=== PATIENT | male | born 1950 | race Caucasian/White ===

== ENCOUNTER 2021-10-21 11:46 | Inpatient (IN) | payer MEDICARE, OTHER, SELFPAY ==
[2021-10-21] VITALS (19 sets, daily range): BP systolic 84–109; BP diastolic 55–79; PULSE 124–180; RESP 16–28; TEMP 35.7–36.6; O2SAT 90–97; BMI 28.2
--- NOTE | ~2021-10-21 | CT_ITS ---
EXAMINATION: CT abdomen pelvis wo con EXAM DATE: 10/27/2021 12:14 INDICATION: Colitis. TECHNIQUE: Spiral CT of the abdomen and pelvis was performed without contrast. Axial, coronal and s agittal images of the abdomen and pelvis were reviewed. The dose-length product (DLP) for this exami nation was 439.30 mGy-cm. The exposure was tailored according to patient size (auto mA exposure cont rol), and iterative reconstruction (ASIR) was used as additional dose reduction technique. Comparison is made to prior examination from 10/21/2021. FINDINGS: There is been interval development of rather extensive pericholecystic inflammation. There are small gallstones. Moderate amount of gallbladder distention. Appearance suggests acute cholecysti tis. Again there is inflammation surrounding the right renal pelvis without hydronephrosis or nephrolithia sis identified. Correlate with urinalysis. Adrenal glands and spleen are unremarkable. The liver, spleen, adrenal glands are unremarkable. Several pancreatic calcifications, chronic pancre atitis. There is moderate prostatomegaly. The bladder is collapsed with Hewitt catheter balloon ancho r inside. There is pericystic fat stranding, could indicate cystitis. There is no retroperitoneal or pelvic lymphadenopathy. Small right inguinal fat-containing hernia. There are no findings to suggest appendicitis. There is moderate sigmoid colonic diverticulosis. The re is no adjacent inflammatory change to suggest diverticulitis. No focal colonic wall thickening T here is small sliding gastroesophageal hiatal hernia. There is colonic fluid, correlate for diarrhea . No free intraperitoneal gas. The heart is normal in size. There are no pericardial or pleural effusions. The lung bases are unremarkable. There are no osteoblastic or osteolytic lesions identif ied. Old right ileal fracture. IMPRESSION: 1. Interval development of rather extensive pericholecystic inflammation suggesting acute cholecysti tis. 2. Persistent inflammation surrounding right renal pelvis and some bladder wall thickening. Could in dicate cystitis or upper UTI. Correlate with urinalysis. 3. Colonic fluid, correlate for diarrhea. 4. Prostatomegaly. Hewitt in position. 5. Sigmoid diverticulosis. Reviewed, dictated and finalized at location A. IMPRESSION: 1. Interval development of rather extensive pericholecystic inflammation sugge sting acute cholecystitis. 2. Persistent inflammation surrounding right renal pelvis and some bladder wal l thickening. Could indicate cystitis or upper UTI. Correlate with urinalysis. 3. Colonic fluid, correlate for diarrhea. 4. Prostatomegaly. Hewitt in position. 5. Sigmoid diverticulosis.
--- NOTE | ~2021-10-21 | CT_ITS ---
EXAMINATION: CT chest abdomen pelvis wo con DATE: 10/21/2021 13:20 INDICATION: Fall with large abrasions and bruising at the left flank TECHNIQUE: Computed tomography (CT) of the chest, abdomen, and pelvis was performed without intraveno us contrast. Automated exposure control and iterative reconstruction technique were employed. The dos e-length product was 964.55 mGy-cm. COMPARISON: None FINDINGS: CHEST CT: Mild dependent atelectasis in the bilateral lower lobes. No pneumonia, pulmonary edema, pleural effus ion or pneumothorax. Small sliding-type hiatal hernia which accounts for the opacity medial left lung base on the prior radiographs. Cardiomegaly. No pericardial effusion. Thoracic aorta is normal in ca liber with no suggestion of acute traumatic aortic injury. No pathologically enlarged thoracic lympha denopathy. There are a few old healed left rib fractures. Suggestion of acute nondisplaced fractures at the lateral lower chest involving the anteriormost left 10th and 11th ribs. Small subcutaneous con tusion at the posterolateral left chest and upper abdominal wall near the level of T11 and T12. Mild thoracic spondylosis. ABDOMEN/PELVIS CT: Liver, gallbladder, spleen, pancreas, bilateral adrenal glands and bilateral kidneys are normal. Ther e is mild bilateral perinephric stranding with more prominent stranding centered about the right meryl l pelvis. No evident urolithiasis. There are some gas and a Hewitt catheter within the decompressed bl adder. Prostatomegaly measuring 6.0 x 4.9 cm. There is mild colonic diverticulosis with a sigmoid pre dominance. There is no adjacent inflammatory change to suggest diverticulitis. No bowel obstruction . The appendix is not visualized. No pericecal inflammatory change to suggest acute appendicitis. No free intraperitoneal gas or fluid. No pathologically enlarged abdominal or pelvic lymphadenopathy. Sm all amount of atherosclerotic calcific a cyst along the normal caliber abdominal aorta. Old healed fr acture along the anterior right ilium. Mild lumbar spondylosis. IMPRESSION: 1. A couple acute appearing nondisplaced anterior left 10th and 11th rib fractures. 2. No acute vascular or visceral organ injury in the chest, abdomen or pelvis. 3. Small sliding-type hiatal hernia. 4. Prominent inflammatory stranding surrounding the right renal pelvis without evident hydronephrosis or urolithiasis and particularly given the presence of a Hewitt catheter in the bladder raising minoo rn for ascending urinary tract infection with pyelitis. Correlate with urinalysis. Reviewed, dictated and finalized at location A. IMPRESSION: 1. A couple acute appearing nondisplaced anterior left 10th and 11th rib fractu res. 2. No acute vascular or visceral organ injury in the chest, abdomen or pelvis. 3. Small sliding-type hiatal hernia. 4. Prominent inflammatory stranding surrounding the right renal pelvis without evident hydronephrosis or urolithiasis and particularly given the presence of a Hewitt catheter in the bladder raising concern for ascending urinary tract infe ction with pyelitis. Correlate with urinalysis.
--- NOTE | ~2021-10-21 | XR_ITS ---
EXAMINATION: XR chest 1V portable EXAM DATE: 10/21/2021 12:19 INDICATION: Chest pain. TECHNIQUE: Portable AP frontal chest x-ray was obtained. There is no prior study for comparison. FINDINGS: Retrocardiac double density, probably a gastroesophageal hiatal hernia. Can patient stand f or PA and lateral projection? The lungs are otherwise clear. There are no pleural effusions. The ca rdiomediastinal silhouette is within normal limits. There is no pneumothorax suspected. There are o ld left rib fractures. IMPRESSION: Retrocardiac double density, probably a gastroesophageal hiatal hernia. Can patient stand for PA and lateral projection? Reviewed, dictated and finalized at location B. IMPRESSION: Retrocardiac double density, probably a gastroesophageal hiatal her dinah. Can patient stand for PA and lateral projection?
--- NOTE | ~2021-10-21 | XR_ITS ---
EXAMINATION: XR catheter cholangiogram DATE: 10/31/2021 10:49 INDICATION: Acute cholecystitis. TECHNIQUE: I injected the cholecystostomy tube with Omnipaque 240 under fluoroscopy. 8 fluoroscopic i mages of the abdomen were obtained. Fluoroscopy exposure time was 0.3 minutes. COMPARISON: CT abdomen and pelvis 10/27/2021 FINDINGS: The catheter is in expected position in the gallbladder. The cystic duct and common duct ar e patent. The common duct is normal in caliber. Contrast passes to the duodenum. No choledocholithias is. IMPRESSION: 1. Patent cystic duct and common duct. Reviewed, dictated and finalized at location A.
--- NOTE | ~2021-10-21 | CT_ITS ---
EXAMINATION: CT brain wo con, CT cervical spine wo con EXAM DATE: 10/21/2021 16:02 (accession [id number]), 10/21/2021 16:03 (accession [id number]) INDICATION: Fall, generalized head and neck pain on left side. TECHNIQUE: Spiral CT of the head was performed without contrast. Axial, coronal and sagittal images were reviewed. Spiral CT of the cervical spine was performed without contrast. Axial images were rev iewed. Coronal and sagittal reformatted images were also reviewed. The dose-length product (DLP) fo r this examination was 605.33 (accession [id number]), 380.19 (accession [id number]) mGy-cm. The exposure was tailored according to patient size, and iterative reconstruction (ASIR) was used as additional dose reduction technique. There is no prior study for comparison. FINDINGS: HEAD CT: There is no acute intraparenchymal hemorrhage. No evidence of intraparenchymal brain mass lesion. No evidence of acute infarction. There is mild periventricular and subcortical hypodensity, nonspecific but probably related to small vessel ischemic disease. There is mild prominence of the s ulci and ventricles related to cerebral atrophy. There is no mass effect or midline shift. There i s no obstructive hydrocephalus suspected. There are no extra-axial collections. There are no acute calvarial fractures. The orbits are unremarkable. Soft tissue is unremarkable. The visualized sinu ses and mastoid air cells are well aerated. CERVICAL CT: There is no evidence of acute cervical fracture. The odontoid process is intact. Pre- dens space is normal. Prevertebral soft tissue is normal. There are no soft tissue abnormalities id entified. There is no disc space widening or traumatic vertebral body subluxation suspected. Modera te disc disease at C5-6, mild at the other cervical levels. Overall mild to moderate cervical arthrop athy. A detailed level by level evaluation of spondylosis can be added as addendum if requested. IMPRESSION: No acute intracranial findings or cervical fracture. Reviewed, dictated and finalized at location B. IMPRESSION: No acute intracranial findings or cervical fracture.
--- NOTE | ~2021-10-21 | US_ITS ---
EXAMINATION: US renal BI DATE: 10/22/2021 08:02 INDICATION: Acute kidney injury TECHNIQUE: Multiple grayscale and Doppler ultrasound images of the kidneys were obtained. COMPARISON: CT from yesterday FINDINGS: The right kidney measures 10.2 x 5.6 x 5.9 cm. The left kidney measures 11.8 x 4.7 x 6.7 cm . The kidneys demonstrate normal parenchymal echogenicity. There is mild right hydronephrosis. The bl adder is decompressed by Hewitt catheter. IMPRESSION: 1. Mild right hydronephrosis. Reviewed, dictated and finalized at location A.
--- NOTE | ~2021-10-21 | US_ITS ---
EXAMINATION: US perc cholecystostomy w imag DATE: 10/28/2021 12:39 INDICATION: Acute cholecystitis. TECHNIQUE: The procedure including the risks, benefits, and alternatives was discussed with the patie nt. Risks discussed included bleeding and infection. Oral and written consent were obtained. A time out was performed to verify the patient's name, date of , and procedure to be performed. The pa tient was confirmed to be receiving appropriate antibiotic coverage. The skin overlying the liver an d gallbladder was prepped and draped in usual sterile fashion. Anesthetic was administered with 1% l idocaine subcutaneously. An 8.5 Fr catheter was inserted into the gallbladder by trocar technique. T he metal stiffener and trocar needle were removed, and the pigtail tip was locked. Bile was aspirated and sent for culture. The catheter was stitched to the skin with suture. There were no immediate com plications. FINDINGS: Ultrasound images demonstrate the catheter within the gallbladder. 5 mL bile was aspirated. IMPRESSION: 1. Successful ultrasound-guided cholecystostomy tube placement. 2. 5 mL brown, opaque bile was sent for aerobic and anaerobic cultures. 3. A catheter cholangiogram may be performed not less than 48 hours after tube placement if clinicall y indicated to assess cystic duct patency. If cholecystectomy is not eventually performed and the inf ectious episode has resolved, the tube may be removed over a guidewire, preferably not less than 3 we eks after placement to allow time for a mature catheter tract to form to prevent bile leakage and per itonitis. Reviewed, dictated and finalized at location A. IMPRESSION: 1. Successful ultrasound-guided cholecystostomy tube placement. 2. 5 mL brown, opaque bile was sent for aerobic and anaerobic cultures. 3. A catheter cholangiogram may be performed not less than 48 hours after tube placement if clinically indicated to assess cystic duct patency. If cholecystec leonidas is not eventually performed and the infectious episode has resolved, the t ube may be removed over a guidewire, preferably not less than 3 weeks after gaurav cement to allow time for a mature catheter tract to form to prevent bile leakag e and peritonitis.
--- NOTE | 2021-10-21 11:51 | ECG_ITS ---
Measurements Intervals [place] Rate: 164 P: OK: 0 QRS: -10 QRSD: 100 T: 9 QT: 285 QTc: 471 Interpretive Statements ATRIAL FIBRILLATION WITH RAPID VENTRICULAR RESPONSE NONSPECIFIC ST & T-WAVE ABNORMALITY ABNORMAL ECG NO PREVIOUS ECG AVAILABLE FOR COMPARISON Electronically Signed On 10-21-2021 17:23:26 CDT by Jakob Hui M.D.
[2021-10-21 12:09] LABS: Hemoglobin 15.4 g/dL (14.0-18.0); Mean Corpuscular HGB Conc 36.7 g/dl (32-36); Mean Corpuscular Hemoglobin 31.8 pg (26-34); Mean Corpuscular Volume 86.6 fl (80-100); Mean Platelet Volume 10.3 fl (7.4-10.4); Platelet Count Result 420 k/mm3 (150-375); Red Blood Count 4.85 M/mm3 (4.6-6.20); Red Cell Distribution Width 13.4 % (11.5-14.5)
[2021-10-21] MEDS: dilTIAZem HCl INJ 25 MG/5 ML VIAL 10 MG IV PUSH (12:19)
[2021-10-21] MEDS: SODIUM CHLORIDE 0.9% IV 1,000 ML 999 ML IV CONT ×2 (12:21→12:46)
[2021-10-21 12:22] LABS: Eosinophils Absolute Manual 1.24 K/mm3 (0.02-0.5); Eosinophils Percent Manual 4 % (0-4); Lymphocytes Absolute Manual 1.55 K/mm3 (1.1-4.5); Monocytes Absolute Manual 1.24 K/mm3 (0.1-0.90); Monocytes Percent Manual 4 % (3-9); Neutrophils Percent Manual 87 % (46-73); Platelet Estimate Adequate (Adequate); Total Cells Counted 100
[2021-10-21] MEDS: dilTIAZem 100 MG/100 ML 100 MG/100 ML BAG IV CONT (12:22)
[2021-10-21 12:23] LABS: INR 1.2; Prothrombin Time 14.6 Seconds (11.1-14.7)
[2021-10-21 12:23] LABS: Lactic Acid Reflex 3.8 mmol/L (0.7-2.1)
[2021-10-21 12:27] LABS: Alanine Aminotransferase 66 U/L (4-50); Albumin Level 3.8 g/dL (3.5-5.1); Alkaline Phosphatase 95 U/L (38-126); Anion Gap 25 mmol/L (8-16); Aspartate Amino Transferase 124 U/L (17-59); Bilirubin,Total 1.2 mg/dL (0.2-1.3); Calcium 8.5 mg/dL (8.4-10.2); Carbon Dioxide 10 mmol/L (22-30); Chloride 86 mmol/L (98-107); Glucose 237 mg/dL (65-110); Lipase 439 U/L (23-300); Magnesium 2.7 mg/dL (1.6-2.3); Potassium 4.7 mmol/L (3.4-5.0); Sodium 121 mmol/L (137-145)
[2021-10-21 12:34] LABS: Troponin I 0.024 ng/mL (0.000-0.034)
[2021-10-21 12:37] LABS: Estimated CRCL calculation 5 ml/min; Estimated Glomerular Filt Rate 5
[2021-10-21 12:39] LABS: Blood Urea Nitrogen 159 mg/dL (9-20)
[2021-10-21 12:44] LABS: Creatine Kinase 4734 U/L (55-170)
--- NOTE | 2021-10-21 12:57 | ED.GENADULT ---
HPI - General Adult General Chief complaint: Arrhythmia/Palpitations Stated complaint: FALL - out of bed Time Seen by Provider: 10/21/21 11:53 Source: patient, EMS and RN notes reviewed Mode of arrival: EMS Limitations: no limitations History of Present Illness HPI narrative: Patient is a 71 years old white male brought to the emergency room by ambulance after finding him on the floor, awake but unable to get up. Patient reports that he was severely exhausted, unable to manage his tax paper, severely stressed about it and then gave up and went down to the floor for unknown reason. Patient denies any suicidal or homicidal ideation. Patient lives alone, no family members around. Currently patient denies any fever, chills, nausea, vomiting, chest pain, shortness of breath, abdominal pain, back pain, headache. Or any other symptoms. Patient would like to go home. Patient requested to be DNR, and he declined any invasive procedure. Related Data Home Medications Medication Instructions Recorded Confirmed aspirin 81 mg tablet,delayed 81 mg PO DAILY 10/27/19 10/21/21 release multivitamin 1 tablet PO DAILY 05/02/21 10/21/21 Allergies Allergy/AdvReac Type Severity Reaction Status Date / Time No Known Allergies Allergy Verified 05/02/21 08:26 Review of Systems Review of Systems: CONSTITUTIONAL: Denies fever, chills, or sweats. EYES: Denies visual changes, redness, or discharge. ENT: Denies rhinorrhea, congestion, sore throat, or otalgia. CARDIOVASCULAR: Denies chest pain, palpitations, or edema. RESPIRATORY: Denies cough or dyspnea. GASTROINTESTINAL: Denies abdominal pain, nausea, vomiting, or diarrhea. GENITOURINARY: Denies dysuria or hematuria. SKIN: Denies rash or itching. MUSCULOSKELETAL: Denies back pain, joint pain, or myalgia. NEUROLOGIC: Denies headache, numbness, or weakness. PSYCHIATRIC: Denies anxiety or depression. [facility] Past Medical History Medical History Essential (primary) hypertension Mixed hyperlipidemia Type 2 diabetes mellitus without complications Family History Family History Father Hypertension Mother Hypertension Patient's mother is Social History Social History Smoking status: Never smoker Alcohol intake: never Exam Narrative: General appearance: Well-developed, well-nourished Skin: Multiple bruises/ecchymosis, skin abrasion on the back mainly left side Head: Normocephalic, nontraumatic Eyes: Clear conjunctiva ENT: Oropharynx normal, ears normal, nose normal Neck: Supple, nontender Chest and respiratory: Airway patent, no respiratory distress, no accessory muscle use Heart: Regular rate/rhythm Abdomen: Soft, nontender, no organomegaly, quiet bowel sounds Vascular: Normal peripheral pulses, normal capillary refill. Musculoskeletal: Normal range of motion, nontender back Neurologic: Alert and oriented ?3, ENGINEER/CONDUCTOR is normal as tested, no gross motor deficit Course Consultations Consultation #1: DR AVILES Date: 10/21/21 Time: 13:13 Vital Signs Vital signs: Vital Signs Temperature 35.7 C L 10/21/21 11:51 Pulse Rate 180 H 10/21/21 11:51 Respiratory Rate 22 H 10/21/21 11:51 Blood Pressure 84/69 L 10/21/21 11:51 Temperature 35.8 C L 10/21/21 12:03 Pulse Rate 171 H 10/21/21 12:22 Respiratory Rate 22 H 10/21/21 11:51 Blood Pressure 102/79 10/21/21 12:22 Medical Decision Making Vital Signs Vital Signs: Vital Signs Temperature 35.7 C L 10/21/21 11:51 Pulse Rate 180 H 10/21/21 11:51 Respiratory Rat
[2021-10-21 13:09] LABS: SARS-CoV-2 RNA PCR Negative
--- NOTE | 2021-10-21 13:12 | WPDCNINT ---
Assessment and Plan Assessment and plan (1) Sepsis: Code(s): A41.9 - Sepsis, unspecified organism Status: Acute Assessment and Plan: His source of the sepsis appears to be UTI. His UA is pending but his urine appears dark foul-smelling. His CT suggest evidence of pyelitis UA with urine cultures ordered. Blood cultures also ordered Patient has been started on IV vancomycin and Zosyn in ED which will be continued for now His blood pressures improved and at this point he is not requiring any vasopressors Will monitor lactic acid level (2) Acute kidney injury: Code(s): N17.9 - Acute kidney failure, unspecified Status: Acute Assessment and Plan: Patient's acute kidney injury appears to be multifactorial. He appears to have a urinary obstruction as once Hewitt was placed at 2 L of dark urine came out. He also has the rhabdomyolysis likely from laying on floor for 24 hours. He was also taking lisinopril and metformin as an outpatient. He denies any nonsteroidal intake As abov mentioned, patient is given IV fluid bolus and will be started on maintenance IV fluids Hewitt has been placed Metformin and lisinopril has been discontinued Urine electrolytes will be ordered CT does not show any hydronephrosis at this time Consult nephrology I spoke to patient and he told me that he does not want dialysis if his kidneys do not recover. He verbalized understanding that if his renal function does not improve and he does not accept dialysis he may from it. This is consistent with his other she is as mentioned below (3) Metabolic acidosis: Code(s): E87.2 - Acidosis Status: Acute Assessment and Plan: Secondary to rhabdomyolysis and acute kidney injury IV fluids with bicarb (4) Rhabdomyolysis: Code(s): M62.82 - Rhabdomyolysis Status: Acute Assessment and Plan: Patient has rhabdomyolysis likely secondary to laying in the floor for a while IV fluid bolus and followed by IV fluids with bicarb Monitor CK level (5) Elevated lipase: Code(s): R74.8 - Abnormal levels of other serum enzymes Status: Acute Assessment and Plan: Patient has elevated lipase on testing He denies any abdominal pain nausea vomiting at this time His abdominal exam is benign and he is not tender Will start diabetic diet and monitor (6) Type 2 diabetes mellitus without complications: Qualifiers: Diabetes mellitus exterminator helper insulin use: without exterminator helper use Qualified Code(s): E11.9 - Type 2 diabetes mellitus without complications Code(s): E11.9 - Type 2 diabetes mellitus without complications Status: Acute Assessment and Plan: Sliding scale insulin (7) Essential (primary) hypertension: Code(s): I10 - Essential (primary) hypertension Status: Acute Assessment and Plan: Hold blood pressure medications and blood pressure soft (8) Mixed hyperlipidemia: Code(s): E78.2 - Mixed hyperlipidemia Status: Acute Assessment and Plan: Mildly elevated liver enzymes hence will hold statin at this time (9) Atrial fibrillation with RVR: Code(s): I48.91 - Unspecified atrial fibrillation Status: Acute Assessment and Plan: Due to soft blood pressure patient will be started on amnio infusion after and amnio bolus Patient was given diltiazem which led to further drop in his blood pressure in the ED Not a candidate for anticoagulation or antiplatelet therapy due to large bruise at this time Check echocardiogram (10) Hyponatremia: Code(s): E87.1 - Hypo-osmolality and hyponatremia Status: Acute Assessment and Plan: Secondary to hypovolemia and acute kidney injury Patient is getting volume resuscitation at this time for sepsis Will check BMP in 4 hours and then every 4 hours He is on IV fluid with bicarb at this time Nephrology will be consulted Additional Plan DVT prophylaxis -SCDs Nutrition -diab
[2021-10-21] MEDS: SODIUM BICARBONATE 8.4% 150 MEQ in WATER, STERILE FOR INJECTION 950 ML 500 MEQ IV CONT (13:44)
[2021-10-21] MEDS: AMIODARONE 150 MG/D5W 100 ML 150 MG/100 ML BAG 600 MG IV CONT ×4 (14:22→23:10)
--- NOTE | 2021-10-21 14:45 | PM.IMHP ---
H&P: HPI History of Present Illness Date/Time: Patient requires inpatient monitoring with expected length of stay to exceed 2 midnights for management of care. 10/21/21 14:45 Chief Complaint: Fall Narrative: Mr. Pollack is a 71-year-old gentleman who presented emergency room after being found on the floor by EMS. Patient has a known history of hypertension, diabetes mellitus, and dyslipidemia. Patient states that he was working on his tax papers the other evening and he dropped some papers, he bent over to pick them up and fell on the floor and could not get up. Patient states he noticed that it was 10:00 p.m. and when he could not get off the floor he decided to go to sleep. Patient states he slept through the night and he is unsure of how long he was on the floor for. Per the emergency room records patient has never had noticed the patient had not been outside a day or so and called EMS to see if patient was okay. Patient denies anything at this time. Patient denies any chest pain, shortness breast, lightheadedness, dizziness, syncopal, or near syncopal episodes. Patient denies any palpitations. Upon evaluation in emergency room patient was noted to be in atrial fibrillation with rapid ventricular response, hypotensive, and hypothermic. Patient did have a Hewitt catheter placed and he had a quick return of 1 L of a dark reddish color urine. Patient's Hewitt catheter then had to be clamped and then after unclamping the Hewitt catheter patient had a another L of urine output. Patient states that he has not recently had any difficulty urinating. It was noted in the emergency room patient's BUN and creatinine are significantly elevated patient was in acute kidney injury. Patient was also noted to be in rhabdomyolysis with a CK of over 4000. Patient states he does have a history of hypertension, diabetes mellitus, and dyslipidemia for which he takes all of his medications were. Patient states he has not had any recent problems any is unsure why he was unable to get up off the floor. Patient states he never lost consciousness he did just fall asleep on the floor because it was late and he was tired. Patient denies any cardiac history. Patient denies any history of coronary artery disease, myocardial infarction, or arrhythmias. Patient denies any history of CVA or TIA. Review of Systems Review of Systems: A 12 point review of systems was completed patient all pertinent positive and negative per HPI the remainder are unremarkable. [facility] Past Medical History Medical History Essential (primary) hypertension Mixed hyperlipidemia Type 2 diabetes mellitus without complications Family History Family History Father Hypertension Mother Hypertension Patient's mother is Social History Social History Smoking status: Never smoker Alcohol intake: never Meds Home Medications and Allergies Home Medications Medication Instructions Recorded Confirmed Type aspirin 81 mg tablet,delayed 81 mg PO DAILY 10/27/19 10/21/21 History release atorvastatin 40 mg tablet 40 mg PO DAILY #90 tablet 04/26/21 10/21/21 Rx multivitamin 1 tablet PO DAILY 05/02/21 10/21/21 History lisinopril 40 mg tablet 40 mg PO DAILY #90 tablet 08/19/21 10/21/21 Rx metformin 500 mg tablet 500 mg PO BID #180 tablet 09/05/21 10/21/21 Rx amlodipine 5 mg tablet 5 mg PO DAILY #90 tablet 10/13/21 10/21/21 Rx Allergies Allergy/AdvReac Type Severity Reaction Status Date / Time No Known Allergies Allergy Verified 05/02/21 08:26 Vital Signs Vital Signs - 24 hr 10/21/21 11:51 10/21/21 12:03 10/21/21 12:22 Temperature 35.7 C L 35.8 C L Pulse Rate 180 H 171 H Respiratory Rate 22 H Blood Pressure 84/69 L 102/79 Pulse Oximetry 10/21/21 14:22 10/21/21 14:29 Temperature 36.6 C Pulse R
--- NOTE | 2021-10-21 14:54 | PM.CNCAR ---
Assessment and Plan Additional Plan -atrial fibrillation with RVR -altered mental status -acute renal failure with urine retention -rhabdomyolysis -leukocytosis This 71-year-old patient was found on the floor. It fell down and felt very weak to get up. Was found to be hypotensive, hypothermic with AFib with RVR. Currently in AFib with RVR. He sustained non displaced fracture left 11th and 12th rib with extensive bruising over the left side of the chest. Was found to be in urine retention with drainage of 2 L. Evidence of rhabdomyolysis. -recommend to start IV amiodarone bolus and drip. -he will need anticoagulation however will hold off starting him today because of extensive bruising on the back and because of evidence of rib fracture. Concern about inducing hemorrhage. -continue antibiotics. -septic workup Echo History of Present Illness History of Present Illness Consult date/time: Date of service 10/21/21 14:54 Requesting physician: Nisha Mack MD Consult reason: atrial fibrillation Reason For Visit: Acute kidney failure/rhabdomyolysis/hyponatremia/A Narrative: This 71-year-old patient with history of hypertension, hyperlipidemia, diabetes who was brought in by EMS after being found on the floor by a friend. Apparently has been feeling weak for last few days and he reached to tax paper and then fell to the ground and was too weak to get up. He was on the floor for 24 hours. Apparently EMS was called by friend. He was found to be hypothermic, hypotensive and in atrial fibrillation. His blood pressure was 85/69 and heart rate 160 beats per minute and hypothermic 35.6 centigrade. Apparently had urine retention and Hewitt catheter was placed with drainage of 2 L of dark urine. He is feeling very weak. Cannot provide clear history about what happened. No family at bedside. Review of system happened from the chart. White cell count 31 K, creatinine 11, sodium 121, creatinine kinase is 4700, troponin x1 negative, elevated lactic acid at 3.8. CT abdomen and pelvis suggestive of stranding around the right kidney. Chest x-ray suggestive of retrocardiac opacity likely hiatal hernia. EKG review analyzed massive shows AFib with RVR. Review of Systems Review of Systems: ROS unobtainable: Yes unobtainable due to medical condition (No family on bedside. Most of the review of system from the chart.) Constitutional: Constitutional: Reports fatigue, Reports lethargy and Reports weakness Eyes: Eyes: Denies blurry vision ENT: Denies nasal congestion Cardiovascular: Cardiovascular: Denies chest pain and Reports lightheadedness PMFSH Past Medical History Medical History Essential (primary) hypertension Mixed hyperlipidemia Type 2 diabetes mellitus without complications Family History Family History Father Hypertension Mother Hypertension Patient's mother is Social History Social History Smoking status: Never smoker Alcohol intake: never Meds Home Medications and Allergies Home Medications Medication Instructions Recorded Confirmed Type aspirin 81 mg tablet,delayed 81 mg PO DAILY 10/27/19 10/21/21 History release atorvastatin 40 mg tablet 40 mg PO DAILY #90 tablet 04/26/21 10/21/21 Rx multivitamin 1 tablet PO DAILY 05/02/21 10/21/21 History lisinopril 40 mg tablet 40 mg PO DAILY #90 tablet 08/19/21 10/21/21 Rx metformin 500 mg tablet 500 mg PO BID #180 tablet 09/05/21 10/21/21 Rx amlodipine 5 mg tablet 5 mg PO DAILY #90 tablet 10/13/21 10/21/21 Rx Allergies Allergy/AdvReac Type Severity Reaction Status Date / Time No Known Allergies Allergy Verified 05/02/21 08:26 Vital Signs Vital Signs - 24 hr 10/21/21 11:51 10/21/21 12:03 10/21/21 12:22 Temperature 35.7 C L 35.8 C L Pulse Rate 180 H 171 H Respi
[2021-10-21] MEDS: AMIODARONE 360 MG/D5W 200 ML 360 MG/200 ML BAG 33.33 MG IV CONT ×2 (15:07→20:13)
[2021-10-21 15:14] LABS: Reflex Lactic Acid Yes or No Add Lactic
--- NOTE | 2021-10-21 15:54 | PM.CNNEP ---
Assessment and Plan Assessment and plan (1) Acute kidney injury: Code(s): N17.9 - Acute kidney failure, unspecified Status: Acute Assessment and Plan: multifactorial etiology: hypotension/hemodynamic instability urinary retention/obstruction infection (UTI +/- pyelonephritis) pre-renal factors rhabdomyolysis concurrent use of KIRSTIE-I + metformin imaging without obstruction (giron catheter in place) follow-up on urine electrolytes follow repeat labs and UOP (2) Sepsis: Code(s): A41.9 - Sepsis, unspecified organism Status: Acute Assessment and Plan: suspect UTI along with pyelonephritis follow culture data on antibiotics follow hemodynamics (3) Hyponatremia: Code(s): E87.1 - Hypo-osmolality and hyponatremia Status: Acute Assessment and Plan: presumably related to MARILIN/ARF follow trend of sodium with IVF resuscitation (4) Metabolic acidosis: Code(s): E87.2 - Acidosis Status: Acute Assessment and Plan: due to MARILIN follow lactic acid follow trend (5) Rhabdomyolysis: Code(s): M62.82 - Rhabdomyolysis Status: Acute Assessment and Plan: CPK elevated on admission follow trend (as may worsen) continue IVF hydration (6) Atrial fibrillation with RVR: Code(s): I48.91 - Unspecified atrial fibrillation Status: Acute Assessment and Plan: new onset Cardiology following (7) Diabetes: Code(s): E11.9 - Type 2 diabetes mellitus without complications Status: Chronic Assessment and Plan: follow accuchecks glycemic control I had a long extensive discussion (greater than 20 minutes) rib with the patient regarding his severe acute kidney injury/ acute renal failure and my concerns that there is a possibility that he may require renal replacement therapy /dialysis if conservative therapy fails to improve his kidney function. He reader reiterated to me as he did to the ER physician as well as the petal cutter, that he would not want any invasive therapy done with regard to renal replacement therapy /dialysis in general and he is aware of the consequences should his renal function fail to improve. Will continue to follow. History of Present Illness Reason for Consult Consult date: 10/21/21 Reason for consult: acute renal failure Chief Complaint Chief complaint: Acute kidney failure/rhabdomyolysis/hyponatremia/A History of Present Illness Narrative: Most of the information I have obtained is from review of the electronic medical record, discussion with the ER physician, as well as other information the paper chart as it is somewhat difficult to get a full and complete history of the events that occurred that led to his presentation to the emergency room. The patient is a 71-year-old male with a past medical history as outlined below who presented to [facility] Emergency room via EMS after being found down on the floor. Apparently, the patient was state was working on his tax papers on the evening prior to admission. He dropped some of these papers on the floor, we bent over to pick them up and apparently fell on the floor at which point he could not get back up. This was apparently around 10:00 p.m. when the fall occurred. As he apparently could not get up he decided just stay on the floor and go to sleep. He did not elaborate as to why he did not call for assistance or help at that time but stated that since he was already fatigued/tired he decided just go to sleep. Apparently, 1 of his friends noted that he had not seen him around and was concerned and apparently noted that he was on the floor when he came to check on him. He subsequent called EMS for further assistance. Given the events as mentioned, EMS brought him to the ER for further evaluation and therapy Workup and evaluation emergency room demonstrated the patient to be severely hypotensive,
--- NOTE | 2021-10-21 15:54 | P.CONNP_ITS ---
Assessment and Plan Assessment and plan (1) Acute kidney injury: Code(s): N17.9 - Acute kidney failure, unspecified Status: Acute Assessment and Plan: * multifactorial etiology: * hypotension/hemodynamic instability * urinary retention/obstruction * infection (UTI +/- pyelonephritis) * pre-renal factors * rhabdomyolysis * concurrent use of KIRSTIE-I + metformin * imaging without obstruction (giron catheter in place) * follow-up on urine electrolytes * follow repeat labs and UOP (2) Sepsis: Code(s): A41.9 - Sepsis, unspecified organism Status: Acute Assessment and Plan: * suspect UTI along with pyelonephritis * follow culture data * on antibiotics * follow hemodynamics (3) Hyponatremia: Code(s): E87.1 - Hypo-osmolality and hyponatremia Status: Acute Assessment and Plan: * presumably related to MARILIN/ARF * follow trend of sodium with IVF resuscitation (4) Metabolic acidosis: Code(s): E87.2 - Acidosis Status: Acute Assessment and Plan: * due to MARILIN * follow lactic acid * follow trend (5) Rhabdomyolysis: Code(s): M62.82 - Rhabdomyolysis Status: Acute Assessment and Plan: * CPK elevated on admission * follow trend (as may worsen) * continue IVF hydration (6) Atrial fibrillation with RVR: Code(s): I48.91 - Unspecified atrial fibrillation Status: Acute Assessment and Plan: * new onset * Cardiology following (7) Diabetes: Code(s): E11.9 - Type 2 diabetes mellitus without complications Status: Chronic Assessment and Plan: * follow accuchecks * glycemic control I had a long extensive discussion (greater than 20 minutes) rib with the patient regarding his severe acute kidney injury/ acute renal failure and my concerns that there is a possibility that he may require renal replacement therapy /dialysis if conservative therapy fails to improve his kidney function. He reader reiterated to me as he did to the ER physician as well as the conduit cleaner, that he would not want any invasive therapy done with regard to renal replacement therapy /dialysis in general and he is aware of the consequences should his renal function fail to improve. Will continue to follow. History of Present Illness Reason for Consult Consult date: 10/21/21 Reason for consult: acute renal failure Chief Complaint Chief complaint: Acute kidney failure/rhabdomyolysis/hyponatremia/A History of Present Illness Narrative: Most of the information I have obtained is from review of the electronic medical record, discussion with the ER physician, as well as other information the paper chart as it is somewhat difficult to get a full and complete history of the events that occurred that led to his presentation to the emergency room. The patient is a 71-year-old male with a past medical history as outlined below who presented to [facility] Emergency room via EMS after being found down on the floor. Apparently, the patient was state was working on his tax papers on the evening prior to admission. He dropped some of these papers on the floor, we bent over to pick them up and apparently fell on the f taisha at which point he could not get back up. This was apparently around 10:00 p.m. when the fall occurred. As he apparently could not get up he decided just stay on the floor and go to sleep. He did not elaborate as to why he did not call for assistance or help at that time but stated that since he was already fatigu
[2021-10-21 16:10] LABS: Add Urine Microscopic? YES; Appearance Urine Cloudy (Clear); Bilirubin Urine Negative (Negative); Blood Urine 3+ (Negative); Color Urine Yellow (Yellow); Glucose Urine UA 2+ mg/dL (Negative); Ketones Urine Negative (Negative); Leukocyte Esterase Ur 3+ LEU/UL (Negative); Nitrate Urine Negative (Negative); Protein Urine Negative (Negative); RBC Urine >75 /hpf (0-2); Specific Grav Ur 1.011 (1.001-1.035); Urobilinogen Urine Negative mg/dL (<2.0); WBC Clumps Urine Present /HPF; WBC Urine >75 /hpf
--- NOTE | 2021-10-21 16:15 | ADMGEN ---
This patient, Adolfo Pollack, was admitted to Intensive Care Unit-7 at 1605. Patient/family oriented to hospital policies and general routines including ID bracelet, bed and alarms, visiting hours, pain management, procedures, bathroom and other care routines, personal items, smoking policy, room service/diet, and visiting hours. Information on how to activate the Rapid Response Team has been discussed. Patient/Family are encouraged to report perceived risks to care and to ask questions if they do not understand what they are told or what they should do.
[2021-10-21] MEDS: SODIUM BICARBONATE 8.4% 150 MEQ in WATER, STERILE FOR INJECTION 950 ML 125 MEQ IV CONT (16:16)
[2021-10-21] MEDS: DIGOXIN INJ 250 MCG/ML 2 ML AMP (*BKC) IV PUSH ×2 (16:33→23:09)
[2021-10-21 16:49] LABS: Procalcitonin 1.2 ng/mL
[2021-10-21] MEDS: INSULIN ASPART (*BKC) 100 UNITS/ML SUB-Q (16:53)
[2021-10-21] MEDS: AMIODARONE 150 MG/D5W 100 ML 150 MG/100 ML BAG 600 MG (17:02)
[2021-10-21 17:07] LABS: Glucose Point of Care 232 mg/dl (65-105)
[2021-10-21 17:16] LABS: Lactic Acid Reflex 1.5 mmol/L (0.7-2.1)
[2021-10-21 17:20] LABS: Anion Gap 17 mmol/L (8-16); Calcium 7.3 mg/dL (8.4-10.2); Carbon Dioxide 15 mmol/L (22-30); Chloride 90 mmol/L (98-107); Estimated CRCL calculation 8 ml/min; Estimated Glomerular Filt Rate 7; Glucose 239 mg/dL (65-110); Potassium 3.1 mmol/L (3.4-5.0); Sodium 122 mmol/L (137-145)
[2021-10-21 17:29] LABS: Blood Urea Nitrogen 144 mg/dL (9-20)
[2021-10-21 17:31] LABS: Phosphorus 7.4 mg/dL (2.5-4.5)
[2021-10-21] MEDS: POTASSIUM CHLORIDE INJ 40 MEQ in SODIUM CHLORIDE 0.9% IV 500 ML 130 MEQ IVPB (18:30)
[2021-10-21 18:40] LABS: Troponin I 0.045 ng/mL (0.000-0.034)
[2021-10-21 20:40] LABS: Glucose Point of Care 199 mg/dl (65-105)
[2021-10-21 21:21] LABS: Lactic Acid 2.1 mmol/L (0.7-2.1)
[2021-10-21 21:24] LABS: Anion Gap 14 mmol/L (8-16); Calcium 7.8 mg/dL (8.4-10.2); Carbon Dioxide 19 mmol/L (22-30); Chloride 92 mmol/L (98-107); Estimated CRCL calculation 9 ml/min; Estimated Glomerular Filt Rate 8; Glucose 189 mg/dL (65-110); Potassium 3.2 mmol/L (3.4-5.0); Sodium 125 mmol/L (137-145)
[2021-10-21 21:49] LABS: Blood Urea Nitrogen 128 mg/dL (9-20); Troponin I 0.065 ng/mL (0.000-0.034)
[2021-10-21] MEDS: KCL 20 MEQ/SW 100 ML 100 ML 50 MEQ IVPB (23:08)
[2021-10-21] MEDS: SODIUM CHLORIDE 0.9% IV 500 ML IV CONT (23:09)
[2021-10-22] VITALS (22 sets, daily range): BP systolic 112–149; BP diastolic 61–114; PULSE 75–152; RESP 17–31; TEMP 36.4–37.2; O2SAT 93–99
--- NOTE | 2021-10-22 | ECHO_ITS ---
Patient Info Name: Adolfo Pollack Age: 71 years : 1950 Gender: Male Ht: 69 in Wt: 179 lbs BSA: 2.00 m2 HR: 149 bpm BP: 149 / 80 mmHg Heart Rhythm: Atrial Fibrillation, Tachycardia Technical Quality: Fair Exam Date: 10/22/2021 9:32 AM Exam Location: [facility] Patient Status: Inpatient Admit Date: 10/21/2021 Staff Ordering Physician: Joaquin House MD Online Media Director: Elyse Wynn RDCS Attending Provider: Chi Harrison MD Exam Type: CA echo dop color flow w con Study Info Indications I48.0 - Paroxysmal atrial fibrillation Complete two-dimensional, color flow and Doppler transthoracic echocardiogram is performed with contrast to opacify the left ventricle and to improve the deliniation of the left ventricle endocardial borders. Contrast/Agitated Saline Contrast/Ag. Saline: Definity Amount: 4.00 ml Summary 1. Technically difficult study with limited views. Definity contrast administered. Regional wall motion assessment limited due to poor endomyocardial border definition. 2. Left ventricular chamber dimension is normal. 3. Left ventricular systolic function is normal, estimated at 60-65%. 4. There is mildly increased left ventricular wall thickness. 5. There is trace mitral valve regurgitation. 6. There is trace tricuspid valve regurgitation. 7. No pulmonary hypertension, estimated pulmonary arterial systolic pressure is 24 mmHg. Left Ventricle Technically difficult study with limited views. Definity contrast administered. Regional wall motion assessment limited due to poor endomyocardial border definition. Left ventricular chamber dimension is normal. Left ventricular systolic function is normal, estimated at 60-65%. There is mildly increased left ventricular wall thickness. The left ventricular diastolic function is indeterminate. Right Ventricle Right ventricular chamber dimension is normal. Right ventricular systolic function is normal. Left Atria Left atrial chamber dimension is normal. Right Atria Right atrial chamber dimension is normal. Aortic Valve The aortic valve is probable trileaflet. There is no aortic valve stenosis. There is no aortic valve regurgitation. Pulmonic Valve The pulmonic valve is not well visualized. Mitral Valve The mitral valve has not well visualized. There is trace mitral valve regurgitation. Tricuspid Valve The tricuspid valve leaflets are not well visualized. There is trace tricuspid valve regurgitation. No pulmonary hypertension, estimated pulmonary arterial systolic pressure is 24 mmHg. Pericardium/Pleural The pericardium appears epicardial fat pad. There is trivial pericardial effusion. Inferior Vena Cava Normal inferior vena cava with >50% collapse upon inspiration consistent with normal right atrial pressure, 5 mmHg. Aorta The aortic root size at the sinus of Valsalva is normal. There is mild aortic atherosclerosis. Left Ventricular Outflow Tract Name Value Normal LVOT 2D LVOT Diameter 2.18 cm LVOT Doppler LVOT Peak Gradient 3 mmHg LVOT Mean Gr
[2021-10-22 01:01] LABS: Anion Gap 11 mmol/L (8-16); Blood Urea Nitrogen 115 mg/dL (9-20); Calcium 7.7 mg/dL (8.4-10.2); Carbon Dioxide 21 mmol/L (22-30); Chloride 95 mmol/L (98-107); Estimated CRCL calculation 12 ml/min; Estimated Glomerular Filt Rate 11; Glucose 199 mg/dL (65-110); Potassium 3.4 mmol/L (3.4-5.0); Sodium 127 mmol/L (137-145)
[2021-10-22] MEDS: AMIODARONE 360 MG/D5W 200 ML 360 MG/200 ML BAG 33.33 MG IV CONT ×2 (01:54→09:11)
[2021-10-22 03:45] LABS: Toxigenic C. Diff NEGATIVE (NEGATIVE)
[2021-10-22 04:54] LABS: Alanine Aminotransferase 53 U/L (4-50); Albumin Level 2.8 g/dL (3.5-5.1); Alkaline Phosphatase 84 U/L (38-126); Anion Gap 9 mmol/L (8-16); Aspartate Amino Transferase 99 U/L (17-59); Bilirubin,Total 0.6 mg/dL (0.2-1.3); Blood Urea Nitrogen 98 mg/dL (9-20); Calcium 7.6 mg/dL (8.4-10.2); Carbon Dioxide 22 mmol/L (22-30); Chloride 98 mmol/L (98-107); Creatine Kinase 2518 U/L (55-170); Estimated CRCL calculation 16 ml/min; Estimated Glomerular Filt Rate 16; Glucose 215 mg/dL (65-110); Lipase 353 U/L (23-300); Magnesium 2.3 mg/dL (1.6-2.3); Phosphorus 3.6 mg/dL (2.5-4.5); Potassium 3.2 mmol/L (3.4-5.0); Sodium 129 mmol/L (137-145)
[2021-10-22] MEDS: SODIUM BICARBONATE 8.4% 150 MEQ in WATER, STERILE FOR INJECTION 950 ML 125 MEQ IV CONT (05:21)
[2021-10-22 05:22] LABS: Basophils Percent Auto 0.2 % (0.2-1.2); Eosinophils Percent Auto 0.1 % (0-4.4); Hematocrit 39.9 % (42.0-52.0); Hemoglobin 14.8 g/dL (14.0-18.0); Immature Granulocyte Absolute 0.43 K/mm3 (0.00-0.031); Immature Granulocyte Percent A 2.2 % (0-0.5); Mean Corpuscular HGB Conc 37.1 g/dl (32-36); Mean Corpuscular Volume 83.6 fl (80-100); Mean Platelet Volume 10.1 fl (7.4-10.4); Monocytes Absolute Auto 1.5 K/mm3 (0.1-0.6); Monocytes Percent Auto 7.6 % (2.6-8.5); Neutrophils Percent Auto 85.9 % (45.5-73.1); Platelet Count Result 374 k/mm3 (150-375); Red Blood Count 4.77 M/mm3 (4.6-6.20); Red Cell Distribution Width 12.9 % (11.5-14.5); White Blood Count 19.8 K/mm3 (4.5-10.0)
[2021-10-22] MEDS: POTASSIUM CHLORIDE INJ 40 MEQ in SODIUM CHLORIDE 0.9% IV 500 ML 130 MEQ IVPB (06:18)
[2021-10-22 09:10] LABS: Glucose Point of Care 258 mg/dl (65-105)
[2021-10-22] MEDS: KCL 20 MEQ/D5W 1,000 ML 1,000 ML 100 ML IV CONT (09:10)
[2021-10-22] MEDS: POTASSIUM CHLORIDE 20 MEQ TABLET 40 MEQ PO (09:10)
[2021-10-22] MEDS: DIGOXIN INJ 250 MCG/ML 2 ML AMP (*BKC) IV PUSH (09:10)
[2021-10-22 09:16] LABS: Anion Gap 9 mmol/L (8-16); Blood Urea Nitrogen 85 mg/dL (9-20); Calcium 7.7 mg/dL (8.4-10.2); Carbon Dioxide 22 mmol/L (22-30); Chloride 97 mmol/L (98-107); Estimated CRCL calculation 23 ml/min; Estimated Glomerular Filt Rate 24; Glucose 244 mg/dL (65-110); Potassium 4.3 mmol/L (3.4-5.0); Sodium 128 mmol/L (137-145)
--- NOTE | 2021-10-22 09:33 | WPDINTPN ---
Progress Note: A&P Assessment and Plan (1) Sepsis: Code(s): A41.9 - Sepsis, unspecified organism Status: Acute Assessment and Plan: His source of the sepsis appears to be UTI. His UA was suggestive of UTI and his urine appeared dark foul-smelling on presentation. His CT suggest evidence of pyelitis Urine cultures ordered. Blood cultures also ordered Patient has been started on IV vancomycin and Zosyn in ED which will be continued for now. I will discontinue vancomycin but continue Zosyn His blood pressures improved and at this point he is not requiring any vasopressors His lactic acid level has normalized (2) Atrial fibrillation with RVR: Code(s): I48.91 - Unspecified atrial fibrillation Status: Acute Assessment and Plan: Due to soft blood pressure patient will be started on amnio infusion after amnio bolus Patient was given diltiazem which led to further drop in his blood pressure in the ED Not a candidate for anticoagulation therapy due to large bruise at this time. Will start with antiplatelet aspirin His rate still appears to being high bite multiple boluses of amiodarone. Continue amiodarone infusion Patient was given 2 doses of digoxin overnight and I will continue today Recheck digoxin level in the morning Cardiology has been consulted Pending echocardiogram (3) Acute kidney injury: Code(s): N17.9 - Acute kidney failure, unspecified Status: Acute Assessment and Plan: Patient's acute kidney injury appears to be multifactorial. He appears to have a urinary obstruction as once Hewitt was placed at 2 L of dark urine came out. He also has the rhabdomyolysis likely from laying on floor for 24 hours. He was also taking lisinopril and metformin as an outpatient. He denies any nonsteroidal intake As abov mentioned, patient is given IV fluid bolus and will be started on maintenance IV fluids Hewitt has been placed Metformin and lisinopril has been discontinued Urine electrolytes will be ordered CT does not show any hydronephrosis at this time and renal ultrasound is pending Consulted nephrology On presentation, I spoke to patient and he told me that he does not want dialysis if his kidneys do not recover. He verbalized understanding that if his renal function does not improve and he does not accept dialysis he may from it. This is consistent with his other she is as mentioned below (4) Hyponatremia: Code(s): E87.1 - Hypo-osmolality and hyponatremia Status: Acute Assessment and Plan: Secondary to hypovolemia and acute kidney injury Patient i received volume resuscitation on present for sepsis His BMP was monitored every 4 hours His sodium has improved and is improving slightly at a faster rate than ideal I have changed his fluids to D5 water and will continue monitoring Nephrology will be consulted (5) Metabolic acidosis: Code(s): E87.2 - Acidosis Status: Acute Assessment and Plan: Secondary to rhabdomyolysis and acute kidney injury Improved with IV fluids with bicarb. IV fluids will be changed to D5 water (6) Rhabdomyolysis: Code(s): M62.82 - Rhabdomyolysis Status: Acute Assessment and Plan: Patient has rhabdomyolysis likely secondary to laying in the floor for a while IV fluid bolus and followed by IV fluids with bicarb Monitor CK level which is improving (7) Elevated lipase: Code(s): R74.8 - Abnormal levels of other serum enzymes Status: Acute Assessment and Plan: Patient has elevated lipase on testing. He denies any abdominal pain nausea vomiting at this time His abdominal exam is benign and he is not tender His abdominal CT was also unremarkable Continue diabetic diet and monitor Lipase level improved this morning (8) Type 2 diabetes mellitus without complications: Qualifiers: Diabetes mellitus intermediate insulin use: without intermediate use Qualified Code(s): E11.9 - Type 2 diab
[2021-10-22] MEDS: DEXTROSE 5% 1,000 ML 1,000 ML 100 ML IV CONT ×2 (10:56→21:09)
--- NOTE | 2021-10-22 11:03 | PM.PNCARD ---
Progress Note: A&P Assessment and Plan (1) Atrial fibrillation with RVR: Code(s): I48.91 - Unspecified atrial fibrillation Status: Acute Assessment and Plan: Persistent, refractory presumably new atrial fibrillation with RVR on IV amiodarone infusion. I would not give additional digoxin given acute renal failure despite improvement in function of concern for toxicity. In fact, I would continue to avoid digoxin in general unit digoxin level stable and renal function continues to improve significantly. Check digoxin level in a.m.. As BP permits add oral metoprolol 25 mg p.o. q.8 hours. Caution particularly if digoxin level significantly elevated. Echocardiogram when heart rate better controlled. Not on anticoagulation due to extensive bruising secondary to traumatic fall. Initiate systemic anticoagulation when deemed safe. (2) Rhabdomyolysis: Qualifiers: Rhabdomyolysis type: traumatic Encounter type: subsequent encounter Qualified Code(s): T79.6XXD - Traumatic ischemia of muscle, subsequent encounter Code(s): M62.82 - Rhabdomyolysis Status: Acute Assessment and Plan: As above, acute kidney injury. Renal following. IV fluid, supportive care. Avoid nephrotoxic agents. (3) Acute kidney injury: Code(s): N17.9 - Acute kidney failure, unspecified Status: Acute Assessment and Plan: As above. Renal function improving with supportive care and IV fluids. (4) Type 2 diabetes mellitus without complications: Qualifiers: Diabetes mellitus penitentiary insulin use: without penitentiary use Qualified Code(s): E11.9 - Type 2 diabetes mellitus without complications Code(s): E11.9 - Type 2 diabetes mellitus without complications Status: Acute Assessment and Plan: Per primary service. (5) Sepsis: Qualifiers: Sepsis type: sepsis due to unspecified organism Sepsis acute organ dysfunction status: with acute organ dysfunction Severe sepsis acute organ dysfunction type: acute renal failure Acute renal failure type: unspecified Code(s): A41.9 - Sepsis, unspecified organism Status: Acute Assessment and Plan: Per primary service. IV antibiotics, supportive care. Possible UTI based on UA and CT evidence of pyelitis. Cultures pending. Lactic acid normalized. Subjective Date/time seen: Date of service: 10/22/21 11:03 Follow-up for atrial fibrillation with rapid ventricular response Patient more alert, denies chest pain or shortness of breath or palpitations. Denies any prior known history of atrial fibrillation. Patient asking repeatedly when he can go home. Remains in atrial fibrillation with rapid ventricular response heart rate 150s. Patient was given IV digoxin by [facility] in addition to IV amiodarone infusion. Heart rate remains uncontrolled BP improved as is his renal function. Review of Systems Review of Systems: All systems reviewed & are unremarkable except as noted in HPI and below Constitutional: Constitutional: Reports as per HPI, Reports fatigue, Reports lethargy and Reports weakness Eyes: Eyes: Reports as per HPI and Denies blurry vision ENT: Reports as per HPI and Denies nasal congestion Cardiovascular: Cardiovascular: Reports as per HPI, Denies chest pain, Reports lightheadedness and Denies palpitations Respiratory: Respiratory: Reports as per HPI, Denies dyspnea and Denies dyspnea on exertion Gastrointestinal: Gastrointestinal: Reports as per HPI, Denies abdominal pain, Denies melena, Denies nausea and Denies hematemesis Genitourinary: Genitourinary: Reports as per HPI Musculoskeletal: Musculoskeletal: Reports as per HPI Integumentary/Breasts: Skin/Breast: Reports as per HPI Neurologic: Reports as per HPI, Reports confusion and Reports weakness Psychiatric: Psychiatric: Reports as per HPI and Reports confusion Endocrine: Endocrine: Reports as per HPI and Reports fatigue Hematologic/
--- NOTE | 2021-10-22 12:21 | PM.IMPN ---
Progress Note: A&P Assessment and Plan (1) Atrial fibrillation with RVR: Code(s): I48.91 - Unspecified atrial fibrillation Status: Acute Assessment and Plan: Patient denies any history of atrial fibrillation. Patient's heart rate remains in the 160s to 170s. Amiodarone bolus followed by amiodarone drip is to be started. Cardiology has been consult and do appreciate further recommendations. Echo Doppler has been ordered. 10/22/2021 interval history: patient is 71-year-old male was found on the floor after he fell, was unable to get up, upon EMS arrival patient was found to have atrial fibrillation with RVR this is a new diagnosis patient was started on amiodarone drip as he was hypotensive, however rate was not trending down and patient was started on digoxin this has improved rate however patient kidney function is poor, discussed with instructional technology coordinator will continue present managed patient will be seen by barista and further recommendation to follow, patient also has sepsis most likely secondary to UTI being treated with Zosyn and vancomycin will follow-up on urine culture and sensitivity and further recommendation to follow patient is currently somnolent unable to provide detailed review of symptoms (2) Sepsis: Qualifiers: Acute renal failure type: unspecified Sepsis acute organ dysfunction status: with acute organ dysfunction Sepsis type: sepsis due to unspecified organism Severe sepsis acute organ dysfunction type: acute renal failure Code(s): A41.9 - Sepsis, unspecified organism Status: Acute Assessment and Plan: At this point time it appears that sepsis is most likely secondary to urinary tract infection although urinalysis is pending. Patient had been retaining quite a bit of urine when he was brought into the emergency room. Patient had a Hewitt catheter placed and he had 1 L of quick dark urine return before the Hewitt catheter was clamped. Patient then had Hewitt catheter unclamped and another L did return. Patient's urine is dark red in color. And CT of the abdomen pelvis shows prominent inflammatory stranding around the right renal pelvis without evidence of hydronephrosis or urolithiasis and particularly given the presence of Hewitt catheter and bladder raising concern for ascending urinary tract infection with pyelonephritis. Patient has been placed on antibiotics and will deescalate antibiotics as true source of sepsis is discovered. (3) Rhabdomyolysis: Qualifiers: Encounter type: subsequent encounter Rhabdomyolysis type: traumatic Qualified Code(s): T79.6XXD - Traumatic ischemia of muscle, subsequent encounter Code(s): M62.82 - Rhabdomyolysis Status: Acute Assessment and Plan: Patient's CK was 4734. Rhabdomyolysis is secondary to patient lying on the floor for greater than 24 hours. Will continue to monitor CK levels as well as kidney function. Patient is being liberally hydrated at this time. (4) Acute kidney injury: Code(s): N17.9 - Acute kidney failure, unspecified Status: Acute Assessment and Plan: This is most likely multifactorial including postrenal obstruction from BPH, rhabdomyolysis, and possible urinary tract infection. Patient has adamantly refused any dialysis if needed. Will be monitoring BUN and creatinine very closely. Patient had large amount of urine output after Hewitt catheter placed so will keep Hewitt catheter in place at this time. Urinalysis has not returned at this time but will await results. Subjective Date/time seen: 10/22/21 12:21 Chief Complaint: Fall HPI-Narrative: Mr. Pollack is a 71-year-old gentleman who presented emergency room after being found on the floor by EMS. Patient has a known history of hypertension, diabetes mellitus, and dyslipidemia. Patient states that he was working on his tax papers the other evening and he dropped some papers, he bent over to pick them up and fell on the floor
--- NOTE | 2021-10-22 12:48 | P.PNNP_ITS ---
Progress Note: A&P Assessment and Plan (1) Acute kidney injury: Code(s): N17.9 - Acute kidney failure, unspecified Status: Acute Assessment and Plan: * resolving * multifactorial etiology: * hypotension/hemodynamic instability * urinary retention/obstruction * infection (UTI +/- pyelonephritis) * pre-renal factors * rhabdomyolysis * concurrent use of KIRSTIE-I + metformin * intitial imaging (CT scan) without obstruction (giron catheter in place) * however, renal ultrasound demonstrates mild right hydronephrosis * CPK coming down * follow repeat labs and UOP (2) Sepsis: Qualifiers: Acute renal failure type: unspecified Sepsis acute organ dysfunction status: with acute organ dysfunction Sepsis type: sepsis due to unspecified organism Severe sepsis acute organ dysfunction type: acute renal failure Code(s): A41.9 - Sepsis, unspecified organism Status: Acute Assessment and Plan: * suspect UTI along with pyelonephritis * follow culture data * on antibiotics * follow hemodynamics (3) Hyponatremia: Code(s): E87.1 - Hypo-osmolality and hyponatremia Status: Acute Assessment and Plan: * presumably related to MARILIN/ARF * appropriate correction noted with current therapy * follow trend of sodium (4) Metabolic acidosis: Code(s): E87.2 - Acidosis Status: Acute Assessment and Plan: * corrected/resolved * due to MARILIN/ARF and sepsis * continue to monitor (5) Rhabdomyolysis: Qualifiers: Encounter type: subsequent encounter Rhabdomyolysis type: traumatic Qualified Code(s): T79.6XXD - Traumatic ischemia of muscle, subsequent encounter Code(s): M62.82 - Rhabdomyolysis Status: Acute Assessment and Plan: * CPK elevated on admission but trending down * follow trend (6) Atrial fibrillation with RVR: Code(s): I48.91 - Unspecified atrial fibrillation Status: Acute Assessment and Plan: * new onset * Cardiology following * attempting rate control strategy (7) Diabetes: Code(s): E11.9 - Type 2 diabetes mellitus without complications Status: Chronic Assessment and Plan: * follow accuchecks * glycemic control Will continue to follow. Subjective Date/time seen: 10/22/21 12:48 He reports feeling significantly better since admission yesterday afternoon; hemodynamics as well as renal function have improved significantly; continues to have issues with Afib and remains on amiodarone and diltiazem; no other issues/events overnight or earlier this AM; asking when he can go home. Exam Narrative: General: eldely male in NAD Heart: normal S1 and S2; no rub Lungs: clear to auscultation Abdomen: soft, nontender, nondistended, positive bowel sounds Extremities: no cyanosis or clubbing; no edema Skin: warm and dry Objective Data Vital Signs Vital Signs: Vital Signs Temp Pulse Resp BP Pulse Ox 10/22/21 12:00 144 H 19 146/93 H 96 10/22/21 10:00 152 H 23 H 112/91 H 95 10/22/21 09:10 145 H 10/22/21 08:44 96 10/22/21 08:00 146 H 21 H 149/114 H 95 10/22/21 07:55 145 H 10/22/21 06:01 149 H 21 H 117/74 95 10/22/21 06:00 149 H 10/22/21 04:01 36.4 C 134 H 17 115/73 95 10/22/21 04:00
--- NOTE | 2021-10-22 12:48 | PM.PNNEP ---
Progress Note: A&P Assessment and Plan (1) Acute kidney injury: Code(s): N17.9 - Acute kidney failure, unspecified Status: Acute Assessment and Plan: resolving multifactorial etiology: hypotension/hemodynamic instability urinary retention/obstruction infection (UTI +/- pyelonephritis) pre-renal factors rhabdomyolysis concurrent use of KIRSTIE-I + metformin intitial imaging (CT scan) without obstruction (giron catheter in place) however, renal ultrasound demonstrates mild right hydronephrosis CPK coming down follow repeat labs and UOP (2) Sepsis: Qualifiers: Acute renal failure type: unspecified Sepsis acute organ dysfunction status: with acute organ dysfunction Sepsis type: sepsis due to unspecified organism Severe sepsis acute organ dysfunction type: acute renal failure Code(s): A41.9 - Sepsis, unspecified organism Status: Acute Assessment and Plan: suspect UTI along with pyelonephritis follow culture data on antibiotics follow hemodynamics (3) Hyponatremia: Code(s): E87.1 - Hypo-osmolality and hyponatremia Status: Acute Assessment and Plan: presumably related to MARILIN/ARF appropriate correction noted with current therapy follow trend of sodium (4) Metabolic acidosis: Code(s): E87.2 - Acidosis Status: Acute Assessment and Plan: corrected/resolved due to MARILIN/ARF and sepsis continue to monitor (5) Rhabdomyolysis: Qualifiers: Encounter type: subsequent encounter Rhabdomyolysis type: traumatic Qualified Code(s): T79.6XXD - Traumatic ischemia of muscle, subsequent encounter Code(s): M62.82 - Rhabdomyolysis Status: Acute Assessment and Plan: CPK elevated on admission but trending down follow trend (6) Atrial fibrillation with RVR: Code(s): I48.91 - Unspecified atrial fibrillation Status: Acute Assessment and Plan: new onset Cardiology following attempting rate control strategy (7) Diabetes: Code(s): E11.9 - Type 2 diabetes mellitus without complications Status: Chronic Assessment and Plan: follow accuchecks glycemic control Will continue to follow. Subjective Date/time seen: 10/22/21 12:48 He reports feeling significantly better since admission yesterday afternoon; hemodynamics as well as renal function have improved significantly; continues to have issues with Afib and remains on amiodarone and diltiazem; no other issues/events overnight or earlier this AM; asking when he can go home. Exam Narrative: General: eldely male in NAD Heart: normal S1 and S2; no rub Lungs: clear to auscultation Abdomen: soft, nontender, nondistended, positive bowel sounds Extremities: no cyanosis or clubbing; no edema Skin: warm and dry Objective Data Vital Signs Vital Signs: Vital Signs Temp Pulse Resp BP Pulse Ox 10/22/21 12:00 144 H 19 146/93 H 96 10/22/21 10:00 152 H 23 H 112/91 H 95 10/22/21 09:10 145 H 10/22/21 08:44 96 10/22/21 08:00 146 H 21 H 149/114 H 95 10/22/21 07:55 145 H 10/22/21 06:01 149 H 21 H 117/74 95 10/22/21 06:00 149 H 10/22/21 04:01 36.4 C 134 H 17 115/73 95 10/22/21 04:00 133 H 10/22/21 02:01 146 H 21 H 133/83 94 10/22/21 02:00 146 H 10/22/21 00:01 133 H 17 114/68 97 10/22/21 00:00 146 H 10/21/21 23:09 143 H 10/21/21 22:01 137 H 28 H 88/72 L 97 10/21/21 22:00 137 H 10/21/21 20:01 36.4 C 124 H 19 109/67 90 10/21/21 20:00 146 H 10/21/21 19:33 146 H 103/76 10/21/21 18:00 36.3 C L 139 H 16 91/66 L 93 10/21/21 17:02 139 H 96/55 L 10/21/21 16:52 172 H 102/74 10/21/21 16:33 171 H 10/21/21 15:30 161 H 18 97/59 L 92 10/21/21 15:07 172 H 93/55 L 10/21/21 15:00 159 H 23 H 93/55 L 92 Intake/Output Intake/Output: I
[2021-10-22 13:15] LABS: Anion Gap 7 mmol/L (8-16); Blood Urea Nitrogen 72 mg/dL (9-20); Calcium 7.8 mg/dL (8.4-10.2); Carbon Dioxide 25 mmol/L (22-30); Chloride 99 mmol/L (98-107); Estimated CRCL calculation 26 ml/min; Estimated Glomerular Filt Rate 28; Glucose 338 mg/dL (65-110); Potassium 3.7 mmol/L (3.4-5.0); Sodium 131 mmol/L (137-145)
[2021-10-22] MEDS: ASPIRIN 325 MG TABLET PO (13:29)
[2021-10-22 13:42] LABS: Glucose Point of Care 345 mg/dl (65-105)
[2021-10-22] MEDS: INSULIN ASPART (*BKC) 100 UNITS/ML SUB-Q ×2 (13:42→16:15)
[2021-10-22] MEDS: METOPROLOL TARTRATE 25 MG TABLET PO ×2 (15:21→20:58)
[2021-10-22] MEDS: INSULIN GLARGINE (*BKC) 100 UNITS/ML 20 UNITS SUB-Q (15:24)
[2021-10-22 16:59] LABS: Anion Gap 10 mmol/L (8-16); Blood Urea Nitrogen 65 mg/dL (9-20); Calcium 7.9 mg/dL (8.4-10.2); Carbon Dioxide 25 mmol/L (22-30); Chloride 96 mmol/L (98-107); Estimated CRCL calculation 27 ml/min; Estimated Glomerular Filt Rate 29; Glucose 250 mg/dL (65-110); Potassium 3.6 mmol/L (3.4-5.0); Sodium 131 mmol/L (137-145)
[2021-10-22 20:51] LABS: Anion Gap 6 mmol/L (8-16); Blood Urea Nitrogen 62 mg/dL (9-20); Carbon Dioxide 26 mmol/L (22-30); Chloride 101 mmol/L (98-107); Estimated CRCL calculation 33 ml/min; Estimated Glomerular Filt Rate 37; Glucose 59 mg/dL (65-110); Potassium 3.6 mmol/L (3.4-5.0); Sodium 133 mmol/L (137-145)
[2021-10-22] MEDS: DEXTROSE 50% 25 GM/50 ML SYRINGE IV PUSH (20:57)
[2021-10-22 21:10] LABS: Glucose Point of Care 205 mg/dl (65-105)
[2021-10-22 21:18] LABS: Glucose Point of Care 59 mg/dl (65-105)
[2021-10-22 21:18] LABS: Glucose Point of Care 111 mg/dl (65-105)
[2021-10-23] VITALS (18 sets, daily range): BP systolic 112–145; BP diastolic 55–84; PULSE 71–92; RESP 15–21; TEMP 36.2–37.2; O2SAT 93–100
[2021-10-23] MEDS: AMIODARONE 360 MG/D5W 200 ML 360 MG/200 ML BAG 16.67 MG IV CONT (00:08)
[2021-10-23 01:12] LABS: Anion Gap 6 mmol/L (8-16); Blood Urea Nitrogen 58 mg/dL (9-20); Calcium 7.8 mg/dL (8.4-10.2); Carbon Dioxide 28 mmol/L (22-30); Chloride 99 mmol/L (98-107); Estimated CRCL calculation 37 ml/min; Estimated Glomerular Filt Rate 43; Glucose 65 mg/dL (65-110); Potassium 3.7 mmol/L (3.4-5.0); Sodium 133 mmol/L (137-145)
[2021-10-23 05:23] LABS: Basophils Absolute Auto 0.1 K/mm3 (0.0-0.1); Basophils Percent Auto 0.6 % (0.2-1.2); Eosinophils Absolute Auto 0.1 K/mm3 (0-0.3); Eosinophils Percent Auto 0.2 % (0-4.4); Hematocrit 40.6 % (42.0-52.0); Immature Granulocyte Absolute 1.02 K/mm3 (0.00-0.031); Immature Granulocyte Percent A 4.3 % (0-0.5); Lymphocytes Absolute Auto 1.04 K/mm3 (0.9-3.2); Lymphocytes Percent Auto 4.4 % (18.3-44.2); Mean Corpuscular HGB Conc 36.9 g/dl (32-36); Mean Corpuscular Hemoglobin 31.6 pg (26-34); Mean Corpuscular Volume 85.5 fl (80-100); Mean Platelet Volume 9.6 fl (7.4-10.4); Monocytes Percent Auto 4.2 % (2.6-8.5); Neutrophils Absolute Auto 20.2 K/mm3 (1.3-6.7); Neutrophils Percent Auto 86.3 % (45.5-73.1); Platelet Count Result 367 k/mm3 (150-375); Red Blood Count 4.75 M/mm3 (4.6-6.20); Red Cell Distribution Width 13.3 % (11.5-14.5); White Blood Count 23.5 K/mm3 (4.5-10.0)
[2021-10-23 05:37] LABS: Alanine Aminotransferase 55 U/L (4-50); Albumin Level 2.8 g/dL (3.5-5.1); Alkaline Phosphatase 159 U/L (38-126); Anion Gap 6 mmol/L (8-16); Aspartate Amino Transferase 73 U/L (17-59); Bilirubin,Total 0.7 mg/dL (0.2-1.3); Blood Urea Nitrogen 50 mg/dL (9-20); Calcium 7.8 mg/dL (8.4-10.2); Carbon Dioxide 26 mmol/L (22-30); Chloride 99 mmol/L (98-107); Creatine Kinase 797 U/L (55-170); Estimated CRCL calculation 42 ml/min; Estimated Glomerular Filt Rate 50; Glucose 123 mg/dL (65-110); Magnesium 2.2 mg/dL (1.6-2.3); Phosphorus 2.2 mg/dL (2.5-4.5); Potassium 3.4 mmol/L (3.4-5.0); Sodium 131 mmol/L (137-145)
[2021-10-23 05:54] LABS: Digoxin 0.6 ng/mL (0.8-2.0)
--- NOTE | 2021-10-23 08:44 | WPDINTPN ---
Progress Note: A&P Assessment and Plan (1) Sepsis: Qualifiers: Sepsis type: sepsis due to unspecified organism Sepsis acute organ dysfunction status: with acute organ dysfunction Severe sepsis acute organ dysfunction type: acute renal failure Acute renal failure type: unspecified Code(s): A41.9 - Sepsis, unspecified organism Status: Acute Assessment and Plan: His source of the sepsis appears to be UTI. His UA was suggestive of UTI and his urine appeared dark foul-smelling on presentation. His CT suggest evidence of pyelitis Urine cultures ordered. Blood cultures also ordered Patient has been started on IV vancomycin and Zosyn in ED which will be continued for now. I have discontinue vancomycin but will continue Zosyn His blood pressures improved and at this point he is not requiring any vasopressors His lactic acid level has normalized (2) Atrial fibrillation with RVR: Code(s): I48.91 - Unspecified atrial fibrillation Status: Acute Assessment and Plan: Due to soft blood pressure patient was started on amio infusion after amnio bolus. Patient was given diltiazem which led to further drop in his blood pressure in the ED He has now converted to normal sinus rhythm. I will discontinue IV amiodarone infusion. I will discuss with cardiology regarding whether they would like patient to continue on p.o. amiodarone p.o. metoprolol was started yesterday. I have started patient on aspirin. I have not started anticoagulation at this time due to patient having a very large bruise on his back and I am worried that this may lead to worsening of his hematoma. Also I am not sure if patientis a good candidate for long-term anticoagulation due to history of falls and him being living by himself. Pain will discuss with Cardiology Patient was given 3 dose of digoxin yesterday. Digoxin level done this morning was reviewed. Recheck digoxin level in the morning Cardiology has been consulted Echocardiogram Summary 1. Technically difficult study with limited views. Definity contrast administered. Regional wall motion assessment limited due to poor endomyocardial border definition. 2. Left ventricular chamber dimension is normal. 3. Left ventricular systolic function is normal, estimated at 60-65%. 4. There is mildly increased left ventricular wall thickness. 5. There is trace mitral valve regurgitation. 6. There is trace tricuspid valve regurgitation. 7. No pulmonary hypertension, estimated pulmonary arterial systolic pressure is 24 mmHg. (3) Acute kidney injury: Code(s): N17.9 - Acute kidney failure, unspecified Status: Acute Assessment and Plan: Patient's acute kidney injury appears to be multifactorial. He appears to have a urinary obstruction as once Hewitt was placed at 2 L of dark urine came out. He also has the rhabdomyolysis likely from laying on floor for 24 hours. He was also taking lisinopril and metformin as an outpatient. He denies any nonsteroidal intake As abov mentioned, patient is given IV fluid bolus and will be started on maintenance IV fluids Hewitt has been placed Metformin and lisinopril has been discontinued Urine electrolytes reviewed CT does not show any hydronephrosis but renal ultrasound showed Mild right hydronephrosis. Nephrology following his renal function has improved and creatinine is down to 1.4 today On presentation, I spoke to patient and he told me that he does not want dialysis if his kidneys do not recover. He verbalized understanding that if his renal function does not improve and he does not accept dialysis he may from it. This is consistent with his other she is as mentioned below (4) Hyponatremia: Code(s): E87.1 - Hypo-osmolality and hyponatremia Status: Acute Assessment and Plan: Secondary to hypovolemia and acute kidney injury Patient i received volume resuscitation on present for sepsis His BMP w
[2021-10-23] MEDS: SODIUM CHLORIDE 0.9% IV 1,000 ML 100 ML IV CONT ×2 (08:55→18:01)
[2021-10-23] MEDS: POTASSIUM CHLORIDE 20 MEQ TABLET 40 MEQ PO (08:56)
[2021-10-23] MEDS: ASPIRIN 325 MG TABLET PO (08:56)
[2021-10-23] MEDS: METOPROLOL TARTRATE 25 MG TABLET PO ×2 (08:57→21:07)
[2021-10-23] MEDS: POTASSIUM CHLORIDE INJ 40 MEQ in SODIUM CHLORIDE 0.9% IV 500 ML 130 MEQ IVPB (09:28)
[2021-10-23 09:32] LABS: Glucose Point of Care 133 mg/dl (65-105)
[2021-10-23] MEDS: POTASSIUM PHOS,M-BASIC-D-BASIC 15 MMOL in SODIUM CHLORIDE 0.9% IV 250 ML 63.75 MMOL IVPB (09:53)
--- NOTE | 2021-10-23 11:01 | PM.PNCARD ---
Progress Note: A&P Assessment and Plan (1) Atrial fibrillation with RVR: Code(s): I48.91 - Unspecified atrial fibrillation Status: Acute Assessment and Plan: Persistent, refractory presumably new atrial fibrillation with RVR on IV amiodarone infusion. Digoxin level stable 0.6 but would avoid further utilization. IV amiodarone discontinued. -I would continue oral amiodarone for the time being 400 mg p.o. t.i.d. today change to b.i.d. tomorrow with tapering thereafter with plans for short-term use if possible. -Hesitant to initiate systemic anticoagulation given extensive bruising, ecchymosis and 11th and 12th rib fractures placing patient at higher risk for bleeding. Echo personally reviewed. Fairly unremarkable, EF preserved on echocardiogram 60-65% mild LVH trace MR/TR, normal pulmonary pressures normal biatrial size. Okay to transfer out of ICU on telemetry. Metoprolol 25 mg p.o. b.i.d.. Overall patient is doing better but still remains quite ill. We remain concerned with regards to patient's suspected poor health literacy. (2) Rhabdomyolysis: Qualifiers: Rhabdomyolysis type: traumatic Encounter type: subsequent encounter Qualified Code(s): T79.6XXD - Traumatic ischemia of muscle, subsequent encounter Code(s): M62.82 - Rhabdomyolysis Status: Acute Assessment and Plan: As above, acute kidney injury. CK much improved. Continue IV fluid, supportive care. Avoid nephrotoxic agents. (3) Acute kidney injury: Code(s): N17.9 - Acute kidney failure, unspecified Status: Acute Assessment and Plan: As above. Renal function much improved with supportive care and IV fluids. Continue to monitor closely. Renal following. (4) Type 2 diabetes mellitus without complications: Qualifiers: Diabetes mellitus longterm insulin use: without longterm use Qualified Code(s): E11.9 - Type 2 diabetes mellitus without complications Code(s): E11.9 - Type 2 diabetes mellitus without complications Status: Acute Assessment and Plan: Per primary service. (5) Sepsis: Qualifiers: Sepsis type: sepsis due to unspecified organism Sepsis acute organ dysfunction status: with acute organ dysfunction Severe sepsis acute organ dysfunction type: acute renal failure Acute renal failure type: unspecified Code(s): A41.9 - Sepsis, unspecified organism Status: Acute Assessment and Plan: Per primary service. IV antibiotics, supportive care. Possible UTI based on UA and CT evidence of pyelitis. Cultures pending. Lactic acid normalized. Subjective Date/time seen: Date of service: 10/23/21 11:01 Follow-up for atrial fibrillation with rapid ventricular response, acute renal failure, altered mental status, rhabdomyolysis and leukocytosis. Patient alert this morning, eating without difficulty. Denies chest pain, shortness of breath. Converted sinus rhythm around noon yesterday. IV amiodarone discontinued this morning. Blood pressure stable, renal function much improved. Digoxin level stable at 0.6. LFTs improving. Patient asking when he can go home 1 happen. Reviewed his hospital course once again. Patient is not remembering prior discussions and appears to have rather poor insight into his health in general. When I asked how he is feeling this morning he initially responded you tell me you are the doctor . Patient states the last thing he recalls was doing his taxes but denies feeling poorly other than frustration. Review of Systems Review of Systems: All systems reviewed & are unremarkable except as noted in HPI and below ROS unobtainable: Yes unobtainable due to medical condition (No family on bedside. Most of the review of system from the chart.) Constitutional: Constitutional: Reports as per HPI, Reports fatigue, Reports lethargy and Reports weakness Eyes: Eyes: Reports as per HPI and Denies blurry vision ENT: Reports as
--- NOTE | 2021-10-23 12:47 | PM.PNNEP ---
Progress Note: A&P Assessment and Plan (1) Acute kidney injury: Code(s): N17.9 - Acute kidney failure, unspecified Status: Acute Assessment and Plan: resolving multifactorial etiology: hypotension/hemodynamic instability urinary retention/obstruction infection (UTI +/- pyelonephritis) pre-renal factors rhabdomyolysis concurrent use of KIRSTIE-I + metformin intitial imaging (CT scan) without obstruction (giron catheter in place) however, renal ultrasound demonstrates mild right hydronephrosis CPK coming down follow repeat labs and UOP (2) Sepsis: Qualifiers: Acute renal failure type: unspecified Sepsis acute organ dysfunction status: with acute organ dysfunction Sepsis type: sepsis due to unspecified organism Severe sepsis acute organ dysfunction type: acute renal failure Code(s): A41.9 - Sepsis, unspecified organism Status: Acute Assessment and Plan: suspect UTI along with pyelonephritis follow culture data on antibiotics follow hemodynamics (3) Hyponatremia: Code(s): E87.1 - Hypo-osmolality and hyponatremia Status: Acute Assessment and Plan: presumably related to MARILIN/ARF appropriate correction noted with current therapy follow trend of sodium (4) Metabolic acidosis: Code(s): E87.2 - Acidosis Status: Acute Assessment and Plan: corrected/resolved due to MARILIN/ARF and sepsis continue to monitor (5) Rhabdomyolysis: Qualifiers: Encounter type: subsequent encounter Rhabdomyolysis type: traumatic Qualified Code(s): T79.6XXD - Traumatic ischemia of muscle, subsequent encounter Code(s): M62.82 - Rhabdomyolysis Status: Acute Assessment and Plan: CPK elevated on admission but trending down follow trend (6) Atrial fibrillation with RVR: Code(s): I48.91 - Unspecified atrial fibrillation Status: Acute Assessment and Plan: new onset Cardiology following attempting rate control strategy (7) Diabetes: Code(s): E11.9 - Type 2 diabetes mellitus without complications Status: Chronic Assessment and Plan: follow accuchecks glycemic control Will continue to follow. Subjective Date/time seen: 10/23/21 12:47 Continues to do well with stability in hemodynamics and improvement in renal function with interventions to date; CPK doing better as well; likely to transfer out of ICU today given ongoing improvement in general; no apparent issues/events overnight or earlier this AM. Exam Narrative: General: eldely male in NAD Heart: normal S1 and S2; no rub Lungs: clear to auscultation Abdomen: soft, nontender, nondistended, positive bowel sounds Extremities: no cyanosis or clubbing; no edema Skin: warm and intact Objective Data Vital Signs Vital Signs: Vital Signs Temp Pulse Resp BP Pulse Ox 10/23/21 12:00 71 15 112/66 99 10/23/21 10:00 84 10/23/21 08:57 92 10/23/21 08:00 37.2 C 85 18 145/79 H 96 10/23/21 06:00 36.9 C 89 21 H 141/84 H 94 10/23/21 04:00 36.2 C L 89 21 H 122/68 94 10/23/21 02:00 83 16 94 10/23/21 00:08 82 117/57 L 10/23/21 00:00 36.3 C L 87 20 117/55 L 95 10/22/21 22:00 86 21 H 124/61 95 10/22/21 20:58 82 10/22/21 20:00 36.5 C 81 22 H 122/63 93 10/22/21 19:53 95 10/22/21 18:00 37.2 C 93 31 H 137/98 H 94 10/22/21 16:00 36.6 C 75 21 H 125/67 99 10/22/21 15:21 87 Intake/Output Intake/Output: Intake & Output 10/20/21 10/21/21 10/22/21 10/23/21 23:59 23:59 23:59 23:59 Intake Total 3700 4890 850 Output Total 4000 4825 900 Balance -300 65 -50 Meds/Results Medications: Active Medications Generic Name Dose Route Start Last Admin Trade Name Freq PRN Reason Stop Dose Admin Hydrocodone Bitart/Acetaminophen 1 tab 10/21/21 14:17 Hydrocodone/Acetaminophen (*Crx) 5-325 Mg Ta
--- NOTE | 2021-10-23 12:47 | P.PNNP_ITS ---
Progress Note: A&P Assessment and Plan (1) Acute kidney injury: Code(s): N17.9 - Acute kidney failure, unspecified Status: Acute Assessment and Plan: * resolving * multifactorial etiology: * hypotension/hemodynamic instability * urinary retention/obstruction * infection (UTI +/- pyelonephritis) * pre-renal factors * rhabdomyolysis * concurrent use of KIRSTIE-I + metformin * intitial imaging (CT scan) without obstruction (giron catheter in place) * however, renal ultrasound demonstrates mild right hydronephrosis * CPK coming down * follow repeat labs and UOP (2) Sepsis: Qualifiers: Acute renal failure type: unspecified Sepsis acute organ dysfunction status: with acute organ dysfunction Sepsis type: sepsis due to unspecified organism Severe sepsis acute organ dysfunction type: acute renal failure Code(s): A41.9 - Sepsis, unspecified organism Status: Acute Assessment and Plan: * suspect UTI along with pyelonephritis * follow culture data * on antibiotics * follow hemodynamics (3) Hyponatremia: Code(s): E87.1 - Hypo-osmolality and hyponatremia Status: Acute Assessment and Plan: * presumably related to MARILIN/ARF * appropriate correction noted with current therapy * follow trend of sodium (4) Metabolic acidosis: Code(s): E87.2 - Acidosis Status: Acute Assessment and Plan: * corrected/resolved * due to MARILIN/ARF and sepsis * continue to monitor (5) Rhabdomyolysis: Qualifiers: Encounter type: subsequent encounter Rhabdomyolysis type: traumatic Qualified Code(s): T79.6XXD - Traumatic ischemia of muscle, subsequent encounter Code(s): M62.82 - Rhabdomyolysis Status: Acute Assessment and Plan: * CPK elevated on admission but trending down * follow trend (6) Atrial fibrillation with RVR: Code(s): I48.91 - Unspecified atrial fibrillation Status: Acute Assessment and Plan: * new onset * Cardiology following * attempting rate control strategy (7) Diabetes: Code(s): E11.9 - Type 2 diabetes mellitus without complications Status: Chronic Assessment and Plan: * follow accuchecks * glycemic control Will continue to follow. Subjective Date/time seen: 10/23/21 12:47 Continues to do well with stability in hemodynamics and improvement in renal function with interventions to date; CPK doing better as well; likely to transfer out of ICU today given ongoing improvement in general; no apparent issues/events overnight or earlier this AM. Exam Narrative: General: eldely male in NAD Heart: normal S1 and S2; no rub Lungs: clear to auscultation Abdomen: soft, nontender, nondistended, positive bowel sounds Extremities: no cyanosis or clubbing; no edema Skin: warm and intact Objective Data Vital Signs Vital Signs: Vital Signs Temp Pulse Resp BP Pulse Ox 10/23/21 12:00 71 15 112/66 99 10/23/21 10:00 84 10/23/21 08:57 92 10/23/21 08:00 37.2 C 85 18 145/79 H 96 10/23/21 06:00 36.9 C 89 21 H 141/84 H 94 10/23/21 04:00 36.2 C L 89 21 H 122/68 94 10/23/21 02:00 83 16 94 10/23/21 00:08 82 117/57 L 10/23/21 00:00 36.3 C L 87 20 117/55 L 95 10/22/21 22:00 86 21 H 124/6
[2021-10-23] MEDS: AMIODARONE HCL 200 MG TABLET PO ×2 (13:05→17:08)
[2021-10-23 13:18] LABS: Glucose Point of Care 178 mg/dl (65-105)
--- NOTE | 2021-10-23 13:56 | PM.IMPN ---
Progress Note: A&P Assessment and Plan (1) Atrial fibrillation with RVR: Code(s): I48.91 - Unspecified atrial fibrillation Status: Acute Assessment and Plan: Patient denies any history of atrial fibrillation. Patient's heart rate remains in the 160s to 170s. Amiodarone bolus followed by amiodarone drip is to be started. Cardiology has been consult and do appreciate further recommendations. Echo Doppler has been ordered. 10/22/2021 interval history: patient is 71-year-old male was found on the floor after he fell, was unable to get up, upon EMS arrival patient was found to have atrial fibrillation with RVR this is a new diagnosis patient was started on amiodarone drip as he was hypotensive, however rate was not trending down and patient was started on digoxin this has improved rate however patient kidney function is poor, discussed with machine pecan gatherer will continue present managed patient will be seen by millstone cleaner and further recommendation to follow, patient also has sepsis most likely secondary to UTI being treated with Zosyn and vancomycin will follow-up on urine culture and sensitivity and further recommendation to follow patient is currently somnolent unable to provide detailed review of symptoms. 10/23/2021 interval history: patient is 71-year-old male was found on the floor after he fell, was unable to get up, upon EMS arrival patient was found to have atrial fibrillation with RVR this is a new diagnosis, patient was started on amiodarone drip as he was hypotensive, however rate was not trending down and patient was started on digoxin this has improved rate however patient kidney function is poor, today amiodarone drip stopped and started on amiodarone 400 mg b.i.d., will monitor and further recommendation to follow, on 10/22 discussed with machine pecan gatherer will continue present managed patient will be seen by millstone cleaner and further recommendation to follow, patient also has sepsis most likely secondary to UTI being treated with Zosyn and vancomycin however urine culture no growth so far, blood culture is pending, will follow-up on blood culture and sensitivity and further recommendation to follow, patient with rhabdomyolysis CK level has improved today 797 compared to 474 upon arrival, will gently hydrate the patient and monitor, patient now clinically stable will move the patient out of ICU to IMU low PT OT evaluate the patient, patient will benefit going to acute rehab. (2) Sepsis: Qualifiers: Sepsis type: sepsis due to unspecified organism Sepsis acute organ dysfunction status: with acute organ dysfunction Severe sepsis acute organ dysfunction type: acute renal failure Acute renal failure type: unspecified Code(s): A41.9 - Sepsis, unspecified organism Status: Acute Assessment and Plan: At this point time it appears that sepsis is most likely secondary to urinary tract infection although urinalysis is pending. Patient had been retaining quite a bit of urine when he was brought into the emergency room. Patient had a Hewitt catheter placed and he had 1 L of quick dark urine return before the Hewitt catheter was clamped. Patient then had Hewitt catheter unclamped and another L did return. Patient's urine is dark red in color. And CT of the abdomen pelvis shows prominent inflammatory stranding around the right renal pelvis without evidence of hydronephrosis or urolithiasis and particularly given the presence of Hewitt catheter and bladder raising concern for ascending urinary tract infection with pyelonephritis. Patient has been placed on antibiotics and will deescalate antibiotics as true source of sepsis is discovered. (3) Rhabdomyolysis: Qualifiers: Rhabdomyolysis type: traumatic Encounter type: subsequent encounter Qualified Code(s): T79.6XXD - Traumatic ischemia of muscle, subsequent encounter Code(s): M62.82 - Rhabdomyolysis Status: Acute Assessment and Plan: [place]
[2021-10-23 16:49] LABS: Glucose Point of Care 164 mg/dl (65-105)
[2021-10-23 19:58] LABS: Glucose Point of Care 302 mg/dl (65-105)
[2021-10-23] MEDS: INSULIN ASPART (*BKC) 100 UNITS/ML SUB-Q (21:09)
[2021-10-23 23:17] LABS: Glucose Point of Care 139 mg/dl (65-105)
[2021-10-24] VITALS (17 sets, daily range): BP systolic 135–156; BP diastolic 68–80; PULSE 82–111; RESP 18–22; TEMP 36–37.3; O2SAT 95–99; BMI 26.4
[2021-10-24 00:33] LABS: Glucose Point of Care 178 mg/dl (65-105)
[2021-10-24] MEDS: SODIUM CHLORIDE 0.9% IV 1,000 ML 100 ML IV CONT (04:52)
[2021-10-24 05:17] LABS: Eosinophils Absolute Auto 0.2 K/mm3 (0-0.3); Eosinophils Percent Auto 0.6 % (0-4.4); Hematocrit 34.3 % (42.0-52.0); Hemoglobin 12.6 g/dL (14.0-18.0); Immature Granulocyte Absolute 1.45 K/mm3 (0.00-0.031); Immature Granulocyte Percent A 4.5 % (0-0.5); Lymphocytes Absolute Auto 1.48 K/mm3 (0.9-3.2); Lymphocytes Percent Auto 4.6 % (18.3-44.2); Mean Corpuscular HGB Conc 36.7 g/dl (32-36); Mean Corpuscular Hemoglobin 31.5 pg (26-34); Mean Corpuscular Volume 85.8 fl (80-100); Mean Platelet Volume 9.8 fl (7.4-10.4); Monocytes Absolute Auto 1.1 K/mm3 (0.1-0.6); Monocytes Percent Auto 3.5 % (2.6-8.5); Neutrophils Percent Auto 86.8 % (45.5-73.1); Platelet Count Result 350 k/mm3 (150-375); Red Cell Distribution Width 13.9 % (11.5-14.5); White Blood Count 32.3 K/mm3 (4.5-10.0)
[2021-10-24 05:36] LABS: Alanine Aminotransferase 53 U/L (4-50); Albumin Level 2.5 g/dL (3.5-5.1); Alkaline Phosphatase 164 U/L (38-126); Anion Gap 4 mmol/L (8-16); Aspartate Amino Transferase 60 U/L (17-59); Bilirubin,Total 0.7 mg/dL (0.2-1.3); Blood Urea Nitrogen 24 mg/dL (9-20); Calcium 7.3 mg/dL (8.4-10.2); Carbon Dioxide 25 mmol/L (22-30); Chloride 100 mmol/L (98-107); Creatine Kinase 625 U/L (55-170); Estimated CRCL calculation 58 ml/min; Estimated Glomerular Filt Rate > 60; Glucose 165 mg/dL (65-110); Magnesium 1.8 mg/dL (1.6-2.3); Phosphorus 1.9 mg/dL (2.5-4.5); Potassium 4.1 mmol/L (3.4-5.0); Sodium 129 mmol/L (137-145)
[2021-10-24 08:33] LABS: Glucose Point of Care 138 mg/dl (65-105)
[2021-10-24] MEDS: METOPROLOL TARTRATE 25 MG TABLET PO ×2 (09:45→20:07)
[2021-10-24] MEDS: AMIODARONE HCL 200 MG TABLET PO ×3 (09:46→19:06)
[2021-10-24] MEDS: ASPIRIN 325 MG TABLET PO (09:46)
[2021-10-24 10:05] LABS: Hematocrit 36.9 % (42.0-52.0); Hemoglobin 13.1 g/dL (14.0-18.0); Mean Corpuscular HGB Conc 35.5 g/dl (32-36); Mean Corpuscular Hemoglobin 31.3 pg (26-34); Mean Corpuscular Volume 88.3 fl (80-100); Mean Platelet Volume 9.5 fl (7.4-10.4); Platelet Count Result 349 k/mm3 (150-375); Red Blood Count 4.18 M/mm3 (4.6-6.20); Red Cell Distribution Width 14.2 % (11.5-14.5); White Blood Count 37.6 K/mm3 (4.5-10.0)
--- NOTE | 2021-10-24 10:12 | PM.PNCARD ---
Progress Note: A&P Assessment and Plan (1) Atrial fibrillation with RVR: Code(s): I48.91 - Unspecified atrial fibrillation Status: Acute Assessment and Plan: Patient has converted to sinus rhythm. -continue oral antibiotics on and metoprolol. -systemic anticoagulation has been held due to extensive bruising, ecchymosis and 11th and 12th rib fractures placing patient at higher risk for bleeding. (2) Rhabdomyolysis: Qualifiers: Encounter type: subsequent encounter Rhabdomyolysis type: traumatic Qualified Code(s): T79.6XXD - Traumatic ischemia of muscle, subsequent encounter Code(s): M62.82 - Rhabdomyolysis Status: Acute Assessment and Plan: Hydration, supportive care. Avoid nephrotoxic agents. (3) Acute kidney injury: Code(s): N17.9 - Acute kidney failure, unspecified Status: Acute Assessment and Plan: As above. Renal function much improved with supportive care and IV fluids. Continue to monitor closely. Nephrology following. (4) Type 2 diabetes mellitus without complications: Qualifiers: Diabetes mellitus technician terminal and repeater insulin use: without long-term use Qualified Code(s): E11.9 - Type 2 diabetes mellitus without complications Code(s): E11.9 - Type 2 diabetes mellitus without complications Status: Acute Assessment and Plan: Per primary service. (5) Sepsis: Qualifiers: Acute renal failure type: unspecified Sepsis acute organ dysfunction status: with acute organ dysfunction Sepsis type: sepsis due to unspecified organism Severe sepsis acute organ dysfunction type: acute renal failure Code(s): A41.9 - Sepsis, unspecified organism Status: Acute Assessment and Plan: Per primary service. IV antibiotics, supportive care. Possible UTI based on UA and CT evidence of pyelitis. Subjective Date/time seen: 10/24/21 10:12 Date of Service: 10/24/2021 Interval history: Patient lying on the bed, denies chest pain or shortness of breath. On telemetry, patient has converted to sinus rhythm/sinus tachycardia with heart rate in 90s to 100s. Exam Narrative: PHYSICAL EXAMINATION: GENERAL: Ill-appearing male, alert, no acute distress MENTAL STATUS: Anxious EYES: Extraocular movements intact, no pallor EARS: External ears appear normal, hearing grossly normal NOSE: Normal and patent, no discharge MOUTH: Mucous membranes moist, tongue normal NECK: Supple, no JVD CHEST: clear to auscultation HEART: Normal rate, regular rhythm at present ABDOMEN: Soft, nontender NEUROLOGICAL: Alert, speech coherent MUSCULOSKELETAL: No major deformity, no amputation EXTREMITIES: No pedal edema, no clubbing, no cyanosis SKIN: no cyanosis PSYCHIATRIC: Anxious Objective Data Vital Signs Vital Signs: Vital Signs - 24 hr 10/23/21 12:00 10/23/21 13:05 10/23/21 14:27 Temperature Pulse Rate 71 74 81 Respiratory Rate 15 Blood Pressure 112/66 Pulse Oximetry 99 10/23/21 16:00 10/23/21 17:08 10/23/21 18:00 Temperature 36.4 C Pulse Rate 85 80 84 Respiratory Rate 18 Blood Pressure 142/70 H Pulse Oximetry 96 10/23/21 20:00 10/23/21 21:07 10/23/21 22:00 Temperature 36.4 C Pulse Rate 85 87 76 Respiratory Rate 20 Blood Pressure 137/68 Pulse Oximetry 98 10/23/21 23:20 10/24/21 00:00 10/24/21 02:00 Temperature 36.4 C Pulse Rate 79 87 90 Respiratory Rate 20 Blood Pressure 135/66 Pulse Oximetry 97 97 10/24/21 04:00 10/24/21 06:00 10/24/21 08:00 Temperature 36.6 C 36.0 C L Pulse Rate 91 91 89 Respiratory Rate 20 22 H Blood Pressure 148/70 H 156/73 H Pulse Oximetry 99 95 10/24/21 08:37 10/24/21 09:45 10/24/21 09:46 Temperature Pulse Rate 111 H 111 H Respiratory Rate Blood Pressure Pulse Oximetry 95 Intake/Output Intake/Output: Intake & Output 10/21/21 10/22/21 10/23/21 10/24/21 23:59 23:59 23:59 23:59 [place]
[2021-10-24] MEDS: PERFLUTREN LIPID MICROSPHERES 1.5 ML VIAL DILUTED TO 10 ML TOTAL VOLUME IV PUSH (10:15)
[2021-10-24 12:26] LABS: Glucose Point of Care 178 mg/dl (65-105)
--- NOTE | 2021-10-24 15:39 | PC.NURSE ---
This patient, Adolfo Pollack, was received from IMU on 10/24/21 at 1539. Patient/family oriented to unit policies and routines
--- NOTE | 2021-10-24 15:46 | PC.NURSE ---
This patient, Adolfo Pollack, was transferred to [facility] on 10/24/21 at 1546. Personal belongings sent with patient. Report given to BARRETT Chiu. Appropriate documentation sent with patient.
--- NOTE | 2021-10-24 16:02 | P.PNNP_ITS ---
Progress Note: A&P Assessment and Plan (1) Acute kidney injury: Code(s): N17.9 - Acute kidney failure, unspecified Status: Acute Assessment and Plan: * MARILIN * multifactorial etiology: * hypotension/hemodynamic instability * urinary retention/obstruction * infection (UTI +/- pyelonephritis) * pre-renal factors * rhabdomyolysis * concurrent use of KIRSTIE-I + metformin * intitial imaging (CT scan) without obstruction (giron catheter in place) * however, renal ultrasound demonstrates mild right hydronephrosis * CPK coming down. Peaked at 4734. Currently 625. * He has some swelling now. He is eating pretty well. Will stop IV fluids. * Check CPK and labs tomorrow again. (2) Sepsis: Qualifiers: Sepsis type: sepsis due to unspecified organism Sepsis acute organ dysfunction status: with acute organ dysfunction Severe sepsis acute organ dysfunction type: acute renal failure Acute renal failure type: unspecified Code(s): A41.9 - Sepsis, unspecified organism Status: Acute Assessment and Plan: * suspect UTI along with pyelonephritis * follow culture data * on Zosyn * follow hemodynamics (3) Hyponatremia: Code(s): E87.1 - Hypo-osmolality and hyponatremia Status: Acute Assessment and Plan: * presumably related to MARILIN/ARF * sodium level stable, wandering about 130. * On no fluid restriction. * See how he does without the fluid. * Will continue to follow. (4) Metabolic acidosis: Code(s): E87.2 - Acidosis Status: Acute Assessment and Plan: * Resolved (5) Rhabdomyolysis: Qualifiers: Rhabdomyolysis type: traumatic Encounter type: subsequent encounter Qualified Code(s): T79.6XXD - Traumatic ischemia of muscle, subsequent encounter Code(s): M62.82 - Rhabdomyolysis Status: Acute Assessment and Plan: * CPK elevated on admission but trending down * CKD down to 625 now. (6) Atrial fibrillation with RVR: Code(s): I48.91 - Unspecified atrial fibrillation Status: Acute Assessment and Plan: * new onset * Cardiology following * Pulse 89 currently. (7) Diabetes: Code(s): E11.9 - Type 2 diabetes mellitus without complications Status: Chronic Assessment and Plan: * On Accu-Cheks and sliding-scale insulin per hospitalist. Subjective Date/time seen: 10/24/21 16:02 Interval history: Adolfo is feeling better today. He is sitting up in a chair. He is eating pretty well. He has some swelling in his legs and in his hands. Exam Narrative: General: eldely male in NAD Heart: normal S1 and S2; Irregularly irregular rhythm. no rub Lungs: clear Abdomen: soft, nontender, nondistended, positive bowel sounds Extremities: no cyanosis or clubbing; 1+ bilateral edema Skin: no rash Objective Data Vital Signs Vital Signs: Vital Signs - 24 hr 10/23/21 17:08 10/23/21 18:00 10/23/21 20:00 Temperature 36.4 C Pulse Rate 80 84 85 Respiratory Rate 20 Blood Pressure 137/68 Pulse Oximetry 98 10/23/21 21:07 10/23/21 22:00 10/23/21 23:20 Temperature 36.4 C Pulse Rate 87 76 79 Respiratory Rate 20 Blood Pressure 135/66 Pulse Oximetry 97 10/24/21
--- NOTE | 2021-10-24 16:02 | PM.PNNEP ---
Progress Note: A&P Assessment and Plan (1) Acute kidney injury: Code(s): N17.9 - Acute kidney failure, unspecified Status: Acute Assessment and Plan: MARILIN multifactorial etiology: hypotension/hemodynamic instability urinary retention/obstruction infection (UTI +/- pyelonephritis) pre-renal factors rhabdomyolysis concurrent use of KIRSTIE-I + metformin intitial imaging (CT scan) without obstruction (giron catheter in place) however, renal ultrasound demonstrates mild right hydronephrosis CPK coming down. Peaked at 4734. Currently 625. He has some swelling now. He is eating pretty well. Will stop IV fluids. Check CPK and labs tomorrow again. (2) Sepsis: Qualifiers: Sepsis type: sepsis due to unspecified organism Sepsis acute organ dysfunction status: with acute organ dysfunction Severe sepsis acute organ dysfunction type: acute renal failure Acute renal failure type: unspecified Code(s): A41.9 - Sepsis, unspecified organism Status: Acute Assessment and Plan: suspect UTI along with pyelonephritis follow culture data on Zosyn follow hemodynamics (3) Hyponatremia: Code(s): E87.1 - Hypo-osmolality and hyponatremia Status: Acute Assessment and Plan: presumably related to MARILIN/ARF sodium level stable, wandering about 130. On no fluid restriction. See how he does without the fluid. Will continue to follow. (4) Metabolic acidosis: Code(s): E87.2 - Acidosis Status: Acute Assessment and Plan: Resolved (5) Rhabdomyolysis: Qualifiers: Rhabdomyolysis type: traumatic Encounter type: subsequent encounter Qualified Code(s): T79.6XXD - Traumatic ischemia of muscle, subsequent encounter Code(s): M62.82 - Rhabdomyolysis Status: Acute Assessment and Plan: CPK elevated on admission but trending down CKD down to 625 now. (6) Atrial fibrillation with RVR: Code(s): I48.91 - Unspecified atrial fibrillation Status: Acute Assessment and Plan: new onset Cardiology following Pulse 89 currently. (7) Diabetes: Code(s): E11.9 - Type 2 diabetes mellitus without complications Status: Chronic Assessment and Plan: On Accu-Cheks and sliding-scale insulin per hospitalist. Subjective Date/time seen: 10/24/21 16:02 Interval history: Adolfo is feeling better today. He is sitting up in a chair. He is eating pretty well. He has some swelling in his legs and in his hands. Exam Narrative: General: eldely male in NAD Heart: normal S1 and S2; Irregularly irregular rhythm. no rub Lungs: clear Abdomen: soft, nontender, nondistended, positive bowel sounds Extremities: no cyanosis or clubbing; 1+ bilateral edema Skin: no rash Objective Data Vital Signs Vital Signs: Vital Signs - 24 hr 10/23/21 17:08 10/23/21 18:00 10/23/21 20:00 Temperature 36.4 C Pulse Rate 80 84 85 Respiratory Rate 20 Blood Pressure 137/68 Pulse Oximetry 98 10/23/21 21:07 10/23/21 22:00 10/23/21 23:20 Temperature 36.4 C Pulse Rate 87 76 79 Respiratory Rate 20 Blood Pressure 135/66 Pulse Oximetry 97 10/24/21 00:00 10/24/21 02:00 10/24/21 04:00 Temperature 36.6 C Pulse Rate 87 90 91 Respiratory Rate 20 Blood Pressure 148/70 H Pulse Oximetry 97 99 10/24/21 06:00 10/24/21 08:00 10/24/21 08:37 Temperature 36.0 C L Pulse Rate 91 92 Respiratory Rate 22 H Blood Pressure 156/73 H Pulse Oximetry 95 95 10/24/21 09:45 10/24/21 09:46 10/24/21 10:00 Temperature Pulse Rate 111 H 111 H 87 Respiratory Rate Blood Pressure Pulse Oximetry 10/24/21 12:00 10/24/21 15:05 Temperature 36.4 C Pulse Rate 82 89 Respiratory Rate 18 Blood Pressure 135/68 Pulse Oximetry 98 Intake/Output Intake/Output: Intake & Output 10/21/21 10/22/21 10/23/21 04
[2021-10-24 16:30] LABS: Glucose Point of Care 159 mg/dl (65-105)
--- NOTE | 2021-10-24 16:40 | PM.IMPN ---
Progress Note: A&P Assessment and Plan (1) Atrial fibrillation with RVR: Code(s): I48.91 - Unspecified atrial fibrillation Status: Acute Assessment and Plan: Patient denies any history of atrial fibrillation. Patient's heart rate remains in the 160s to 170s. Amiodarone bolus followed by amiodarone drip is to be started. Cardiology has been consult and do appreciate further recommendations. Echo Doppler has been ordered. 10/22/2021 interval history: patient is 71-year-old male was found on the floor after he fell, was unable to get up, upon EMS arrival patient was found to have atrial fibrillation with RVR this is a new diagnosis patient was started on amiodarone drip as he was hypotensive, however rate was not trending down and patient was started on digoxin this has improved rate however patient kidney function is poor, discussed with surveillance technician will continue present managed patient will be seen by pastoral assistant and further recommendation to follow, patient also has sepsis most likely secondary to UTI being treated with Zosyn and vancomycin will follow-up on urine culture and sensitivity and further recommendation to follow patient is currently somnolent unable to provide detailed review of symptoms. 10/23/2021 interval history: patient is 71-year-old male was found on the floor after he fell, was unable to get up, upon EMS arrival patient was found to have atrial fibrillation with RVR this is a new diagnosis, patient was started on amiodarone drip as he was hypotensive, however rate was not trending down and patient was started on digoxin this has improved rate however patient kidney function is poor, today amiodarone drip stopped and started on amiodarone 400 mg b.i.d., will monitor and further recommendation to follow, on 10/22 discussed with surveillance technician will continue present managed patient will be seen by pastoral assistant and further recommendation to follow, patient also has sepsis most likely secondary to UTI being treated with Zosyn and vancomycin however urine culture no growth so far, blood culture is pending, will follow-up on blood culture and sensitivity and further recommendation to follow, patient with rhabdomyolysis CK level has improved today 797 compared to 474 upon arrival, will gently hydrate the patient and monitor, patient now clinically stable will move the patient out of ICU to IMU low PT OT evaluate the patient, patient will benefit going to acute rehab. 10/24/2021 interval history: patient is 71-year-old male was found on the floor after he fell, was unable to get up, upon EMS arrival patient was found to have atrial fibrillation with RVR this is a new diagnosis, patient was started on amiodarone drip as he was hypotensive, however rate was not trending down and patient was started on digoxin this has improved rate however patient kidney function is poor, on 10/23 amiodarone drip stopped and started on amiodarone 400 mg b.i.d., unable to anticoagulate as patient has extensive bruising and rib fracture, today patient converted to sinus rhythm, he is clinically stale, will continue oral amiodoran 400mg, will monitor and further recommendation to follow, patient also has sepsis most likely secondary to UTI being treated with Zosyn and vancomycin however urine culture no growth so far, blood culture is pending, and today his white counts are significantly elevated, he has no fever and clinically he is does not appear septic, will order repeat blood culture, will follow-up on blood culture and sensitivity and further recommendation to follow, patient with rhabdomyolysis CK level has improved today 625 compared to 4734 upon arrival, will gently hydrate the patient and monitor, patient now clinically stable moved the patient out of ICU to IMU, PT OT evaluate the patient, patient will benefit going to acute rehab. (2) Sepsis: Qualifiers: Sepsis type: sepsis due to unspecified organism Sepsis acute organ dysfu
[2021-10-24] MEDS: FUROSEMIDE INJ 40 MG/4 ML VIAL IV PUSH (16:41)
[2021-10-24 20:33] LABS: Glucose Point of Care 202 mg/dl (65-105)
[2021-10-25] VITALS (14 sets, daily range): BP systolic 138–154; BP diastolic 69–74; PULSE 84–112; RESP 14–20; TEMP 36.2–37.1; O2SAT 94–99
[2021-10-25 05:54] LABS: Eosinophils Absolute Auto 0.3 K/mm3 (0-0.3); Eosinophils Percent Auto 0.7 % (0-4.4); Hematocrit 36.7 % (42.0-52.0); Hemoglobin 13.2 g/dL (14.0-18.0); Immature Granulocyte Percent A 5.7 % (0-0.5); Lymphocytes Absolute Auto 1.71 K/mm3 (0.9-3.2); Lymphocytes Percent Auto 4.3 % (18.3-44.2); Mean Corpuscular Hemoglobin 31.2 pg (26-34); Mean Corpuscular Volume 86.8 fl (80-100); Mean Platelet Volume 9.7 fl (7.4-10.4); Monocytes Absolute Auto 1.5 K/mm3 (0.1-0.6); Monocytes Percent Auto 3.6 % (2.6-8.5); Neutrophils Absolute Auto 34.4 K/mm3 (1.3-6.7); Neutrophils Percent Auto 85.7 % (45.5-73.1); Platelet Count Result 341 k/mm3 (150-375); Red Blood Count 4.23 M/mm3 (4.6-6.20); Red Cell Distribution Width 14.2 % (11.5-14.5); White Blood Count 40.2 K/mm3 (4.5-10.0)
[2021-10-25 06:07] LABS: Alanine Aminotransferase 62 U/L (4-50); Albumin Level 2.6 g/dL (3.5-5.1); Alkaline Phosphatase 195 U/L (38-126); Anion Gap 4 mmol/L (8-16); Aspartate Amino Transferase 58 U/L (17-59); Bilirubin,Total 0.8 mg/dL (0.2-1.3); Blood Urea Nitrogen 20 mg/dL (9-20); Calcium 7.4 mg/dL (8.4-10.2); Carbon Dioxide 28 mmol/L (22-30); Chloride 97 mmol/L (98-107); Creatine Kinase 323 U/L (55-170); Estimated CRCL calculation 58 ml/min; Estimated Glomerular Filt Rate > 60; Glucose 145 mg/dL (65-110); Magnesium 1.6 mg/dL (1.6-2.3); Phosphorus 2.1 mg/dL (2.5-4.5); Potassium 3.7 mmol/L (3.4-5.0); Sodium 129 mmol/L (137-145)
[2021-10-25 07:38] LABS: Glucose Point of Care 148 mg/dl (65-105)
[2021-10-25] MEDS: ASPIRIN 325 MG TABLET PO (08:03)
[2021-10-25] MEDS: AMIODARONE HCL 200 MG TABLET PO ×3 (08:03→16:44)
[2021-10-25] MEDS: METOPROLOL TARTRATE 25 MG TABLET PO ×2 (08:03→21:12)
--- NOTE | 2021-10-25 09:49 | PM.PNCARD ---
Progress Note: A&P Assessment and Plan (1) Atrial fibrillation with RVR: Code(s): I48.91 - Unspecified atrial fibrillation Status: Acute Assessment and Plan: Patient has converted to sinus rhythm. -continue oral amiodarone and metoprolol. -systemic anticoagulation has been held due to extensive bruising, ecchymosis and 11th and 12th rib fractures placing patient at higher risk for bleeding. -normal LVEF, no significant valvular pathology. -OK for discharge from a cardiac perspecive. (2) Rhabdomyolysis: Qualifiers: Encounter type: subsequent encounter Rhabdomyolysis type: traumatic Qualified Code(s): T79.6XXD - Traumatic ischemia of muscle, subsequent encounter Code(s): M62.82 - Rhabdomyolysis Status: Acute Assessment and Plan: Hydration, supportive care. Avoid nephrotoxic agents. (3) Acute kidney injury: Code(s): N17.9 - Acute kidney failure, unspecified Status: Acute Assessment and Plan: As above. Renal function much improved with supportive care and IV fluids. Continue to monitor closely. Nephrology following. (4) Type 2 diabetes mellitus without complications: Qualifiers: Diabetes mellitus assistant terminal manager insulin use: without assistant terminal manager use Qualified Code(s): E11.9 - Type 2 diabetes mellitus without complications Code(s): E11.9 - Type 2 diabetes mellitus without complications Status: Acute Assessment and Plan: Per primary service. (5) Sepsis: Qualifiers: Acute renal failure type: unspecified Sepsis acute organ dysfunction status: with acute organ dysfunction Sepsis type: sepsis due to unspecified organism Severe sepsis acute organ dysfunction type: acute renal failure Code(s): A41.9 - Sepsis, unspecified organism Status: Acute Assessment and Plan: Per primary service. IV antibiotics, supportive care. Possible UTI based on UA and CT evidence of pyelitis. Subjective Date/time seen: 10/25/21 09:49 Cardiology follow up for Afib Feels ok today. Does not have any specific complaints. He denies chest pain, palpitations, shortness of breath. Remains in sinus rhythm. He is eager to be discharged. Review of Systems Review of Systems: All systems reviewed & are unremarkable except as noted in HPI and below ROS unobtainable: Yes unobtainable due to medical condition (No family on bedside. Most of the review of system from the chart.) Constitutional: Constitutional: Reports as per HPI, Reports fatigue, Reports lethargy and Reports weakness Eyes: Eyes: Reports as per HPI and Denies blurry vision ENT: Reports as per HPI and Denies nasal congestion Cardiovascular: Cardiovascular: Reports as per HPI, Denies chest pain, Reports lightheadedness, Denies palpitations, Denies dyspnea and Denies dyspnea on exertion Respiratory: Respiratory: Reports as per HPI, Denies dyspnea and Denies dyspnea on exertion Gastrointestinal: Gastrointestinal: Reports as per HPI, Denies abdominal pain, Denies melena, Denies nausea and Denies hematemesis Genitourinary: Genitourinary: Reports as per HPI Musculoskeletal: Musculoskeletal: Reports as per HPI Integumentary/Breasts: Skin/Breast: Reports as per HPI Neurologic: Reports as per HPI, Reports confusion and Reports weakness Psychiatric: Psychiatric: Reports as per HPI and Reports confusion Endocrine: Endocrine: Reports as per HPI, Reports fatigue and Denies palpitations Hematologic/Lymphatic: Hematologic/Lymphatic: Reports as per HPI Allergic/Immunologic: Allergic/Immunologic: Reports as per HPI Exam Const: General: comfortable, no acute distress, well developed, alert, awake, confusion and tired appearing; No in distress Orientation/consciousness: oriented to person, oriented to place and confusion HENMT: General nose exam: Normal nares present Eyes: Sclera: sclerae normal and normal sclerae Neck: Neck: not supple Resp: Auscultation
--- NOTE | 2021-10-25 10:54 | PC.NURSE ---
To GI Lab per wheelchair, IV LAC. Report given to Rhonda HYDE.
--- NOTE | 2021-10-25 11:10 | PM.PNNEP ---
Subjective Date/time seen: 10/25/21 11:10 Objective Data Vital Signs Vital Signs: Vital Signs - 24 hr 10/24/21 12:00 10/24/21 15:05 10/24/21 16:00 Temperature 36.4 C Pulse Rate 82 89 88 Respiratory Rate 18 Blood Pressure 135/68 Pulse Oximetry 98 10/24/21 16:36 10/24/21 19:06 10/24/21 20:00 Temperature 36.6 C Pulse Rate 108 H 97 Respiratory Rate 18 Blood Pressure 152/78 H 140/80 Pulse Oximetry 98 10/24/21 20:07 10/24/21 23:50 10/25/21 00:00 Temperature 37.3 C Pulse Rate 98 88 88 Respiratory Rate 20 Blood Pressure 142/70 H Pulse Oximetry 95 10/25/21 04:00 10/25/21 08:00 10/25/21 08:03 Temperature 37.1 C Pulse Rate 93 109 H 112 H Respiratory Rate 20 Blood Pressure 154/73 H Pulse Oximetry 94 97 10/25/21 09:44 Temperature 36.9 C Pulse Rate 92 Respiratory Rate 20 Blood Pressure 150/69 H Pulse Oximetry 94 Intake/Output Intake/Output: Intake & Output 10/22/21 10/23/21 10/24/21 10/25/21 23:59 23:59 23:59 23:59 Intake Total 4853 4818 2898 850 Output Total 4843 3492 7507 1000 Balance 65 765 -952 -150 Meds/Results Medications: Active Medications Generic Name Dose Route Start Last Admin Trade Name Freq PRN Reason Stop Dose Admin Hydrocodone Bitart/Acetaminophen 1 tab 10/21/21 14:17 Hydrocodone/Acetaminophen (*Crx) 5-325 Mg Tablet PO Q4H PRN Pain Rated 4-6 Hydrocodone Bitart/Acetaminophen 1 tab 10/21/21 14:17 Hydrocodone/Acetaminophen (*Crx) 10-325 Mg Tablet PO Q4H PRN Pain Rated 7-10 Amiodarone HCl 200 mg 10/23/21 13:00 10/25/21 08:03 Amiodarone Hcl 200 Mg Tablet PO 200 mg TID NUNO Administration Aspirin 325 mg 10/22/21 09:45 10/25/21 08:03 Aspirin 325 Mg Tablet PO 325 mg DAILY@0800 [facility] Administration Dextrose 12.5 gm 10/22/21 14:23 10/22/21 20:57 Dextrose 50% 25 Gm/50 Ml Syringe IV PUSH 12.5 gm PRN PRN Administration Hypoglycemia Protocol Glucagon 1 mg 10/22/21 14:23 Glucagon For Inj 1 Mg Vial IM PRN PRN Hypoglycemia Protocol Glucose 15 gm 10/22/21 14:23 Glucose Oral Gel 15 Gm Of Glucse In 37.5 Gm Tube PO PRN PRN Hypoglycemia Protocol Dextrose 1,000 mls @ 100 mls/hr 10/22/21 14:23 Dextrose 5% 1,000 Ml IVPB PRN PRN Hypoglycemia Protocol Piperacillin/Tazobactam/Dextrose 3.375 gm in 50 mls @ 100 mls/hr 10/25/21 05:00 10/25/21 06:10 Zosyn 3.375 Gm/D5w 50ml Pm IVPB Infused Q6H NUNO Infusion Insulin Aspart 3 - 6 units 10/24/21 08:00 10/25/21 07:59 Insulin Aspart (*Bkc) 100 Units/Ml SUB-Q Not Given TIDWM NUNO Protocol Metoprolol Tartrate 25 mg 10/22/21 21:00 10/25/21 08:03 Metoprolol Tartrate 25 Mg Tablet PO 25 mg Q12HR NUNO Administration Miconazole Nitrate 1 applic 10/24/21 09:00 10/25/21 08:04 Miconazole 2% Antifungal Ointment 56 Gm TOPICAL 1 applic Q12HR NUNO Administration Perflutren Lipid Microsphere 0 ml 10/21/21 13:54 Perflutren Lipid Microspheres 1.5 Ml Vial Diluted To 10 Ml Total Volume IV PUSH ONCE PRN adequate visualization Protocol Radiology Results: ITS Impressions Chest X-Ray 10/21/21 12:27 IMPRESSION: Retrocardiac double density, probably a gastroesophageal hiatal hernia. Can patient stand for PA and lateral projection? Chest/Abdomen/Pelvis CT 10/21/21 13:29 IMPRESSION: 1. A couple acute appearing nondisplaced anterior left 10th and 11th rib fractures. 2. No acute vascular or visceral organ injury in the chest, abdomen or pelvis. 3. Small sliding-type hiatal hernia. 4. Prominent inflammatory stranding surrounding the right renal pelvis without evident hydronephrosis or urolithiasis and particularly given the presence of a Hewitt catheter in the bladder raising concern for ascending urinary tract infection with pyelitis. Correlate with urinalysis. Cervical Spine CT 10/21/21 16:04 IMPRESSION: No acute intracranial f
[2021-10-25 11:29] LABS: Add Urine Microscopic? YES; Appearance Urine Cloudy (Clear); Bacteria Urine Trace /hpf; Bilirubin Urine Negative (Negative); Blood Urine 2+ (Negative); Color Urine Yellow (Yellow); Glucose Urine UA 1+ mg/dL (Negative); Ketones Urine Negative (Negative); Leukocyte Esterase Ur 1+ LEU/UL (Negative); Mucus Urine Rare /lpf; Nitrate Urine Negative (Negative); Protein Urine 2+ mg/dL (Negative); RBC Urine 51-75 /hpf (0-2); Specific Grav Ur 1.018 (1.001-1.035); Urobilinogen Urine Negative mg/dL (<2.0); WBC Urine 31-50 /hpf
[2021-10-25 11:38] LABS: Glucose Point of Care 186 mg/dl (65-105)
--- NOTE | 2021-10-25 12:21 | PM.IMPN ---
Progress Note: A&P Assessment and Plan (1) Diabetes: Code(s): E11.9 - Type 2 diabetes mellitus without complications Status: Chronic (2) Hyponatremia: Code(s): E87.1 - Hypo-osmolality and hyponatremia Status: Acute (3) Atrial fibrillation with RVR: Code(s): I48.91 - Unspecified atrial fibrillation Status: Acute (4) Sepsis: Qualifiers: Sepsis type: sepsis due to unspecified organism Sepsis acute organ dysfunction status: with acute organ dysfunction Severe sepsis acute organ dysfunction type: acute renal failure Acute renal failure type: unspecified Code(s): A41.9 - Sepsis, unspecified organism Status: Acute (5) Elevated lipase: Code(s): R74.8 - Abnormal levels of other serum enzymes Status: Acute (6) Rhabdomyolysis: Qualifiers: Rhabdomyolysis type: traumatic Encounter type: subsequent encounter Qualified Code(s): T79.6XXD - Traumatic ischemia of muscle, subsequent encounter Code(s): M62.82 - Rhabdomyolysis Status: Acute (7) Metabolic acidosis: Code(s): E87.2 - Acidosis Status: Acute (8) Acute kidney injury: Code(s): N17.9 - Acute kidney failure, unspecified Status: Acute (9) Type 2 diabetes mellitus without complications: Qualifiers: Diabetes mellitus termite exterminator insulin use: without correction use Qualified Code(s): E11.9 - Type 2 diabetes mellitus without complications Code(s): E11.9 - Type 2 diabetes mellitus without complications Status: Acute (10) Mixed hyperlipidemia: Code(s): E78.2 - Mixed hyperlipidemia Status: Acute (11) Essential (primary) hypertension: Code(s): I10 - Essential (primary) hypertension Status: Acute (12) Diarrhea in adult patient: Code(s): R19.7 - Diarrhea, unspecified Status: Acute Additional Plan 10/25/21 request records from [facility] cont supportive care may need inpt hematology consult if WBCs chronically elevated w/o etiology in medical records cont zosyn c diff negative but diarrhea (requiring rectal tube) w Leukocytosis is compelling start probiotic if no improvement then will try tx for c diff UCx NGTD repeat UA w reflex Subjective Date/time seen: 10/25/21 12:21 pt reports history of elevated WBCs treated by hemotalogist at [facility] maybe 4 yrs or 40yrs ago. Very poor historian agrees to allow up to request records Exam Narrative: Patient is comfortable, NAD HEENT: eyes are clear and none icteric LUNGS: normal respiratory effort ABD: not distended Lower extremities: no edema SKIN: nonjaundiced Neuro: grossly intact. Objective Data Vital Signs Vital Signs: Vital Signs - 24 hr 10/24/21 15:05 10/24/21 16:00 10/24/21 16:36 Temperature Pulse Rate 89 88 Respiratory Rate Blood Pressure 152/78 H Pulse Oximetry 10/24/21 19:06 10/24/21 20:00 10/24/21 20:07 Temperature 97.9 F Pulse Rate 108 H 97 98 Respiratory Rate 18 Blood Pressure 140/80 Pulse Oximetry 98 10/24/21 23:50 10/25/21 00:00 10/25/21 04:00 Temperature 99.2 F 98.7 F Pulse Rate 88 88 93 Respiratory Rate 20 20 Blood Pressure 142/70 H 154/73 H Pulse Oximetry 95 94 10/25/21 08:00 10/25/21 08:03 10/25/21 09:44 Temperature 98.5 F Pulse Rate 109 H 112 H 92 Respiratory Rate 20 Blood Pressure 150/69 H Pulse Oximetry 97 94 10/25/21 12:04 Temperature Pulse Rate 90 Respiratory Rate Blood Pressure Pulse Oximetry Intake/Output Intake/Output: Intake & Output 10/22/21 10/23/21 10/24/21 10/25/21 23:59 23:59 23:59 23:59 Intake Total 4869 7640 4428 850 Output Total 4896 9245 3930 1000 Balance 65 765 -952 -150 Meds/Results Medications: Active Medications Generic Name Dose Route Start Last Admin Trade Name Freq PRN Reason Stop Dose Admin Hydrocodone Bitart/Acetaminophen 1 tab 10/21/21 14:17 Hydrocodone/Acetaminophen (*
[2021-10-25] MEDS: SACCHAROMYCES BOULARDII 250 MG CAPSULE PO ×2 (13:06→16:44)
[2021-10-25 16:28] LABS: Glucose Point of Care 223 mg/dl (65-105)
[2021-10-25] MEDS: INSULIN ASPART (*BKC) 100 UNITS/ML SUB-Q (16:44)
[2021-10-25 21:34] LABS: Glucose Point of Care 161 mg/dl (65-105)
[2021-10-26] VITALS (12 sets, daily range): BP systolic 119–146; BP diastolic 64–84; PULSE 74–116; RESP 16–18; TEMP 36.1–37; O2SAT 93–99
--- NOTE | 2021-10-26 05:44 | P.PNNP_ITS ---
Progress Note: A&P Assessment and Plan (1) Acute kidney injury: Code(s): N17.9 - Acute kidney failure, unspecified Status: Acute Assessment and Plan: * MARILIN * multifactorial etiology: * hypotension/hemodynamic instability * urinary retention/obstruction * infection (UTI +/- pyelonephritis) * pre-renal factors * rhabdomyolysis * concurrent use of KIRSTIE-I + metformin * intitial imaging (CT scan) without obstruction (giron catheter in place) * however, renal ultrasound demonstrates mild right hydronephrosis * CPK coming down. Peaked at 4734. Currently 323. * off ivfs. eatingokay. creatinine normal now. (2) Sepsis: Qualifiers: Acute renal failure type: unspecified Sepsis acute organ dysfunction status: with acute organ dysfunction Sepsis type: sepsis due to unspecified organism Severe sepsis acute organ dysfunction type: acute renal failure Code(s): A41.9 - Sepsis, unspecified organism Status: Acute Assessment and Plan: * suspect UTI along with pyelonephritis * follow culture data * on Zosyn * follow hemodynamics (3) Hyponatremia: Code(s): E87.1 - Hypo-osmolality and hyponatremia Status: Acute Assessment and Plan: * presumably related to MARILIN/ARF * TSH and cortisol okay * not on any offending medications * head ct and chest ct okay. no history o fcancer. * sodium level stable, wandering about 130. * On no fluid restriction. I asked him to drink only if thirsty * See how he does without the fluid. * Will continue to follow. (4) Metabolic acidosis: Code(s): E87.2 - Acidosis Status: Acute Assessment and Plan: * Resolved (5) Rhabdomyolysis: Qualifiers: Encounter type: subsequent encounter Rhabdomyolysis type: traumatic Qualified Code(s): T79.6XXD - Traumatic ischemia of muscle, subsequent encounter Code(s): M62.82 - Rhabdomyolysis Status: Acute Assessment and Plan: * CPK elevated on admission but trending down * CKD down to 323 now. (6) Atrial fibrillation with RVR: Code(s): I48.91 - Unspecified atrial fibrillation Status: Acute Assessment and Plan: * new onset * Cardiology following * Pulse 89 currently. (7) Diabetes: Code(s): E11.9 - Type 2 diabetes mellitus without complications Status: Chronic Assessment and Plan: * On Accu-Cheks and sliding-scale insulin per hospitalist. Subjective Date/time seen: 10/25/21 11:15am Interval history: Adolfo is feeling fine. lying ini bed. n o sob or cp He is eating pretty well. He has some swelling in his legs and in his hands but this has improved. Exam Narrative: General: eldely male in NAD Heart: normal S1 and S2; Irregularly irregular rhythm. no rub Lungs: clear Abdomen: soft, nontender, nondistended, positive bowel sounds Extremities: no cyanosis or clubbing; 1+ bilateral edema Skin: no rash Objective Data Vital Signs Vital Signs: Vital Signs - 24 hr 10/25/21 08:00 10/25/21 08:03 10/25/21 09:44 Temperature 36.9 C Pulse Rate 109 H 112 H 92 Respiratory Rate 20 Blood Pressure 150/69 H Pulse Oximetry 97 94 10/25/21 12:00 10/25/21 12:04 10/25/21 16:00 Temperature 36.6 C Pulse Rate 87 90 94 Respiratory Rate 18
--- NOTE | 2021-10-26 05:44 | PM.PNNEP ---
Progress Note: A&P Assessment and Plan (1) Acute kidney injury: Code(s): N17.9 - Acute kidney failure, unspecified Status: Acute Assessment and Plan: MARILIN multifactorial etiology: hypotension/hemodynamic instability urinary retention/obstruction infection (UTI +/- pyelonephritis) pre-renal factors rhabdomyolysis concurrent use of KIRSTIE-I + metformin intitial imaging (CT scan) without obstruction (giron catheter in place) however, renal ultrasound demonstrates mild right hydronephrosis CPK coming down. Peaked at 4734. Currently 323. off ivfs. eatingokay. creatinine normal now. (2) Sepsis: Qualifiers: Acute renal failure type: unspecified Sepsis acute organ dysfunction status: with acute organ dysfunction Sepsis type: sepsis due to unspecified organism Severe sepsis acute organ dysfunction type: acute renal failure Code(s): A41.9 - Sepsis, unspecified organism Status: Acute Assessment and Plan: suspect UTI along with pyelonephritis follow culture data on Zosyn follow hemodynamics (3) Hyponatremia: Code(s): E87.1 - Hypo-osmolality and hyponatremia Status: Acute Assessment and Plan: presumably related to MARILIN/ARF TSH and cortisol okay not on any offending medications head ct and chest ct okay. no history o fcancer. sodium level stable, wandering about 130. On no fluid restriction. I asked him to drink only if thirsty See how he does without the fluid. Will continue to follow. (4) Metabolic acidosis: Code(s): E87.2 - Acidosis Status: Acute Assessment and Plan: Resolved (5) Rhabdomyolysis: Qualifiers: Encounter type: subsequent encounter Rhabdomyolysis type: traumatic Qualified Code(s): T79.6XXD - Traumatic ischemia of muscle, subsequent encounter Code(s): M62.82 - Rhabdomyolysis Status: Acute Assessment and Plan: CPK elevated on admission but trending down CKD down to 323 now. (6) Atrial fibrillation with RVR: Code(s): I48.91 - Unspecified atrial fibrillation Status: Acute Assessment and Plan: new onset Cardiology following Pulse 89 currently. (7) Diabetes: Code(s): E11.9 - Type 2 diabetes mellitus without complications Status: Chronic Assessment and Plan: On Accu-Cheks and sliding-scale insulin per hospitalist. Subjective Date/time seen: 10/25/21 11:15am Interval history: Adolfo is feeling fine. lying ini bed. n o sob or cp He is eating pretty well. He has some swelling in his legs and in his hands but this has improved. Exam Narrative: General: eldely male in NAD Heart: normal S1 and S2; Irregularly irregular rhythm. no rub Lungs: clear Abdomen: soft, nontender, nondistended, positive bowel sounds Extremities: no cyanosis or clubbing; 1+ bilateral edema Skin: no rash Objective Data Vital Signs Vital Signs: Vital Signs - 24 hr 10/25/21 08:00 10/25/21 08:03 10/25/21 09:44 Temperature 36.9 C Pulse Rate 109 H 112 H 92 Respiratory Rate 20 Blood Pressure 150/69 H Pulse Oximetry 97 94 10/25/21 12:00 10/25/21 12:04 10/25/21 16:00 Temperature 36.6 C Pulse Rate 87 90 94 Respiratory Rate 18 Blood Pressure 139/74 Pulse Oximetry 97 10/25/21 16:44 10/25/21 17:26 10/25/21 20:00 Temperature 36.2 C L 36.8 C Pulse Rate 101 H 100 103 H Respiratory Rate 18 14 Blood Pressure 147/74 H 147/70 H Pulse Oximetry 99 98 10/25/21 21:12 10/25/21 21:43 10/25/21 23:20 Temperature 36.8 C Pulse Rate 95 84 Respiratory Rate 17 Blood Pressure 138/73 Pulse Oximetry 96 98 10/26/21 00:00 10/26/21 04:00 Temperature 37.0 C Pulse Rate 87 101 H Respiratory Rate 17 Blood Pressure 143/64 H Pulse Oximetry 93 Intake/Output Intake/Output: Intake & Output 10/23/21 10/24/21 10/25/21 10/26/21 23:59 23:59 23:59
[2021-10-26 06:11] LABS: Basophils Percent Auto 0.1 % (0.2-1.2); Eosinophils Absolute Auto 0.5 K/mm3 (0-0.3); Eosinophils Percent Auto 1.1 % (0-4.4); Hematocrit 34.5 % (42.0-52.0); Hemoglobin 12.2 g/dL (14.0-18.0); Immature Granulocyte Absolute 2.27 K/mm3 (0.00-0.031); Immature Granulocyte Percent A 5.2 % (0-0.5); Lymphocytes Absolute Auto 1.97 K/mm3 (0.9-3.2); Lymphocytes Percent Auto 4.5 % (18.3-44.2); Mean Corpuscular HGB Conc 35.4 g/dl (32-36); Mean Corpuscular Hemoglobin 31.2 pg (26-34); Mean Corpuscular Volume 88.2 fl (80-100); Mean Platelet Volume 9.6 fl (7.4-10.4); Monocytes Absolute Auto 1.6 K/mm3 (0.1-0.6); Monocytes Percent Auto 3.7 % (2.6-8.5); Neutrophils Absolute Auto 37.6 K/mm3 (1.3-6.7); Neutrophils Percent Auto 85.4 % (45.5-73.1); Platelet Count Result 308 k/mm3 (150-375); Red Blood Count 3.91 M/mm3 (4.6-6.20); Red Cell Distribution Width 14.3 % (11.5-14.5); White Blood Count 43.9 K/mm3 (4.5-10.0)
[2021-10-26 06:26] LABS: Alanine Aminotransferase 77 U/L (4-50); Albumin Level 2.5 g/dL (3.5-5.1); Alkaline Phosphatase 212 U/L (38-126); Anion Gap 1 mmol/L (8-16); Aspartate Amino Transferase 64 U/L (17-59); Bilirubin,Total 0.9 mg/dL (0.2-1.3); Blood Urea Nitrogen 17 mg/dL (9-20); Calcium 7.4 mg/dL (8.4-10.2); Carbon Dioxide 29 mmol/L (22-30); Chloride 96 mmol/L (98-107); Creatine Kinase 267 U/L (55-170); Estimated CRCL calculation 58 ml/min; Estimated Glomerular Filt Rate > 60; Glucose 156 mg/dL (65-110); Magnesium 1.6 mg/dL (1.6-2.3); Phosphorus 2.2 mg/dL (2.5-4.5); Potassium 3.6 mmol/L (3.4-5.0); Sodium 126 mmol/L (137-145)
[2021-10-26 07:56] LABS: Glucose Point of Care 145 mg/dl (65-105)
[2021-10-26] MEDS: AMIODARONE HCL 200 MG TABLET PO ×3 (08:17→17:26)
[2021-10-26] MEDS: ASPIRIN 325 MG TABLET PO (08:17)
[2021-10-26] MEDS: METOPROLOL TARTRATE 25 MG TABLET PO ×2 (08:18→20:32)
[2021-10-26] MEDS: SACCHAROMYCES BOULARDII 250 MG CAPSULE PO ×3 (08:18→17:26)
[2021-10-26] MEDS: HYDROcodone/acetaminophen (*CRX) 5-325 MG TABLET 1 TAB PO (08:20)
[2021-10-26 12:04] LABS: Glucose Point of Care 194 mg/dl (65-105)
[2021-10-26] MEDS: VANCOMYCIN ORAL 125 MG/2.5 ML SYRUP PO ×2 (12:34→17:26)
[2021-10-26 16:35] LABS: Glucose Point of Care 173 mg/dl (65-105)
--- NOTE | 2021-10-26 17:00 | PM.IMPN ---
Progress Note: A&P Assessment and Plan (1) Diarrhea in adult patient: Code(s): R19.7 - Diarrhea, unspecified Status: Acute (2) Diabetes: Code(s): E11.9 - Type 2 diabetes mellitus without complications Status: Chronic (3) Hyponatremia: Code(s): E87.1 - Hypo-osmolality and hyponatremia Status: Acute (4) Atrial fibrillation with RVR: Code(s): I48.91 - Unspecified atrial fibrillation Status: Acute (5) Sepsis: Qualifiers: Sepsis type: sepsis due to unspecified organism Sepsis acute organ dysfunction status: with acute organ dysfunction Severe sepsis acute organ dysfunction type: acute renal failure Acute renal failure type: unspecified Code(s): A41.9 - Sepsis, unspecified organism Status: Acute (6) Elevated lipase: Code(s): R74.8 - Abnormal levels of other serum enzymes Status: Acute (7) Rhabdomyolysis: Qualifiers: Rhabdomyolysis type: traumatic Encounter type: subsequent encounter Qualified Code(s): T79.6XXD - Traumatic ischemia of muscle, subsequent encounter Code(s): M62.82 - Rhabdomyolysis Status: Acute (8) Metabolic acidosis: Code(s): E87.2 - Acidosis Status: Acute (9) Acute kidney injury: Code(s): N17.9 - Acute kidney failure, unspecified Status: Acute (10) Type 2 diabetes mellitus without complications: Qualifiers: Diabetes mellitus longterm insulin use: without longterm use Qualified Code(s): E11.9 - Type 2 diabetes mellitus without complications Code(s): E11.9 - Type 2 diabetes mellitus without complications Status: Acute (11) Mixed hyperlipidemia: Code(s): E78.2 - Mixed hyperlipidemia Status: Acute (12) Essential (primary) hypertension: Code(s): I10 - Essential (primary) hypertension Status: Acute Additional Plan 10/22/2021 interval history: patient is 71-year-old male was found on the floor after he fell, was unable to get up, upon EMS arrival patient was found to have atrial fibrillation with RVR this is a new diagnosis patient was started on amiodarone drip as he was hypotensive, however rate was not trending down and patient was started on digoxin this has improved rate however patient kidney function is poor, discussed with electronic funds transfer coordinator will continue present managed patient will be seen by tag maker and further recommendation to follow, patient also has sepsis most likely secondary to UTI being treated with Zosyn and vancomycin will follow-up on urine culture and sensitivity and further recommendation to follow patient is currently somnolent unable to provide detailed review of symptoms. 10/23/2021 interval history: patient is 71-year-old male was found on the floor after he fell, was unable to get up, upon EMS arrival patient was found to have atrial fibrillation with RVR this is a new diagnosis, patient was started on amiodarone drip as he was hypotensive, however rate was not trending down and patient was started on digoxin this has improved rate however patient kidney function is poor, today amiodarone drip stopped and started on amiodarone 400 mg b.i.d., will monitor and further recommendation to follow, on 10/22 discussed with electronic funds transfer coordinator will continue present managed patient will be seen by tag maker and further recommendation to follow, patient also has sepsis most likely secondary to UTI being treated with Zosyn and vancomycin however urine culture no growth so far, blood culture is pending, will follow-up on blood culture and sensitivity and further recommendation to follow, patient with rhabdomyolysis CK level has improved today 797 compared to 474 upon arrival, will gently hydrate the patient and monitor, patient now clinically stable will move the patient out of ICU to IMU low PT OT evaluate the patient, patient will benefit going to acute rehab. 10/24/2021 interval history: patient is 71-year-old male was foun
--- NOTE | 2021-10-26 18:33 | P.PNNP_ITS ---
Progress Note: A&P Assessment and Plan (1) Acute kidney injury: Code(s): N17.9 - Acute kidney failure, unspecified Status: Acute Assessment and Plan: * MARILIN * multifactorial etiology: * hypotension/hemodynamic instability * urinary retention/obstruction * infection (UTI +/- pyelonephritis) * pre-renal factors * rhabdomyolysis * concurrent use of KIRSTIE-I + metformin * intitial imaging (CT scan) without obstruction (giron catheter in place) * however, renal ultrasound demonstrates mild right hydronephrosis * CPK coming down. Peaked at 4734. Currently 267. * Creatinine is normal. (2) Sepsis: Qualifiers: Sepsis type: sepsis due to unspecified organism Sepsis acute organ dysfunction status: with acute organ dysfunction Severe sepsis acute organ dysfunction type: acute renal failure Acute renal failure type: unspecified Code(s): A41.9 - Sepsis, unspecified organism Status: Acute Assessment and Plan: * suspect UTI along with pyelonephritis * follow culture data * on Zosyn * follow hemodynamics (3) Hyponatremia: Code(s): E87.1 - Hypo-osmolality and hyponatremia Status: Acute Assessment and Plan: * presumably related to MARILIN/ARF * TSH and cortisol okay * he is now on some hydrocodone. He only got 1 dose today however so I do not think it cause the hyponatremia. * head ct and chest ct okay. no history o fcancer. * sodium level stable, wandering about 130. * On no fluid restriction. I asked him to drink only if thirsty * Sodium level still low at 126. Will start a fluid restriction (4) Metabolic acidosis: Code(s): E87.2 - Acidosis Status: Acute Assessment and Plan: * Resolved (5) Rhabdomyolysis: Qualifiers: Rhabdomyolysis type: traumatic Encounter type: subsequent encounter Qualified Code(s): T79.6XXD - Traumatic ischemia of muscle, subsequent encounter Code(s): M62.82 - Rhabdomyolysis Status: Acute Assessment and Plan: * CPK elevated on admission but trending down * CKD down to 267 now. (6) Atrial fibrillation with RVR: Code(s): I48.91 - Unspecified atrial fibrillation Status: Acute Assessment and Plan: * new onset * Cardiology following * Pulse 79 currently. (7) Diabetes: Code(s): E11.9 - Type 2 diabetes mellitus without complications Status: Chronic Assessment and Plan: * On Accu-Cheks and sliding-scale insulin per hospitalist. Subjective Date/time seen: 10/26/21 18:33 Interval history: Adolfo is feeling fine. Up in a chair. finishing his antibiotic. He is eating pretty well. Eager for discharge Exam Narrative: General: eldely male in NAD Heart: normal S1 and S2; Irregularly irregular rhythm. no rub Lungs: clear to auscultation Abdomen: soft, nontender, nondistended, positive bowel sounds Extremities: no cyanosis or clubbing; 1+ bilateral edema Skin: no rash or subcu nodules Objective Data Vital Signs Vital Signs: Vital Signs - 24 hr 10/25/21 20:00 10/25/21 21:12 10/25/21 21:43 Temperature 36.8 C Pulse Rate 103 H 95 Respiratory Rate 14 Blood Pressure 147/70 H Pulse Oximetry 98 96 10/25/21 23:20 10/26/21 00:00 10/26/21 04:00 Temperature 36.8 C 37.0 C
--- NOTE | 2021-10-26 18:33 | PM.PNNEP ---
Progress Note: A&P Assessment and Plan (1) Acute kidney injury: Code(s): N17.9 - Acute kidney failure, unspecified Status: Acute Assessment and Plan: MARILIN multifactorial etiology: hypotension/hemodynamic instability urinary retention/obstruction infection (UTI +/- pyelonephritis) pre-renal factors rhabdomyolysis concurrent use of KIRSTIE-I + metformin intitial imaging (CT scan) without obstruction (giron catheter in place) however, renal ultrasound demonstrates mild right hydronephrosis CPK coming down. Peaked at 4734. Currently 267. Creatinine is normal. (2) Sepsis: Qualifiers: Sepsis type: sepsis due to unspecified organism Sepsis acute organ dysfunction status: with acute organ dysfunction Severe sepsis acute organ dysfunction type: acute renal failure Acute renal failure type: unspecified Code(s): A41.9 - Sepsis, unspecified organism Status: Acute Assessment and Plan: suspect UTI along with pyelonephritis follow culture data on Zosyn follow hemodynamics (3) Hyponatremia: Code(s): E87.1 - Hypo-osmolality and hyponatremia Status: Acute Assessment and Plan: presumably related to MARILIN/ARF TSH and cortisol okay he is now on some hydrocodone. He only got 1 dose today however so I do not think it cause the hyponatremia. head ct and chest ct okay. no history o fcancer. sodium level stable, wandering about 130. On no fluid restriction. I asked him to drink only if thirsty Sodium level still low at 126. Will start a fluid restriction (4) Metabolic acidosis: Code(s): E87.2 - Acidosis Status: Acute Assessment and Plan: Resolved (5) Rhabdomyolysis: Qualifiers: Rhabdomyolysis type: traumatic Encounter type: subsequent encounter Qualified Code(s): T79.6XXD - Traumatic ischemia of muscle, subsequent encounter Code(s): M62.82 - Rhabdomyolysis Status: Acute Assessment and Plan: CPK elevated on admission but trending down CKD down to 267 now. (6) Atrial fibrillation with RVR: Code(s): I48.91 - Unspecified atrial fibrillation Status: Acute Assessment and Plan: new onset Cardiology following Pulse 79 currently. (7) Diabetes: Code(s): E11.9 - Type 2 diabetes mellitus without complications Status: Chronic Assessment and Plan: On Accu-Cheks and sliding-scale insulin per hospitalist. Subjective Date/time seen: 10/26/21 18:33 Interval history: Adolfo is feeling fine. Up in a chair. finishing his antibiotic. He is eating pretty well. Eager for discharge Exam Narrative: General: eldely male in NAD Heart: normal S1 and S2; Irregularly irregular rhythm. no rub Lungs: clear to auscultation Abdomen: soft, nontender, nondistended, positive bowel sounds Extremities: no cyanosis or clubbing; 1+ bilateral edema Skin: no rash or subcu nodules Objective Data Vital Signs Vital Signs: Vital Signs - 24 hr 10/25/21 20:00 10/25/21 21:12 10/25/21 21:43 Temperature 36.8 C Pulse Rate 103 H 95 Respiratory Rate 14 Blood Pressure 147/70 H Pulse Oximetry 98 96 10/25/21 23:20 10/26/21 00:00 10/26/21 04:00 Temperature 36.8 C 37.0 C Pulse Rate 84 87 101 H Respiratory Rate 17 17 Blood Pressure 138/73 143/64 H Pulse Oximetry 98 93 10/26/21 08:00 10/26/21 12:00 10/26/21 12:06 Temperature 36.6 C 36.4 C Pulse Rate 101 H 78 88 Respiratory Rate 18 18 Blood Pressure 119/73 135/78 Pulse Oximetry 97 99 10/26/21 16:00 10/26/21 16:36 Temperature 36.5 C Pulse Rate 77 79 Respiratory Rate 18 Blood Pressure 146/83 H Pulse Oximetry 99 Intake/Output Intake/Output: Intake & Output 10/23/21 10/24/21 10/25/21 10/26/21 23:59 23:59 23:59 23:59 Intake Total 2390 2898 2630 2020 Output Total 1625 3210 2625 3800 Balance 052 -791 0 -2105 Meds/R
[2021-10-26 23:37] LABS: Glucose Point of Care 162 mg/dl (65-105)
[2021-10-27] VITALS (11 sets, daily range): BP systolic 134–144; BP diastolic 56–72; PULSE 72–98; RESP 16–20; TEMP 36.1–36.4; O2SAT 98–100
[2021-10-27] MEDS: VANCOMYCIN ORAL 125 MG/2.5 ML SYRUP PO ×4 (00:12→17:47)
[2021-10-27 05:44] LABS: Albumin Level 2.9 g/dL (3.5-5.1); Anion Gap 4 mmol/L (8-16); Blood Urea Nitrogen 20 mg/dL (9-20); Calcium 7.7 mg/dL (8.4-10.2); Carbon Dioxide 30 mmol/L (22-30); Chloride 97 mmol/L (98-107); Estimated CRCL calculation 64 ml/min; Estimated Glomerular Filt Rate > 60; Glucose 147 mg/dL (65-110); Phosphorus 2.7 mg/dL (2.5-4.5); Potassium 3.9 mmol/L (3.4-5.0); Sodium 131 mmol/L (137-145)
[2021-10-27 07:41] LABS: Glucose Point of Care 143 mg/dl (65-105)
[2021-10-27] MEDS: ASPIRIN 325 MG TABLET PO (08:58)
[2021-10-27] MEDS: METOPROLOL TARTRATE 25 MG TABLET PO ×2 (09:02→21:05)
[2021-10-27] MEDS: AMIODARONE HCL 200 MG TABLET PO ×3 (09:02→16:59)
[2021-10-27] MEDS: SACCHAROMYCES BOULARDII 250 MG CAPSULE PO ×3 (09:02→16:58)
[2021-10-27 11:14] LABS: Glucose Point of Care 289 mg/dl (65-105)
[2021-10-27 11:51] LABS: Basophils Absolute Auto 0.1 K/mm3 (0.0-0.1); Basophils Percent Auto 0.4 % (0.2-1.2); Eosinophils Absolute Auto 0.4 K/mm3 (0-0.3); Eosinophils Percent Auto 1.1 % (0-4.4); Hematocrit 37.6 % (42.0-52.0); Hemoglobin 12.8 g/dL (14.0-18.0); Immature Granulocyte Percent A 3.5 % (0-0.5); Lymphocytes Absolute Auto 1.82 K/mm3 (0.9-3.2); Lymphocytes Percent Auto 5.4 % (18.3-44.2); Mean Corpuscular Hemoglobin 31.4 pg (26-34); Mean Corpuscular Volume 92.4 fl (80-100); Mean Platelet Volume 9.5 fl (7.4-10.4); Monocytes Absolute Auto 1.2 K/mm3 (0.1-0.6); Monocytes Percent Auto 3.5 % (2.6-8.5); Neutrophils Absolute Auto 29.2 K/mm3 (1.3-6.7); Neutrophils Percent Auto 86.1 % (45.5-73.1); Platelet Count Result 339 k/mm3 (150-375); Red Blood Count 4.07 M/mm3 (4.6-6.20); Red Cell Distribution Width 14.4 % (11.5-14.5); White Blood Count 33.9 K/mm3 (4.5-10.0)
[2021-10-27 12:03] LABS: Alanine Aminotransferase 74 U/L (4-50); Albumin Level 2.8 g/dL (3.5-5.1); Alkaline Phosphatase 217 U/L (38-126); Aspartate Amino Transferase 55 U/L (17-59); Bilirubin,Total 0.8 mg/dL (0.2-1.3)
[2021-10-27] MEDS: INSULIN ASPART (*BKC) 100 UNITS/ML SUB-Q (12:13)
--- NOTE | 2021-10-27 13:10 | PCNFU ---
Nutrition Follow-Up Complete: Increase protein needs r/t wounds AEB deep tissue left medial back pressure ulcer, deep tissue lower medial back pressure ulcer, deep tissue left hip pressure ulcer, and scrotum maceration goal: Pt to meet >75% of estimated nutritional needs patient is meeting current nutrition goal. No new goal. Pt current nutrition is DBCC with 1200 ml FR. Last recorded weight is 79 kg, down from 81.2 kg on admit. Bowel Motility:FMS Labs Reviewed:Glu 147, Na 131, Alb 2.9 Meds Noted:Pacerone,Lopressor, Florastor, Vancomycin. Skin:Deep Tissue-lower back,left back, left hip Additional Notes: Patient remains on DBCC diet with 1200 ml FR. Oral Intake has been 75-100% of meals. Protein Modular of Avni BID (90 kcals and 2.5 gms protein)and Glucerna shakes TID (220 kcals and 10 gms protein.) Agree with diet orders. Will monitor labs, medication, wt, and reported intake every 7 days
--- NOTE | 2021-10-27 14:25 | P.PNNP_ITS ---
Progress Note: A&P Assessment and Plan (1) Acute kidney injury: Code(s): N17.9 - Acute kidney failure, unspecified Status: Acute Assessment and Plan: * MARILIN * multifactorial etiology: * hypotension/hemodynamic instability * urinary retention/obstruction * infection (UTI +/- pyelonephritis) * pre-renal factors * rhabdomyolysis * concurrent use of KIRSTIE-I + metformin * This is resolved. (2) Sepsis: Qualifiers: Sepsis type: sepsis due to unspecified organism Sepsis acute organ dysfunction status: with acute organ dysfunction Severe sepsis acute organ dysfunction type: acute renal failure Acute renal failure type: unspecified Code(s): A41.9 - Sepsis, unspecified organism Status: Acute Assessment and Plan: * suspect UTI along with pyelonephritis * follow culture data * on Zosyn * follow hemodynamics (3) Hyponatremia: Code(s): E87.1 - Hypo-osmolality and hyponatremia Status: Acute Assessment and Plan: * presumably related to MARILIN/ARF * TSH and cortisol okay * he is now on some hydrocodone. He only got 1 dose today however so I do not think it cause the hyponatremia. * head ct and chest ct okay. no history o fcancer. * sodium level stable, wandering about 130. * He is on a 1500cc fluid restriction. * Sodium level is improved at 131 (4) Metabolic acidosis: Code(s): E87.2 - Acidosis Status: Acute Assessment and Plan: * Resolved (5) Rhabdomyolysis: Qualifiers: Rhabdomyolysis type: traumatic Encounter type: subsequent encounter Qualified Code(s): T79.6XXD - Traumatic ischemia of muscle, subsequent encounter Code(s): M62.82 - Rhabdomyolysis Status: Acute Assessment and Plan: * Resolved (6) Atrial fibrillation with RVR: Code(s): I48.91 - Unspecified atrial fibrillation Status: Acute Assessment and Plan: * new onset * Cardiology following * Pulse 79 currently. (7) Diabetes: Code(s): E11.9 - Type 2 diabetes mellitus without complications Status: Chronic Assessment and Plan: * On Accu-Cheks and sliding-scale insulin per hospitalist. Subjective Date/time seen: 10/27/21 14:25 Interval history: Adolfo is feeling fine. He is sitting in a chair next to the bed. Exam Narrative: General: eldely male in NAD Heart: normal S1 and S2; Irregularly irregular rhythm. no rub Lungs: clear to auscultation Abdomen: soft, nontender, nondistended, positive bowel sounds Extremities: no cyanosis or clubbing; 1+ bilateral edema Skin: no rash or subcu nodules Objective Data Vital Signs Vital Signs: Vital Signs - 24 hr 10/26/21 16:00 10/26/21 16:36 10/26/21 19:53 Temperature 36.5 C Pulse Rate 77 79 Respiratory Rate 18 Blood Pressure 146/83 H Pulse Oximetry 99 93 10/26/21 20:00 10/26/21 20:29 10/26/21 20:32 Temperature 36.1 C L Pulse Rate 82 88 82 Respiratory Rate 18 18 Blood Pressure 140/75 Pulse Oximetry 98 98 10/26/21 23:50 10/27/21 00:00 10/27/21 04:00 Temperature 36.2 C L Pulse Rate 74 78 72 Respiratory Rate 16 Blood Pressure 137/84 Pulse Oximetry 99
--- NOTE | 2021-10-27 14:25 | PM.PNNEP ---
Progress Note: A&P Assessment and Plan (1) Acute kidney injury: Code(s): N17.9 - Acute kidney failure, unspecified Status: Acute Assessment and Plan: MARILIN multifactorial etiology: hypotension/hemodynamic instability urinary retention/obstruction infection (UTI +/- pyelonephritis) pre-renal factors rhabdomyolysis concurrent use of KIRSTIE-I + metformin This is resolved. (2) Sepsis: Qualifiers: Sepsis type: sepsis due to unspecified organism Sepsis acute organ dysfunction status: with acute organ dysfunction Severe sepsis acute organ dysfunction type: acute renal failure Acute renal failure type: unspecified Code(s): A41.9 - Sepsis, unspecified organism Status: Acute Assessment and Plan: suspect UTI along with pyelonephritis follow culture data on Zosyn follow hemodynamics (3) Hyponatremia: Code(s): E87.1 - Hypo-osmolality and hyponatremia Status: Acute Assessment and Plan: presumably related to MARILIN/ARF TSH and cortisol okay he is now on some hydrocodone. He only got 1 dose today however so I do not think it cause the hyponatremia. head ct and chest ct okay. no history o fcancer. sodium level stable, wandering about 130. He is on a 1500cc fluid restriction. Sodium level is improved at 131 (4) Metabolic acidosis: Code(s): E87.2 - Acidosis Status: Acute Assessment and Plan: Resolved (5) Rhabdomyolysis: Qualifiers: Rhabdomyolysis type: traumatic Encounter type: subsequent encounter Qualified Code(s): T79.6XXD - Traumatic ischemia of muscle, subsequent encounter Code(s): M62.82 - Rhabdomyolysis Status: Acute Assessment and Plan: Resolved (6) Atrial fibrillation with RVR: Code(s): I48.91 - Unspecified atrial fibrillation Status: Acute Assessment and Plan: new onset Cardiology following Pulse 79 currently. (7) Diabetes: Code(s): E11.9 - Type 2 diabetes mellitus without complications Status: Chronic Assessment and Plan: On Accu-Cheks and sliding-scale insulin per hospitalist. Subjective Date/time seen: 10/27/21 14:25 Interval history: Adolfo is feeling fine. He is sitting in a chair next to the bed. Exam Narrative: General: eldely male in NAD Heart: normal S1 and S2; Irregularly irregular rhythm. no rub Lungs: clear to auscultation Abdomen: soft, nontender, nondistended, positive bowel sounds Extremities: no cyanosis or clubbing; 1+ bilateral edema Skin: no rash or subcu nodules Objective Data Vital Signs Vital Signs: Vital Signs - 24 hr 10/26/21 16:00 10/26/21 16:36 10/26/21 19:53 Temperature 36.5 C Pulse Rate 77 79 Respiratory Rate 18 Blood Pressure 146/83 H Pulse Oximetry 99 93 10/26/21 20:00 10/26/21 20:29 10/26/21 20:32 Temperature 36.1 C L Pulse Rate 82 88 82 Respiratory Rate 18 18 Blood Pressure 140/75 Pulse Oximetry 98 98 10/26/21 23:50 10/27/21 00:00 10/27/21 04:00 Temperature 36.2 C L Pulse Rate 74 78 72 Respiratory Rate 16 Blood Pressure 137/84 Pulse Oximetry 99 10/27/21 04:15 10/27/21 08:00 10/27/21 12:00 Temperature 36.4 C Pulse Rate 78 98 88 Respiratory Rate 16 Blood Pressure 134/56 L Pulse Oximetry 98 10/27/21 13:16 Temperature 36.1 C L Pulse Rate 80 Respiratory Rate 18 Blood Pressure 134/67 Pulse Oximetry 100 Intake/Output Intake/Output: Intake & Output 10/24/21 10/25/21 10/26/21 10/27/21 23:59 23:59 23:59 23:59 Intake Total 2898 2630 2070 1110 Output Total 3850 2625 3800 2100 Balance -952 5 -9601 -814 Meds/Results Medications: Active Medications Generic Name Dose Route Start Last Admin Trade Name Ronny PRN Reason Stop Dose Admin Hydrocodone Bitart/Acetaminophen 1 tab 10/21/21 14:17 10/26/21 08:20 Hydrocodone/Acetaminophen (*Crx) 5-325 Mg Tabl
--- NOTE | 2021-10-27 16:02 | PM.CNGS ---
Assessment and Plan Assessment and plan (1) Acute cholecystitis: Code(s): K81.0 - Acute cholecystitis Status: Acute Assessment and Plan: New interval development of findings on the CT suggesting acute cholecystitis with evidence of gallstones. He has persistent leukocytosis and continues to have slightly elevated LFTs. His abdominal exam is benign and he is not really complaining of any RUQ abdominal pain, although the associated persistent leukocytosis is concerning without any other sources of infection. He has multiple co-morbidities along with his acute illness, that would put him at high risk for a cholecystectomy at this time. We will go ahead and proceed with placement of a percutaneous cholecystostomy tube in Radiology. Thank you for allowing us to see the patient in consultation and we will continue to follow along with you. (2) Diarrhea in adult patient: Code(s): R19.7 - Diarrhea, unspecified Status: Acute Assessment and Plan: Being treated with oral vancomycin. Stool studies noted. (3) Sepsis: Qualifiers: Sepsis type: sepsis due to unspecified organism Sepsis acute organ dysfunction status: with acute organ dysfunction Severe sepsis acute organ dysfunction type: acute renal failure Acute renal failure type: unspecified Code(s): A41.9 - Sepsis, unspecified organism Status: Acute Assessment and Plan: Patient presented with sepsis. He was treated with IV Zosyn and Vancomycin, which have been stopped (Zosyn stopped today). Initially felt he may have developed Cdiff and has been switched to oral vancomycin. He continues to have persistent leukocytosis with findings of acute cholecystitis on CT. See plan above. Plan for placement of cholecystostomy tube. (4) Acute kidney injury: Code(s): N17.9 - Acute kidney failure, unspecified Status: Acute Assessment and Plan: Improved. (5) Rhabdomyolysis: Qualifiers: Rhabdomyolysis type: traumatic Encounter type: subsequent encounter Qualified Code(s): T79.6XXD - Traumatic ischemia of muscle, subsequent encounter Code(s): M62.82 - Rhabdomyolysis Status: Acute Assessment and Plan: Improved. CK down to 267 most recently and was 4,000 on admission. (6) Diabetes: Code(s): E11.9 - Type 2 diabetes mellitus without complications Status: Chronic (7) Atrial fibrillation with RVR: Code(s): I48.91 - Unspecified atrial fibrillation Status: Acute Assessment and Plan: On admission, now in sinus rhythm on amiodarone orally. No current anticoagulation. (8) Essential (primary) hypertension: Code(s): I10 - Essential (primary) hypertension Status: Acute Additional Plan I have discussed the patient's case and plan of care with Dr. Monson. History of Present Illness Consult details Consult date: 10/27/21 Reason for consult: other (Possible acute cholecystitis, leukocytosis) Requesting physician: Marci Burks MD Narrative: This is a 71-year-old male with a history of type 2 diabetes mellitus, hypertension, and hyperlipidemia who was brought into the ER by EMS on 10/21/21 after finding the patient lying on his floor at home. Workup showed that he was septic likely secondary to a urinary tract infection, along with rhabdomyolysis, and afib RVR. He was admitted to the ICU initially and treated with broad-spectrum IV antibiotics and IV fluids. He began improving and was not requiring any vasopressor support, and he was eventually moved out of ICU. He has not been anticoagulated due to his recent fall and bruising. The patient then developed severe diarrhea and had a rectal tube placed. He had stool samples sent and his C.Diff was negative. The diarrhea continued and his leukocytosis worsened with a peak at 43,900 yesterday. He was started on oral vancomycin and IV antibiotics were stopped today. He subsequently had a CT scan of the abdomen and pelv
[2021-10-27 16:33] LABS: Glucose Point of Care 111 mg/dl (65-105)
--- NOTE | 2021-10-27 16:57 | PM.IMPN ---
Progress Note: A&P Assessment and Plan (1) Diarrhea in adult patient: Code(s): R19.7 - Diarrhea, unspecified Status: Acute (2) Diabetes: Code(s): E11.9 - Type 2 diabetes mellitus without complications Status: Chronic (3) Hyponatremia: Code(s): E87.1 - Hypo-osmolality and hyponatremia Status: Acute (4) Atrial fibrillation with RVR: Code(s): I48.91 - Unspecified atrial fibrillation Status: Acute (5) Sepsis: Qualifiers: Sepsis type: sepsis due to unspecified organism Sepsis acute organ dysfunction status: with acute organ dysfunction Severe sepsis acute organ dysfunction type: acute renal failure Acute renal failure type: unspecified Code(s): A41.9 - Sepsis, unspecified organism Status: Acute (6) Elevated lipase: Code(s): R74.8 - Abnormal levels of other serum enzymes Status: Acute (7) Rhabdomyolysis: Qualifiers: Rhabdomyolysis type: traumatic Encounter type: subsequent encounter Qualified Code(s): T79.6XXD - Traumatic ischemia of muscle, subsequent encounter Code(s): M62.82 - Rhabdomyolysis Status: Acute (8) Metabolic acidosis: Code(s): E87.2 - Acidosis Status: Acute (9) Acute kidney injury: Code(s): N17.9 - Acute kidney failure, unspecified Status: Acute (10) Type 2 diabetes mellitus without complications: Qualifiers: Diabetes mellitus usp insulin use: without usp use Qualified Code(s): E11.9 - Type 2 diabetes mellitus without complications Code(s): E11.9 - Type 2 diabetes mellitus without complications Status: Acute (11) Mixed hyperlipidemia: Code(s): E78.2 - Mixed hyperlipidemia Status: Acute (12) Essential (primary) hypertension: Code(s): I10 - Essential (primary) hypertension Status: Acute Additional Plan 10/22/2021 interval history: patient is 71-year-old male was found on the floor after he fell, was unable to get up, upon EMS arrival patient was found to have atrial fibrillation with RVR this is a new diagnosis patient was started on amiodarone drip as he was hypotensive, however rate was not trending down and patient was started on digoxin this has improved rate however patient kidney function is poor, discussed with supervisor packing room will continue present managed patient will be seen by stock lifter and further recommendation to follow, patient also has sepsis most likely secondary to UTI being treated with Zosyn and vancomycin will follow-up on urine culture and sensitivity and further recommendation to follow patient is currently somnolent unable to provide detailed review of symptoms. 10/23/2021 interval history: patient is 71-year-old male was found on the floor after he fell, was unable to get up, upon EMS arrival patient was found to have atrial fibrillation with RVR this is a new diagnosis, patient was started on amiodarone drip as he was hypotensive, however rate was not trending down and patient was started on digoxin this has improved rate however patient kidney function is poor, today amiodarone drip stopped and started on amiodarone 400 mg b.i.d., will monitor and further recommendation to follow, on 10/22 discussed with supervisor packing room will continue present managed patient will be seen by stock lifter and further recommendation to follow, patient also has sepsis most likely secondary to UTI being treated with Zosyn and vancomycin however urine culture no growth so far, blood culture is pending, will follow-up on blood culture and sensitivity and further recommendation to follow, patient with rhabdomyolysis CK level has improved today 797 compared to 474 upon arrival, will gently hydrate the patient and monitor, patient now clinically stable will move the patient out of ICU to IMU low PT OT evaluate the patient, patient will benefit going to acute rehab. 10/24/2021 interval history: patient is 71-year-old male was foun
[2021-10-27] MEDS: COLLAGENASE OINT 30 GM TUBE 1 APPLIC TOPICAL (16:58)
[2021-10-27 20:50] LABS: Glucose Point of Care 200 mg/dl (65-105)
[2021-10-28] VITALS (16 sets, daily range): BP systolic 126–158; BP diastolic 64–77; PULSE 74–93; RESP 14–18; TEMP 36.6–36.8; O2SAT 97–100
[2021-10-28] MEDS: VANCOMYCIN ORAL 125 MG/2.5 ML SYRUP PO ×5 (00:07→23:41)
[2021-10-28 04:12] LABS: Alpha 1 Globulin 0.6 g/dL (0.2-0.3); Alpha 2 Globulin 1.1 g/dL (0.5-0.9); Beta 1 Globulin 0.3 g/dL (0.4-0.6); Gamma Globulin 0.6 g/dL (0.8-1.7); Protein, Total 4.8 g/dL (6.1-8.1)
[2021-10-28 05:42] LABS: Osmolality, Urine 185 mOsm/kg (50-1200)
[2021-10-28 07:43] LABS: Glucose Point of Care 168 mg/dl (65-105)
[2021-10-28] MEDS: METOPROLOL TARTRATE 25 MG TABLET PO ×2 (08:40→21:15)
[2021-10-28] MEDS: AMIODARONE HCL 200 MG TABLET PO ×3 (08:40→17:02)
[2021-10-28] MEDS: SACCHAROMYCES BOULARDII 250 MG CAPSULE PO ×3 (08:40→17:02)
[2021-10-28] MEDS: COLLAGENASE OINT 30 GM TUBE 1 APPLIC TOPICAL (08:40)
--- NOTE | 2021-10-28 10:52 | PCPTNOTE ---
Patient refused treatment this session due to anticipated procedure at 11 a.m. Patient reported he is supposed to have a procedure at 11 a.m. and does not want to do anything until the procedure is done.
--- NOTE | 2021-10-28 11:05 | PCOTNOTE ---
Attempted to see patient for OT, patient refused to participate in OT until after his procedure for a drain placed. Will continue plan of care.
--- NOTE | 2021-10-28 12:09 | PM.IMPN ---
Progress Note: A&P Assessment and Plan (1) Diarrhea in adult patient: Code(s): R19.7 - Diarrhea, unspecified Status: Acute (2) Diabetes: Code(s): E11.9 - Type 2 diabetes mellitus without complications Status: Chronic (3) Hyponatremia: Code(s): E87.1 - Hypo-osmolality and hyponatremia Status: Acute (4) Atrial fibrillation with RVR: Code(s): I48.91 - Unspecified atrial fibrillation Status: Acute (5) Sepsis: Qualifiers: Acute renal failure type: unspecified Sepsis acute organ dysfunction status: with acute organ dysfunction Sepsis type: sepsis due to unspecified organism Severe sepsis acute organ dysfunction type: acute renal failure Code(s): A41.9 - Sepsis, unspecified organism Status: Acute (6) Elevated lipase: Code(s): R74.8 - Abnormal levels of other serum enzymes Status: Acute (7) Rhabdomyolysis: Qualifiers: Encounter type: subsequent encounter Rhabdomyolysis type: traumatic Qualified Code(s): T79.6XXD - Traumatic ischemia of muscle, subsequent encounter Code(s): M62.82 - Rhabdomyolysis Status: Acute (8) Metabolic acidosis: Code(s): E87.2 - Acidosis Status: Acute (9) Acute kidney injury: Code(s): N17.9 - Acute kidney failure, unspecified Status: Acute (10) Type 2 diabetes mellitus without complications: Qualifiers: Diabetes mellitus fdc insulin use: without fdc use Qualified Code(s): E11.9 - Type 2 diabetes mellitus without complications Code(s): E11.9 - Type 2 diabetes mellitus without complications Status: Acute (11) Mixed hyperlipidemia: Code(s): E78.2 - Mixed hyperlipidemia Status: Acute (12) Essential (primary) hypertension: Code(s): I10 - Essential (primary) hypertension Status: Acute Additional Plan 10/22/2021 interval history: patient is 71-year-old male was found on the floor after he fell, was unable to get up, upon EMS arrival patient was found to have atrial fibrillation with RVR this is a new diagnosis patient was started on amiodarone drip as he was hypotensive, however rate was not trending down and patient was started on digoxin this has improved rate however patient kidney function is poor, discussed with professional engineer will continue present managed patient will be seen by measurement supervisor and further recommendation to follow, patient also has sepsis most likely secondary to UTI being treated with Zosyn and vancomycin will follow-up on urine culture and sensitivity and further recommendation to follow patient is currently somnolent unable to provide detailed review of symptoms. 10/23/2021 interval history: patient is 71-year-old male was found on the floor after he fell, was unable to get up, upon EMS arrival patient was found to have atrial fibrillation with RVR this is a new diagnosis, patient was started on amiodarone drip as he was hypotensive, however rate was not trending down and patient was started on digoxin this has improved rate however patient kidney function is poor, today amiodarone drip stopped and started on amiodarone 400 mg b.i.d., will monitor and further recommendation to follow, on 10/22 discussed with professional engineer will continue present managed patient will be seen by measurement supervisor and further recommendation to follow, patient also has sepsis most likely secondary to UTI being treated with Zosyn and vancomycin however urine culture no growth so far, blood culture is pending, will follow-up on blood culture and sensitivity and further recommendation to follow, patient with rhabdomyolysis CK level has improved today 797 compared to 474 upon arrival, will gently hydrate the patient and monitor, patient now clinically stable will move the patient out of ICU to IMU low PT OT evaluate the patient, patient will benefit going to acute rehab. 10/24/2021 interval history: patient is 71-year-old male was foun
--- NOTE | 2021-10-28 12:21 | PCOTNOTE ---
Attempted to see patient this pm, however patient off floor for testing at this time.
[2021-10-28 13:02] LABS: Glucose Point of Care 129 mg/dl (65-105)
[2021-10-28 14:21] LABS: Basophils Absolute Auto 0.1 K/mm3 (0.0-0.1); Basophils Percent Auto 0.2 % (0.2-1.2); Eosinophils Absolute Auto 0.4 K/mm3 (0-0.3); Eosinophils Percent Auto 1.6 % (0-4.4); Hematocrit 41.4 % (42.0-52.0); Hemoglobin 13.6 g/dL (14.0-18.0); Immature Granulocyte Absolute 0.86 K/mm3 (0.00-0.031); Immature Granulocyte Percent A 3.7 % (0-0.5); Lymphocytes Absolute Auto 2.21 K/mm3 (0.9-3.2); Lymphocytes Percent Auto 9.6 % (18.3-44.2); Mean Corpuscular HGB Conc 32.9 g/dl (32-36); Mean Corpuscular Hemoglobin 31.9 pg (26-34); Mean Platelet Volume 9.8 fl (7.4-10.4); Monocytes Absolute Auto 1.1 K/mm3 (0.1-0.6); Monocytes Percent Auto 4.7 % (2.6-8.5); Neutrophils Absolute Auto 18.4 K/mm3 (1.3-6.7); Neutrophils Percent Auto 80.2 % (45.5-73.1); Platelet Count Result 461 k/mm3 (150-375); Red Blood Count 4.27 M/mm3 (4.6-6.20); Red Cell Distribution Width 14.9 % (11.5-14.5)
--- NOTE | 2021-10-28 14:24 | PCOTNOTE ---
Patient unavailable for OT. Will continue plan of care.
[2021-10-28 14:33] LABS: Alanine Aminotransferase 72 U/L (4-50); Albumin Level 3.2 g/dL (3.5-5.1); Alkaline Phosphatase 229 U/L (38-126); Anion Gap 4 mmol/L (8-16); Aspartate Amino Transferase 48 U/L (17-59); Bilirubin,Total 0.9 mg/dL (0.2-1.3); Blood Urea Nitrogen 16 mg/dL (9-20); Calcium 8.1 mg/dL (8.4-10.2); Carbon Dioxide 28 mmol/L (22-30); Chloride 99 mmol/L (98-107); Estimated CRCL calculation 58 ml/min; Estimated Glomerular Filt Rate > 60; Glucose 152 mg/dL (65-110); Magnesium 1.9 mg/dL (1.6-2.3); Potassium 4.1 mmol/L (3.4-5.0); Sodium 131 mmol/L (137-145)
[2021-10-28 16:25] LABS: Glucose Point of Care 172 mg/dl (65-105)
[2021-10-28] MEDS: SALINE 0.65% NAS SOLN 44 ML BTL 1 SPRAY NASAL (17:54)
[2021-10-28 20:18] LABS: Glucose Point of Care 265 mg/dl (65-105)
[2021-10-29] VITALS (14 sets, daily range): BP systolic 116–143; BP diastolic 61–75; PULSE 71–101; RESP 16–18; TEMP 36.4–37.5; O2SAT 96–100
[2021-10-29] MEDS: VANCOMYCIN ORAL 125 MG/2.5 ML SYRUP PO ×4 (05:34→23:20)
[2021-10-29 07:04] LABS: Albumin Level 2.8 g/dL (3.5-5.1); Anion Gap 6 mmol/L (8-16); Blood Urea Nitrogen 16 mg/dL (9-20); Calcium 7.8 mg/dL (8.4-10.2); Carbon Dioxide 26 mmol/L (22-30); Chloride 100 mmol/L (98-107); Estimated CRCL calculation 58 ml/min; Estimated Glomerular Filt Rate > 60; Glucose 169 mg/dL (65-110); Phosphorus 2.8 mg/dL (2.5-4.5); Potassium 3.8 mmol/L (3.4-5.0); Sodium 132 mmol/L (137-145)
[2021-10-29 07:57] LABS: Glucose Point of Care 164 mg/dl (65-105)
[2021-10-29 08:58] LABS: Basophils Absolute Auto 0.1 K/mm3 (0.0-0.1); Basophils Percent Auto 0.3 % (0.2-1.2); Eosinophils Absolute Auto 0.4 K/mm3 (0-0.3); Eosinophils Percent Auto 2.1 % (0-4.4); Hematocrit 37.6 % (42.0-52.0); Hemoglobin 12.5 g/dL (14.0-18.0); Immature Granulocyte Absolute 0.74 K/mm3 (0.00-0.031); Immature Granulocyte Percent A 3.9 % (0-0.5); Lymphocytes Absolute Auto 2.08 K/mm3 (0.9-3.2); Lymphocytes Percent Auto 10.8 % (18.3-44.2); Mean Corpuscular HGB Conc 33.2 g/dl (32-36); Mean Corpuscular Hemoglobin 30.9 pg (26-34); Mean Corpuscular Volume 93.1 fl (80-100); Mean Platelet Volume 9.8 fl (7.4-10.4); Monocytes Absolute Auto 0.9 K/mm3 (0.1-0.6); Monocytes Percent Auto 4.9 % (2.6-8.5); Platelet Count Result 493 k/mm3 (150-375); Red Blood Count 4.04 M/mm3 (4.6-6.20); Red Cell Distribution Width 14.4 % (11.5-14.5); White Blood Count 19.2 K/mm3 (4.5-10.0)
[2021-10-29] MEDS: ASPIRIN 325 MG TABLET PO (09:03)
[2021-10-29] MEDS: METOPROLOL TARTRATE 25 MG TABLET PO ×2 (09:03→20:10)
[2021-10-29] MEDS: AMIODARONE HCL 200 MG TABLET PO ×3 (09:03→17:41)
[2021-10-29] MEDS: SACCHAROMYCES BOULARDII 250 MG CAPSULE PO ×3 (09:03→17:42)
[2021-10-29] MEDS: COLLAGENASE OINT 30 GM TUBE 1 APPLIC TOPICAL (09:03)
--- NOTE | 2021-10-29 10:58 | PM.PNNEP ---
Progress Note: A&P Assessment and Plan (1) Acute kidney injury: Code(s): N17.9 - Acute kidney failure, unspecified Status: Acute Assessment and Plan: MARILIN Resolved (2) Sepsis: Qualifiers: Sepsis type: sepsis due to unspecified organism Sepsis acute organ dysfunction status: with acute organ dysfunction Severe sepsis acute organ dysfunction type: acute renal failure Acute renal failure type: unspecified Code(s): A41.9 - Sepsis, unspecified organism Status: Acute Assessment and Plan: suspect UTI along with pyelonephritis follow culture data on Zosyn follow hemodynamics (3) Hyponatremia: Code(s): E87.1 - Hypo-osmolality and hyponatremia Status: Acute Assessment and Plan: presumably related to MARILIN/ARF TSH and cortisol okay he is now on some hydrocodone. He only got 1 dose today however so I do not think it cause the hyponatremia. head ct and chest ct okay. no history o fcancer. sodium level stable Renal will sign off. (4) Metabolic acidosis: Code(s): E87.2 - Acidosis Status: Acute Assessment and Plan: Resolved (5) Rhabdomyolysis: Qualifiers: Rhabdomyolysis type: traumatic Encounter type: subsequent encounter Qualified Code(s): T79.6XXD - Traumatic ischemia of muscle, subsequent encounter Code(s): M62.82 - Rhabdomyolysis Status: Acute Assessment and Plan: Resolved (6) Atrial fibrillation with RVR: Code(s): I48.91 - Unspecified atrial fibrillation Status: Acute Assessment and Plan: new onset Cardiology following Pulse 79 currently. (7) Diabetes: Code(s): E11.9 - Type 2 diabetes mellitus without complications Status: Chronic Assessment and Plan: On Accu-Cheks and sliding-scale insulin per hospitalist. Subjective Date/time seen: 10/29/21 10:58 Interval history: Adolfo is feeling fine. He is sitting in a chair next to the bed. He had a gallbladder drain placed recently. He is drinking only of thirsty. Exam Narrative: General: eldely male in NAD Heart: normal S1 and S2; Irregularly irregular rhythm. no rub Lungs: clear Abdomen: soft, nontender, nondistended, positive bowel sounds Extremities: no cyanosis or clubbing; 1+ bilateral edema Skin: no rash Objective Data Vital Signs Vital Signs: Vital Signs - 24 hr 10/28/21 12:00 10/28/21 12:34 10/28/21 12:35 Temperature Pulse Rate 75 76 74 Respiratory Rate 15 16 Blood Pressure 147/72 H 133/77 Pulse Oximetry 99 100 10/28/21 12:55 10/28/21 14:22 10/28/21 16:00 Temperature 36.6 C Pulse Rate 78 77 81 Respiratory Rate 18 Blood Pressure 126/64 Pulse Oximetry 99 10/28/21 17:02 10/28/21 20:00 10/28/21 20:01 Temperature 36.8 C Pulse Rate 81 93 92 Respiratory Rate 18 Blood Pressure 135/64 Pulse Oximetry 97 10/28/21 20:04 10/28/21 21:15 10/29/21 00:00 Temperature Pulse Rate 85 79 Respiratory Rate Blood Pressure Pulse Oximetry 97 10/29/21 04:00 10/29/21 05:01 10/29/21 08:00 Temperature 37.5 C Pulse Rate 78 83 101 H Respiratory Rate 18 Blood Pressure 134/67 Pulse Oximetry 96 10/29/21 09:03 10/29/21 09:10 Temperature Pulse Rate 101 H 101 H Respiratory Rate 18 Blood Pressure Pulse Oximetry 96 Intake/Output Intake/Output: Intake & Output 10/26/21 10/27/21 10/28/21 10/29/21 23:59 23:59 23:59 23:59 Intake Total 2070 1280 730 580 Output Total 3800 3300 2065 1330 Balance -1730 -2020 -1335 -750 Meds/Results Medications: Active Medications Generic Name Dose Route Start Last Admin Trade Name Freq PRN Reason Stop Dose Admin Hydrocodone Bitart/Acetaminophen 1 tab 10/21/21 14:17 10/26/21 08:20 Hydrocodone/Acetaminophen (*Crx) 5-325 Mg Tablet PO 1 tab Q4H PRN Administration Pain Rated 4-6 Hydrocodone Bitart/Acetaminoph
--- NOTE | 2021-10-29 11:23 | PM.PNGS ---
Progress Note: A&P Assessment and Plan (1) Acute cholecystitis: Code(s): K81.0 - Acute cholecystitis Status: Acute Assessment and Plan: responding well to cholecystostomy tube. White blood cell count is decreased to 19,000. tolerating oral intake and not having pain. Continue to monitor. (2) Diabetes: Code(s): E11.9 - Type 2 diabetes mellitus without complications Status: Chronic (3) Atrial fibrillation with RVR: Code(s): I48.91 - Unspecified atrial fibrillation Status: Acute (4) Diarrhea in adult patient: Code(s): R19.7 - Diarrhea, unspecified Status: Acute Subjective Subjective Date/Time Seen: 10/29/21 11:23 Post Op day: 1 ( cholecystostomy tube placed yesterday) Patient reports: no new complaints, feels better, pain is less, tolerating a regular diet and afebrile Review of Systems Review of Systems: All systems reviewed & are unremarkable except as noted in HPI and below Constitutional: Constitutional: Denies chills, Denies fever(s), Denies headache(s) and Denies poor appetite Gastrointestinal: Gastrointestinal: Reports as per HPI, Denies abdominal pain, Denies GI cramping, Reports diarrhea, Denies nausea and Denies vomiting Exam Const: General: cooperative, comfortable, no acute distress, alert and awake Nutritional Appearance: obese GI: Inspection: non-distended, obesity and other ( cholecystostomy tube with bile draining.) GI Palp: Yes Soft to palpation, Yes Tenderness to palpation present (GI) ( Only tender at cholecystostomy site), No Guarding due to palpation present (GI), No Ascites present and No Rebound tenderness present Auscultation: normal bowel sounds Extrem: General: no calf tenderness and no edema Objective Data Vital Signs Vital Signs: Vital Signs - 24 hr 10/28/21 12:00 10/28/21 12:34 10/28/21 12:35 Temperature Pulse Rate 75 76 74 Respiratory Rate 15 16 Blood Pressure 147/72 H 133/77 Pulse Oximetry 99 100 10/28/21 12:55 10/28/21 14:22 10/28/21 16:00 Temperature 36.6 C Pulse Rate 78 77 81 Respiratory Rate 18 Blood Pressure 126/64 Pulse Oximetry 99 10/28/21 17:02 10/28/21 20:00 10/28/21 20:01 Temperature 36.8 C Pulse Rate 81 93 92 Respiratory Rate 18 Blood Pressure 135/64 Pulse Oximetry 97 10/28/21 20:04 10/28/21 21:15 10/29/21 00:00 Temperature Pulse Rate 85 79 Respiratory Rate Blood Pressure Pulse Oximetry 97 10/29/21 04:00 10/29/21 05:01 10/29/21 08:00 Temperature 37.5 C Pulse Rate 78 83 101 H Respiratory Rate 18 Blood Pressure 134/67 Pulse Oximetry 96 10/29/21 09:03 10/29/21 09:10 Temperature Pulse Rate 101 H 101 H Respiratory Rate 18 Blood Pressure Pulse Oximetry 96 Intake/Output Intake/Output: Intake & Output 10/26/21 10/27/21 10/28/21 10/29/21 23:59 23:59 23:59 23:59 Intake Total 2070 1280 730 580 Output Total 3800 3300 2065 1330 Balance -1730 -2020 -1335 -750 Meds/Results Medications: Active Medications Generic Name Dose Route Start Last Admin Trade Name Freq PRN Reason Stop Dose Admin Hydrocodone Bitart/Acetaminophen 1 tab 10/21/21 14:17 10/26/21 08:20 Hydrocodone/Acetaminophen (*Crx) 5-325 Mg Tablet PO 1 tab Q4H PRN Administration Pain Rated 4-6 Hydrocodone Bitart/Acetaminophen 1 tab 10/21/21 14:17 Hydrocodone/Acetaminophen (*Crx) 10-325 Mg Tablet PO Q4H PRN Pain Rated 7-10 Amiodarone HCl 200 mg 10/23/21 13:00 10/29/21 09:03 Amiodarone Hcl 200 Mg Tablet PO 200 mg TID NUNO Administration Aspirin 325 mg 10/22/21 09:45 10/29/21 09:03 Aspirin 325 Mg Tablet PO 325 mg DAILY@0800 NUNO Administration Collagenase 1 applic 10/27/21 16:00 10/29/21 09:03 Collagenase Oint 30 Gm Tube TOPICAL 1 applic QAM NUNO Administration Dextrose 12.5 gm 10/22/21 14:23 10/22/21 20:57 Dextrose 50% 25 Gm/50 Ml Syringe IV PUSH 12.5 gm PRN PRN Administration Hyp
[2021-10-29 11:50] LABS: Glucose Point of Care 236 mg/dl (65-105)
[2021-10-29] MEDS: INSULIN ASPART (*BKC) 100 UNITS/ML SUB-Q (12:00)
--- NOTE | 2021-10-29 13:59 | PM.IMPN ---
Progress Note: A&P Assessment and Plan (1) Diarrhea in adult patient: Code(s): R19.7 - Diarrhea, unspecified Status: Acute (2) Diabetes: Code(s): E11.9 - Type 2 diabetes mellitus without complications Status: Chronic (3) Hyponatremia: Code(s): E87.1 - Hypo-osmolality and hyponatremia Status: Acute (4) Atrial fibrillation with RVR: Code(s): I48.91 - Unspecified atrial fibrillation Status: Acute (5) Sepsis: Qualifiers: Sepsis type: sepsis due to unspecified organism Sepsis acute organ dysfunction status: with acute organ dysfunction Severe sepsis acute organ dysfunction type: acute renal failure Acute renal failure type: unspecified Code(s): A41.9 - Sepsis, unspecified organism Status: Acute (6) Elevated lipase: Code(s): R74.8 - Abnormal levels of other serum enzymes Status: Acute (7) Rhabdomyolysis: Qualifiers: Rhabdomyolysis type: traumatic Encounter type: subsequent encounter Qualified Code(s): T79.6XXD - Traumatic ischemia of muscle, subsequent encounter Code(s): M62.82 - Rhabdomyolysis Status: Acute (8) Metabolic acidosis: Code(s): E87.2 - Acidosis Status: Acute (9) Acute kidney injury: Code(s): N17.9 - Acute kidney failure, unspecified Status: Acute (10) Type 2 diabetes mellitus without complications: Qualifiers: Diabetes mellitus chcf insulin use: without chcf use Qualified Code(s): E11.9 - Type 2 diabetes mellitus without complications Code(s): E11.9 - Type 2 diabetes mellitus without complications Status: Acute (11) Mixed hyperlipidemia: Code(s): E78.2 - Mixed hyperlipidemia Status: Acute (12) Essential (primary) hypertension: Code(s): I10 - Essential (primary) hypertension Status: Acute Additional Plan 10/22/2021 interval history: patient is 71-year-old male was found on the floor after he fell, was unable to get up, upon EMS arrival patient was found to have atrial fibrillation with RVR this is a new diagnosis patient was started on amiodarone drip as he was hypotensive, however rate was not trending down and patient was started on digoxin this has improved rate however patient kidney function is poor, discussed with inspector motor vehicles will continue present managed patient will be seen by car dealer and further recommendation to follow, patient also has sepsis most likely secondary to UTI being treated with Zosyn and vancomycin will follow-up on urine culture and sensitivity and further recommendation to follow patient is currently somnolent unable to provide detailed review of symptoms. 10/23/2021 interval history: patient is 71-year-old male was found on the floor after he fell, was unable to get up, upon EMS arrival patient was found to have atrial fibrillation with RVR this is a new diagnosis, patient was started on amiodarone drip as he was hypotensive, however rate was not trending down and patient was started on digoxin this has improved rate however patient kidney function is poor, today amiodarone drip stopped and started on amiodarone 400 mg b.i.d., will monitor and further recommendation to follow, on 10/22 discussed with inspector motor vehicles will continue present managed patient will be seen by car dealer and further recommendation to follow, patient also has sepsis most likely secondary to UTI being treated with Zosyn and vancomycin however urine culture no growth so far, blood culture is pending, will follow-up on blood culture and sensitivity and further recommendation to follow, patient with rhabdomyolysis CK level has improved today 797 compared to 474 upon arrival, will gently hydrate the patient and monitor, patient now clinically stable will move the patient out of ICU to IMU low PT OT evaluate the patient, patient will benefit going to acute rehab. 10/24/2021 interval history: patient is 71-year-old male was foun
[2021-10-29 16:35] LABS: Glucose Point of Care 91 mg/dl (65-105)
[2021-10-29 20:44] LABS: Glucose Point of Care 187 mg/dl (65-105)
[2021-10-30] VITALS (15 sets, daily range): BP systolic 133–141; BP diastolic 61–73; PULSE 72–113; RESP 16–18; TEMP 35.9–37; O2SAT 95–100
[2021-10-30] MEDS: VANCOMYCIN ORAL 125 MG/2.5 ML SYRUP PO ×4 (05:38→23:33)
[2021-10-30 07:34] LABS: Glucose Point of Care 152 mg/dl (65-105)
[2021-10-30] MEDS: SACCHAROMYCES BOULARDII 250 MG CAPSULE PO ×3 (08:55→17:02)
[2021-10-30] MEDS: METOPROLOL TARTRATE 25 MG TABLET PO ×2 (08:56→20:26)
[2021-10-30] MEDS: AMIODARONE HCL 200 MG TABLET PO ×3 (08:56→17:02)
[2021-10-30] MEDS: ASPIRIN 325 MG TABLET PO (08:56)
[2021-10-30] MEDS: COLLAGENASE OINT 30 GM TUBE 1 APPLIC TOPICAL (09:04)
--- NOTE | 2021-10-30 11:05 | PM.PNGS ---
Progress Note: A&P Assessment and Plan (1) Acute cholecystitis: Code(s): K81.0 - Acute cholecystitis Status: Acute Assessment and Plan: Doing well. Continue cholecystostomy tube to gravity drainage. Consider cholangiogram this week to evaluate cystic duct patency. (2) Type 2 diabetes mellitus without complications: Qualifiers: Diabetes mellitus shelter insulin use: without regional intermodal truck driver use Qualified Code(s): E11.9 - Type 2 diabetes mellitus without complications Code(s): E11.9 - Type 2 diabetes mellitus without complications Status: Acute (3) Atrial fibrillation with RVR: Code(s): I48.91 - Unspecified atrial fibrillation Status: Acute Subjective Subjective Date/Time Seen: 10/30/21 11:05 Patient reports: no new complaints, pain is less ( Denies abdominal pain), tolerating a regular diet, bowel movement and afebrile Review of Systems Review of Systems: All systems reviewed & are unremarkable except as noted in HPI and below Constitutional: Constitutional: Denies anorexia, Denies chills, Denies fever(s) and Reports lethargy Cardiovascular: Cardiovascular: Denies chest pain and Denies dyspnea Respiratory: Respiratory: Denies cough and Denies dyspnea Gastrointestinal: Gastrointestinal: Reports as per HPI, Denies abdominal pain, Denies GI cramping, Denies heartburn, Denies diarrhea, Denies nausea and Denies vomiting Exam Const: General: cooperative, comfortable, no acute distress, alert and awake; No confusion Nutritional Appearance: obese Orientation/consciousness: No confusion GI: Inspection: non-distended, obesity and other ( cholecystostomy tube site looks good, draining bile.) GI Palp: Yes Soft to palpation, No Tenderness to palpation present (GI), No Guarding due to palpation present (GI) and No Rebound tenderness present Auscultation: normal bowel sounds Extrem: General: no calf tenderness and no edema Objective Data Vital Signs Vital Signs: Vital Signs - 24 hr 10/29/21 12:00 10/29/21 13:48 10/29/21 16:00 Temperature 36.4 C L Pulse Rate 77 81 71 Respiratory Rate 16 Blood Pressure 116/61 Pulse Oximetry 100 10/29/21 17:41 10/29/21 20:00 10/29/21 20:10 Temperature Pulse Rate 83 86 80 Respiratory Rate Blood Pressure Pulse Oximetry 10/29/21 20:44 10/29/21 22:47 10/30/21 00:00 Temperature 36.5 C Pulse Rate 76 76 Respiratory Rate 16 Blood Pressure 143/75 H Pulse Oximetry 100 99 10/30/21 04:00 10/30/21 06:08 10/30/21 07:39 Temperature 36.7 C Pulse Rate 75 72 Respiratory Rate 16 Blood Pressure 141/69 H Pulse Oximetry 100 98 10/30/21 08:00 10/30/21 08:56 Temperature Pulse Rate 93 78 Respiratory Rate Blood Pressure Pulse Oximetry Intake/Output Intake/Output: Intake & Output 10/27/21 10/28/21 10/29/21 10/30/21 23:59 23:59 23:59 23:59 Intake Total 2209 611 9863 290 Output Total 3300 0 8 1000 [facility] -2020 -1335 -465 -710 Meds/Results Medications: Active Medications Generic Name Dose Route Start Last Admin Trade Name Freq PRN Reason Stop Dose Admin Hydrocodone Bitart/Acetaminophen 1 tab 10/21/21 14:17 10/26/21 08:20 Hydrocodone/Acetaminophen (*Crx) 5-325 Mg Tablet PO 1 tab Q4H PRN Administration Pain Rated 4-6 Hydrocodone Bitart/Acetaminophen 1 tab 10/21/21 14:17 Hydrocodone/Acetaminophen (*Crx) 10-325 Mg Tablet PO Q4H PRN Pain Rated 7-10 Amiodarone HCl 200 mg 10/23/21 13:00 10/30/21 08:56 Amiodarone Hcl 200 Mg Tablet PO 200 mg TID NUNO Administration Aspirin 325 mg 10/22/21 09:45 10/30/21 08:56 Aspirin 325 Mg Tablet PO 325 mg DAILY@0800 NUNO Administration Collagenase 1 applic 10/27/21 16:00 10/30/21 09:04 Collagenase Oint 30 Gm Tube TOPICAL 1 applic QAM NUNO Administration Dextrose 12.5 gm 10/22/21 14:23 10/22/21 20:57 Dextrose 50% 25 Gm/50 Ml Syringe IV PUSH 12.5 gm PRN PRN
[2021-10-30] MEDS: INSULIN ASPART (*BKC) 100 UNITS/ML SUB-Q (11:40)
[2021-10-30 11:43] LABS: Glucose Point of Care 273 mg/dl (65-105)
--- NOTE | 2021-10-30 12:18 | PM.IMPN ---
Progress Note: A&P Assessment and Plan (1) Diarrhea in adult patient: Code(s): R19.7 - Diarrhea, unspecified Status: Acute (2) Diabetes: Code(s): E11.9 - Type 2 diabetes mellitus without complications Status: Chronic (3) Hyponatremia: Code(s): E87.1 - Hypo-osmolality and hyponatremia Status: Acute (4) Atrial fibrillation with RVR: Code(s): I48.91 - Unspecified atrial fibrillation Status: Acute (5) Sepsis: Qualifiers: Sepsis type: sepsis due to unspecified organism Sepsis acute organ dysfunction status: with acute organ dysfunction Severe sepsis acute organ dysfunction type: acute renal failure Acute renal failure type: unspecified Code(s): A41.9 - Sepsis, unspecified organism Status: Acute (6) Elevated lipase: Code(s): R74.8 - Abnormal levels of other serum enzymes Status: Acute (7) Rhabdomyolysis: Qualifiers: Rhabdomyolysis type: traumatic Encounter type: subsequent encounter Qualified Code(s): T79.6XXD - Traumatic ischemia of muscle, subsequent encounter Code(s): M62.82 - Rhabdomyolysis Status: Acute (8) Metabolic acidosis: Code(s): E87.2 - Acidosis Status: Acute (9) Acute kidney injury: Code(s): N17.9 - Acute kidney failure, unspecified Status: Acute (10) Type 2 diabetes mellitus without complications: Qualifiers: Diabetes mellitus shelter insulin use: without shelter use Qualified Code(s): E11.9 - Type 2 diabetes mellitus without complications Code(s): E11.9 - Type 2 diabetes mellitus without complications Status: Acute (11) Mixed hyperlipidemia: Code(s): E78.2 - Mixed hyperlipidemia Status: Acute (12) Essential (primary) hypertension: Code(s): I10 - Essential (primary) hypertension Status: Acute Additional Plan 10/22/2021 interval history: patient is 71-year-old male was found on the floor after he fell, was unable to get up, upon EMS arrival patient was found to have atrial fibrillation with RVR this is a new diagnosis patient was started on amiodarone drip as he was hypotensive, however rate was not trending down and patient was started on digoxin this has improved rate however patient kidney function is poor, discussed with electrical machinist will continue present managed patient will be seen by yarn mercerizer operator and further recommendation to follow, patient also has sepsis most likely secondary to UTI being treated with Zosyn and vancomycin will follow-up on urine culture and sensitivity and further recommendation to follow patient is currently somnolent unable to provide detailed review of symptoms. 10/23/2021 interval history: patient is 71-year-old male was found on the floor after he fell, was unable to get up, upon EMS arrival patient was found to have atrial fibrillation with RVR this is a new diagnosis, patient was started on amiodarone drip as he was hypotensive, however rate was not trending down and patient was started on digoxin this has improved rate however patient kidney function is poor, today amiodarone drip stopped and started on amiodarone 400 mg b.i.d., will monitor and further recommendation to follow, on 10/22 discussed with electrical machinist will continue present managed patient will be seen by yarn mercerizer operator and further recommendation to follow, patient also has sepsis most likely secondary to UTI being treated with Zosyn and vancomycin however urine culture no growth so far, blood culture is pending, will follow-up on blood culture and sensitivity and further recommendation to follow, patient with rhabdomyolysis CK level has improved today 797 compared to 474 upon arrival, will gently hydrate the patient and monitor, patient now clinically stable will move the patient out of ICU to IMU low PT OT evaluate the patient, patient will benefit going to acute rehab. 10/24/2021 interval history: patient is 71-year-old male was foun
[2021-10-30 12:43] LABS: Basophils Absolute Auto 0.1 K/mm3 (0.0-0.1); Basophils Percent Auto 0.5 % (0.2-1.2); Eosinophils Absolute Auto 0.4 K/mm3 (0-0.3); Eosinophils Percent Auto 1.8 % (0-4.4); Hematocrit 44.5 % (42.0-52.0); Hemoglobin 14.1 g/dL (14.0-18.0); Immature Granulocyte Absolute 0.43 K/mm3 (0.00-0.031); Lymphocytes Absolute Auto 1.93 K/mm3 (0.9-3.2); Lymphocytes Percent Auto 8.8 % (18.3-44.2); Mean Corpuscular HGB Conc 31.7 g/dl (32-36); Mean Corpuscular Hemoglobin 31.3 pg (26-34); Mean Corpuscular Volume 98.7 fl (80-100); Mean Platelet Volume 9.7 fl (7.4-10.4); Monocytes Percent Auto 4.8 % (2.6-8.5); Neutrophils Absolute Auto 17.9 K/mm3 (1.3-6.7); Neutrophils Percent Auto 82.1 % (45.5-73.1); Platelet Count Result 524 k/mm3 (150-375); Red Blood Count 4.51 M/mm3 (4.6-6.20); Red Cell Distribution Width 14.6 % (11.5-14.5); White Blood Count 21.8 K/mm3 (4.5-10.0)
[2021-10-30 13:06] LABS: Hypersegmented Neutrophils Present; Platelet Estimate Increased (Adequate)
[2021-10-30] MEDS: TAMSULOSIN HCL 0.4 MG CAPSULE PO (13:57)
[2021-10-30 14:57] LABS: Alanine Aminotransferase 44 U/L (4-50); Albumin Level 2.8 g/dL (3.5-5.1); Alkaline Phosphatase 139 U/L (38-126); Anion Gap 6 mmol/L (8-16); Aspartate Amino Transferase 29 U/L (17-59); Bilirubin,Total 0.4 mg/dL (0.2-1.3); Blood Urea Nitrogen 20 mg/dL (9-20); Calcium 7.7 mg/dL (8.4-10.2); Carbon Dioxide 25 mmol/L (22-30); Chloride 99 mmol/L (98-107); Estimated CRCL calculation 58 ml/min; Estimated Glomerular Filt Rate > 60; Glucose 194 mg/dL (65-110); Magnesium 1.9 mg/dL (1.6-2.3); Phosphorus 2.8 mg/dL (2.5-4.5); Potassium 4.2 mmol/L (3.4-5.0); Sodium 130 mmol/L (137-145)
[2021-10-30 16:31] LABS: Glucose Point of Care 141 mg/dl (65-105)
[2021-10-30 20:41] LABS: Glucose Point of Care 264 mg/dl (65-105)
[2021-10-31] VITALS (15 sets, daily range): BP systolic 93–135; BP diastolic 52–73; PULSE 65–93; RESP 16–18; TEMP 36.6–37; O2SAT 97–100; BMI 11.0
[2021-10-31] MEDS: VANCOMYCIN ORAL 125 MG/2.5 ML SYRUP PO ×4 (05:47→23:16)
[2021-10-31 07:40] LABS: Glucose Point of Care 179 mg/dl (65-105)
[2021-10-31] MEDS: AMIODARONE HCL 200 MG TABLET PO ×3 (08:35→16:57)
[2021-10-31] MEDS: ASPIRIN 325 MG TABLET PO (08:35)
[2021-10-31] MEDS: METOPROLOL TARTRATE 25 MG TABLET PO ×2 (08:36→20:20)
[2021-10-31] MEDS: COLLAGENASE OINT 30 GM TUBE 1 APPLIC TOPICAL (08:36)
[2021-10-31] MEDS: SACCHAROMYCES BOULARDII 250 MG CAPSULE PO ×3 (08:36→16:57)
[2021-10-31] MEDS: TAMSULOSIN HCL 0.4 MG CAPSULE PO (08:36)
[2021-10-31 09:53] LABS: Glucose Point of Care 170 mg/dl (65-105)
--- NOTE | 2021-10-31 10:11 | PM.IMPN ---
Progress Note: A&P Assessment and Plan (1) Diarrhea in adult patient: Code(s): R19.7 - Diarrhea, unspecified Status: Acute (2) Diabetes: Code(s): E11.9 - Type 2 diabetes mellitus without complications Status: Chronic (3) Hyponatremia: Code(s): E87.1 - Hypo-osmolality and hyponatremia Status: Acute (4) Atrial fibrillation with RVR: Code(s): I48.91 - Unspecified atrial fibrillation Status: Acute (5) Sepsis: Qualifiers: Sepsis type: sepsis due to unspecified organism Sepsis acute organ dysfunction status: with acute organ dysfunction Severe sepsis acute organ dysfunction type: acute renal failure Acute renal failure type: unspecified Code(s): A41.9 - Sepsis, unspecified organism Status: Acute (6) Elevated lipase: Code(s): R74.8 - Abnormal levels of other serum enzymes Status: Acute (7) Rhabdomyolysis: Qualifiers: Rhabdomyolysis type: traumatic Encounter type: subsequent encounter Qualified Code(s): T79.6XXD - Traumatic ischemia of muscle, subsequent encounter Code(s): M62.82 - Rhabdomyolysis Status: Acute (8) Metabolic acidosis: Code(s): E87.2 - Acidosis Status: Acute (9) Acute kidney injury: Code(s): N17.9 - Acute kidney failure, unspecified Status: Acute (10) Type 2 diabetes mellitus without complications: Qualifiers: Diabetes mellitus long-term insulin use: without long-term use Qualified Code(s): E11.9 - Type 2 diabetes mellitus without complications Code(s): E11.9 - Type 2 diabetes mellitus without complications Status: Acute (11) Mixed hyperlipidemia: Code(s): E78.2 - Mixed hyperlipidemia Status: Acute (12) Essential (primary) hypertension: Code(s): I10 - Essential (primary) hypertension Status: Acute Additional Plan 10/22/2021 interval history: patient is 71-year-old male was found on the floor after he fell, was unable to get up, upon EMS arrival patient was found to have atrial fibrillation with RVR this is a new diagnosis patient was started on amiodarone drip as he was hypotensive, however rate was not trending down and patient was started on digoxin this has improved rate however patient kidney function is poor, discussed with book or script editor will continue present managed patient will be seen by precision structural metal fitter and further recommendation to follow, patient also has sepsis most likely secondary to UTI being treated with Zosyn and vancomycin will follow-up on urine culture and sensitivity and further recommendation to follow patient is currently somnolent unable to provide detailed review of symptoms. 10/23/2021 interval history: patient is 71-year-old male was found on the floor after he fell, was unable to get up, upon EMS arrival patient was found to have atrial fibrillation with RVR this is a new diagnosis, patient was started on amiodarone drip as he was hypotensive, however rate was not trending down and patient was started on digoxin this has improved rate however patient kidney function is poor, today amiodarone drip stopped and started on amiodarone 400 mg b.i.d., will monitor and further recommendation to follow, on 10/22 discussed with book or script editor will continue present managed patient will be seen by precision structural metal fitter and further recommendation to follow, patient also has sepsis most likely secondary to UTI being treated with Zosyn and vancomycin however urine culture no growth so far, blood culture is pending, will follow-up on blood culture and sensitivity and further recommendation to follow, patient with rhabdomyolysis CK level has improved today 797 compared to 474 upon arrival, will gently hydrate the patient and monitor, patient now clinically stable will move the patient out of ICU to IMU low PT OT evaluate the patient, patient will benefit going to acute rehab. 10/24/2021 interval history: patient is 71-year-old male was foun
[2021-10-31] MEDS: SODIUM CHLORIDE 0.9% IV 1,000 ML 200 ML (10:19)
--- NOTE | 2021-10-31 10:19 | PCOTNOTE ---
At 09:50am, Patient stood from [facility], reports being light headed and then became unresponsive at this time. Therapist pulled bed side commode behind patient to safely sit patient onto bedside commode. Therapist initiated alarm for assistance, rapid response was called, Patient was assisted back to bed and handed off to nursing/MD staff to perform assessment.
--- NOTE | 2021-10-31 10:25 | PC.NURSE ---
Patient had syncopal episode during morning ADLs while working with OT. Loss of consciousness occurred for < 2 mins. Rapid response team alerted and responded quickly. During work up patient noted to be positive for orthostatic BP. MD in attendance and verbalized to start a normal saline bolus and recheck orthostatics. Fluids going currently. Patient A&OX4 denies pain, discomfort, dizziness or light-headedness.
--- NOTE | 2021-10-31 11:33 | PCPTNOTE ---
Patient refused treatment this session. Patient reported he did not want to get out of bed at this time and that he was waiting on lunch.
[2021-10-31 12:43] LABS: Glucose Point of Care 169 mg/dl (65-105)
--- NOTE | 2021-10-31 14:02 | PCPTNOTE ---
Patient refused treatment this session. Patient reported he is still waiting on lunch and does not want to do therapy until he gets to eat.
--- NOTE | 2021-10-31 14:34 | PM.PNGS ---
Progress Note: A&P Assessment and Plan (1) Acute cholecystitis: Code(s): K81.0 - Acute cholecystitis Status: Acute Assessment and Plan: Cholangiogram today showed patent cystic duct and common duct. Will continue cholecystostomy tube to gravity drainage. IV antibiotics have been stopped. He is tolerating a solid diet. Will sign off at this time. Please call if there are any surgical concerns in the future. Follow-up with Dr. Monson in 1 month after discharge for another cholangiogram and discussion of removal of the cholecystostomy tube or surgery. (2) Type 2 diabetes mellitus without complications: Qualifiers: Diabetes mellitus long distance operator insulin use: without long distance operator use Qualified Code(s): E11.9 - Type 2 diabetes mellitus without complications Code(s): E11.9 - Type 2 diabetes mellitus without complications Status: Acute (3) Atrial fibrillation with RVR: Code(s): I48.91 - Unspecified atrial fibrillation Status: Acute Additional Plan I have discussed the patient's case and plan of care with Dr. Monson. Subjective Subjective Date/Time Seen: 10/31/21 14:34 Patient reports: tolerating a regular diet and afebrile Interval history: Patient seen and examined today. He reports feeling well without any specific complaints on my exam. He is tolerating a diabetic diet and denies any abdominal pain, nausea, or vomiting. Of note, the patient did have a rapid response called earlier this morning for a syncopal episode when up in the bathroom per nursing. He had positive orthostatics when checked by nursing. He is feeling much better now. Review of Systems Review of Systems: All systems reviewed & are unremarkable except as noted in HPI and below Exam Const: General: comfortable, no acute distress and awake Orientation/consciousness: patient oriented x3 GI: Inspection: non-distended and other ( cholecystostomy tube draining bile, dressing dry and intact) GI Palp: Yes Soft to palpation, No Tenderness to palpation present (GI), No Guarding due to palpation present (GI) and No Rebound tenderness present Auscultation: normal bowel sounds Neuro: General: moves all extremities and no focal motor deficits Extrem: General: normal to inspection and no calf tenderness Psych: Insight: Good insight present (Psych) Judgement: Good judgement present (Psych) Objective Data Vital Signs Vital Signs: Vital Signs - 24 hr 10/30/21 15:12 10/30/21 16:00 10/30/21 17:02 Temperature 96.7 F L Pulse Rate 76 76 76 Respiratory Rate 16 Blood Pressure 136/61 Pulse Oximetry 100 10/30/21 20:00 10/30/21 20:26 10/30/21 21:12 Temperature Pulse Rate 100 100 Respiratory Rate 16 Blood Pressure Pulse Oximetry 100 95 10/30/21 22:00 10/31/21 00:00 10/31/21 04:00 Temperature 98.6 F Pulse Rate 100 78 82 Respiratory Rate 18 Blood Pressure 133/73 Pulse Oximetry 98 10/31/21 06:00 10/31/21 08:00 10/31/21 10:00 Temperature 98.6 F Pulse Rate 79 83 65 Respiratory Rate 18 18 16 Blood Pressure 132/62 109/55 L Pulse Oximetry 98 98 97 10/31/21 10:05 10/31/21 11:03 10/31/21 11:21 Temperature Pulse Rate 68 65 69 Respiratory Rate 16 17 16 Blood Pressure 93/52 L 113/61 127/65 Pulse Oximetry 98 98 99 10/31/21 11:22 10/31/21 11:24 10/31/21 12:00 Temperature Pulse Rate 75 75 72 Respiratory Rate 18 18 Blood Pressure 126/59 L 120/63 Pulse Oximetry 100 100 Intake/Output Intake/Output: Intake & Output 10/28/21 10/29/21 10/30/21 10/31/21 23:59 23:59 23:59 23:59 Intake Total 730 1590 3040 1700 Output Total 2065 2055 2180 2580 Balance -1335 -465 860 -880 Meds/Results Medications: Active Medications Generic Name Dose Route Start Last Admin Trade Name Sumeetq PRN Reason Stop Dose Admin Amiodarone HCl 200 mg 10/23/21 13:00 10/31/21 13:30 Amiodarone Hcl 200 Mg Tablet PO 200 mg TID NUNO Administration Aspirin 325 mg 10/22/21 09:45 0
[2021-10-31 16:45] LABS: Glucose Point of Care 142 mg/dl (65-105)
[2021-10-31 20:03] LABS: Glucose Point of Care 198 mg/dl (65-105)
[2021-11-01] VITALS (12 sets, daily range): BP systolic 104–137; BP diastolic 57–84; PULSE 71–99; RESP 18; TEMP 36.6–36.9; O2SAT 96–98
[2021-11-01] MEDS: VANCOMYCIN ORAL 125 MG/2.5 ML SYRUP PO ×4 (05:41→23:44)
[2021-11-01 05:53] LABS: Anion Gap 2 mmol/L (8-16); Blood Urea Nitrogen 14 mg/dL (9-20); Calcium 7.7 mg/dL (8.4-10.2); Carbon Dioxide 25 mmol/L (22-30); Chloride 104 mmol/L (98-107); Estimated CRCL calculation 64 ml/min; Estimated Glomerular Filt Rate > 60; Glucose 152 mg/dL (65-110); Potassium 3.9 mmol/L (3.4-5.0); Sodium 131 mmol/L (137-145)
[2021-11-01 06:05] LABS: Basophils Absolute Auto 0.1 K/mm3 (0.0-0.1); Basophils Percent Auto 0.4 % (0.2-1.2); Eosinophils Absolute Auto 0.4 K/mm3 (0-0.3); Eosinophils Percent Auto 2.7 % (0-4.4); Hematocrit 33.1 % (42.0-52.0); Hemoglobin 11.3 g/dL (14.0-18.0); Immature Granulocyte Absolute 0.22 K/mm3 (0.00-0.031); Immature Granulocyte Percent A 1.4 % (0-0.5); Lymphocytes Absolute Auto 2.35 K/mm3 (0.9-3.2); Lymphocytes Percent Auto 15.5 % (18.3-44.2); Mean Corpuscular HGB Conc 34.1 g/dl (32-36); Mean Corpuscular Hemoglobin 31.3 pg (26-34); Mean Corpuscular Volume 91.7 fl (80-100); Mean Platelet Volume 9.4 fl (7.4-10.4); Monocytes Absolute Auto 0.8 K/mm3 (0.1-0.6); Monocytes Percent Auto 5.5 % (2.6-8.5); Neutrophils Absolute Auto 11.3 K/mm3 (1.3-6.7); Neutrophils Percent Auto 74.5 % (45.5-73.1); Platelet Count Result 614 k/mm3 (150-375); Red Blood Count 3.61 M/mm3 (4.6-6.20); Red Cell Distribution Width 14.4 % (11.5-14.5); White Blood Count 15.2 K/mm3 (4.5-10.0)
[2021-11-01] MEDS: SACCHAROMYCES BOULARDII 250 MG CAPSULE PO ×3 (08:02→16:22)
[2021-11-01] MEDS: TAMSULOSIN HCL 0.4 MG CAPSULE PO (08:02)
[2021-11-01] MEDS: AMIODARONE HCL 200 MG TABLET PO ×3 (08:03→16:21)
[2021-11-01] MEDS: METOPROLOL TARTRATE 25 MG TABLET PO ×2 (08:03→20:39)
[2021-11-01] MEDS: ASPIRIN 325 MG TABLET PO (08:04)
[2021-11-01] MEDS: COLLAGENASE OINT 30 GM TUBE 1 APPLIC TOPICAL (08:05)
[2021-11-01 11:49] LABS: Glucose Point of Care 287 mg/dl (65-105)
[2021-11-01] MEDS: INSULIN ASPART (*BKC) 100 UNITS/ML SUB-Q (12:10)
--- NOTE | 2021-11-01 12:59 | PCOTNOTE ---
Attempted to see patient this pm, however patient refused stating, I gotta have day off once in a while. Too much activity.
--- NOTE | 2021-11-01 14:53 | PM.IMPN ---
Progress Note: A&P Assessment and Plan (1) Diarrhea in adult patient: Code(s): R19.7 - Diarrhea, unspecified Status: Acute (2) Diabetes: Code(s): E11.9 - Type 2 diabetes mellitus without complications Status: Chronic (3) Hyponatremia: Code(s): E87.1 - Hypo-osmolality and hyponatremia Status: Acute (4) Atrial fibrillation with RVR: Code(s): I48.91 - Unspecified atrial fibrillation Status: Acute Assessment and Plan: Patient denies any history of atrial fibrillation. Patient's heart rate remains in the 160s to 170s. Amiodarone bolus followed by amiodarone drip is to be started. Cardiology has been consult and do appreciate further recommendations. Echo Doppler has been ordered. 10/22/2021 interval history: patient is 71-year-old male was found on the floor after he fell, was unable to get up, upon EMS arrival patient was found to have atrial fibrillation with RVR this is a new diagnosis patient was started on amiodarone drip as he was hypotensive, however rate was not trending down and patient was started on digoxin this has improved rate however patient kidney function is poor, discussed with manager payment will continue present managed patient will be seen by switchboard mechanic and further recommendation to follow, patient also has sepsis most likely secondary to UTI being treated with Zosyn and vancomycin will follow-up on urine culture and sensitivity and further recommendation to follow patient is currently somnolent unable to provide detailed review of symptoms. 10/23/2021 interval history: patient is 71-year-old male was found on the floor after he fell, was unable to get up, upon EMS arrival patient was found to have atrial fibrillation with RVR this is a new diagnosis, patient was started on amiodarone drip as he was hypotensive, however rate was not trending down and patient was started on digoxin this has improved rate however patient kidney function is poor, today amiodarone drip stopped and started on amiodarone 400 mg b.i.d., will monitor and further recommendation to follow, on 10/22 discussed with manager payment will continue present managed patient will be seen by switchboard mechanic and further recommendation to follow, patient also has sepsis most likely secondary to UTI being treated with Zosyn and vancomycin however urine culture no growth so far, blood culture is pending, will follow-up on blood culture and sensitivity and further recommendation to follow, patient with rhabdomyolysis CK level has improved today 797 compared to 474 upon arrival, will gently hydrate the patient and monitor, patient now clinically stable will move the patient out of ICU to IMU low PT OT evaluate the patient, patient will benefit going to acute rehab. 10/24/2021 interval history: patient is 71-year-old male was found on the floor after he fell, was unable to get up, upon EMS arrival patient was found to have atrial fibrillation with RVR this is a new diagnosis, patient was started on amiodarone drip as he was hypotensive, however rate was not trending down and patient was started on digoxin this has improved rate however patient kidney function is poor, on 10/23 amiodarone drip stopped and started on amiodarone 400 mg b.i.d., unable to anticoagulate as patient has extensive bruising and rib fracture, today patient converted to sinus rhythm, he is clinically stale, will continue oral amiodoran 400mg, will monitor and further recommendation to follow, patient also has sepsis most likely secondary to UTI being treated with Zosyn and vancomycin however urine culture no growth so far, blood culture is pending, and today his white counts are significantly elevated, he has no fever and clinically he is does not appear septic, will order repeat blood culture, will follow-up on blood culture and sensitivity and further recommendation to follow, patient with rhabdomyolysis CK level has improved today 625 compared to 4734 upon a
[2021-11-01 16:11] LABS: Glucose Point of Care 160 mg/dl (65-105)
[2021-11-01 21:42] LABS: Glucose Point of Care 159 mg/dl (65-105)
[2021-11-02] VITALS: PULSE 77
[2021-11-02 04:00] VITALS: PULSE 80
[2021-11-02] MEDS: VANCOMYCIN ORAL 125 MG/2.5 ML SYRUP PO (05:47)
[2021-11-02 06:00] VITALS: BP 147/72; PULSE 75; RESP 18; TEMP 36.7; O2SAT 97
[2021-11-02 07:44] LABS: Glucose Point of Care 168 mg/dl (65-105)
[2021-11-02 08:06] VITALS: PULSE 88
[2021-11-02] MEDS: TAMSULOSIN HCL 0.4 MG CAPSULE PO (08:06)
[2021-11-02] MEDS: ASPIRIN 325 MG TABLET PO (08:06)
[2021-11-02] MEDS: AMIODARONE HCL 200 MG TABLET PO (08:06)
[2021-11-02] MEDS: SACCHAROMYCES BOULARDII 250 MG CAPSULE PO (08:06)
[2021-11-02] MEDS: COLLAGENASE OINT 30 GM TUBE 1 APPLIC TOPICAL (08:07)
--- NOTE | 2021-11-02 10:30 | PM.DS ---
DS: Admitting Diagnosis Discharge Date 11/02/2021 Admitting Diagnosis Fall DS: Discharge Diagnosis Discharge Diagnosis (1) Diarrhea in adult patient: Code(s): R19.7 - Diarrhea, unspecified Status: Acute (2) Diabetes: Code(s): E11.9 - Type 2 diabetes mellitus without complications Status: Chronic (3) Hyponatremia: Code(s): E87.1 - Hypo-osmolality and hyponatremia Status: Acute (4) Atrial fibrillation with RVR: Code(s): I48.91 - Unspecified atrial fibrillation Status: Acute Assessment and Plan: Patient denies any history of atrial fibrillation. Patient's heart rate remains in the 160s to 170s. Amiodarone bolus followed by amiodarone drip is to be started. Cardiology has been consult and do appreciate further recommendations. Echo Doppler has been ordered. 10/22/2021 interval history: patient is 71-year-old male was found on the floor after he fell, was unable to get up, upon EMS arrival patient was found to have atrial fibrillation with RVR this is a new diagnosis patient was started on amiodarone drip as he was hypotensive, however rate was not trending down and patient was started on digoxin this has improved rate however patient kidney function is poor, discussed with supervisor tellers will continue present managed patient will be seen by special delivery mail carrier and further recommendation to follow, patient also has sepsis most likely secondary to UTI being treated with Zosyn and vancomycin will follow-up on urine culture and sensitivity and further recommendation to follow patient is currently somnolent unable to provide detailed review of symptoms. 10/23/2021 interval history: patient is 71-year-old male was found on the floor after he fell, was unable to get up, upon EMS arrival patient was found to have atrial fibrillation with RVR this is a new diagnosis, patient was started on amiodarone drip as he was hypotensive, however rate was not trending down and patient was started on digoxin this has improved rate however patient kidney function is poor, today amiodarone drip stopped and started on amiodarone 400 mg b.i.d., will monitor and further recommendation to follow, on 10/22 discussed with supervisor tellers will continue present managed patient will be seen by special delivery mail carrier and further recommendation to follow, patient also has sepsis most likely secondary to UTI being treated with Zosyn and vancomycin however urine culture no growth so far, blood culture is pending, will follow-up on blood culture and sensitivity and further recommendation to follow, patient with rhabdomyolysis CK level has improved today 797 compared to 474 upon arrival, will gently hydrate the patient and monitor, patient now clinically stable will move the patient out of ICU to IMU low PT OT evaluate the patient, patient will benefit going to acute rehab. 10/24/2021 interval history: patient is 71-year-old male was found on the floor after he fell, was unable to get up, upon EMS arrival patient was found to have atrial fibrillation with RVR this is a new diagnosis, patient was started on amiodarone drip as he was hypotensive, however rate was not trending down and patient was started on digoxin this has improved rate however patient kidney function is poor, on 10/23 amiodarone drip stopped and started on amiodarone 400 mg b.i.d., unable to anticoagulate as patient has extensive bruising and rib fracture, today patient converted to sinus rhythm, he is clinically stale, will continue oral amiodoran 400mg, will monitor and further recommendation to follow, patient also has sepsis most likely secondary to UTI being treated with Zosyn and vancomycin however urine culture no growth so far, blood culture is pending, and today his white counts are significantly elevated, he has no fever and clinically he is does not appear septic, will order repeat blood culture, will follow-up on blood culture and sensitivity and further recommendation to foll
--- NOTE | 2021-11-02 19:41 | PC.NURSE ---
194: patient called to inquiry release of urine from catheter bag. Education was given with little understanding. After several nurses attempting education patient was able to successfully drain urine from bag.
== END 2021-11-02 11:45 | disposition home health service (06) | DRG 872 ==
LOC: ANHED 12:25 → ANHICU 14:17 → ANHIMU 10-23 14:27 → ANH3MED 10-24 15:22
PROVIDERS: Emergency Medicine; Hospitalist; Internal Medicine; Internal Medicine Nephrology; Nurse Practitioner Adult Health; Admitting Provider Family Medicine; Emergency Provider Emergency Medicine; PCP Family Medicine; Visit Provider Family Medicine
DX: A41.9 Sepsis, unspecified organism (principal); S22.42XA Multiple fractures of ribs, left side, initial encounter for closed fracture; N17.9 Acute kidney failure, unspecified; E87.2 Acidosis; E87.1 Hypo-osmolality and hyponatremia; N12 Tubulo-interstitial nephritis, not specified as acute or chronic; Z20.822 Contact with and (suspected) exposure to COVID-19; I48.91 Unspecified atrial fibrillation; E78.2 Mixed hyperlipidemia; I10 Essential (primary) hypertension; E11.9 Type 2 diabetes mellitus without complications; Z79.899 Other long term (current) drug therapy; Z79.82 Long term (current) use of aspirin; Z79.84 Long term (current) use of oral hypoglycemic drugs; R33.9 Retention of urine, unspecified; R41.82 Altered mental status, unspecified; N16 Renal tubulo-interstitial disorders in diseases classified elsewhere; T79.6XXA Traumatic ischemia of muscle, initial encounter; E86.1 Hypovolemia; Z66 Do not resuscitate; R19.7 Diarrhea, unspecified; R65.20 Severe sepsis without septic shock; R74.8 Abnormal levels of other serum enzymes; W19.XXXA Unspecified fall, initial encounter; Z91.81 History of falling; I95.1 Orthostatic hypotension
CPT/HCPCS: 36415; 47490; 47531; 51702; 70450; 71045; 71250; 72125; 74176; 76775; 80048; 80053; 80069; 80076; 80162; 80299; 81001; 82533; 82550; 82948; 83605; 83690; 83735; 83930; 83935; 84100; 84145; 84155; 84165; 84443; 84484; 85025; 85027; 85610; 85730; 87040; 87045; 87070; 87075; 87086; 87205; 87427; 87493; 93005; 96365; 97110; 97116; 97162; 97165; 97530; 97535; 99285; A9270; C1729; C8929; C9803; J0282; J1160; J1815; J1940; J2543; J3370; J3480; J7030; J7040; J7050; J7070; Q9957; Q9966; U0003; U0005

== ENCOUNTER 2021-11-28 08:50 | Outpatient (CLI) | payer MEDICARE, OTHER, SELFPAY ==
--- NOTE | ~2021-11-28 | XR_ITS ---
EXAMINATION: XR catheter cholangiogram DATE: 11/28/2021 09:42 INDICATION: Acute cholecystitis post percutaneous cholecystostomy tube placement. TECHNIQUE: 7 fluoroscopic images of the right upper quadrant during retrograde injection of 10 mL Omn ipaque 350 contrast into patient's existing percutaneous cholecystostomy tube. The amount of fluorosc opy time used during this procedure was 0.2 minutes. Total DAP was 2.169 mGycm^2 COMPARISON: 10/31/2021 FINDINGS: The percutaneous cholecystostomy tube remains in expected position at the gallbladder fundu s. There is contrast opacification of the gallbladder with lucent filling defect likely representing combination of sludge and gallstones. Contrast extends into the cystic and common bile ducts which ap pear normal in caliber. There is free passage of contrast into the duodenum along with some retrograd e opacification of the intrahepatic biliary tree which appears normal. IMPRESSION: 1. Patent cystic and common bile ducts. Reviewed, dictated and finalized at location A.
== END 2021-11-28 08:51 | disposition home or self-care (01) ==
LOC: ANHIMG 08:52
PROVIDERS: PCP Family Medicine; Visit Provider Surgery
DX: K81.0 Acute cholecystitis (principal)
CPT/HCPCS: 47531

== ENCOUNTER 2021-12-28 08:01 | Outpatient (CLI) | payer MEDICARE, OTHER, SELFPAY ==
--- NOTE | ~2021-12-28 | US_ITS ---
US venous doppler [facility] DATE: 12/28/2021 09:08 INDICATION: Venous insufficiency TECHNIQUE: Real-time and color flow imaging and Doppler analysis of the veins of the lower extremitie s COMPARISON: None FINDINGS: There is spontaneous and phasic flow and normal augmentation and color flow signal and norm al compression of the veins of both lower extremities. No reflux significant was demonstrated. IMPRESSION: Negative for deep venous thrombosis. Incompetence of the deep veins of the lower extremit ies Reviewed, dictated and finalized at Location [facility]. Reviewed, dictated and finalized at location A. IMPRESSION: Negative for deep venous thrombosis. Incompetence of the deep veins of the lower extremities
[2021-12-28 09:48] LABS: Hemoglobin 10.3 g/dL (14.0-18.0); Mean Corpuscular HGB Conc 33.2 g/dl (32-36); Mean Corpuscular Hemoglobin 28.8 pg (26-34); Mean Corpuscular Volume 86.6 fl (80-100); Platelet Count Result 555 k/mm3 (150-375); Red Blood Count 3.58 M/mm3 (4.6-6.20); Red Cell Distribution Width 15.3 % (11.5-14.5); White Blood Count 21.4 K/mm3 (4.5-10.0)
[2021-12-28 09:59] LABS: Alanine Aminotransferase 17 U/L (6-50); Albumin Level 3.5 g/dL (3.5-5.1); Alkaline Phosphatase 68 U/L (38-126); Anion Gap 6 mmol/L (8-16); Aspartate Amino Transferase 16 U/L (17-59); Bilirubin,Total 0.4 mg/dL (0.2-1.3); Blood Urea Nitrogen 12 mg/dL (9-20); Calcium 8.4 mg/dL (8.4-10.2); Carbon Dioxide 27 mmol/L (22-30); Chloride 100 mmol/L (98-107); Cholesterol 97 mg/dL (0-200); Estimated Glomerular Filt Rate > 60; Glucose 125 mg/dL (65-110); HDL Direct 28 mg/dL; Sodium 133 mmol/L (137-145); Triglycerides 85 mg/dL (<150)
[2021-12-28 10:03] LABS: Hemoglobin A1C 6.4 % (<5.7)
[2021-12-28 10:10] LABS: LDL Cholesterol Direct 44 mg/dL
[2021-12-28 10:19] LABS: Eosinophils Absolute Manual 0.42 K/mm3 (0.02-0.5); Eosinophils Percent Manual 2 % (0-4); Lymphocytes Absolute Manual 2.35 K/mm3 (1.1-4.5); Metamyelocytes Percent 2 %; Monocytes Absolute Manual 1.49 K/mm3 (0.1-0.90); Monocytes Percent Manual 7 % (3-9); Neutrophils Percent Manual 78 % (46-73); Total Cells Counted 100
[2021-12-28 10:28] LABS: Prostate Specific Antigen 0.3 ng/mL (< OR = 4.0)
[2021-12-28 10:34] LABS: Creatinine Urine 60.1 mg/dL
[2021-12-28 10:39] LABS: MALB Creatinine Ratio 43.4 mg/g (0-30); Microalbumin Urine Random 26.1 mg/L (0-16.7)
[2021-12-28 11:36] LABS: Vitamin D 25 Hydroxy 33.8 ng/mL
== END 2021-12-28 08:02 | disposition home or self-care (01) ==
PROVIDERS: PCP Family Medicine; Visit Provider Family Medicine
DX: M79.89 Other specified soft tissue disorders (principal); I48.91 Unspecified atrial fibrillation; I10 Essential (primary) hypertension; E11.9 Type 2 diabetes mellitus without complications; E78.5 Hyperlipidemia, unspecified; Z12.5 Encounter for screening for malignant neoplasm of prostate; E55.9 Vitamin D deficiency, unspecified
CPT/HCPCS: 36415; 80053; 80061; 82043; 82306; 83036; 84153; 84443; 85025; 93970; G0103

== ENCOUNTER 2022-01-12 00:41 | Day surgery (SDC) | payer MEDICARE, OTHER, SELFPAY ==
[2022-01-05 12:48] VITALS: BMI 28.9
--- NOTE | 2022-01-05 13:32 | PC.NURSE ---
Report to the Outpatient Waiting Room, entrance under the green pavilion located off [facility], at time _12:30PM on date __01/12/22 . OR Time: __2:30PM . - You and your visitor will be asked a series of questions to screen for COVID 19 for your protection. - Only one visitor is allowed at this time. - The patient visitor is requested to leave or wait in car when not with patient. - A mask is required within the hospital. Patients may have clear liquids (water, carbonated beverages, clear teas, apple juice) until 3 hours prior to surgery with a maximum of 20 ounces. - No food from midnight until time of surgery - Infants may have breast milk until 4 hours before surgery, infant formula 6 hours prior to surgery. - Children will be allowed to drink immediately following surgery. If applicable, please bring a bottle or sippy cup to assist with drinking. Juice, water, soda, and popsicles are readily available. For infants on formula, please bring formula the day of surgery. Pacifiers are allowed. Take the following medications with a SIP of water the morning of surgery: ___NONE Medications to discontinue per physician __HOLD ELIQUIS PER DR TAY/ LOKESH(COUSIN) CALLING OFFICE TO VERIFY TIME FRAME. HOLD ALL VITAMINS/SUPPLEMENTS 3 DAYS PRE-OP-LAST DOSE 01/08/22 Please no make-up, nail guinean, hairspray, perfume, deodorant, or body powder the day of surgery. No jewelry (including any body piercings) or valuables the day of surgery, leave them at home. Please take a shower or bath the night before, or the morning of, surgery with an antibacterial soap. Wear comfortable, loose fitting clothing. Children are encouraged to wear pajamas. - Jewelry must be removed prior to entering the operating room. Rings and piercings that are not removed may be cut off. - The hospital will not accept responsibility for valuables. - Please leave all valuables, including medications, at home the day of surgery. If you are going home after surgery, a licensed superintendent drivers must drive you home. - NO public transportation without another adult. - We recommend that an adult stay with you for 24 hours following discharge. - We also recommend that you do not drive, make important decision, drink alcoholic beverages, or take any drugs that were not prescribed by your health care provider for at least 24 hours after your discharge time. For Pediatric surgeries, we recommend two adults accompany the child home (only one inside the building at this time). Follow any additional instructions given to you from your surgeon. If you or anyone in your household have experienced Covid symptoms in the past week, please notify your surgeon or the nurse liaison at the phone number below for possible testing. Telephone instructions given to __PATIENT AND LOKESH and asked if any additional questions and then verbalized understanding. Patient advised to call surgeon office or pre surgery nurse liaison [phone] if any additional questions.
[2022-01-12] VITALS (15 sets, daily range): BP systolic 101–144; BP diastolic 54–78; PULSE 73–87; RESP 14–18; TEMP 36.4–37; O2SAT 96–100
[2022-01-12] MEDS: LACTATED RINGERS 1,000 ML 30 ML IV CONT (13:00)
[2022-01-12 13:01] LABS: Glucose Point of Care 103 mg/dl (65-105)
--- NOTE | 2022-01-12 13:23 | P.PNAN_ITS ---
Anes - Initial Pre Proc Eval Procedure: Operation Date: 01/12/22 14:30 Proposed Procedures p Debridement and Washout of Left Upper Back Pressure Ulcer - Marian Monson MD Date/Time: 01/12/22 13:23 Surgeon: Marian Monson MD Pre Op Diagnosis: left upper back ulcer Patient Data Age: 71 Gender: M Height: 1.6 m Weight: 70.8 kg Last Vital Signs Temp 36.6 C 01/12/22 13:03 Pulse 87 01/12/22 13:03 Resp 16 01/12/22 13:03 BP 129/65 01/12/22 13:03 Pulse Ox 99 01/12/22 13:03 O2 Del Method Room Air 01/12/22 13:03 Allergies Allergy/AdvReac Type Severity Reaction Status Date / Time No Known Allergies Allergy Verified 01/12/22 12:15 Home Medications Medication Instructions Recorded Confirmed Type multivitamin (Daily Multi-Vitamin 1 tablet PO DAILY 05/02/21 01/12/22 History tablet) metformin 500 mg tablet 500 mg PO BID #180 tabs 09/05/21 01/12/22 Rx tamsulosin 0.4 mg capsule 0.4 mg PO QAM #30 caps 11/02/21 01/12/22 Rx apixaban 5 mg tablet (Eliquis) 5 mg PO BID #180 tabs 11/08/21 01/12/22 Rx atorvastatin 40 mg tablet 40 mg PO QHS 12/13/21 01/12/22 History finasteride 5 mg tablet 5 mg PO DAILY 12/13/21 01/12/22 History Laboratory Tests 01/12/22 12:59 POC Capillary Glucose 103 mg/dl mg/dl (65-105) Patient hx anesthesia problems: none Family hx anesthesia problems: none Results Review: All pre-operative results and documents have been reviewed as part of the pre- operative evaluation. [facility] Past Medical History Medical History A-fib Cholecystitis (~10/2021) Essential (primary) hypertension Mixed hyperlipidemia Type 2 diabetes mellitus without complications Surgical History Surgical History History of cholecystectomy (~10/2021) History of umbilical hernia repair 1972 Family History Family History Father Hypertension Mother Hypertension Patient's mother is Social History Social History Smoking status: Never smoker Alcohol intake: never Substance use: never Substance use type: does not use Living arrangements: alone Spiritual care concerns: No Anes - Eval Final PreProcedure Day of Procedure 01/12/22 13:23 Patient weight: obese Heart: regular rate and rhythm Lungs: clear to auscultation Airway: Mallampati scale class II Neurological: alert and oriented Last oral intake: >/= 8 hours ASA classification: III Emergent: no Anesthetic plan: proceed Anesthesia type and monitoring: general GIVS and standard monitoring Results Review: All pre-operative results and documents have been reviewed as part of the pre- operative evaluation. Informed Consent: The patient's anesthetic plan and its attendant risks and benefits were discussed with the patient/family/POA. Questions were solicited and answers provided to the satisfaction of the patient/family/POA.
--- NOTE | 2022-01-12 13:30 | WPDHPUPDATE1 ---
History and Physical Update Update Date/Time: 01/12/22 13:30 History and Physical has been reviewed, including an updated exam of the patient. There are NO changes in the patient's condition. Risks, benefits, and alternatives have been discussed and questions answered. Patient agrees to proceed with procedure.
[2022-01-12] MEDS: ceFAZolin 2 GM/D5W 50 ML 2 GM/50 ML BAG IVPB (14:23)
--- NOTE | 2022-01-12 15:20 | W.PM.PROC2 ---
Procedure Note - Detailed Date of Procedure 01/12/22 Pre-op Diagnosis left upper back decubitus ulcer Post-op Diagnosis Same Procedure Performed Complex debridement and washout left upper back decubitus ulcer involving skin, subcutaneous tissue, and muscle measuring approximately 12 x 12 by 2 cm with subcutaneous tunnel measuring 5 cm superior and laterally Surgeon Marian Monson MD Anesthesia MAC and Local Indications 71-year-old male presenting to the office with a large left upper back decubitus ulcer with overlying necrosis, liquified necrosis drainage Findings extensive necrosis involving dermis, subcutaneous tissue, muscle measuring 12 x 12 x 2 cm with a subcutaneous tunnel measuring 5 cm superior and lateral Description of Procedure The patient was taken the operating and placed in the lateral position. After adequate induction of MAC anesthesia, the patient was prepped and draped in the normal sterile fashion. A time-out was then done to verify the patient's identity, as well as the procedure being performed. I began by excising the necrotic eschar in the dermis of this extensive left upper back wound. Once the eschar was excised, there was noted to be extensive underlying necrosis of the subcutaneous tissue. Upon excising this tissue, this was noted to extend into the underlying muscle. The liquefied necrosis and fibrinous tissue was carefully excised to healthy underlying muscle. There was muscle that was necrotic, however not all of the muscle was involved. I was able to get an adequate excision of the area. Once completely excised, I gained hemostasis of the surrounding tissue with the Bovie cautery. I then copiously irrigated and washed out the cavity. Measurements were obtained and the cavity measured approximately 12 x 12 x 2 cm with a noted subcutaneous tunnel measuring 5 cm superiorly and lateral. Given the extensive nature of the wound, the patient will be admitted for observation. A wet to dry dressing was placed on the wound. The patient tolerated the procedure well and will be transferred to the recovery room in stable condition. Estimated Blood Loss 20 Pathology Yes Complications No immediate complications Condition Stable Disposition PACU [facility] Billing Surgery - Charge Forward: Surgery Billing
[2022-01-12 15:57] LABS: Glucose Point of Care 90 mg/dl (65-105)
--- NOTE | 2022-01-12 17:38 | PC.NURSE ---
This patient, Adolfo Pollack, was admitted to 2 Medical Room 257-01. Patient/family oriented to hospital policies and general routines including ID bracelet, bed and alarms, visiting hours, pain management, procedures, bathroom and other care routines, personal items, smoking policy, room service/diet, and visiting hours. Information on how to activate the Rapid Response Team has been discussed. Patient/Family are encouraged to report perceived risks to care and to ask questions if they do not understand what they are told or what they should do.
[2022-01-12] MEDS: LACTATED RINGERS 1,000 ML 100 ML IV CONT (17:50)
[2022-01-12] MEDS: metFORMIN HCL 500 MG TABLET PO (18:18)
[2022-01-12] MEDS: ATORVASTATIN 40 MG TABLET PO (21:56)
[2022-01-13 00:49] VITALS: BP 109/50; PULSE 82; RESP 14; TEMP 36.9; O2SAT 96
--- NOTE | 2022-01-13 01:21 | PC.NURSE ---
Pt emptied giron bag when using bathroom, pt states bag was about 1/3 full when he emptied. Pt educated on I/O and hospital environment.
[2022-01-13 05:09] LABS: Hematocrit 27.9 % (42.0-52.0); Mean Corpuscular HGB Conc 32.3 g/dl (32-36); Mean Corpuscular Hemoglobin 28.2 pg (26-34); Mean Corpuscular Volume 87.5 fl (80-100); Mean Platelet Volume 9.5 fl (7.4-10.4); Platelet Count Result 415 k/mm3 (150-375); Red Blood Count 3.19 M/mm3 (4.6-6.20); Red Cell Distribution Width 16.5 % (11.5-14.5); White Blood Count 11.4 K/mm3 (4.5-10.0)
[2022-01-13 05:22] LABS: Anion Gap 2 mmol/L (8-16); Blood Urea Nitrogen 9 mg/dL (9-20); Calcium 7.9 mg/dL (8.4-10.2); Carbon Dioxide 27 mmol/L (22-30); Chloride 103 mmol/L (98-107); Estimated CRCL calculation 65 ml/min; Estimated Glomerular Filt Rate > 60; Glucose 101 mg/dL (65-110); Potassium 3.8 mmol/L (3.4-5.0); Sodium 132 mmol/L (137-145)
[2022-01-13 05:46] VITALS: BP 111/53; PULSE 76; RESP 14; TEMP 36.8; O2SAT 97
[2022-01-13] MEDS: metFORMIN HCL 500 MG TABLET PO (08:09)
[2022-01-13] MEDS: FINASTERIDE 5 MG TABLET PO (08:09)
[2022-01-13] MEDS: ENOXAPARIN 40 MG/0.4 ML SYRINGE SUB-Q (08:09)
[2022-01-13] MEDS: TAMSULOSIN HCL 0.4 MG CAPSULE PO (08:09)
[2022-01-13] MEDS: MULTIVITAMINS THERAPEUTIC TAB (*BKC) 1 TABLET PO (08:09)
[2022-01-13 08:15] VITALS: O2SAT 98
--- NOTE | 2022-01-13 08:24 | WPDANESPN ---
Anes - Prog Note Post-Op Date/Time: 01/13/22 08:24 Vital Signs: Last Vital Signs Temp 36.8 C 01/13/22 05:46 Pulse 76 01/13/22 05:46 Resp 14 01/13/22 05:46 BP 111/53 L 01/13/22 05:46 Pulse Ox 97 01/13/22 05:46 O2 Del Method Room Air 01/12/22 17:55 Pain Score (VAS): 0 I/O: Intake & Output 01/12/22 01/13/22 01/13/22 23:59 07:59 15:59 Intake Total 350 1000 Output Total 300 Balance 50 1000 Laboratory Tests 01/13/22 04:39 01/13/22 04:38 01/12/22 01/12/22 01/13/22 12:59 15:53 04:38 WBC RBC Hgb Hct MCV MCH MCHC RDW Plt Count MPV Sodium 132 L Potassium 3.8 Chloride 103 Carbon Dioxide 27 Anion Gap 2 L BUN 9 Creatinine 0.70 Estim Creat Clear Calc 65 Estimated GFR > 60 Glucose 101 POC Capillary Glucose 103 90 Calcium 7.9 L 01/13/22 04:39 WBC 11.4 H RBC 3.19 L Hgb 9.0 L Hct 27.9 L MCV 87.5 MCH 28.2 MCHC 32.3 RDW 16.5 H Plt Count 415 H MPV 9.5 Sodium Potassium Chloride Carbon Dioxide Anion Gap BUN Creatinine Estim Creat Clear Calc Estimated GFR Glucose POC Capillary Glucose Calcium Patient Feedback: Patient satisfied with anesthetic care.
--- NOTE | 2022-01-13 08:30 | PM.PNGS ---
Progress Note: A&P Assessment and Plan (1) Ulcer of back: Code(s): L98.429 - Non-pressure chronic ulcer of back with unspecified severity Status: Acute Assessment and Plan: s/p debridement, will try to get vac on today, plan to keep over the weekend for wound vac and hopefully will be approved for home vac early next wk, will get medical consult to manage med issues Subjective Subjective Date/Time Seen: 01/13/22 08:30 feels good, no acute issues Review of Systems Review of Systems: All systems reviewed & are unremarkable except as noted in HPI and below Exam Const: General: cooperative, comfortable and no acute distress Resp: Auscultation: clear to auscultation bilaterally Cardio: Rate: regular rate Rhythm: regular rhythm GI: Inspection: normal to inspection Skin: Other: L upper back wound - dressing C/D/I Objective Data Vital Signs Vital Signs: Vital Signs - 24 hr 01/12/22 13:03 01/12/22 15:20 01/12/22 15:35 Temperature 36.6 C 36.5 C Pulse Rate 87 83 77 Respiratory Rate 16 16 16 Blood Pressure 129/65 101/74 122/68 Pulse Oximetry 99 96 97 Oxygen Delivery Room Air Room Air Room Air 01/12/22 15:50 01/12/22 16:05 01/12/22 16:20 Temperature Pulse Rate 75 74 76 Respiratory Rate 18 16 16 Blood Pressure 133/69 131/74 131/72 Pulse Oximetry 99 96 97 Oxygen Delivery Room Air Room Air Room Air 01/12/22 16:35 01/12/22 16:52 01/12/22 17:05 Temperature Pulse Rate 80 76 77 Respiratory Rate 16 14 18 Blood Pressure 135/68 138/72 141/78 H Pulse Oximetry 100 97 99 Oxygen Delivery Room Air Room Air Room Air 01/12/22 17:14 01/12/22 17:55 01/12/22 17:30 Temperature 36.4 C L Pulse Rate 79 74 Respiratory Rate 16 18 Blood Pressure 144/70 H 130/54 L Pulse Oximetry 98 97 100 Oxygen Delivery Room Air Room Air 01/12/22 17:45 01/12/22 18:15 01/12/22 19:02 Temperature 36.6 C 36.4 C 37.0 C Pulse Rate 73 75 82 Respiratory Rate 16 18 16 Blood Pressure 142/67 H 131/61 115/66 Pulse Oximetry 99 100 98 Oxygen Delivery 01/13/22 00:49 01/13/22 05:46 Temperature 36.9 C 36.8 C Pulse Rate 82 76 Respiratory Rate 14 14 Blood Pressure 109/50 L 111/53 L Pulse Oximetry 96 97 Oxygen Delivery Intake/Output Intake/Output: Intake & Output 01/10/22 01/11/22 01/12/22 01/13/22 23:59 23:59 23:59 23:59 Intake Total 400 1000 Output Total 300 Balance 100 1000 Meds/Results Medications: Active Medications Generic Name Dose Route Start Last Admin Trade Name Freq PRN Reason Stop Dose Admin Hydrocodone Bitart/Acetaminophen 1 tab 01/12/22 17:17 Hydrocodone/Acetaminophen (*Crx) 5-325 Mg Tablet PO Q4H PRN Pain Rated 4-6 Atorvastatin Calcium 40 mg 01/12/22 21:00 01/12/22 21:56 Atorvastatin 40 Mg Tablet PO 40 mg QHS NUNO Administration Diphenhydramine HCl 25 mg 01/12/22 17:17 Diphenhydramine Hcl Inj 50 Mg/Ml Vial IV PUSH Q6H PRN Itching Enoxaparin Sodium 40 mg 01/13/22 09:00 01/13/22 08:09 Enoxaparin 40 Mg/0.4 Ml Syringe SUB-Q 40 mg DAILY NUNO Administration Finasteride 5 mg 01/13/22 09:00 01/13/22 08:09 Finasteride 5 Mg Tablet PO 5 mg DAILY NUNO Administration Metformin HCl 500 mg 01/12/22 17:17 01/13/22 08:09 Metformin Hcl 500 Mg Tablet PO 500 mg BID NUNO Administration Morphine Sulfate 2 mg 01/12/22 17:17 Morphine Sulfate (*Crx) 2 Mg/Ml Inj IV PUSH Q2H PRN Pain Rated 4-6 Multivitamins Therapeutic 1 tablet 01/13/22 09:00 01/13/22 08:09 Multivitamins Therapeutic Tab (*Bkc) PO 1 tablet DAILY NUNO Administration Ondansetron HCl 4 mg 01/12/22 17:17 Ondansetron Inj 4 Mg/2 Ml Vial IV PUSH Q4H PRN Nausea And Vomiting Tamsulosin HCl 0.4 mg 01/13/22 09:00 01/13/22 08:09 Tamsulosin Hcl 0.4 Mg Capsule PO 0.4 mg QAM NUNO Administration Labs Labs: Laboratory Results - last 24 hr 01/12/22 01/12/22 01/13/22 12:59 15:53 04:38 WBC
[2022-01-13 09:54] VITALS: BP 113/60; PULSE 79; RESP 18; TEMP 37.2; O2SAT 96
[2022-01-13 11:52] VITALS: BMI 27.6
[2022-01-13 14:00] VITALS: BP 123/66; PULSE 81; RESP 14; TEMP 36.7; O2SAT 98
== END 2022-01-13 17:06 | disposition home health service (06) ==
LOC: ANHSURGERY 11:34 → ANH2MED 17:50
PROVIDERS: PCP Family Medicine; Visit Provider Surgery
PROC: (CPT 11043; principal; 2022-01-12 14:30)
DX: L89.124 Pressure ulcer of left upper back, stage 4 (principal); I10 Essential (primary) hypertension; E11.9 Type 2 diabetes mellitus without complications; E78.2 Mixed hyperlipidemia; I48.91 Unspecified atrial fibrillation; Z79.01 Long term (current) use of anticoagulants; Z79.84 Long term (current) use of oral hypoglycemic drugs; E66.9 Obesity, unspecified; Z68.27 Body mass index [BMI] 27.0-27.9, adult
CPT/HCPCS: 11043; 11046; 36415; 80048; 82948; 85027; 88304; A9270; J0690; J1650; J2250; J2704; J3010; J7120

== ENCOUNTER 2022-02-20 10:51 | Outpatient (NON) | payer MEDICARE, OTHER, SELFPAY ==
[2022-02-20 14:54] LABS: Hematocrit 35.6 % (42.0-52.0); Hemoglobin 11.2 g/dL (14.0-18.0); Mean Corpuscular HGB Conc 31.5 g/dl (32-36); Mean Corpuscular Hemoglobin 28.2 pg (26-34); Mean Corpuscular Volume 89.7 fl (80-100); Mean Platelet Volume 10.4 fl (7.4-10.4); Platelet Count Result 391 k/mm3 (150-375); Red Blood Count 3.97 M/mm3 (4.6-6.20); White Blood Count 12.4 K/mm3 (4.5-10.0)
[2022-02-20 14:59] LABS: Cholesterol 110 mg/dL (0-200); HDL Direct 36 mg/dL; Triglycerides 56 mg/dL (<150)
[2022-02-20 15:11] LABS: LDL Cholesterol Direct 47 mg/dL
[2022-02-20 15:31] LABS: Prostate Specific Antigen 0.3 ng/mL (< OR = 4.0)
[2022-02-20 17:56] LABS: Vitamin D 25 Hydroxy 42.7 ng/mL
[2022-02-20 22:42] LABS: Hemoglobin A1C 5.4 % (<5.7)
== END 2022-02-20 10:52 | disposition home or self-care (01) ==
PROVIDERS: PCP Family Medicine; Visit Provider Family Medicine
DX: L89.120 Pressure ulcer of left upper back, unstageable (principal); R33.9 Retention of urine, unspecified; Z48.00 Encounter for change or removal of nonsurgical wound dressing; Z46.6 Encounter for fitting and adjustment of urinary device; N17.9 Acute kidney failure, unspecified; E11.9 Type 2 diabetes mellitus without complications; I10 Essential (primary) hypertension; Z12.5 Encounter for screening for malignant neoplasm of prostate; E55.9 Vitamin D deficiency, unspecified
CPT/HCPCS: 36415; 80061; 82306; 83036; 84153; 84443; 85027; G0103

== ENCOUNTER 2022-03-11 05:35 | Emergency (ER) | payer MEDICARE, OTHER, SELFPAY ==
[2022-03-11 05:39] VITALS: BP 188/90; PULSE 97; RESP 18; TEMP 36.6; O2SAT 98
[2022-03-11 06:19] LABS: Add Urine Microscopic? YES; Appearance Urine Cloudy (Clear); Bilirubin Urine 2+ (Negative); Blood Urine 3+ (Negative); Color Urine Red (Yellow); Glucose Urine UA Negative (Negative); Ketones Urine Negative (Negative); Leukocyte Esterase Ur Trace LEU/UL (Negative); Nitrate Urine Negative (Negative); Protein Urine 3+ mg/dL (Negative); Urobilinogen Urine 0.2 mg/dL (<2.0)
[2022-03-11 06:23] LABS: Bacteria Urine 1+ /hpf; Mucus Urine Rare /lpf; RBC Urine >75 /hpf (0-2)
--- NOTE | 2022-03-11 06:45 | ED.GENADULT ---
HPI - General Adult General Chief complaint: Urogenital-Male <Maikel Hua DO - Last Filed: 03/11/22 16:10> Stated complaint: cannot urinate after prostate surgery <Maikel Hua DO - Last Filed: 03/11/22 16:10> Time Seen by Provider: 03/11/22 05:44 <Maikel Hua DO - Last Filed: 03/11/22 16:10> Source: RN notes reviewed <Maikel Hua DO - Last Filed: 03/11/22 16:10> History of Present Illness HPI narrative: Patient presents emergency department from home for urinary retention. Patient states that he had a TURP procedure done by Dr. Duran at [facility] on Sunday the . States he is doing well and began to have problems urinating yesterday afternoon has been unable to urinate since that time he states has been associated with pain in the lower abdomen and distention. He states he is on Eliquis for history of atrial fibrillation and been holding for surgery and just restarted on Sunday he denies any fevers or chills nausea vomiting diarrhea or any other symptoms <Maikel Hua DO - Last Filed: 03/11/22 16:10> Related Data Home medications: Home Medications Medication Instructions Recorded Confirmed multivitamin (Daily Multi-Vitamin 1 tablet PO DAILY 05/02/21 03/01/22 tablet) atorvastatin 40 mg tablet 40 mg PO QHS 12/13/21 03/01/22 finasteride 5 mg tablet 5 mg PO DAILY 12/13/21 03/01/22 <DO Skye Winchester Last Filed: 03/11/22 16:10> Allergies/adverse reactions: Allergies Allergy/AdvReac Type Severity Reaction Status Date / Time No Known Allergies Allergy Verified 03/11/22 05:47 <Maikel Hua DO - Last Filed: 03/11/22 16:10> Review of Systems Review of Systems: Gen.: Denies fevers or chills ENT: Denies congestion Respiratory: Denies shortness of breath or cough CV: Denies chest pain or palpitations GI: reports lower abdominal pain denies nausea, emesis or diarrhea see HPI Musculoskeletal: Denies back pain or muscle pain Neuro: Denies numbness, tingling, weakness or focal weakness Skin: Denies rash Except as documented, all other systems reviewed and negative <Maikel Hua DO - Last Filed: 03/11/22 16:10> [facility] Past Medical History Medical History: Medical History A-fib Cholecystitis (~10/2021) Decubitus ulcer of left upper back Essential (primary) hypertension Mixed hyperlipidemia Type 2 diabetes mellitus without complications Urinary retention due to benign prostatic hyperplasia <Maikel Hua DO - Last Filed: 03/11/22 16:10> Surgical History Surgical History: Surgical History (Updated 01/14/22 @ 07:36 by Jemima Bowen PA-C) History of bone graft Left humerus History of umbilical hernia repair 1971 <Maikel Hua DO - Last Filed: 03/11/22 16:10> Family History Family History: Family History (Updated 01/14/22 @ 07:37 by Jemima Bowen PA-C) Father Hypertension Mother Hypertension Patient's mother is Diabetes mellitus <Maikel Hua DO - Last Filed: 03/11/22 16:10> Social History Social History: Social History Social History: Mr. Pollack lives at home alone. He is mostly independent in his daily activities. He does have Home Health to assist with care. He is retired after working at [employer] for many years. His PCP is Dr. Farris. His surrogate decision maker is his cousin, Estefania. He would like to be a full code. Smoking status: Never smoker Alcohol intake: never Substance use: never Substance use type: does not use Spiritual care concerns: No <DO Skye Winchester Last Filed: 03/11/22 16:10> Exam Narrative: APPEARANCE: No acute distress, nontoxic, resting in bed HEENT: Normocephalic, atraumatic, OMM RESPIRATORY: No respiratory distress, clear to auscultation bilaterally with no
[2022-03-11 07:08] LABS: Basophils Absolute Auto 0.1 K/mm3 (0.0-0.1); Basophils Percent Auto 0.3 % (0.2-1.2); Eosinophils Absolute Auto 0.2 K/mm3 (0-0.3); Eosinophils Percent Auto 1.3 % (0-4.4); Hematocrit 36.7 % (42.0-52.0); Hemoglobin 11.9 g/dL (14.0-18.0); Immature Granulocyte Absolute 0.07 K/mm3 (0.00-0.031); Immature Granulocyte Percent A 0.4 % (0-0.5); Lymphocytes Absolute Auto 1.35 K/mm3 (0.9-3.2); Lymphocytes Percent Auto 8.1 % (18.3-44.2); Mean Corpuscular HGB Conc 32.4 g/dl (32-36); Mean Corpuscular Hemoglobin 27.9 pg (26-34); Mean Corpuscular Volume 86.2 fl (80-100); Mean Platelet Volume 10.2 fl (7.4-10.4); Monocytes Absolute Auto 0.8 K/mm3 (0.1-0.6); Monocytes Percent Auto 5.1 % (2.6-8.5); Neutrophils Absolute Auto 14.1 K/mm3 (1.3-6.7); Neutrophils Percent Auto 84.8 % (45.5-73.1); Platelet Count Result 474 k/mm3 (150-375); Red Blood Count 4.26 M/mm3 (4.6-6.20); Red Cell Distribution Width 17.8 % (11.5-14.5); White Blood Count 16.6 K/mm3 (4.5-10.0)
--- NOTE | 2022-03-11 07:09 | PC.NURSE ---
1700 ml urine drained after giron cath insertion. irrigated with 300 ml sterile saline per beti ortiz.
[2022-03-11] MEDS: CIPROFLOXACIN 500 MG TAB PO (07:11)
[2022-03-11 07:13] VITALS: BP 155/82; PULSE 77; RESP 18; O2SAT 100
[2022-03-11 07:30] LABS: Anion Gap 12 mmol/L (8-16); Blood Urea Nitrogen 10 mg/dL (9-20); Calcium 8.6 mg/dL (8.4-10.2); Carbon Dioxide 22 mmol/L (22-30); Chloride 94 mmol/L (98-107); Estimated CRCL calculation 72 ml/min; Estimated Glomerular Filt Rate > 60; Glucose 163 mg/dL (65-110); Potassium 4.1 mmol/L (3.4-5.0); Sodium 128 mmol/L (137-145)
[2022-03-11 07:34] LABS: INR 1.1; Prothrombin Time 13.5 Seconds (11.1-14.7)
[2022-03-11 07:35] LABS: Partial Thromboplastin Time 31.7 SECONDS (22.3-36.8)
[2022-03-11] MEDS: SODIUM CHLORIDE 0.9% IV 1,000 ML 999 ML IV CONT (07:51)
[2022-03-11 09:21] VITALS: BP 153/80; PULSE 70; RESP 18; O2SAT 100
== END 2022-03-11 09:20 | disposition home or self-care (01) ==
PROVIDERS: Emergency Medicine; Emergency Provider Emergency Medicine; PCP Family Medicine
DX: R33.9 Retention of urine, unspecified (principal); N39.0 Urinary tract infection, site not specified; Z90.79 Acquired absence of other genital organ(s); I48.91 Unspecified atrial fibrillation; I10 Essential (primary) hypertension; E78.5 Hyperlipidemia, unspecified; E11.9 Type 2 diabetes mellitus without complications; Z79.01 Long term (current) use of anticoagulants; Z79.84 Long term (current) use of oral hypoglycemic drugs
CPT/HCPCS: 36415; 51702; 80048; 81001; 85025; 85610; 85730; 99283; A9270; J7030

== ENCOUNTER 2022-03-26 20:43 | Inpatient (IN) | payer MEDICARE, OTHER, SELFPAY ==
[2022-03-26] VITALS (10 sets, daily range): BP systolic 99–167; BP diastolic 57–98; PULSE 78–99; RESP 16–20; TEMP 36.9; O2SAT 96–99
--- NOTE | ~2022-03-26 | CT_ITS ---
EXAMINATION: CT abdomen pelvis wo/w con DATE: 03/28/2022 10:18 INDICATION: Gross hematuria TECHNIQUE: Computed tomography (CT) of the abdomen and pelvis was performed without intravenous contr ast. CT of the abdomen and pelvis was then performed with a total of 130 mL Omnipaque-350 intravenous contrast using a double-bolus technique for simultaneous opacification of the renal parenchyma and r enal collecting system. The dose-length product was 692.41 mGy-cm. COMPARISON: 11/06/2021 FINDINGS: Mild atelectasis in the bilateral lower lobes. Heart size is normal. No pericardial or pleural effusi on. Small sliding-type hiatal hernia. A few tiny gallstones at the fundus of the decompressed gallbla dder. There is mild haziness to the fat surrounding the gallbladder likely representing residual scar ring related to earlier acute cholecystitis. A few punctate calcifications in the pancreas consistent with sequela of chronic pancreatitis. Tiny splenic calcification consistent with old granulomatous d isease. Bilateral adrenal glands are normal. Right kidney is normal. 7 mm left renal cyst. No urolith iasis or hydronephrosis. There is contrast opacification of the bilateral renal collecting systems se en to the bilateral ureters and into the bladder. Portions of the bilateral ureters are decompressed remaining unopacified with contrast. Significant interval decrease in size of a previous enlarged pro state with appearance suggesting interval transurethral prostatectomy. Hewitt catheter within the blad manuel along with gas as well as nonenhancing soft tissue density filling defects likely representing cl ot. There is mild colonic diverticulosis with a sigmoid predominance. There is no adjacent inflammat ory change to suggest diverticulitis. Small bowel and appendix are normal. Small fat-containing right inguinal hernia. No free intraperitoneal gas or fluid. No pathologically enlarged abdominal or pelvi c lymphadenopathy. Moderate to severe lumbar facet osteoarthritis. Old healed fracture and some surro unding heterotopic ossification along the right iliac wing IMPRESSION: 1. Large amount of clot within the bladder which may relate with appears to be changes of an interval transurethral prostatectomy. 7 mm left renal cyst. Otherwise normal kidneys and ureters with no urol ithiasis. 2. Cholelithiasis with persistent mild haziness to the fat surrounding the decompressed gallbladder w hich may reflect residual scarring related to relatively recent prior acute cholecystitis. 3. Small sliding-type hiatal hernia. Reviewed, dictated and finalized at location A. IMPRESSION: 1. Large amount of clot within the bladder which may relate with appears to be changes of an interval transurethral prostatectomy. 7 mm left renal cyst. Other infante normal kidneys and ureters with no urolithiasis. 2. Cholelithiasis with persistent mild haziness to the fat surrounding the deco mpressed gallbladder which may reflect residual scarring related to relatively recent prior acute cholecystitis. 3. Small sliding-type hiatal hernia.
--- NOTE | 2022-03-26 22:20 | ED.MALEGU ---
HPI - Male Genitourinary General Chief complaint: Urogenital-Male Stated complaint: urinary retention Time Seen by Provider: 03/26/22 21:49 History of Present Illness HPI Narrative: Patient is a 72-year-old male who presents ER with urinary retention. Reports this evening he started having some hematuria and then he began unable to urinate. He has pain in his lower abdomen can palpate a distended bladder. No fevers or chills or sweats. He is on Eliquis. He has history of obstruction in the past. He takes finasteride. Related Data Home Medications Medication Instructions Recorded Confirmed multivitamin (Daily Multi-Vitamin 1 tablet PO DAILY 05/02/21 03/01/22 tablet) atorvastatin 40 mg tablet 40 mg PO QHS 12/13/21 03/01/22 finasteride 5 mg tablet 5 mg PO DAILY 12/13/21 03/01/22 Allergies Allergy/AdvReac Type Severity Reaction Status Date / Time No Known Allergies Allergy Verified 03/11/22 05:47 Review of Systems Review of Systems: All systems reviewed & are unremarkable except as noted in HPI and below Constitutional: Constitutional: Denies chills, Denies fatigue and Denies fever(s) Gastrointestinal: Gastrointestinal: Reports abdominal pain, Denies nausea and Denies vomiting Genitourinary: Genitourinary: Reports hematuria, Reports oliguria, Denies dysuria and Denies urinary frequency PMF Past Medical History Medical History A-fib Cholecystitis (~10/2021) Decubitus ulcer of left upper back Essential (primary) hypertension Mixed hyperlipidemia Type 2 diabetes mellitus without complications Urinary retention due to benign prostatic hyperplasia Surgical History Surgical History (Updated 01/14/22 @ 07:36 by Jemima Bowen PA-C) History of bone graft Left humerus History of umbilical hernia repair 1971 Family History Family History (Updated 01/14/22 @ 07:37 by Jemima Bowen PA-C) Father Hypertension Mother Hypertension Patient's mother is Diabetes mellitus Social History Social History Social History: Mr. Pollack lives at home alone. He is mostly independent in his daily activities. He does have Home Health to assist with care. He is retired after working at [employer] for many years. His PCP is Dr. Farris. His surrogate decision maker is his cousin, Estefania. He would like to be a full code. Smoking status: Never smoker Alcohol intake: never Substance use: never Substance use type: does not use Spiritual care concerns: No Exam Narrative: GENERAL: Well-appearing, well-nourished, and in no acute distress. HEAD: Normocephalic, atraumatic. CHEST: Clear to auscultation. No respiratory distress. HEART: Regular rate and rhythm. Normal peripheral pulses. ABDOMEN: Soft, TTP to lower abdomen with palpable bladder, nondistended. EXTREMITIES: Normal range of motion. No edema. SKIN: Warm, dry, no rash. NEURO: Alert and oriented x3. PSYCH: Normal mood and affect. Course Course Emergency Course: Discussed with Dr. Mccartney. Patient getting CBI and when it is turned off urine comes dark red. Recommends admission for observation and IV antibiotics. Ceftriaxone started. Vital Signs Vital signs: Vital Signs Temperature 98.4 F 03/26/22 21:29 Pulse Rate 99 03/26/22 21:29 Respiratory Rate 16 03/26/22 21:29 Blood Pressure 167/98 H 03/26/22 21:29 Pulse Oximetry 99 03/26/22 21:29 Oxygen Delivery Room Air 03/26/22 21:29 Temperature 97.9 F 03/27/22 01:01 Pulse Rate 78 03/27/22 01:01 Respiratory Rate 17 03/27/22 01:01 Blood Pressure 142/77 H 03/27/22 01:46 Pulse Oximetry 99 03/27/22 01:46 Oxygen Delivery Room Air 03/26/22 21:29 MDM - Male Genitourinary Lab Data Result diagrams: 03/26/22 22:17 03/26/22 22:17 Labs: Lab Results 03/26/22 03/26/22 03/26/22 Range/Units 22:17
[2022-03-26 22:40] LABS: Anion Gap 15 mmol/L (8-16); Blood Urea Nitrogen 13 mg/dL (9-20); Calcium 8.7 mg/dL (8.4-10.2); Carbon Dioxide 22 mmol/L (22-30); Chloride 93 mmol/L (98-107); Estimated CRCL calculation 64 ml/min; Estimated Glomerular Filt Rate > 60; Glucose 142 mg/dL (65-110); Potassium 3.7 mmol/L (3.4-5.0); Sodium 130 mmol/L (137-145)
[2022-03-26 22:42] LABS: INR 1.2; Prothrombin Time 14.8 Seconds (11.1-14.7)
[2022-03-26 22:43] LABS: Partial Thromboplastin Time 35.7 SECONDS (22.3-36.8)
[2022-03-26 22:54] LABS: Add Urine Microscopic? YES; Appearance Urine Slightly Cloudy (Clear); Bilirubin Urine 3+ (Negative); Blood Urine 3+ (Negative); Color Urine Red (Yellow); Glucose Urine UA Trace mg/dL (Negative); Ketones Urine 2+ mg/dL (Negative); Leukocyte Esterase Ur 3+ LEU/UL (Negative); Nitrate Urine Negative (Negative); Protein Urine 3+ mg/dL (Negative); Specific Grav Ur <= 1.005 (1.001-1.035); pH Urine >=9.0 (5.0-9.0)
[2022-03-26 22:56] LABS: Basophils Absolute Auto 0.1 K/mm3 (0.0-0.1); Basophils Percent Auto 0.3 % (0.2-1.2); Eosinophils Absolute Auto 0.9 K/mm3 (0-0.3); Eosinophils Percent Auto 5.2 % (0-4.4); Hematocrit 35.4 % (42.0-52.0); Hemoglobin 11.7 g/dL (14.0-18.0); Immature Granulocyte Absolute 0.08 K/mm3 (0.00-0.031); Immature Granulocyte Percent A 0.4 % (0-0.5); Lymphocytes Absolute Auto 2.61 K/mm3 (0.9-3.2); Lymphocytes Percent Auto 14.5 % (18.3-44.2); Mean Corpuscular HGB Conc 33.1 g/dl (32-36); Mean Corpuscular Hemoglobin 28.3 pg (26-34); Mean Corpuscular Volume 85.7 fl (80-100); Mean Platelet Volume 10.5 fl (7.4-10.4); Monocytes Percent Auto 5.8 % (2.6-8.5); Neutrophils Absolute Auto 13.3 K/mm3 (1.3-6.7); Neutrophils Percent Auto 73.8 % (45.5-73.1); Platelet Count Result 347 k/mm3 (150-375); Red Blood Count 4.13 M/mm3 (4.6-6.20); Red Cell Distribution Width 18.7 % (11.5-14.5)
[2022-03-26 23:06] LABS: RBC Urine >75 /hpf (0-2); WBC Urine 51-75 /hpf
[2022-03-26 23:07] LABS: Bacteria Urine 2+ /hpf; Mucus Urine Rare /lpf
[2022-03-27] VITALS (26 sets, daily range): BP systolic 60–150; BP diastolic 35–77; PULSE 60–98; RESP 17–20; TEMP 36.4–37.2; O2SAT 98–100; BMI 26.2
[2022-03-27] MEDS: SODIUM CHLORIDE 0.9% IV 1,000 ML 999 ML IV CONT ×2 (01:29→03:00)
--- NOTE | 2022-03-27 02:12 | ADMGEN ---
This patient, Adolfo Pollack, was admitted to 2 Medical Room 259-01. Patient/family oriented to hospital policies and general routines including ID bracelet, bed and alarms, visiting hours, pain management, procedures, bathroom and other care routines, personal items, smoking policy, room service/diet, and visiting hours. Information on how to activate the Rapid Response Team has been discussed. Patient/Family are encouraged to report perceived risks to care and to ask questions if they do not understand what they are told or what they should do.
[2022-03-27] MEDS: SODIUM CHLORIDE 0.9% IV 1,000 ML 125 ML IV CONT ×2 (02:37→11:57)
--- NOTE | 2022-03-27 02:59 | PC.NURSE ---
TOOK PHOTO OF WOUND ON PT BACK DURING ASSESSMENT BUT WOUND PHOTOS WOULD NOT UPLOAD. PT HAS WOUND VAC PRESENT AND STATES HE HAS AN APPOINTMENT TO SEE THE WOUND NURSE HERE AT [facility] THIS SUNDAY. WOUND IS MANAGED BY [facility].
--- NOTE | 2022-03-27 03:13 | ECG_ITS ---
Measurements Intervals [place] Rate: 72 P: 25 AL: 164 QRS: -7 QRSD: 107 T: 8 QT: 449 QTc: 494 Interpretive Statements SINUS RHYTHM PROLONGED QT INTERVAL BASELINE ARTIFACT- I, III, AVR, AVL ABNORMAL ECG COMPARED TO ECG 10/21/2021 11:58:32 SINUS RHYTHM NOW PRESENT PROLONGED QT INTERVAL NOW PRESENT Electronically Signed On 03-27-2022 8:31:58 CDT by Harpreet Gonzalez D.O.
--- NOTE | 2022-03-27 03:24 | PC.NURSE ---
0300 PT CALLED NURSE STATION STATING HE FELT WOOZY . ENTERED PT ROOM AND HE STATED HE FELT IF HE WAS GOING TO PASS OUT EVEN THOUGH HE WAS LYING IN THE BED. NO COMPLAINTS OF NAUSEA OR PAIN. ASSESSED PT BLOOD PRESSURE AND HE WAS 68/37 AND HE WAS SWEATING. MANUAL BP REFLECTED A SIMILAR BP AND A RAPID RESPONSE WAS CALLED. PT WAS PLACED IN TRENDELENBURG POSITION AND FLUIDS WERE INCREASED TO 999ML/HR. PT BP INCREASED TO 152/122 SO WE SAT THE PT BACK UP. BP WAS 101/50 AND PT STATED HE NO LONGER FELT LIGHTHEADED. I ASSESSED PT CBI AND THERE APPEARED TO BE A CLOT STUCK TO THE SIDE OF THE TUBING I HAD TO SQUEEZE THE TUBING UNTIL THE CLOT BROKE LOOSE AND PASSED INTO THE BAG. STAT EKG WAS ORDERED AND PT WAS ALSO ORDERED TO BE PLACED ON TELEMETRY. PT STATED HE FELT BACK TO BASELINE.
[2022-03-27 03:45] LABS: Glucose Point of Care 171 mg/dl (65-105)
--- NOTE | 2022-03-27 04:18 | PM.IMHP ---
H&P: HPI History of Present Illness Date/Time: 03/27/22 04:18 Chief Complaint: Urinary retention Narrative: 72-year-old male with a past medical history of BPH, atrial fibrillation on chronic anticoagulation, hyperlipidemia, diabetes mellitus and dyslipidemia who presented to the ER via private vehicle due to urinary retention. The patient had a TURP done by Dr. Duran at [facility] on March 06. Reports that he came to the ER on the 11 of March for urinary retention at that time and had a Hewitt catheter placed due to urinary retention. He was discharged on 7 days of Cipro. He finished his antibiotic therapy and has Hewitt catheter removed as outpatient. He had not had any other symptoms until this evening. Patient reported that he had been feeling well until around 5:00 p.m.. He started noticing some hematuria. He started noting a sensation of incomplete bladder emptying and suprapubic bloating. He denies having any recent dysuria. He has not had any fevers or chills. He has not had any changes in his bowel habits. He denies any chest pain or shortness of breath. In the ER the patient's blood pressures did drop into the mid 90s shortly after Hewitt catheter was placed and bladder irrigation had began. Patient received 1 L fluid bolus. The patient was doing well but shortly after arriving to the floor his catheter clotted off again. When the nurse started the continuous irrigation backup shortly thereafter the patient had a vasovagal episode where his systolic blood pressures dropped in the 60s. He became pale and cool to touch. A rapid response was called. The patient's blood pressures improved with supine position up to the mid 80s. The patient was placed in Trendelenburg. After approximately 200 mL of IV fluid hydration the patient's blood pressures were back up into the 140. The patient was not on telemetry at the time of the event. He denies any chest pain or palpitations. Review of Systems Review of Systems: 12 systems were reviewed with pertinent positives and negatives per HPI. Except as documented in the HPI, all other systems were reviewed and are negative. [facility] Past Medical History Medical History (Updated 03/27/22 @ 05:13 by Merissa Hawkins DO) A-fib Cholecystitis (~10/2021) Managed with cholecystostomy tube as the patient's hospital stay was complicated by rhabdomyolysis acute kidney injury AFib RVR Decubitus ulcer of left upper back Essential (primary) hypertension Mixed hyperlipidemia Normal echocardiogram (10/2021) Type 2 diabetes mellitus without complications Urinary retention due to benign prostatic hyperplasia Surgical History Surgical History (Updated 03/27/22 @ 05:08 by Merissa Hawkins DO) History of bone graft Left humerus History of umbilical hernia repair 1972 Status post excisional debridement (12/2021) Decubitus ulcer of left upper back Family History Family History Father Hypertension Mother Hypertension Patient's mother is Diabetes mellitus Social History Social History Social History: Mr. Pollack lives at home alone. He is mostly independent in his daily activities. He does have Home Health to assist with care. He is retired after working at [employer] for many years. His PCP is Dr. Farris. His surrogate decision maker is his cousin, Estefania. He would like to be a full code. Smoking status: Never smoker Alcohol intake: never Substance use: never Substance use type: does not use Spiritual care concerns: No Meds Home Medications and Allergies Home Medications Medication Instructions Recorded Confirmed Type multivitamin (Daily Multi-Vitamin 1 tablet PO DAILY 05/02/21 03/27/22 History tablet) atorvastatin 40 mg tablet 40 mg PO QHS 12/13/21 03/27/22 History metformin 500 mg tablet 500 mg PO BID #180 tabs
[2022-03-27] MEDS: MULTIVITAMINS THERAPEUTIC TAB (*BKC) 1 TABLET PO (08:32)
[2022-03-27] MEDS: metFORMIN HCL 500 MG TABLET PO ×2 (08:32→16:50)
[2022-03-27 08:37] LABS: Glucose Point of Care 148 mg/dl (65-105)
[2022-03-27 11:54] LABS: Glucose Point of Care 152 mg/dl (65-105)
--- NOTE | 2022-03-27 14:28 | P.PNIM_ITS ---
Progress Note: A&P Assessment and Plan (1) Acute UTI: Code(s): N39.0 - Urinary tract infection, site not specified Status: Acute Assessment and Plan: UA with 3+ leukocytes, 51-75 wbc's, 2+ bacteria, more than 75 RBCs, no nitrates. * Rocephin 1 g IV Q 24 hours initiated in ED. * Adjust antibiotics per urine culture. * blood cultures pending * Patient was previously treated with p.o. Cipro times 14 days he reports. This was started on 03/11/2022 (2) Acute on chronic urinary retention: Code(s): R33.9 - Retention of urine, unspecified Status: Acute Assessment and Plan: * Hewitt catheter inserted in the emergency department. * Patient with gross hematuria and CBI initiated. * Hold Xarelto. * Urology consulted and appreciate recommendations. (3) Gross hematuria: Code(s): R31.0 - Gross hematuria Status: Acute Assessment and Plan: As above. (4) Type 2 diabetes mellitus without complications: Qualifiers: Diabetes mellitus longshore equipment operator insulin use: without half-way use Qualified Code(s): E11.9 - Type 2 diabetes mellitus without complications Code(s): E11.9 - Type 2 diabetes mellitus without complications Status: Chronic Assessment and Plan: * Hold metformin. * Continue low-dose aspart sliding scale with meals and Accu-Cheks a.c. HS. * Continue hypoglycemic protocol (5) Transient hypotension: Code(s): I95.9 - Hypotension, unspecified Status: Acute Assessment and Plan: Patient had transient hypotension with SBP 60s thought to be secondary to vasovagal event. * EKG was obtained during rapid response event in demonstrated QT prolongation with QTC 494. * Zofran stopped - to be aware he reportedly has not received any Zofran this study. * Patient had also recently been receiving ciprofloxacin p.o. for 14 days, starting on 03/11/2022 * Continue telemetry monitoring. * Patient does not appear to be on any additional QT prolonging medications. * BP stable 140/66, heart rate 78 the patient is tolerating oral intake will saline lock IV fluids for now (6) QT prolongation: Code(s): R94.31 - Abnormal electrocardiogram [ECG] [EKG] Status: Acute Assessment and Plan: as above. (7) Pressure ulcer of back: Code(s): L89.109 - Pressure ulcer of unspecified part of back, unspecified stage Status: Chronic Assessment and Plan: Present on admission. this was being managed outpatient by Dr. Monson, General Surgery, and [facility]. * Patient had a wound VAC present upon admission. Patient however did not bring the charging cord for his wound VAC. he lives alone and family is not local and is unable to take obtain his veterinary virus serum inspector for him. Wound nurse is not available at this time. * Will initiate wet-to-dry dressing changes b.i.d. until wound VAC can be reapplied tomorrow morning. * Consult wound nurse in the morning. * Continue pressure relief methods Plan code status: Full code Disposition: Home, patient currently has care through [facility] he states Diet: Consistent carb diet Time Spent With Patient Time with patient: 15 - 25 minutes Subjective Date/time seen: 03/27/22 14:28 Interval history: Pleasant 72-year-old male with past medical history of BPH, atrial fibrillation on Xarelto, hyperlipidemia, type 2 diabetes mellitus and left scapula pressure ulcer on wound VAC therapy. patient presented to the emergency department with complain
--- NOTE | 2022-03-27 14:28 | PM.IMPN ---
Progress Note: A&P Assessment and Plan (1) Acute UTI: Code(s): N39.0 - Urinary tract infection, site not specified Status: Acute Assessment and Plan: UA with 3+ leukocytes, 51-75 wbc's, 2+ bacteria, more than 75 RBCs, no nitrates. Rocephin 1 g IV Q 24 hours initiated in ED. Adjust antibiotics per urine culture. blood cultures pending Patient was previously treated with p.o. Cipro times 14 days he reports. This was started on 03/11/2022 (2) Acute on chronic urinary retention: Code(s): R33.9 - Retention of urine, unspecified Status: Acute Assessment and Plan: Hewitt catheter inserted in the emergency department. Patient with gross hematuria and CBI initiated. Hold Xarelto. Urology consulted and appreciate recommendations. (3) Gross hematuria: Code(s): R31.0 - Gross hematuria Status: Acute Assessment and Plan: As above. (4) Type 2 diabetes mellitus without complications: Qualifiers: Diabetes mellitus tank terminal gauger insulin use: without tank terminal gauger use Qualified Code(s): E11.9 - Type 2 diabetes mellitus without complications Code(s): E11.9 - Type 2 diabetes mellitus without complications Status: Chronic Assessment and Plan: Hold metformin. Continue low-dose aspart sliding scale with meals and Accu-Cheks a.c. HS. Continue hypoglycemic protocol (5) Transient hypotension: Code(s): I95.9 - Hypotension, unspecified Status: Acute Assessment and Plan: Patient had transient hypotension with SBP 60s thought to be secondary to vasovagal event. EKG was obtained during rapid response event in demonstrated QT prolongation with QTC 494. Zofran stopped - to be aware he reportedly has not received any Zofran this study. Patient had also recently been receiving ciprofloxacin p.o. for 14 days, starting on 03/11/2022 Continue telemetry monitoring. Patient does not appear to be on any additional QT prolonging medications. BP stable 140/66, heart rate 78 the patient is tolerating oral intake will saline lock IV fluids for now (6) QT prolongation: Code(s): R94.31 - Abnormal electrocardiogram [ECG] [EKG] Status: Acute Assessment and Plan: as above. (7) Pressure ulcer of back: Code(s): L89.109 - Pressure ulcer of unspecified part of back, unspecified stage Status: Chronic Assessment and Plan: Present on admission. this was being managed outpatient by Dr. Monson, General Surgery, and [facility]. Patient had a wound VAC present upon admission. Patient however did not bring the charging cord for his wound VAC. he lives alone and family is not local and is unable to take obtain his vending machine operator for him. Wound nurse is not available at this time. Will initiate wet-to-dry dressing changes b.i.d. until wound VAC can be reapplied tomorrow morning. Consult wound nurse in the morning. Continue pressure relief methods Plan code status: Full code Disposition: Home, patient currently has care through [facility] he states Diet: Consistent carb diet Time Spent With Patient Time with patient: 15 - 25 minutes Subjective Date/time seen: 03/27/22 14:28 Interval history: Pleasant 72-year-old male with past medical history of BPH, atrial fibrillation on Xarelto, hyperlipidemia, type 2 diabetes mellitus and left scapula pressure ulcer on wound VAC therapy. patient presented to the emergency department with complaints of lower abdominal pain and acute urinary retention. He was found to have a UTI and was started on IV antibiotic therapy. Upon presentation to the floor patient had acute clotting of Hewitt catheter inserted in the and was started on CBI. Patient reports feeling well overall today. Has had no lower abdominal pain since CBI was initiated. His abdomen is softer. No fevers, chills, diaphoresis or rigors. Review of Systems Review of [place]
--- NOTE | 2022-03-27 14:57 | WPDURCON ---
Assessment and Plan Assessment and plan (1) Acute on chronic urinary retention: Code(s): R33.9 - Retention of urine, unspecified Status: Acute (2) Acute UTI: Code(s): N39.0 - Urinary tract infection, site not specified Status: Acute (3) Gross hematuria: Code(s): R31.0 - Gross hematuria Status: Acute Plan Patient with gross hematuria likely due to UTI likely due to urinary retention, with hematuria worsened by Eliquis PROCEDURE DETAILS: Using a 60cc Jaxson catheter-tipped syringe, I hand-irrigated his 22Fr [address] way giron catheter with sterile normal saline. Initially, I could easily pass irrigation into the giron, but could not irrigate anything back easily, though it would drain by gravity quickly. I was concerned about a mature clot being stuck in the tip of the catheter. Therefore, I switched to sterile water for irrigation and repeatedly attempted to irrigated the giron without much return of clots. Taking his history of HoLEP into account, I suspected that perhaps instead of a clot in the catheter, that the catheter balloon may be pulled into the HoLEP defect, as a 10cc balloon can easily do. I advanced his catheter until it was hubbed, filled the balloon with 40cc sterile water (giving a total of 50cc in the balloon), and then I was able to easily flush and irrigate the bladder with sterile water. I evacuated about 50cc of clot, got his urine to light pink, then hooked him back up to CBI. PLAN: Continue Antibiotics Follow culture data Continue Giron and CBI tonight Continue to hold Eliquis NPO at midnight in case of need for Clot Evacuation in the AM CT Urogram tomorrow AM to assess clot burden and rule out upper tract source for hematuria If Urine clears on CBI and no significant clot burden on CT, then may not need to proceed to OR for a clot evacuation Urology Consult Note HPI Date Seen: 03/27/22 Requesting Physician: Merissa Hawkins DO Primary Care Provider: Zbigniew Farris MD Consult Narrative Narrative: Adolfo Pollack is a 72 year old male admitted for Hematuria on blood thinners, likely in setting of UTI. Patient came in through the ER with hematuria and general feeling unwell -- UA concerning for UTI. Notably, patient had HoLEP on 03/06/[address] Duran at [facility]. On 03/11 he went into retention and needed a catheter replaced, but passed his 03/14 voiding trial in clinic. ER placed a catheter last night with >500cc return of bloody urine, and started CBI. Unfortunately, patient clotted his catheter off on the floor and had a vasovagal response prompting a rapid response call. Doing better currently. He is on Eliquis for Afib with a history of DM, has a scapular decubitous wound with a wound vac. WBC 18k, Cr 0.8, UA nitrite negative with WBC = RBC; Hb 11.7 Review of Systems Review of Systems: All systems reviewed & are unremarkable except as noted in HPI and below PMFSH Past Medical History Medical History A-fib Cholecystitis (~10/2021) Managed with cholecystostomy tube as the patient's hospital stay was complicated by rhabdomyolysis acute kidney injury AFib RVR Decubitus ulcer of left upper back Essential (primary) hypertension Mixed hyperlipidemia Normal echocardiogram (10/2021) Type 2 diabetes mellitus without complications Urinary retention due to benign prostatic hyperplasia Surgical History Surgical History History of bone graft Left humerus History of umbilical hernia repair 1972 Status post excisional debridement (12/2021) Decubitus ulcer of left upper back Family History Family History Father Hypertension Mother Hypertension Patient's mother is Diabetes mellitus Social History Social History S
[2022-03-27 16:48] LABS: Glucose Point of Care 147 mg/dl (65-105)
[2022-03-27] MEDS: WATER FOR IRRIGATION, STERILE 1,000 ML BOTTLE 1000 ML (16:51)
[2022-03-27] MEDS: ATORVASTATIN 40 MG TABLET PO (20:31)
[2022-03-27 21:44] LABS: Glucose Point of Care 162 mg/dl (65-105)
[2022-03-28] VITALS (14 sets, daily range): BP systolic 124–149; BP diastolic 55–80; PULSE 68–88; RESP 13–20; TEMP 36.3–36.7; O2SAT 98–100
[2022-03-28 05:24] LABS: Basophils Absolute Auto 0.1 K/mm3 (0.0-0.1); Basophils Percent Auto 0.6 % (0.2-1.2); Eosinophils Percent Auto 15.1 % (0-4.4); Hematocrit 27.7 % (42.0-52.0); Hemoglobin 9.2 g/dL (14.0-18.0); Immature Granulocyte Absolute 0.05 K/mm3 (0.00-0.031); Immature Granulocyte Percent A 0.4 % (0-0.5); Lymphocytes Absolute Auto 2.68 K/mm3 (0.9-3.2); Lymphocytes Percent Auto 20.1 % (18.3-44.2); Mean Corpuscular HGB Conc 33.2 g/dl (32-36); Mean Corpuscular Hemoglobin 28.1 pg (26-34); Mean Corpuscular Volume 84.7 fl (80-100); Mean Platelet Volume 10.3 fl (7.4-10.4); Monocytes Absolute Auto 0.7 K/mm3 (0.1-0.6); Monocytes Percent Auto 5.3 % (2.6-8.5); Neutrophils Absolute Auto 7.8 K/mm3 (1.3-6.7); Neutrophils Percent Auto 58.5 % (45.5-73.1); Platelet Count Result 303 k/mm3 (150-375); Red Blood Count 3.27 M/mm3 (4.6-6.20); Red Cell Distribution Width 18.6 % (11.5-14.5); White Blood Count 13.4 K/mm3 (4.5-10.0)
[2022-03-28 05:43] LABS: Anion Gap 7 mmol/L (8-16); Blood Urea Nitrogen 10 mg/dL (9-20); Calcium 8.4 mg/dL (8.4-10.2); Carbon Dioxide 22 mmol/L (22-30); Chloride 106 mmol/L (98-107); Estimated CRCL calculation 57 ml/min; Estimated Glomerular Filt Rate > 60; Glucose 112 mg/dL (65-110); Potassium 3.9 mmol/L (3.4-5.0); Sodium 135 mmol/L (137-145)
--- NOTE | 2022-03-28 08:11 | P.PNIM_ITS ---
Progress Note: A&P Assessment and Plan (1) Acute UTI: Code(s): N39.0 - Urinary tract infection, site not specified Status: Acute Assessment and Plan: UA with 3+ leukocytes, 51-75 wbc's, 2+ bacteria, more than 75 RBCs, no nitrates. * Antibiotic day3: Rocephin 1 g IV Q 24 hours initiated in ED 03/26/22. Adjust antibiotics per urine culture. * urine and blood cultures pending * Patient was previously treated with p.o. Cipro times 14 days he reports. This was started on 03/11/2022 (2) Acute on chronic urinary retention: Code(s): R33.9 - Retention of urine, unspecified Status: Acute Assessment and Plan: * Hewitt catheter inserted in the emergency department. * Urology consulted and appreciate recommendations. (3) Gross hematuria: Code(s): R31.0 - Gross hematuria Status: Acute Assessment and Plan: As above. * Urology consulted and appreciate recommendations. * CBI per Urology * Hold Xarelto * 03/28/22 CT Urogram today. H/H trending down 11.9/36.7 to 11.7/35.4 to 9.2/27.7. Repeat H/H at 1400. Transfuse as needed. (4) Type 2 diabetes mellitus without complications: Qualifiers: Diabetes mellitus mcc insulin use: without mcc use Qualified Code(s): E11.9 - Type 2 diabetes mellitus without complications Code(s): E11.9 - Type 2 diabetes mellitus without complications Status: Chronic Assessment and Plan: * Hold metformin. * Continue low-dose aspart sliding scale with meals and Accu-Cheks a.c. HS. * Continue hypoglycemic protocol (5) Transient hypotension: Code(s): I95.9 - Hypotension, unspecified Status: Acute Assessment and Plan: Patient had transient hypotension with SBP 60s thought to be secondary to vasovagal event. * EKG was obtained during rapid response event in demonstrated QT prolongation with QTC 494. * Zofran stopped - to be aware he reportedly has not received any Zofran this study. * Patient had also recently been receiving ciprofloxacin p.o. for 14 days, starting on 03/11/2022 * Continue telemetry monitoring. * Patient does not appear to be on any additional QT prolonging medications. * BP stable 140/66, heart rate 78 the patient is tolerating oral intake will saline lock IV fluids for now * 03/28/22 Stable BP 141/70 (6) QT prolongation: Code(s): R94.31 - Abnormal electrocardiogram [ECG] [EKG] Status: Acute Assessment and Plan: as above. Monitored on telemetry. 03/28/22 QTc 405 msec. DC telemetry. Hold QT prolonging agents. (7) Pressure ulcer of back: Code(s): L89.109 - Pressure ulcer of unspecified part of back, unspecified stage Status: Chronic Assessment and Plan: Present on admission. this was being managed outpatient by Dr. Monson, General Surgery, and [facility]. * Patient had a wound VAC present upon admission. Patient however did not bring the charging cord for his wound VAC. he lives alone and family is not local and is unable to take obtain his paper final inspector for him. Wound nurse is not available at this time. * wet-to-dry dressing changes b.i.d. until wound VAC can be reapplied by Wound nurse. * Continue pressure relief methods Plan code status: Full code Disposition: Home, patient currently has care through [facility] he states Diet: NPO for CT and possible OR clot evacuation. Time Spent With Patient Time with patient: 15 - 25 minutes Subjective Date/time seen: 03/28/22 08:11
--- NOTE | 2022-03-28 08:11 | PM.IMPN ---
Progress Note: A&P Assessment and Plan (1) Acute UTI: Code(s): N39.0 - Urinary tract infection, site not specified Status: Acute Assessment and Plan: UA with 3+ leukocytes, 51-75 wbc's, 2+ bacteria, more than 75 RBCs, no nitrates. Antibiotic day3: Rocephin 1 g IV Q 24 hours initiated in ED 03/26/22. Adjust antibiotics per urine culture. urine and blood cultures pending Patient was previously treated with p.o. Cipro times 14 days he reports. This was started on 03/11/2022 (2) Acute on chronic urinary retention: Code(s): R33.9 - Retention of urine, unspecified Status: Acute Assessment and Plan: Hewitt catheter inserted in the emergency department. Urology consulted and appreciate recommendations. (3) Gross hematuria: Code(s): R31.0 - Gross hematuria Status: Acute Assessment and Plan: As above. Urology consulted and appreciate recommendations. CBI per Urology Hold Xarelto 03/28/22 CT Urogram today. H/H trending down 11.9/36.7 to 11.7/35.4 to 9.2/27.7. Repeat H/H at 1400. Transfuse as needed. (4) Type 2 diabetes mellitus without complications: Qualifiers: Diabetes mellitus predatory animal exterminator insulin use: without predatory animal exterminator use Qualified Code(s): E11.9 - Type 2 diabetes mellitus without complications Code(s): E11.9 - Type 2 diabetes mellitus without complications Status: Chronic Assessment and Plan: Hold metformin. Continue low-dose aspart sliding scale with meals and Accu-Cheks a.c. HS. Continue hypoglycemic protocol (5) Transient hypotension: Code(s): I95.9 - Hypotension, unspecified Status: Acute Assessment and Plan: Patient had transient hypotension with SBP 60s thought to be secondary to vasovagal event. EKG was obtained during rapid response event in demonstrated QT prolongation with QTC 494. Zofran stopped - to be aware he reportedly has not received any Zofran this study. Patient had also recently been receiving ciprofloxacin p.o. for 14 days, starting on 03/11/2022 Continue telemetry monitoring. Patient does not appear to be on any additional QT prolonging medications. BP stable 140/66, heart rate 78 the patient is tolerating oral intake will saline lock IV fluids for now 03/28/22 Stable BP 141/70 (6) QT prolongation: Code(s): R94.31 - Abnormal electrocardiogram [ECG] [EKG] Status: Acute Assessment and Plan: as above. Monitored on telemetry. 03/28/22 QTc 405 msec. DC telemetry. Hold QT prolonging agents. (7) Pressure ulcer of back: Code(s): L89.109 - Pressure ulcer of unspecified part of back, unspecified stage Status: Chronic Assessment and Plan: Present on admission. this was being managed outpatient by Dr. Monson, General Surgery, and [facility]. Patient had a wound VAC present upon admission. Patient however did not bring the charging cord for his wound VAC. he lives alone and family is not local and is unable to take obtain his abstract maker for him. Wound nurse is not available at this time. wet-to-dry dressing changes b.i.d. until wound VAC can be reapplied by Wound nurse. Continue pressure relief methods Plan code status: Full code Disposition: Home, patient currently has care through [facility] he states Diet: NPO for CT and possible OR clot evacuation. Time Spent With Patient Time with patient: 15 - 25 minutes Subjective Date/time seen: 03/28/22 08:11 Interval history: Pleasant 72-year-old male with past medical history of BPH, atrial fibrillation on Xarelto, hyperlipidemia, type 2 diabetes mellitus and left scapula pressure ulcer on wound VAC therapy. patient presented to the emergency department with complaints of lower abdominal pain and acute urinary retention. He was found to have a UTI and was started on IV antibiotic therapy. Upon presentation to the floor patient had acute clotting of Hewitt
[2022-03-28 08:45] LABS: Glucose Point of Care 118 mg/dl (65-105)
--- NOTE | 2022-03-28 11:51 | WPDUROPN2 ---
Progress Note: A&P Assessment and Plan (1) Gross hematuria: Code(s): R31.0 - Gross hematuria Status: Acute Assessment and Plan: I stopped CBI temporarily to irrigate his giron with a 60cc catheter tip syringe. I then proceeded to irrigate with NS 0.9% for a total of 480cc and was able to remove a large amount of clot, but was unable to clear urine to light pink. The catheter did not irrigate easily and had to be repositioned multiple times to get it to drain properly. The balloon had 60cc of saline in it when I repositioned it initially, therefore I had to put the same amout back in to get it to drain properly. The patient tolerated this well. I turned CBI back on a slow drip, no bladder distention noted. Plan to go to the OR today for a Cystoscopy, with clot evacuation and fulgeration with Dr. Pacheco. Keep NPO. Obtain a consent. (2) Urinary retention: Code(s): R33.9 - Retention of urine, unspecified Status: Acute Time Spent With Patient Time with patient: 15 - 25 minutes Subjective Subjective Date/Time Seen: 03/28/22 11:51 The patient has been admitted for 2 days on CBI for gross hematuria/urinary retention with a [address] Mccartney did a bedside manual irrigation of clot yesterday which was successful temporarily, however he was made NPO and a CT scan was ordered in anticipation of a possible clot evacuation today. He was on Eliquis prior to admission which is being held at this time. His urine and blood cultures are still pending, WBC is 13.4 and creatinine is stable at 0.80. His CT this morning reveals a large amount of clot within the bladder which may relate with appears to be changes of an interval transurethral prostatectomy. Review of Systems Cardiovascular: Cardiovascular: Denies chest pain Respiratory: Respiratory: Reports no additional respiratory complaints Gastrointestinal: Gastrointestinal: Denies abdominal pain, Denies nausea and Denies vomiting Genitourinary: Genitourinary: Reports hematuria and Denies genital pain Exam Const: General: cooperative and comfortable Cardio: Rate: regular rate GI: Inspection: non-distended GI Palp: Yes Soft to palpation and No Tenderness to palpation present (GI) : General: Yes bladder normal to palpation and Yes no CVA tenderness Meatus: meatus normal and No Blood at meatus present Scrotum: not edematous Urinary Catheter: Urinary Catheter: patent and draining (partially), urine pink, urine red and urine with clots Extrem: Right lower extremity: no edema Left lower extremity: no edema Objective Data Vital Signs Vital Signs: Vital Signs - 24 hr 03/27/22 12:00 03/27/22 14:00 03/27/22 16:00 Temperature 98.5 F Pulse Rate 98 82 86 Respiratory Rate 18 Blood Pressure 127/62 Pulse Oximetry 99 Oxygen Delivery 03/27/22 20:00 03/27/22 21:58 03/27/22 20:00 Temperature 98.0 F Pulse Rate 86 85 Respiratory Rate 20 Blood Pressure 146/70 H Pulse Oximetry 99 Oxygen Delivery Room Air 03/28/22 00:01 03/28/22 05:35 03/28/22 04:00 Temperature 97.7 F Pulse Rate 85 76 79 Respiratory Rate 20 Blood Pressure 141/70 H Pulse Oximetry 98 Oxygen Delivery 03/28/22 08:00 03/28/22 09:48 Temperature Pulse Rate 75 Respiratory Rate Blood Pressure Pulse Oximetry Oxygen Delivery Room Air Intake/Output Intake/Output: Intake & Output 03/25/22 03/26/22 03/27/22 03/28/22 23:59 23:59 23:59 23:59 Intake Total 6520 Output Total 3300 43160 2350 Balance -3300 -2739 -5390 Meds/Results Medications: Active Medications Generic Name Dose Route Start Last Admin Trade Name Freq PRN Reason Stop Dose Admin Acetaminophen 650 mg 03/27/22 01:35 Acetaminophen 325 Mg Tablet PO Q4H PRN Mild Pain (1-3) or Fever Hydrocodone Bitart/Acetaminophen 1 tab 03/27/22 01:35 Hydrocodone/Acetaminophen (*Crx) 5-325 Mg Tablet PO Q4H PRN Pain Rated 4-6 Ator
[2022-03-28 12:05] LABS: Glucose Point of Care 105 mg/dl (65-105)
--- NOTE | 2022-03-28 12:37 | PCDIET ---
Patient down to surgery
--- NOTE | 2022-03-28 12:46 | WPDHPUPDATE1 ---
History and Physical Update Update Date/Time: 03/28/22 12:46 History and Physical has been reviewed, including an updated exam of the patient. There are NO changes in the patient's condition. Risks, benefits, and alternatives have been discussed and questions answered. Patient agrees to proceed with procedure. Proceed with cysto with clot evacuation
[2022-03-28] MEDS: LACTATED RINGERS 1,000 ML 30 ML IV CONT (13:00)
--- NOTE | 2022-03-28 13:09 | WPDANESEPPF ---
Anes - Initial Pre Proc Eval Procedure: Operation Date: 03/28/22 12:00 Proposed Procedures p Cystoscopy, Evacuation Bladder Clots - Ronn Pacheco MD Date/Time: 03/28/22 13:09 Surgeon: Merissa Hawkins DO Pre Op Diagnosis: Urinary Retention,UTI,Hematuria Patient Data Age: 72 Gender: M Height: 1.6 m Weight: 67 kg Last Vital Signs Temp 36.7 C 03/28/22 12:54 Pulse 68 03/28/22 12:54 Resp 16 03/28/22 12:54 BP 149/55 H 03/28/22 12:54 Pulse Ox 100 03/28/22 12:54 O2 Del Method Room Air 03/28/22 12:54 Allergies Allergy/AdvReac Type Severity Reaction Status Date / Time No Known Allergies Allergy Verified 03/11/22 05:47 Home Medications Medication Instructions Recorded Confirmed Type multivitamin (Daily Multi-Vitamin 1 tablet PO DAILY 05/02/21 03/27/22 History tablet) atorvastatin 40 mg tablet 40 mg PO QHS 12/13/21 03/27/22 History metformin 500 mg tablet 500 mg PO BID #180 tabs 02/22/22 03/27/22 Rx apixaban 5 mg tablet (Eliquis) 5 mg PO BID 03/27/22 03/27/22 History Laboratory Tests 03/27/22 03/27/22 03/28/22 16:45 20:23 05:16 WBC 13.4 K/mm3 H K/mm3 (4.5-10.0) RBC 3.27 M/mm3 L M/mm3 (4.6-6.20) Hgb 9.2 g/dL L g/dL (14.0-18.0) Hct 27.7 % L % (42.0-52.0) MCV 84.7 fl fl (80-100) MCH 28.1 pg pg (26-34) MCHC 33.2 g/dl g/dl (32-36) RDW 18.6 % H % (11.5-14.5) Plt Count 303 k/mm3 k/mm3 (150-375) MPV 10.3 fl fl (7.4-10.4) Immature Gran % (Auto) 0.4 % % (0-0.5) Neut % (Auto) 58.5 % % (45.5-73.1) Lymph % (Auto) 20.1 % % (18.3-44.2) [place] % (Auto) 5.3 % % (2.6-8.5) Eos % (Auto) 15.1 % H % (0-4.4) Baso % (Auto) 0.6 % % (0.2-1.2) Lymph # (Auto) 2.68 K/mm3 K/mm3 (0.9-3.2) [place] # (Auto) 0.7 K/mm3 H K/mm3 (0.1-0.6) Eos # (Auto) 2.0 K/mm3 H K/mm3 (0-0.3) Baso # (Auto) 0.1 K/mm3 K/mm3 (0.0-0.1) Abs Immat Gran (auto) 0.05 K/mm3 H K/mm3 (0.00-0.031) Absolute Neuts (auto) 7.8 K/mm3 H K/mm3 (1.3-6.7) Absolute Nucleated RBC 0.0 K/mm3 K/mm3 (0.0-0.012) Nucleated RBC % 0.0 % % (0.0-0.2) Sodium Potassium Chloride Carbon Dioxide Anion Gap BUN Creatinine Estim Creat Clear Calc Estimated GFR Glucose POC Capillary Glucose 147 mg/dl H mg/dl 162 mg/dl H mg/dl (65-105) (65-105) Calcium 03/28/22 03/28/22 03/28/22 05:16 08:39 12:02 WBC RBC Hgb Hct MCV MCH MCHC RDW Plt Count MPV Immature Gran % (Auto) Neut % (Auto) Lymph % (Auto) [place] % (Auto) Eos % (Auto) Baso % (Auto) Lymph # (Auto) [place] # (Auto) Eos # (Auto) Baso # (Auto) Abs Immat Gran (auto) Absolute Neuts (auto) Absolute Nucleated RBC Nucleated RBC % Sodium 135 mmol/L L mmol/L (137-145) Potassium 3.9 mmol/L mmol/L (3.4-5.0) Chloride 106 mmol/L mmol/L (98-107) Carbon Dioxide 22 mmol/L mmol/L (22-30) Anion Gap 7 mmol/L L mmol/L (8-16) BUN 10 mg/dL mg/dL (9-20) Creatinine 0.80 mg/dL mg/dL (0.7-1.3) Estim Creat Clear Calc 57 ml/min ml/min Estimated GFR > 60 (59 - ) Glucose 112 mg/dL H mg/dL (65-110) POC Capillary Glucose 118 mg/dl H mg/dl 105 mg/dl mg/dl (65-105) (65-105) Calcium 8.4 mg/dL mg/dL (8.4-10.2) Patient hx anesthesia problems: none Family hx anesthesia problems: none Re
[2022-03-28] MEDS: LIDOCAINE HCL 2% GEL UROJET 10 ML PKG MUCOUS MEM (13:57)
--- NOTE | 2022-03-28 13:59 | W.PM.PROC2 ---
Procedure Note - Detailed Date of Procedure 03/28/22 Pre-op Diagnosis Urinary Retention,UTI,Hematuria, clot retention Post-op Diagnosis Same Procedure Performed Cystoscopy with clot evacuation, fulguration, Hewitt catheter placement Surgeon Ronn Pacheco MD Anesthesia General Findings Approximately 400 cc of clot in the bladder and prostatic fossa. No discrete active bleeder noted at this time but fossa is fulgurated Description of Procedure Patient is taken to the operative suite correctly identified. Once anesthesia was obtained was placed in dorsal lithotomy position prepped draped usual sterile fashion. Twenty-two Romansh scope was inserted. He has numerous clots in the prostatic fossa and bladder. Using a Jaxson syringe we evacuated approximately 400 cc. Reinspection reveals some clot attached to the prostatic fossa area. We used a resectoscope sheath to scrape this off of the area. We then fulgurated using a roller ball. There was good hemostasis at termination procedure. No active bleeders were noted. Bladder had no further clots at the termination procedure. 2% viscous lidocaine was inserted urethra and a 24 three-way was placed with 30 cc in the balloon. This was connected to continuous bladder irrigation. Patient is taken to recovery room stable condition. Urine Output 950 Drains Yes Packing No Pathology None sent Complications No immediate complications Condition Stable Disposition PACU
--- NOTE | 2022-03-28 14:45 | PCWOUND ---
CWON Patient in OR at time of assessment. Will see patient tomorrow to assess left shoulder wound to reapply new wound vac dressing. Spoke with [employer] who will notify patients RN.
[2022-03-28 14:49] LABS: Glucose Point of Care 109 mg/dl (65-105)
[2022-03-28 16:20] LABS: Hematocrit 32.5 % (42.0-52.0); Hemoglobin 10.4 g/dL (14.0-18.0)
[2022-03-28 17:36] LABS: Glucose Point of Care 87 mg/dl (65-105)
[2022-03-28] MEDS: ATORVASTATIN 40 MG TABLET PO (20:07)
[2022-03-28 20:50] LABS: Glucose Point of Care 151 mg/dl (65-105)
[2022-03-29 05:10] LABS: Basophils Absolute Auto 0.1 K/mm3 (0.0-0.1); Basophils Percent Auto 0.7 % (0.2-1.2); Eosinophils Absolute Auto 1.8 K/mm3 (0-0.3); Eosinophils Percent Auto 14.7 % (0-4.4); Hematocrit 27.7 % (42.0-52.0); Immature Granulocyte Absolute 0.04 K/mm3 (0.00-0.031); Immature Granulocyte Percent A 0.3 % (0-0.5); Lymphocytes Absolute Auto 1.98 K/mm3 (0.9-3.2); Lymphocytes Percent Auto 15.9 % (18.3-44.2); Mean Corpuscular HGB Conc 32.5 g/dl (32-36); Mean Corpuscular Hemoglobin 28.6 pg (26-34); Mean Corpuscular Volume 87.9 fl (80-100); Mean Platelet Volume 10.1 fl (7.4-10.4); Monocytes Absolute Auto 0.9 K/mm3 (0.1-0.6); Monocytes Percent Auto 7.3 % (2.6-8.5); Neutrophils Absolute Auto 7.6 K/mm3 (1.3-6.7); Neutrophils Percent Auto 61.1 % (45.5-73.1); Platelet Count Result 288 k/mm3 (150-375); Red Blood Count 3.15 M/mm3 (4.6-6.20); Red Cell Distribution Width 18.6 % (11.5-14.5); White Blood Count 12.4 K/mm3 (4.5-10.0)
[2022-03-29 05:24] LABS: Anion Gap 8 mmol/L (8-16); Blood Urea Nitrogen 10 mg/dL (9-20); Calcium 8.5 mg/dL (8.4-10.2); Carbon Dioxide 24 mmol/L (22-30); Chloride 101 mmol/L (98-107); Estimated CRCL calculation 51 ml/min; Estimated Glomerular Filt Rate > 60; Glucose 100 mg/dL (65-110); Sodium 133 mmol/L (137-145)
[2022-03-29 06:37] VITALS: BP 121/65; PULSE 73; RESP 18; TEMP 36.5; O2SAT 97
[2022-03-29] MEDS: MULTIVITAMINS THERAPEUTIC TAB (*BKC) 1 TABLET PO (08:16)
[2022-03-29 08:49] LABS: Glucose Point of Care 106 mg/dl (65-105)
--- NOTE | 2022-03-29 09:00 | PM.DS ---
DS: Admitting Diagnosis Discharge Date 03/29/22 0900 Admitting Diagnosis Urinary retention, hematuria DS: Discharge Diagnosis Discharge Diagnosis (1) Acute UTI: Code(s): N39.0 - Urinary tract infection, site not specified Status: Acute Assessment and Plan: UA with 3+ leukocytes, 51-75 wbc's, 2+ bacteria, more than 75 RBCs, no nitrates. Antibiotic day3: Rocephin 1 g IV Q 24 hours initiated in ED 03/26/22. Adjust antibiotics per urine culture. urine and blood cultures pending Patient was previously treated with p.o. Cipro times 14 days he reports. This was started on 03/11/2022 (2) Acute on chronic urinary retention: Code(s): R33.9 - Retention of urine, unspecified Status: Acute Assessment and Plan: Hewitt catheter inserted in the emergency department. Urology consulted and appreciate recommendations. (3) Gross hematuria: Code(s): R31.0 - Gross hematuria Status: Acute Assessment and Plan: As above. Urology consulted and appreciate recommendations. CBI per Urology Hold Xarelto 03/28/22 CT Urogram today. H/H trending down 11.9/36.7 to 11.7/35.4 to 9.2/27.7. Repeat H/H at 1400. Transfuse as needed. (4) Type 2 diabetes mellitus without complications: Qualifiers: Diabetes mellitus [facility] insulin use: without terminal computer operator use Qualified Code(s): E11.9 - Type 2 diabetes mellitus without complications Code(s): E11.9 - Type 2 diabetes mellitus without complications Status: Chronic Assessment and Plan: Hold metformin. Continue low-dose aspart sliding scale with meals and Accu-Cheks a.c. HS. Continue hypoglycemic protocol (5) Transient hypotension: Code(s): I95.9 - Hypotension, unspecified Status: Acute Assessment and Plan: Patient had transient hypotension with SBP 60s thought to be secondary to vasovagal event. EKG was obtained during rapid response event in demonstrated QT prolongation with QTC 494. Zofran stopped - to be aware he reportedly has not received any Zofran this study. Patient had also recently been receiving ciprofloxacin p.o. for 14 days, starting on 03/11/2022 Continue telemetry monitoring. Patient does not appear to be on any additional QT prolonging medications. BP stable 140/66, heart rate 78 the patient is tolerating oral intake will saline lock IV fluids for now 03/28/22 Stable BP 141/70 (6) QT prolongation: Code(s): R94.31 - Abnormal electrocardiogram [ECG] [EKG] Status: Acute Assessment and Plan: as above. Monitored on telemetry. 03/28/22 QTc 405 msec. DC telemetry. Hold QT prolonging agents. (7) Pressure ulcer of back: Code(s): L89.109 - Pressure ulcer of unspecified part of back, unspecified stage Status: Chronic Assessment and Plan: Present on admission. this was being managed outpatient by Dr. Monson, General Surgery, and [facility]. Patient had a wound VAC present upon admission. Patient however did not bring the charging cord for his wound VAC. he lives alone and family is not local and is unable to take obtain his manager exchange for him. Wound nurse is not available at this time. wet-to-dry dressing changes b.i.d. until wound VAC can be reapplied by Wound nurse. Continue pressure relief methods DS: Summary Hospital Course Hospital Course: Patient is a 72-year-old male with a past medical history of AFib, cholecystitis, hyperlipidemia, BPH who presented to the ED with complaints of urinary retention. Patient recently had a TURP done on March 06. Patient stated that he started noticing some hematuria and unable to empty his better completely. Urinary catheter was inserted and Urology was consulted. Patient was taken for a clot evacuation. Patient was placed with CBI. Urine is currently clear. Urine culture came back negative for any UTI. Blood cultures are also negative. Patient did h
--- NOTE | 2022-03-29 09:00 | P.DS_ITS ---
DS: Admitting Diagnosis Discharge Date 03/29/22 0900 Admitting Diagnosis Urinary retention, hematuria DS: Discharge Diagnosis Discharge Diagnosis (1) Acute UTI: Code(s): N39.0 - Urinary tract infection, site not specified Status: Acute Assessment and Plan: UA with 3+ leukocytes, 51-75 wbc's, 2+ bacteria, more than 75 RBCs, no nitrates. * Antibiotic day3: Rocephin 1 g IV Q 24 hours initiated in ED 03/26/22. Adjust antibiotics per urine culture. * urine and blood cultures pending * Patient was previously treated with p.o. Cipro times 14 days he reports. This was started on 03/11/2022 (2) Acute on chronic urinary retention: Code(s): R33.9 - Retention of urine, unspecified Status: Acute Assessment and Plan: * Hewitt catheter inserted in the emergency department. * Urology consulted and appreciate recommendations. (3) Gross hematuria: Code(s): R31.0 - Gross hematuria Status: Acute Assessment and Plan: As above. * Urology consulted and appreciate recommendations. * CBI per Urology * Hold Xarelto * 03/28/22 CT Urogram today. H/H trending down 11.9/36.7 to 11.7/35.4 to 9.2/27.7. Repeat H/H at 1400. Transfuse as needed. (4) Type 2 diabetes mellitus without complications: Qualifiers: Diabetes mellitus retirement insulin use: without buttermaker helper use Qualifie d Code(s): E11.9 - Type 2 diabetes mellitus without complications Code(s): E11.9 - Type 2 diabetes mellitus without complications Status: Chronic Assessment and Plan: * Hold metformin. * Continue low-dose aspart sliding scale with meals and Accu-Cheks a.c. HS. * Continue hypoglycemic protocol (5) Transient hypotension: Code(s): I95.9 - Hypotension, unspecified Status: Acute Assessment and Plan: Patient had transient hypotension with SBP 60s thought to be secondary to vasovagal event. * EKG was obtained during rapid response event in demonstrated QT prolongation with QTC 494. * Zofran stopped - to be aware he reportedly has not received any Zofran this study. * Patient had also recently been receiving ciprofloxacin p.o. for 14 days, starting on 03/11/2022 * Continue telemetry monitoring. * Patient does not appear to be on any additional QT prolonging medications. * BP stable 140/66, heart rate 78 the patient is tolerating oral intake will saline lock IV fluids for now * 03/28/22 Stable BP 141/70 (6) QT prolongation: Code(s): R94.31 - Abnormal electrocardiogram [ECG] [EKG] Status: Acute Assessment and Plan: as above. Monitored on telemetry. 03/28/22 QTc 405 msec. DC telemetry. Hold QT prolonging agents. (7) Pressure ulcer of back: Code(s): L89.109 - Pressure ulcer of unspecified part of back, unspecified stage Status: Chronic Assessment and Plan: Present on admission. this was being managed outpatient by Dr. Monson, General Surgery, and [facility]. * Patient had a wound VAC present upon admission. Patient however did not bring the charging cord for his wound VAC. he lives alone and family is not local and is unable to take obtain his ceramics technician for him. Wound nurse is not available at this time. * wet-to-dry dressing changes b.i.d. until wound VAC can be reapplied by Wound nurse. * Continue pressure relief methods DS: Summary Hospital Course Hospital Course: Patient is a 72-year-old male with a past medical history of AFib, cholecystitis, hyperlipidemia, BPH who
--- NOTE | 2022-03-29 10:19 | WPDANESPN ---
Anes - Prog Note Post-Op Date/Time: 03/29/22 08:56 Cardiovascular status: normal Respiratory status: normal Airway patency: baseline Mental status: baseline Post-Op hydration status: normal Vital Signs: Last Vital Signs Temp 97.7 F 03/29/22 06:37 Pulse 73 03/29/22 06:37 Resp 18 03/29/22 06:37 BP 121/65 03/29/22 06:37 Pulse Ox 97 03/29/22 06:37 O2 Del Method Room Air 03/28/22 22:02 O2 Flow Rate 8 03/28/22 14:20 Pain Score (VAS): 0 I/O: Intake & Output 03/28/22 03/29/22 03/29/22 23:59 07:59 15:59 Intake Total 1400 480 Output Total 2900 2000 Balance -1500 -1999 480 Laboratory Tests 03/29/22 05:04 03/29/22 05:04 03/28/22 03/28/22 03/28/22 12:02 14:46 16:15 WBC RBC Hgb 10.4 L Hct 32.5 L MCV MCH MCHC RDW Plt Count MPV Immature Gran % (Auto) Neut % (Auto) Lymph % (Auto) [place] % (Auto) Eos % (Auto) Baso % (Auto) Lymph # (Auto) [place] # (Auto) Eos # (Auto) Baso # (Auto) Abs Immat Gran (auto) Absolute Neuts (auto) Absolute Nucleated RBC Nucleated RBC % Sodium Potassium Chloride Carbon Dioxide Anion Gap BUN Creatinine Estim Creat Clear Calc Estimated GFR Glucose POC Capillary Glucose 105 109 H Calcium 03/28/22 03/28/22 03/29/22 17:20 20:06 05:04 WBC 12.4 H RBC 3.15 L Hgb 9.0 L Hct 27.7 L MCV 87.9 MCH 28.6 MCHC 32.5 RDW 18.6 H Plt Count 288 MPV 10.1 Immature Gran % (Auto) 0.3 Neut % (Auto) 61.1 Lymph % (Auto) 15.9 L [place] % (Auto) 7.3 Eos % (Auto) 14.7 H Baso % (Auto) 0.7 Lymph # (Auto) 1.98 [place] # (Auto) 0.9 H Eos # (Auto) 1.8 H Baso # (Auto) 0.1 Abs Immat Gran (auto) 0.04 H Absolute Neuts (auto) 7.6 H Absolute Nucleated RBC 0.0 Nucleated RBC % 0.0 Sodium Potassium Chloride Carbon Dioxide Anion Gap BUN Creatinine Estim Creat Clear Calc Estimated GFR Glucose POC Capillary Glucose 87 151 H Calcium 03/29/22 03/29/22 05:04 08:36 WBC RBC Hgb Hct MCV MCH MCHC RDW Plt Count MPV Immature Gran % (Auto) Neut % (Auto) Lymph % (Auto) [place] % (Auto) Eos % (Auto) Baso % (Auto) Lymph # (Auto) [place] # (Auto) Eos # (Auto) Baso # (Auto) Abs Immat Gran (auto) Absolute Neuts (auto) Absolute Nucleated RBC Nucleated RBC % Sodium 133 L Potassium 4.0 Chloride 101 Carbon Dioxide 24 Anion Gap 8 BUN 10 Creatinine 0.90 Estim Creat Clear Calc 51 Estimated GFR > 60 Glucose 100 POC Capillary Glucose 106 H Calcium 8.5 Microbiology 03/26/22 22:32 Urine Clean Catch Urine Culture - Final Patient Feedback: Patient satisfied with anesthetic care.
[2022-03-29 11:08] VITALS: BMI 28.8
--- NOTE | 2022-03-29 12:00 | WPDUROPN2 ---
Progress Note: A&P Assessment and Plan (1) Gross hematuria: Code(s): R31.0 - Gross hematuria Status: Acute Assessment and Plan: CBI stopped this morning. If urine remains clear off CBI, ok to discharge home when stable with giron catheter. We will remove his catheter on Sunday in the office. Ok to restart Eliquis Sunday if patient can keep it on hold until after catheter removal. (2) Urinary retention: Code(s): R33.9 - Retention of urine, unspecified Status: Acute Subjective Subjective Date/Time Seen: 03/29/22 12:00 Cystoscopy with Clot Evacuation and Fulgration. The patient is doing very well on slow CBI, urine is clear/yellow and draining to gravity without any difficulty. Post Op day: 1 Review of Systems Cardiovascular: Cardiovascular: Denies chest pain Respiratory: Respiratory: Reports no additional respiratory complaints Gastrointestinal: Gastrointestinal: Denies abdominal pain, Denies nausea and Denies vomiting Genitourinary: Genitourinary: Denies hematuria Exam Const: General: comfortable Resp: Effort & Inspection: normal respiratory effort Cardio: Rate: regular rate GI: GI Palp: Yes Soft to palpation and No Tenderness to palpation present (GI) : General: Yes no CVA tenderness Urinary Catheter: Urinary Catheter: patent and draining and urine clear Objective Data Vital Signs Vital Signs: Vital Signs - 24 hr 03/28/22 12:54 03/28/22 14:05 03/28/22 14:20 Temperature 98.1 F 97.8 F Pulse Rate 68 85 82 Respiratory Rate 16 15 13 Blood Pressure 149/55 H 135/69 142/76 H Pulse Oximetry 100 99 100 Oxygen Delivery Room Air Simple Face Mask Simple Face Mask Oxygen Flow Rate 8 8 03/28/22 14:35 03/28/22 14:40 03/28/22 14:55 Temperature Pulse Rate 88 80 78 Respiratory Rate 13 16 15 Blood Pressure 131/80 148/74 H 134/72 Pulse Oximetry 98 100 98 Oxygen Delivery Room Air Room Air Oxygen Flow Rate 03/28/22 15:10 03/28/22 15:25 03/28/22 20:00 Temperature Pulse Rate 76 75 Respiratory Rate 15 16 Blood Pressure 135/71 138/75 Pulse Oximetry 98 99 Oxygen Delivery Room Air Room Air Room Air Oxygen Flow Rate 03/28/22 22:54 03/28/22 22:02 03/29/22 06:37 Temperature 97.3 F L 97.7 F Pulse Rate 77 73 Respiratory Rate 20 18 Blood Pressure 124/60 121/65 Pulse Oximetry 99 99 97 Oxygen Delivery Room Air Oxygen Flow Rate 03/29/22 08:16 Temperature Pulse Rate Respiratory Rate Blood Pressure Pulse Oximetry Oxygen Delivery Room Air Oxygen Flow Rate Intake/Output Intake/Output: Intake & Output 03/26/22 03/27/22 03/28/22 03/29/22 23:59 23:59 23:59 23:59 Intake Total 6520 1550 480 Output Total 3300 79659 73195 1999 [facility] -[phone] [id number] [id number] [id number] Meds/Results Medications: Active Medications Generic Name Dose Route Start Last Admin Trade Name Freq PRN Reason Stop Dose Admin Acetaminophen 650 mg 03/27/22 01:35 Acetaminophen 325 Mg Tablet PO Q4H PRN Mild Pain (1-3) or Fever Hydrocodone Bitart/Acetaminophen 1 tab 03/27/22 01:35 Hydrocodone/Acetaminophen (*Crx) 5-325 Mg Tablet PO Q4H PRN Pain Rated 4-6 Atorvastatin Calcium 40 mg 03/27/22 21:00 03/28/22 20:07 Atorvastatin 40 Mg Tablet PO 40 mg QHS NUNO Administration Dextrose 12.5 gm 03/27/22 04:19 Dextrose 50% 25 Gm/50 Ml Syringe IV PUSH PRN PRN Hypoglycemia Protocol Fentanyl Citrate 25 mcg 03/28/22 13:11 Fentanyl Citrate Inj (*Crx) 100 Mcg/2 Ml Vial IV PUSH Q2M PRN Pain Glucagon 1 mg 03/27/22 04:19 Glucagon For Inj 1 Mg Vial IM PRN PRN Hypoglycemia Protocol Glucose 15 gm 03/27/22 04:19 Glucose Oral Gel 15 Gm Of Glucse In 37.5 Gm Tube PO PRN PRN Hypoglycemia Protocol Ceftriaxone Sodium/Dextrose 1 gm in 50 mls @ 100 mls/hr 03/27/22 21:00 03/28/22 20:40 Rocephin 1 Gm/D5w 50 Ml IVPB Infused Q24H NUNO Infusion Dextrose
[2022-03-29 12:23] LABS: Glucose Point of Care 154 mg/dl (65-105)
[2022-03-29 14:33] VITALS: BP 119/69; PULSE 79; RESP 16; TEMP 36.6; O2SAT 99
== END 2022-03-29 16:05 | disposition home health service (06) | DRG 717 ==
LOC: ANHED 03-27 00:21 → ANH2MED 03-27 01:46
PROVIDERS: Nurse Practitioner Family; Urology; Admitting Provider Internal Medicine; Emergency Provider Emergency Medicine; PCP Family Medicine; Visit Provider Nurse Practitioner
PROC: 0TCB8ZZ Extirpation of Matter from Bladder, Via Natural or Artificial Opening Endoscopic (ICD-10-PCS; CPT 52001; principal; 2022-03-28 12:00)
DX: N40.1 Benign prostatic hyperplasia with lower urinary tract symptoms (principal); L89.123 Pressure ulcer of left upper back, stage 3; R33.8 Other retention of urine; R31.0 Gross hematuria; E11.9 Type 2 diabetes mellitus without complications; E78.2 Mixed hyperlipidemia; I95.9 Hypotension, unspecified; I48.91 Unspecified atrial fibrillation; I10 Essential (primary) hypertension; R94.31 Abnormal electrocardiogram [ECG] [EKG]; T83.098A Other mechanical complication of other urinary catheter, initial encounter; R55 Syncope and collapse; Z93.59 Other cystostomy status; Z79.84 Long term (current) use of oral hypoglycemic drugs; Z79.01 Long term (current) use of anticoagulants
CPT/HCPCS: 36415; 74178; 80048; 81001; 82948; 85014; 85018; 85025; 85610; 85730; 87040; 87086; 93005; 96361; 96365; 99285; A9270; G0378; J0696; J2001; J2405; J2704; J3010; J7030; J7120; Q9967

== ENCOUNTER 2022-05-15 11:54 | Outpatient (RCR) | payer MEDICARE, OTHER, SELFPAY ==
--- NOTE | 2022-01-13 16:01 | PM.IMCN ---
Assessment and Plan Assessment and plan (1) Decubitus ulcer of left upper back: Code(s): L89.129 - Pressure ulcer of left upper back, unspecified stage Status: Acute Assessment and Plan: Status post complex debridement washout of left upper back decubitus ulcer involving skin, subcutaneous tissue, and muscle Management per General surgery Patient to be discharged with wound VAC and wound care follow-up (2) A-fib: Qualifiers: Atrial fibrillation type: unspecified Qualified Code(s): I48.91 - Unspecified atrial fibrillation Code(s): I48.91 - Unspecified atrial fibrillation Status: Acute Assessment and Plan: Rate is controlled Eliquis held perioperatively. Plan to resume on 01/14/2022 He is not on any rate controlling medications (3) Type 2 diabetes mellitus without complications: Qualifiers: Diabetes mellitus intermediate insulin use: without intermediate use Qualified Code(s): E11.9 - Type 2 diabetes mellitus without complications Code(s): E11.9 - Type 2 diabetes mellitus without complications Status: Acute Assessment and Plan: A1c is 6.4 Continue home metformin (4) Anemia: Code(s): D64.9 - Anemia, unspecified Status: Acute Assessment and Plan: Slight decline in hemoglobin postoperatively May in part be dilutional. No signs/symptoms of blood loss (5) Urinary retention: Code(s): R33.9 - Retention of urine, unspecified Status: Acute Assessment and Plan: Patient with history of urinary retention since October 2021 He follows with Urology Continue with Hewitt catheter HPI Data of Consult Consult date: 01/14/22 Requesting Physician: Marian Monson MD Primary Care Provider: Zbigniew Farris MD Consult Narrative Narrative: Date of service: 01/13/2022 Adolfo Pollack is a 71 year old male with a history of atrial fibrillation on chronic anticoagulation, hypertension, hyperlipidemia, type 2 diabetes mellitus, and BPH with urinary retention and need for chronic Hewitt catheter who is seen in consultation for medical management following debridement of left upper back decubitus ulcer. The patient states that approximately 2-3 months ago he had a fall and she was down on the ground for an extended period of time. He believes this is when he developed an ulcer of his back. This was being managed by a home health nurse and he was not having any issues until about 3 weeks ago when it started draining purulent fluid. He was referred to Wound Care and then ultimately referred to general surgery for surgical intervention. He tolerated the procedure well and has no pain in his back. He denies drainage. He had no issues following anesthesia. No shortness of breath. No nausea or vomiting. He has been tolerating his diet. He is having regular bowel movements and did have a formed bowel movement this morning. He denies fevers or chills. Review of Systems Review of Systems: All systems reviewed & are unremarkable except as noted in HPI and below PMFSH Past Medical History Medical History (Updated 01/14/22 @ 07:36 by Jemima Bowen PA-C) A-fib Cholecystitis (~10/2021) Decubitus ulcer of left upper back Essential (primary) hypertension Mixed hyperlipidemia Type 2 diabetes mellitus without complications Urinary retention due to benign prostatic hyperplasia Surgical History Surgical History (Updated 01/14/22 @ 07:36 by Jemima Bowen PA-C) History of bone graft Left humerus History of umbilical hernia repair 1971 Family History Family History (Updated 01/14/22 @ 07:37 by Jemima Bowen PA-C) Father Hypertension Mother Hypertension Patient's mother is Diabetes mellitus Social History Social History (Updated 01/14/22 @ 07:38 by Jemima Bowen PA-C) Social History: Mr. Pollack lives at home alone. He is mostly independen
[2022-03-01 09:07] VITALS: BMI 29.2
--- NOTE | 2022-03-01 09:51 | WPDWOUNDNOTE ---
Wound Care Note Date/Time: 03/01/22 09:51 History: Pt presents for f/u of L upper back wound. Pt reports wound seems to be healing well c vac therapy. Per home health nursing wound is much smaller. Wound width: 3 cm Wound length: 5 cm Wound depth: .5 mm Drainage: scant, fungal odor Surrounding tissue appearance: fungal rash Tunnelin-2 oclock 8 cm Assessment and Plan Assessment and plan (1) Decubitus ulcer of left upper back: Code(s): L89.129 - Pressure ulcer of left upper back, unspecified stage Status: Acute Assessment and Plan: doing well, will add fungal powder and Flagyl pills crushed to wound, cont vac, f/u 4-6 wks Review of Systems Review of Systems: All systems reviewed & are unremarkable except as noted in HPI and below Exam Const: General: cooperative, comfortable and no acute distress Resp: Auscultation: clear to auscultation bilaterally Cardio: Rate: regular rate Rhythm: regular rhythm GI: Inspection: normal to inspection
--- NOTE | 2022-04-17 12:44 | WPDWOUNDNOTE ---
Wound Care Note Date/Time: 04/17/22 12:44 History: feels good, no acute issues, feels wound is healing well, no s/s infection Wound history: still c vac, but is hard to place Wound width: 2.4 Wound length: 3.2 Wound depth: 0.2 Drainage: minimal serous Surrounding tissue appearance: healthy granulation Tunnelin o'clock 7.7 cm Percentage granulation tissue: 100 Dressings: vac Assessment and Plan Assessment and plan (1) Pressure ulcer of back: Code(s): L89.109 - Pressure ulcer of unspecified part of back, unspecified stage Status: Chronic Assessment and Plan: improved, will discontinue vac at this point, will use Ag rope to hopefully close tunnel, also use mucoprocin ointment Review of Systems Review of Systems: All systems reviewed & are unremarkable except as noted in HPI and below Exam Const: General: cooperative, comfortable and no acute distress Resp: Auscultation: clear to auscultation bilaterally Cardio: Rate: regular rate Rhythm: regular rhythm GI: Inspection: normal to inspection
--- NOTE | 2022-05-15 13:58 | WPDWOUNDNOTE ---
Wound Care Note Date/Time: 05/15/22 13:58 History: no acute issues, still being followed by home health, reports wound seems to be doing ok, no s/s infection Wound width: 1. 8cm Wound length: 2.1 Wound depth: 0.3 Drainage: minimal, serous Surrounding tissue appearance: healthy, granulation Tunnelin cm at 12-1 oclock Percentage granulation tissue: 100 Treatment/Procedures: Ag rope Assessment and Plan Assessment and plan (1) Pressure ulcer of back: Code(s): L89.109 - Pressure ulcer of unspecified part of back, unspecified stage Status: Chronic Assessment and Plan: still c significant tunnel, d/w pt and decision to proceed to OR for operative debridement Review of Systems Review of Systems: All systems reviewed & are unremarkable except as noted in HPI and below Exam Const: General: cooperative, comfortable and no acute distress Resp: Auscultation: clear to auscultation bilaterally Cardio: Rate: regular rate Rhythm: regular rhythm GI: Inspection: normal to inspection Skin: Other: see wound measurements
== END 2022-05-30 23:59 | disposition home or self-care (01) ==
LOC: ANHWOC 11:54
PROVIDERS: PCP Family Medicine; Visit Provider Surgery
DX: L89.129 Pressure ulcer of left upper back, unspecified stage (principal)
CPT/HCPCS: 97605; 99212; 99213; A9270; G0463

== ENCOUNTER 2022-05-25 08:06 | Outpatient (CLI) | payer MEDICARE, OTHER, SELFPAY ==
[2022-05-25 08:47] LABS: Anion Gap 12 mmol/L (8-16); Blood Urea Nitrogen 13 mg/dL (9-20); Carbon Dioxide 25 mmol/L (22-30); Chloride 101 mmol/L (98-107); Estimated Glomerular Filt Rate > 60; Glucose 140 mg/dL (65-110); Potassium 3.7 mmol/L (3.4-5.0); Sodium 138 mmol/L (137-145)
== END 2022-05-25 08:07 | disposition home or self-care (01) ==
LOC: ANHSURGERY 08:11
PROVIDERS: Anesthesiology; PCP Family Medicine; Visit Provider Surgery
DX: E11.9 Type 2 diabetes mellitus without complications (principal); Z01.818 Encounter for other preprocedural examination
CPT/HCPCS: 36415; 80048

== ENCOUNTER 2022-05-30 10:37 | Outpatient (CLI) | payer MEDICARE, OTHER, SELFPAY ==
[2022-05-30 18:27] LABS: Basophils Absolute Auto 0.1 K/mm3 (0.0-0.1); Basophils Percent Auto 0.6 % (0.2-1.2); Eosinophils Absolute Auto 0.3 K/mm3 (0-0.3); Eosinophils Percent Auto 2.4 % (0-4.4); Hematocrit 41.3 % (42.0-52.0); Hemoglobin 13.1 g/dL (14.0-18.0); Immature Granulocyte Absolute 0.04 K/mm3 (0.00-0.031); Immature Granulocyte Percent A 0.4 % (0-0.5); Lymphocytes Absolute Auto 2.31 K/mm3 (0.9-3.2); Lymphocytes Percent Auto 20.4 % (18.3-44.2); Mean Corpuscular HGB Conc 31.7 g/dl (32-36); Mean Corpuscular Volume 91.4 fl (80-100); Mean Platelet Volume 10.7 fl (7.4-10.4); Monocytes Absolute Auto 0.8 K/mm3 (0.1-0.6); Monocytes Percent Auto 7.1 % (2.6-8.5); Neutrophils Absolute Auto 7.9 K/mm3 (1.3-6.7); Neutrophils Percent Auto 69.1 % (45.5-73.1); Platelet Count Result 326 k/mm3 (150-375); Red Blood Count 4.52 M/mm3 (4.6-6.20); Red Cell Distribution Width 16.8 % (11.5-14.5); White Blood Count 11.4 K/mm3 (4.5-10.0)
[2022-05-30 18:36] LABS: Cholesterol 125 mg/dL (0-200); HDL Direct 43 mg/dL; Triglycerides 106 mg/dL (<150)
[2022-05-30 18:47] LABS: LDL Cholesterol Direct 55 mg/dL
== END 2022-05-30 10:38 | disposition home or self-care (01) ==
PROVIDERS: PCP Family Medicine; Visit Provider Nurse Practitioner Family
DX: I10 Essential (primary) hypertension (principal); E78.5 Hyperlipidemia, unspecified
CPT/HCPCS: 36415; 80061; 85025

== ENCOUNTER 2022-06-01 02:16 | Day surgery (SDC) | payer MEDICARE, OTHER, SELFPAY ==
--- NOTE | 2022-05-22 15:05 | PC.NURSE ---
Report to the Outpatient Waiting Room, entrance under the green pavilion located off [facility], at time _1000 on date __06/01/22 . Planned Procedure Time: __1200 . Time changes happen often and if your time is changed the preop area will call you the afternoon before. - You and your visitor will be asked to self-screen and do not enter if you have any COVID symptoms. - We encourage only one visitor and NO visitors under age 16 are allowed at this time. Your visitor will receive communication by the phone number that is given day of service. - The patient visitor is requested to social distance or may leave the building when not with patient due to restrictions. - A mask is required within the hospital. Patients may have clear liquids (water, carbonated beverages, clear teas, apple juice) until 3 hours prior to surgery with a maximum of 20 ounces. - No food from midnight until time of surgery - Infants may have breast milk until 4 hours before surgery, formula 6 hours prior to surgery. - Children will be allowed to drink immediately following surgery. If applicable, please bring a bottle or sippy cup to assist with drinking. Juice, water, soda, and popsicles are readily available. For infants on formula, please bring formula the day of surgery. Pacifiers are allowed. Take the following medications with a SIP of water the morning of surgery: __NONE Medications to discontinue per physician ___PT TO CALL DR TAY REGARDING GRETCHEN ... MULTIVITAMIN 3 DAYS PRE OP Date to take last dose MULTI VITAMIN 05/28/22 Please no make-up, nail french, hairspray, perfume, deodorant, or body powder the day of surgery. No jewelry (including any body piercings) or valuables the day of surgery, leave them at home. Please take a shower or bath the night before, or the morning of, surgery with an antibacterial soap. Wear comfortable, loose fitting clothing. Children are encouraged to wear pajamas. - Jewelry must be removed prior to entering the operating room. Rings and piercings that are not removed may be cut off. - The hospital will not accept responsibility for valuables. - Please leave all valuables, including medications, at home the day of surgery. If you are going home after surgery, a licensed services delivery driver must drive you home. - NO public transportation without another adult. - We recommend that an adult stay with you for 24 hours following discharge. - We also recommend that you do not drive, make important decision, drink alcoholic beverages, or take any drugs that were not prescribed by your health care provider for at least 24 hours after your discharge time. Follow any additional instructions given to you from your surgeon. If you or anyone in your household have experienced Covid symptoms in the past week, please notify your surgeon or the nurse liaison at the phone number below for possible testing. Telephone instructions given to _PATIENT and asked if any additional questions and then verbalized understanding. Patient advised to call surgeon office or pre surgery nurse liaison [phone] if any additional questions.
[2022-05-22 15:13] VITALS: BMI 29.2
[2022-06-01] MEDS: LACTATED RINGERS 1,000 ML 30 ML IV CONT (07:00)
--- NOTE | 2022-06-01 07:58 | WPDANESEPPF ---
Anes - Initial Pre Proc Eval Procedure: Operation Date: 06/01/22 08:30 Proposed Procedures p Debridement of Chronic Left Back Wound - Marian Monson MD Date/Time: 06/01/22 07:58 Surgeon: Marian Monson MD Pre Op Diagnosis: Chronic Left Back Wound Patient Data Age: 72 Gender: M Height: 1.6 m Weight: 73.7 kg Allergies Allergy/AdvReac Type Severity Reaction Status Date / Time No Known Allergies Allergy Verified 06/01/22 07:29 Home Medications Medication Instructions Recorded Confirmed Type multivitamin (Daily Multi-Vitamin 1 tablet PO DAILY 05/02/21 05/30/22 History tablet) metformin 500 mg tablet 500 mg PO BID #180 tabs 02/22/22 05/30/22 Rx apixaban 5 mg tablet (Eliquis) 5 mg PO BID #180 tabs 04/17/22 06/01/22 Rx atorvastatin 40 mg tablet 40 mg PO QHS #90 tabs 05/11/22 05/30/22 Rx Patient hx anesthesia problems: none Family hx anesthesia problems: none Results Review: All pre-operative results and documents have been reviewed as part of the pre-operative evaluation. [facility] Past Medical History Medical History A-fib Cholecystitis (~10/2021) Managed with cholecystostomy tube as the patient's hospital stay was complicated by rhabdomyolysis acute kidney injury AFib RVR Decubitus ulcer of left upper back Essential (primary) hypertension Mixed hyperlipidemia Normal echocardiogram (10/2021) Type 2 diabetes mellitus without complications Urinary retention due to benign prostatic hyperplasia Surgical History Surgical History History of bone graft Left humerus History of umbilical hernia repair 1972 Hx laparoscopic cholecystectomy (~10/2021) Status post excisional debridement (12/2021) Decubitus ulcer of left upper back Family History Family History Father Hypertension Mother Hypertension Patient's mother is Diabetes mellitus Social History Social History Social History: Mr. Pollack lives at home alone. He is mostly independent in his daily activities. He does have Home Health to assist with care. He is retired after working at [employer] for many years. His PCP is Dr. Farris. His surrogate decision maker is his cousin, Estefania. He would like to be a full code. Smoking status: Never smoker Alcohol intake: never Substance use: never Substance use type: does not use Lack of Transportation: No Lack of Food: Never True Current Housing: I Have Housing Concerned About Future Housing: No Difficulty Paying Gas/Electric Bills: No Difficulty Paying for Meds: No Currently Unemployed: No Difficulty w/ Childcare or Family Care: No Living arrangements: alone Gender identity (if verbalized by the patient): Male Spiritual care concerns: No Agree to blood products: Yes Anes - Eval Final PreProcedure Day of Procedure 06/01/22 07:58 Patient weight: overweight Heart: regular rate and rhythm Lungs: clear to auscultation Airway: Mallampati scale class II Neurological: other (alert) Last oral intake: >/= 8 hours ASA classification: III Emergent: no Anesthetic plan: proceed Anesthesia type and monitoring: general GIVS and standard monitoring Results Review: All pre-operative results and documents have been reviewed as part of the pre-operative evaluation. Informed Consent: The patient's anesthetic plan and its attendant risks and benefits were discussed with the patient/family/POA. Questions were solicited and answers provided to the satisfaction of the patient/family/POA.
--- NOTE | 2022-06-01 08:26 | WPDHPUPDATE1 ---
History and Physical Update Update Date/Time: 06/01/22 08:26 History and Physical has been reviewed, including an updated exam of the patient. There are NO changes in the patient's condition. Risks, benefits, and alternatives have been discussed and questions answered. Patient agrees to proceed with procedure.
[2022-06-01] MEDS: ceFAZolin 2 GM/D5W 50 ML 2 GM/50 ML BAG IVPB (08:36)
[2022-06-01] MEDS: BUPIVACAINE/EPINEPHRINE 0.25% 50 ML VIAL 30 ML INFILTRATE (08:48)
[2022-06-01 09:06] VITALS: BP 136/75; PULSE 96; RESP 12; O2SAT 98
--- NOTE | 2022-06-01 09:15 | W.PM.PROC2 ---
Procedure Note - Detailed Date of Procedure 06/01/22 Pre-op Diagnosis Chronic left back wound with tunneling Post-op Diagnosis Same Procedure Performed debridement of chronic left back wound including excision of epithelialized base measuring 10x3x4 cm Surgeon Marian Monson MD Anesthesia MAC and Local Indications 72-year-old male well known to our service with chronic left upper back wound and tunneling Findings chronic left upper back wound with a 7 cm tunnel extending superior, epithelialized tract, no evidence of active infection Description of Procedure The patient was taken to the operating room and placed in the lateral position. After adequate induction MAC anesthesia, the patient was prepped and draped in the normal sterile fashion. A time-out was then done to verify the patient's identity as well as the procedure being performed. I 1st identified the tunnel extending superiorly approximately 7 cm. I then incised the overlying dermis. Once the skin overlying the tunnel was opened, I was able to identify the epithelialized tract. There was no evidence of active infection. I then went ahead and excised the epithelialized tissue to allow healing of the base. This tissue was noted to extend through the subcutaneous tissue and into the underlying muscle. Once completely excised and open, the wound measured a prior 10 by 3 x 4 cm. Wound was then extensively washed out. Sterile dressing was placed. The patient tolerated the procedure and was alert and awake postop. He will be transferred to the recovery room in stable condition. Estimated Blood Loss 5 Packing Yes Pathology None sent Complications No immediate complications Condition Stable Disposition PACU [facility] Billing Surgery - Charge Forward: Surgery Billing
[2022-06-01 09:35] VITALS: BP 134/77; PULSE 81
[2022-06-01 10:05] VITALS: BP 159/79; PULSE 90
[2022-06-01 10:30] VITALS: BP 164/84; PULSE 92
--- NOTE | 2022-06-01 10:38 | SUR.PHASEII ---
RN had to wait for specific orders from Dr. Monson before patient could discharge.
--- NOTE | 2022-06-01 14:40 | SUR.PHASEII ---
1045: Moderate serosanguineous drainage on the blanket noted when patient got up before discharge.
== END 2022-06-01 10:47 | disposition home or self-care (01) ==
PROVIDERS: PCP Family Medicine; Visit Provider Surgery
PROC: (CPT 11043; principal; 2022-06-01 08:30)
DX: L89.129 Pressure ulcer of left upper back, unspecified stage (principal); I48.91 Unspecified atrial fibrillation; E11.9 Type 2 diabetes mellitus without complications; I10 Essential (primary) hypertension; N40.1 Benign prostatic hyperplasia with lower urinary tract symptoms; R33.8 Other retention of urine; E78.2 Mixed hyperlipidemia; Z79.01 Long term (current) use of anticoagulants; Z79.84 Long term (current) use of oral hypoglycemic drugs
CPT/HCPCS: 11043; 11046; A9270; J0690; J2250; J2704; J3010; J7120

== ENCOUNTER 2022-06-19 09:40 | Outpatient (CLI) | payer MEDICARE, OTHER, SELFPAY ==
[2022-06-19 20:14] LABS: Hemoglobin A1C 6.6 % (<5.7)
== END 2022-06-19 09:41 | disposition home or self-care (01) ==
LOC: ANHGOSHLAB 09:42
PROVIDERS: PCP Family Medicine; Visit Provider Family Medicine
DX: E11.9 Type 2 diabetes mellitus without complications (principal)
CPT/HCPCS: 36415; 83036

== ENCOUNTER 2022-08-09 07:40 | Outpatient (RCR) | payer MEDICARE, OTHER, SELFPAY ==
[2022-05-31 00:03] VITALS: BMI 29.2
--- NOTE | 2022-06-14 12:42 | WPDWOUNDNOTE ---
Wound Care Note Date/Time: 06/14/22 12:42 History: opening tunnel in OR and deepithelealized tract, pt reports wound seems to be doing well, denies any acute issues Wound width: 7.5 cm Wound length: 2.5 cm Wound depth: 2.5 cm Drainage: none Surrounding tissue appearance: healthy Tunneling: none Percentage granulation tissue: 100 Treatment/Procedures: silver rope Assessment and Plan Assessment and plan (1) Pressure ulcer of back: Code(s): L89.109 - Pressure ulcer of unspecified part of back, unspecified stage Status: Chronic Assessment and Plan: doing well, cont current dressings, cont home health, f/u 4-6 wks Review of Systems Review of Systems: All systems reviewed & are unremarkable except as noted in HPI and below Exam Resp: Auscultation: clear to auscultation bilaterally Cardio: Rate: regular rate Rhythm: regular rhythm GI: Inspection: normal to inspection
--- NOTE | 2022-07-12 14:09 | WPDWOUNDNOTE ---
Wound Care Note Date/Time: 07/12/22 14:09 History: feels good, no issues with wound, seems to be healing Wound width: 5.5 Wound length: 2 Wound depth: .4 Drainage: no Surrounding tissue appearance: healthy Tunneling: no Percentage granulation tissue: 100 Assessment and Plan Assessment and plan (1) Pressure ulcer of back: Code(s): L89.109 - Pressure ulcer of unspecified part of back, unspecified stage Status: Chronic Assessment and Plan: healing well, cont silver rope, expect full healing soon Review of Systems Review of Systems: All systems reviewed & are unremarkable except as noted in HPI and below Exam Const: General: cooperative, comfortable and no acute distress Resp: Auscultation: clear to auscultation bilaterally Cardio: Rate: regular rate Rhythm: regular rhythm GI: Inspection: normal to inspection
== END 2022-08-25 15:16 | disposition home or self-care (01) ==
LOC: ANHWOC 07:40
PROVIDERS: PCP Family Medicine; Visit Provider Surgery
DX: L89.129 Pressure ulcer of left upper back, unspecified stage (principal)
CPT/HCPCS: 99212; 99213; G0463

== ENCOUNTER 2022-12-21 07:56 | Outpatient (CLI) | payer MEDICARE, OTHER, SELFPAY ==
[2022-12-21 18:41] LABS: Alanine Aminotransferase 28 U/L (6-50); Albumin Level 4.4 g/dL (3.5-5.1); Alkaline Phosphatase 62 U/L (38-126); Anion Gap 7 mmol/L (8-16); Aspartate Amino Transferase 41 U/L (17-59); Bilirubin,Total 0.8 mg/dL (0.2-1.3); Blood Urea Nitrogen 13 mg/dL (9-20); Calcium 8.9 mg/dL (8.4-10.2); Carbon Dioxide 27 mmol/L (22-30); Chloride 101 mmol/L (98-107); Cholesterol 132 mg/dL (0-200); Estimated Glomerular Filt Rate > 60; Glucose 151 mg/dL (65-110); HDL Direct 41 mg/dL; Potassium 4.2 mmol/L (3.4-5.0); Sodium 135 mmol/L (137-145); Triglycerides 182 mg/dL (<150)
[2022-12-21 18:53] LABS: LDL Cholesterol Direct 59 mg/dL
[2022-12-21 19:14] LABS: Prostate Specific Antigen 0.1 ng/mL (< OR = 4.0)
[2022-12-21 19:19] LABS: Creatinine Urine 73.4 mg/dL
[2022-12-21 19:23] LABS: MALB Creatinine Ratio 14.9 mg/g (0-30); Microalbumin Urine Random 10.9 mg/L (0-16.7)
[2022-12-21 19:24] LABS: Basophils Absolute Auto 0.1 K/mm3 (0.0-0.1); Basophils Percent Auto 0.5 % (0.2-1.2); Eosinophils Absolute Auto 0.3 K/mm3 (0-0.3); Eosinophils Percent Auto 3.1 % (0-4.4); Hematocrit 42.3 % (42.0-52.0); Hemoglobin 13.9 g/dL (14.0-18.0); Immature Granulocyte Absolute 0.02 K/mm3 (0.00-0.031); Immature Granulocyte Percent A 0.2 % (0-0.5); Lymphocytes Absolute Auto 2.39 K/mm3 (0.9-3.2); Lymphocytes Percent Auto 23.3 % (18.3-44.2); Mean Corpuscular HGB Conc 32.9 g/dl (32-36); Mean Corpuscular Volume 91.4 fl (80-100); Mean Platelet Volume 10.8 fl (7.4-10.4); Monocytes Absolute Auto 0.8 K/mm3 (0.1-0.6); Monocytes Percent Auto 7.3 % (2.6-8.5); Neutrophils Absolute Auto 6.7 K/mm3 (1.3-6.7); Neutrophils Percent Auto 65.6 % (45.5-73.1); Platelet Count Result 332 k/mm3 (150-375); Red Blood Count 4.63 M/mm3 (4.6-6.20); Red Cell Distribution Width 14.3 % (11.5-14.5); White Blood Count 10.2 K/mm3 (4.5-10.0)
[2022-12-21 19:48] LABS: Hemoglobin A1C 6.8 % (<5.7)
[2022-12-21 19:58] LABS: Vitamin D 25 Hydroxy 39.4 ng/mL
== END 2022-12-21 07:57 | disposition home or self-care (01) ==
LOC: ANHGOSHLAB 07:58
PROVIDERS: PCP Family Medicine; Visit Provider Family Medicine
DX: I48.91 Unspecified atrial fibrillation (principal); E55.9 Vitamin D deficiency, unspecified; E11.9 Type 2 diabetes mellitus without complications; E53.8 Deficiency of other specified B group vitamins; I10 Essential (primary) hypertension; E78.5 Hyperlipidemia, unspecified; Z12.5 Encounter for screening for malignant neoplasm of prostate
CPT/HCPCS: 36415; 80053; 80061; 82043; 82306; 82607; 83036; 84153; 84443; 85025; G0103

== ENCOUNTER 2023-02-21 02:46 | Day surgery (SDC) | payer MEDICARE, OTHER, SELFPAY ==
[2023-02-09 12:41] VITALS: BMI 31.6
--- NOTE | 2023-02-19 20:35 | PM.HPGS ---
History of Present Illness History of Present Illness Consent: Risks, benefits, and alternatives have been discussed and questions answered. Patient agrees to proceed with procedure. Chief complaint: neoplasm screening Narrative: Adolfo Pollack is a 73 year old male who is referred for colon cancer screening. Review of Systems Review of Systems: All systems reviewed & are unremarkable except as noted in HPI and below PMFSH Past Medical History Medical History A-fib (~10/2021) during hospital stay with UTI/sepsis/rhabdomyolysis Cholecystitis (~10/2021) Managed with cholecystostomy tube as the patient's hospital stay was complicated by rhabdomyolysis acute kidney injury AFib RVR Decubitus ulcer of left upper back Essential (primary) hypertension Mixed hyperlipidemia Normal echocardiogram (10/2021) Type 2 diabetes mellitus without complications Urinary retention due to benign prostatic hyperplasia Surgical History Surgical History History of bone graft Left humerus History of umbilical hernia repair 1971 Hx laparoscopic cholecystectomy (~10/2021) Status post excisional debridement (12/2021) Decubitus ulcer of left upper back Family History Family History Father Hypertension Mother Hypertension Patient's mother is Diabetes mellitus Social History Social History Social History: Mr. Pollack lives at home alone. He is mostly independent in his daily activities. He does have Home Health to assist with care. He is retired after working at [employer] for many years. His PCP is Dr. Farris. His surrogate decision maker is his cousin, Estefania. He would like to be a full code. Smoking status: Never smoker Alcohol intake: never Substance use: never Substance use type: does not use Lack of Transportation: No Lack of Food: Never True Current Housing: I Have Housing Concerned About Future Housing: No Difficulty Paying Gas/Electric Bills: No Difficulty Paying for Meds: No Currently Unemployed: No Education: Trade/Vocational Certificate Difficulty w/ Childcare or Family Care: No Living arrangements: alone Occupation/Education: retired Gender identity (if verbalized by the patient): Male Spiritual care concerns: No Agree to blood products: Yes Meds Home Medications and Allergies Home Medications Medication Instructions Recorded Confirmed Type multivitamin (Daily Multi-Vitamin 1 tablet PO DAILY 05/02/21 02/09/23 History tablet) amlodipine 5 mg tablet 5 mg PO DAILY #90 tabs 12/14/22 02/09/23 Rx atorvastatin 40 mg tablet 40 mg PO QHS #90 tabs 12/14/22 02/09/23 Rx metformin 500 mg tablet 500 mg PO BID #180 tabs 12/14/22 02/09/23 Rx metoprolol succinate 25 mg 25 mg PO DAILY #90 tabs 12/14/22 02/09/23 Rx tablet,extended release 24 hr cyanocobalamin (vitamin B-12) 1,000 mcg sublingual DAILY #90 tabs 12/25/22 02/09/23 Rx 1,000 mcg sublingual tablet melatonin 1 mg tablet 1 mg PO DAILY 02/09/23 02/09/23 History Allergies Allergy/AdvReac Type Severity Reaction Status Date / Time No Known Allergies Allergy Verified 02/21/23 08:11 Exam Resp: Auscultation: clear to auscultation bilaterally Cardio: Rate: regular rate Rhythm: regular rhythm GI: GI Palp: Yes Soft to palpation and No Tenderness to palpation present (GI) Assessment and Plan Assessment and plan (1) Colon cancer screening: Code(s): Z12.11 - Encounter for screening for malignant neoplasm of colon Status: Acute Assessment and Plan: Colonoscopy with possible biopsy or polypectomy or cautery or injection of substances.
[2023-02-21 08:12] VITALS: BP 130/67; PULSE 81; RESP 19; TEMP 36.2; O2SAT 99
[2023-02-21] MEDS: LACTATED RINGERS 1,000 ML 150 ML IV CONT (08:25)
[2023-02-21 08:29] LABS: Glucose Point of Care 147 mg/dl (65-105)
--- NOTE | 2023-02-21 09:03 | WPDANESEPPF ---
Anes - Initial Pre Proc Eval Procedure: Operation Date: 02/21/23 09:30 Proposed Procedures p Screening Colonoscopy - Neil Hermosillo MD Date/Time: 02/21/23 09:03 Surgeon: Neil Hermosillo MD Pre Op Diagnosis: neoplasm screening Patient Data Age: 73 Gender: M Height: 1.6 m Weight: 79 kg Last Vital Signs Temp 97.1 F L 02/21/23 08:12 Pulse 81 02/21/23 08:12 Resp 19 02/21/23 08:12 BP 130/67 02/21/23 08:12 Pulse Ox 99 02/21/23 08:12 O2 Del Method Room Air 02/21/23 08:12 Allergies Allergy/AdvReac Type Severity Reaction Status Date / Time No Known Allergies Allergy Verified 02/21/23 08:11 Home Medications Medication Instructions Recorded Confirmed Type multivitamin (Daily Multi-Vitamin 1 tablet PO DAILY 05/02/21 02/09/23 History tablet) amlodipine 5 mg tablet 5 mg PO DAILY #90 tabs 12/14/22 02/09/23 Rx atorvastatin 40 mg tablet 40 mg PO QHS #90 tabs 12/14/22 02/09/23 Rx metformin 500 mg tablet 500 mg PO BID #180 tabs 12/14/22 02/09/23 Rx metoprolol succinate 25 mg 25 mg PO DAILY #90 tabs 12/14/22 02/09/23 Rx tablet,extended release 24 hr cyanocobalamin (vitamin B-12) 1,000 mcg sublingual DAILY #90 tabs 12/25/22 02/09/23 Rx 1,000 mcg sublingual tablet melatonin 1 mg tablet 1 mg PO DAILY 02/09/23 02/09/23 History Laboratory Tests 02/21/23 08:27 POC Capillary Glucose 147 H mg/dl (65-105) Patient hx anesthesia problems: none Family hx anesthesia problems: none Results Review: All pre-operative results and documents have been reviewed as part of the pre-operative evaluation. [facility] Past Medical History Medical History A-fib (~10/2021) during hospital stay with UTI/sepsis/rhabdomyolysis Cholecystitis (~10/2021) Managed with cholecystostomy tube as the patient's hospital stay was complicated by rhabdomyolysis acute kidney injury AFib RVR Decubitus ulcer of left upper back Essential (primary) hypertension Mixed hyperlipidemia Normal echocardiogram (10/2021) Type 2 diabetes mellitus without complications Urinary retention due to benign prostatic hyperplasia Surgical History Surgical History History of bone graft Left humerus History of umbilical hernia repair 1972 Hx laparoscopic cholecystectomy (~10/2021) Status post excisional debridement (12/2021) Decubitus ulcer of left upper back Family History Family History Father Hypertension Mother Hypertension Patient's mother is Diabetes mellitus Social History Social History Social History: Mr. Pollack lives at home alone. He is mostly independent in his daily activities. He does have Home Health to assist with care. He is retired after working at [employer] for many years. His PCP is Dr. Farris. His surrogate decision maker is his cousin, Estefania. He would like to be a full code. Smoking status: Never smoker Alcohol intake: never Substance use: never Substance use type: does not use Lack of Transportation: No Lack of Food: Never True Current Housing: I Have Housing Concerned About Future Housing: No Difficulty Paying Gas/Electric Bills: No Difficulty Paying for Meds: No Currently Unemployed: No Education: Trade/Vocational Certificate Difficulty w/ Childcare or Family Care: No Living arrangements: alone Occupation/Education: retired Gender identity (if verbalized by the patient): Male Spiritual care concerns: No Agree to blood products: Yes Anes - Eval Final PreProcedure Day of Procedure 02/21/23 09:03 Patient weight: obese Heart: regular rate and rhythm Lungs: clear to auscultation Airway: Mallampati scale class II Neurological: alert and oriented Last oral intake: >/= 8 hours ASA classification: III Emergent: no
[2023-02-21 09:44] VITALS: BP 91/53; PULSE 93; RESP 22; O2SAT 98
[2023-02-21 09:54] VITALS: BP 105/66; PULSE 77; RESP 20; O2SAT 100
[2023-02-21 10:04] VITALS: BP 116/75; PULSE 74; RESP 24; O2SAT 99
== END 2023-02-21 10:14 | disposition home or self-care (01) ==
PROVIDERS: PCP Family Medicine; Visit Provider Internal Medicine Gastroenterology
PROC: 0DJD8ZZ Inspection of Lower Intestinal Tract, Via Natural or Artificial Opening Endoscopic (ICD-10-PCS; CPT 45378; principal; 2023-02-21 09:30)
DX: Z12.11 Encounter for screening for malignant neoplasm of colon (principal); K57.30 Diverticulosis of large intestine without perforation or abscess without bleeding; D12.2 Benign neoplasm of ascending colon; I48.91 Unspecified atrial fibrillation; I10 Essential (primary) hypertension; E78.2 Mixed hyperlipidemia; E11.9 Type 2 diabetes mellitus without complications; N40.1 Benign prostatic hyperplasia with lower urinary tract symptoms; R33.8 Other retention of urine; K81.9 Cholecystitis, unspecified; E66.9 Obesity, unspecified; Z68.30 Body mass index [BMI] 30.0-30.9, adult; Z79.84 Long term (current) use of oral hypoglycemic drugs
CPT/HCPCS: 45385; 82948; 88305; J2704; J7120

== ENCOUNTER 2023-06-13 11:05 | Outpatient (CLI) | payer MEDICARE, SELFPAY ==
[2023-06-13 12:04] LABS: Basophils Absolute Auto 0.1 K/mm3 (0.0-0.1); Basophils Percent Auto 0.4 % (0.2-1.2); Eosinophils Absolute Auto 0.4 K/mm3 (0-0.3); Eosinophils Percent Auto 2.2 % (0-4.4); Hemoglobin 14.5 g/dL (14.0-18.0); Immature Granulocyte Absolute 0.14 K/mm3 (0.00-0.031); Immature Granulocyte Percent A 0.8 % (0-0.5); Lymphocytes Absolute Auto 3.05 K/mm3 (0.9-3.2); Lymphocytes Percent Auto 18.2 % (18.3-44.2); Mean Corpuscular Hemoglobin 30.6 pg (26-34); Mean Corpuscular Volume 92.8 fl (80-100); Mean Platelet Volume 9.9 fl (7.4-10.4); Monocytes Absolute Auto 1.2 K/mm3 (0.1-0.6); Monocytes Percent Auto 7.1 % (2.6-8.5); Neutrophils Absolute Auto 11.9 K/mm3 (1.3-6.7); Neutrophils Percent Auto 71.3 % (45.5-73.1); Platelet Count Result 397 k/mm3 (150-375); Red Blood Count 4.74 M/mm3 (4.6-6.20); Red Cell Distribution Width 13.2 % (11.5-14.5); White Blood Count 16.7 K/mm3 (4.5-10.0)
[2023-06-13 12:36] LABS: Hemoglobin A1C 7.1 % (<5.7)
[2023-06-13 19:26] LABS: Alanine Aminotransferase 25 U/L (6-50); Albumin Level 4.1 g/dL (3.5-5.1); Alkaline Phosphatase 63 U/L (38-126); Anion Gap 10 mmol/L (8-16); Aspartate Amino Transferase 35 U/L (17-59); Bilirubin,Total 0.5 mg/dL (0.2-1.3); Blood Urea Nitrogen 12 mg/dL (9-20); Carbon Dioxide 26 mmol/L (22-30); Chloride 97 mmol/L (98-107); Estimated Glomerular Filt Rate > 60; Glucose 133 mg/dL (65-110); Potassium 4.6 mmol/L (3.4-5.0); Sodium 133 mmol/L (137-145)
== END 2023-06-13 11:06 | disposition home or self-care (01) ==
LOC: ANHGOSHLAB 11:07
PROVIDERS: PCP Family Medicine; Visit Provider Family Medicine
DX: E11.9 Type 2 diabetes mellitus without complications (principal); Z00.00 Encounter for general adult medical examination without abnormal findings; I10 Essential (primary) hypertension
CPT/HCPCS: 36415; 80053; 83036; 85025

== ENCOUNTER 2023-06-29 15:02 | Outpatient (CLI) | payer MEDICARE, SELFPAY ==
[2023-06-29 19:31] LABS: Basophils Absolute Auto 0.1 K/mm3 (0.0-0.1); Basophils Percent Auto 0.4 % (0.2-1.2); Eosinophils Absolute Auto 0.2 K/mm3 (0-0.3); Eosinophils Percent Auto 1.4 % (0-4.4); Hematocrit 43.5 % (42.0-52.0); Hemoglobin 14.6 g/dL (14.0-18.0); Immature Granulocyte Absolute 0.11 K/mm3 (0.00-0.031); Immature Granulocyte Percent A 0.7 % (0-0.5); Lymphocytes Percent Auto 19.5 % (18.3-44.2); Mean Corpuscular HGB Conc 33.6 g/dl (32-36); Mean Corpuscular Hemoglobin 30.4 pg (26-34); Mean Corpuscular Volume 90.6 fl (80-100); Mean Platelet Volume 9.5 fl (7.4-10.4); Monocytes Absolute Auto 0.8 K/mm3 (0.1-0.6); Monocytes Percent Auto 4.8 % (2.6-8.5); Neutrophils Absolute Auto 11.7 K/mm3 (1.3-6.7); Neutrophils Percent Auto 73.2 % (45.5-73.1); Platelet Count Result 502 k/mm3 (150-375); Red Cell Distribution Width 13.4 % (11.5-14.5); White Blood Count 15.9 K/mm3 (4.5-10.0)
[2023-06-29 20:21] LABS: Thyroid Stimulating Hormone 0.932 uIU/mL (0.465-4.680)
[2023-07-03 15:53] LABS: Vitamin D 1,25 (OH)2 Total 37 pg/mL (18-72); Vitamin D2 1,25 (OH)2 <8 pg/mL; Vitamin D3 1,25 (OH)2 37 pg/mL
== END 2023-06-29 15:03 | disposition home or self-care (01) ==
PROVIDERS: PCP Family Medicine; Visit Provider Nurse Practitioner Family
DX: R53.83 Other fatigue (principal); E55.9 Vitamin D deficiency, unspecified
CPT/HCPCS: 36415; 82607; 82652; 84443; 85025

== ENCOUNTER 2023-07-10 10:49 | Outpatient (CLI) | payer MEDICARE, SELFPAY ==
[2023-07-10 11:11] LABS: Basophils Absolute Auto 0.1 K/mm3 (0.0-0.1); Basophils Percent Auto 0.7 % (0.2-1.2); Eosinophils Absolute Auto 0.2 K/mm3 (0-0.3); Eosinophils Percent Auto 1.6 % (0-4.4); Hematocrit 43.8 % (42.0-52.0); Immature Granulocyte Absolute 0.08 K/mm3 (0.00-0.031); Immature Granulocyte Percent A 0.6 % (0-0.5); Lymphocytes Absolute Auto 2.05 K/mm3 (0.9-3.2); Lymphocytes Percent Auto 15.1 % (18.3-44.2); Mean Corpuscular HGB Conc 34.2 g/dl (32-36); Mean Corpuscular Hemoglobin 31.1 pg (26-34); Mean Corpuscular Volume 90.9 fl (80-100); Mean Platelet Volume 9.4 fl (7.4-10.4); Monocytes Absolute Auto 0.8 K/mm3 (0.1-0.6); Monocytes Percent Auto 6.1 % (2.6-8.5); Neutrophils Absolute Auto 10.3 K/mm3 (1.3-6.7); Neutrophils Percent Auto 75.9 % (45.5-73.1); Platelet Count Result 331 k/mm3 (150-375); Red Blood Count 4.82 M/mm3 (4.6-6.20); Red Cell Distribution Width 13.9 % (11.5-14.5); White Blood Count 13.6 K/mm3 (4.5-10.0)
[2023-07-10 13:31] LABS: Alanine Aminotransferase 26 U/L (6-50); Albumin Level 4.4 g/dL (3.5-5.1); Alkaline Phosphatase 69 U/L (38-126); Anion Gap 10 mmol/L (8-16); Aspartate Amino Transferase 27 U/L (17-59); Bilirubin,Total 0.5 mg/dL (0.2-1.3); Blood Urea Nitrogen 7 mg/dL (9-20); CRP < 0.5 mg/dL (<1.0); Calcium 9.5 mg/dL (8.4-10.2); Carbon Dioxide 25 mmol/L (22-30); Chloride 101 mmol/L (98-107); Estimated Glomerular Filt Rate > 60; Glucose 146 mg/dL (65-110); Potassium 4.2 mmol/L (3.4-5.0); Sodium 136 mmol/L (137-145)
[2023-07-10 13:41] LABS: Erythrocyte Sedimentation Rate 10 mm/hr (0-20)
[2023-07-18 11:09] LABS: BCR/abl Prior Result Not Given
[2023-07-18 11:55] LABS: BCR/abl P190 Not Detected; BCR/abl P190 Chg YES; BCR/abl P210 Not Detected; BCR/abl P210 Chg YES
== END 2023-07-10 10:50 | disposition home or self-care (01) ==
LOC: ANHLAB 10:52
PROVIDERS: PCP Family Medicine; Visit Provider Internal Medicine Hematology & Oncology
DX: D72.829 Elevated white blood cell count, unspecified (principal)
CPT/HCPCS: 36415; 80053; 81206; 81207; 85025; 85652; 86140; 88184; 88185

== ENCOUNTER 2023-12-28 08:31 | Outpatient (CLI) | payer MEDICARE, SELFPAY ==
[2023-12-28 19:21] LABS: Cholesterol 113 mg/dL (0-200); HDL Direct 34 mg/dL; Triglycerides 159 mg/dL (<150)
[2023-12-28 19:35] LABS: LDL Cholesterol Direct 62 mg/dL
[2023-12-28 19:52] LABS: Hemoglobin A1C 6.7 % (<5.7)
[2023-12-28 19:57] LABS: Prostate Specific Antigen 0.1 ng/mL (< OR = 4.0)
[2023-12-28 20:15] LABS: Iron 86 ug/dL (49-181)
[2023-12-28 20:23] LABS: Percent Iron Saturation 25 % (20-50)
== END 2023-12-28 08:32 | disposition home or self-care (01) ==
PROVIDERS: Nurse Practitioner Family; PCP Family Medicine; Visit Provider Student in an Organized Health Care Education/Training Program
DX: R53.83 Other fatigue (principal); D64.9 Anemia, unspecified; I10 Essential (primary) hypertension; N40.0 Benign prostatic hyperplasia without lower urinary tract symptoms; E11.9 Type 2 diabetes mellitus without complications
CPT/HCPCS: 36415; 80061; 83036; 83540; 83550; 84153

== ENCOUNTER 2024-02-05 20:30 | Emergency (ER) | payer MEDICARE, SELFPAY ==
--- NOTE | ~2024-02-05 | CT_ITS ---
CT of the Abdomen and Pelvis: Indication: Abdominal pain Technique: 2.5 mm axial scans were obtained through the abdomen and pelvis following intravenous adm inistration of 100 cc of Omnipaque 350. Dose reduction technique was used on this scan by utilizing a utomated exposure control and iterative reconstruction technique. The dose-length product (DLP) was 5 75.97 mGy-cm. COMPARISON: 03/28/2022 Findings: Scans through the lung bases are unremarkable. The liver, spleen, pancreas, adrenals and kidneys are within normal limits. Probable small gallstones within a contracted gallbladder. No evidence of aortic aneurysm. No lymphadenopathy. No bowel obstruction or bowel wall thickening. There is no evidence to suggest acute appendicitis. Images through the pelvis were performed. Urinary bladder unremarkable. No pelvic mass seen. No ascit es. Impression: No acute abnormality. Cholelithiasis. Reviewed, dictated and finalized at [facility]. Impression: No acute abnormality. Cholelithiasis.
[2024-02-05 20:42] VITALS: BP 169/81; PULSE 96; RESP 16; TEMP 36.8; O2SAT 100
[2024-02-05 23:17] VITALS: BP 156/86; PULSE 94; RESP 15; O2SAT 97
[2024-02-05 23:19] VITALS: PULSE 84
--- NOTE | 2024-02-05 23:40 | ECG_ITS ---
Test Date: 2024-02-05 23:57:22 Measurements Intervals [place] Rate: 74 P: 28 RI: 165 QRS: -14 QRSD: 114 T: 7 QT: 382 QTc: 425 Interpretive Statements SINUS RHYTHM WITH OCCASIONAL SUPRAVENTRICULAR PREMATURE COMPLEXES INCOMPLETE RIGHT BUNDLE BRANCH BLOCK VOLTAGE CRITERIA FOR LVH BORDERLINE ECG No previous ECG available for comparison Electronically Signed On 02-06-2024 07:25:53 CDT by Harpreet Gonzalez D.O.
--- NOTE | 2024-02-06 00:14 | ED.GENADULT ---
HPI - General Adult General Chief complaint: Unspecified <KINZA Urbano Last Filed: 02/06/24 03:33> Stated complaint: High Bps, abd pain feel like I had a fever <KINZA Urbano Last Filed: 02/06/24 03:33> Time Seen by Provider: 02/05/24 23:40 <KINZA Urbano Last Filed: 02/06/24 03:33> Source: patient <KINZA Urbano Last Filed: 02/06/24 03:33> Mode of arrival: ambulatory <KINZA Urbano Last Filed: 02/06/24 03:33> Limitations: no limitations <KINZA Urbano Last Filed: 02/06/24 03:33> History of Present Illness HPI narrative: Patient is a 74-year-old male who presents the ED with report of abdominal pain, hot flashes. Patient reports around 5:00 p.m. he began feeling unwell. He reported having a mild headache at that time. He took his blood pressure noted to be elevated. He continue to take his blood pressure hourly and states it continued to rise, up to 170 systolic. He then reports he began having hot flashes, felt sweaty like he had a fever. He also reported having some abdominal pain at that time throughout his lower abdomen. He states the abdominal pain has since resolved. He does feel improved currently, but still feels as though his blood pressure is elevated. He is on metoprolol and amlodipine for his blood pressure. He denies chest pain, shortness breath, nausea, vomiting, dizziness, lightheadedness, focal weakness or numbness. No diarrhea or constipation <KINZA Urbano Last Filed: 02/06/24 03:33> Related Data Home medications: Home Medications Medication Instructions Recorded Confirmed multivitamin (Daily Multi-Vitamin 1 tablet PO DAILY 05/02/21 12/20/23 tablet) melatonin 1 mg tablet 1 mg PO DAILY 02/09/23 12/20/23 cholecalciferol (vitamin D3) 50 50 mcg PO DAILY 07/06/23 12/20/23 mcg (2,000 unit) capsule amlodipine 5 mg tablet 5 mg PO DAILY 12/20/23 12/20/23 zinc gluconate 50 mg tablet 50 mg PO DAILY 12/20/23 12/20/23 <Wendi Dai PA-C - Last Filed: 02/06/24 03:33> Allergies/adverse reactions: Allergies Allergy/AdvReac Type Severity Reaction Status Date / Time No Known Allergies Allergy Verified 02/05/24 23:20 <Wendi Dai PA-C - Last Filed: 02/06/24 03:33> Review of Systems Review of Systems: CONSTITUTIONAL: Denies fever, chills, or sweats. CARDIOVASCULAR: Denies chest pain, palpitations, or edema. RESPIRATORY: Denies cough or dyspnea. GASTROINTESTINAL: See HPI MUSCULOSKELETAL: Denies back pain, extremity pain, myalgia. NEUROLOGIC: see HPI. <Wendi Dai PA-C - Last Filed: 02/06/24 03:33> All systems reviewed & are unremarkable except as noted in HPI and below <Wendi Dai PA-C - Last Filed: 02/06/24 03:33> [facility] Past Medical History Medical History: Medical History A-fib (~10/2021) during hospital stay with UTI/sepsis/rhabdomyolysis BPH loc w/o ur obs/LUTS Cholecystitis (~10/2021) Managed with cholecystostomy tube as the patient's hospital stay was complicated by rhabdomyolysis acute kidney injury AFib RVR Decubitus ulcer of left upper back Essential (primary) hypertension Mixed hyperlipidemia Normal echocardiogram (10/2021) Type 2 diabetes mellitus without complications Ulcer of back (~2021) Urinary retention due to benign prostatic hyperplasia (~12/2021) <Wendi Dai PA-C - Last Filed: 02/06/24 03:33> Surgical History Surgical History: Surgical History History of bone graft Left humerus History of umbilical hernia repair 1972 Hx laparoscopic cholecystectomy (~10/2021) Status post excisional debridement (12/2021) Decubitus ulcer of left upper back <Wendi Dai PA-C - Last Filed: 02/06/24 03:33> Family History Family H
[2024-02-06 00:36] LABS: Basophils Absolute Auto 0.1 K/mm3 (0.0-0.1); Basophils Percent Auto 0.6 % (0.2-1.2); Eosinophils Absolute Auto 0.5 K/mm3 (0-0.3); Eosinophils Percent Auto 3.3 % (0-4.4); Hematocrit 44.6 % (42.0-52.0); Hemoglobin 15.5 g/dL (14.0-18.0); Immature Granulocyte Absolute 0.05 K/mm3 (0.00-0.031); Immature Granulocyte Percent A 0.4 % (0-0.5); Lymphocytes Absolute Auto 2.99 K/mm3 (0.9-3.2); Lymphocytes Percent Auto 21.4 % (18.3-44.2); Mean Corpuscular HGB Conc 34.8 g/dl (32-36); Mean Corpuscular Hemoglobin 31.4 pg (26-34); Mean Corpuscular Volume 90.3 fl (80-100); Mean Platelet Volume 9.7 fl (7.4-10.4); Monocytes Absolute Auto 0.9 K/mm3 (0.1-0.6); Monocytes Percent Auto 6.2 % (2.6-8.5); Neutrophils Absolute Auto 9.5 K/mm3 (1.3-6.7); Neutrophils Percent Auto 68.1 % (45.5-73.1); Platelet Count Result 314 k/mm3 (150-375); Red Blood Count 4.94 M/mm3 (4.6-6.20); Red Cell Distribution Width 13.7 % (11.5-14.5); White Blood Count 13.9 K/mm3 (4.5-10.0)
[2024-02-06 00:57] LABS: Alanine Aminotransferase 25 U/L (6-50); Albumin Level 4.9 g/dL (3.5-5.1); Alkaline Phosphatase 75 U/L (38-126); Anion Gap 14 mmol/L (4-12); Aspartate Amino Transferase 26 U/L (17-59); Bilirubin,Total 0.7 mg/dL (0.2-1.3); Blood Urea Nitrogen 11 mg/dL (9-20); Calcium 9.4 mg/dL (8.4-10.2); Carbon Dioxide 22 mmol/L (22-30); Chloride 102 mmol/L (98-107); Estimated CRCL calculation 64 ml/min; Estimated Glomerular Filt Rate > 60; Glucose 127 mg/dL (65-110); Lipase 149 U/L (23-300); Potassium 3.7 mmol/L (3.4-5.0); Sodium 138 mmol/L (137-145)
[2024-02-06 01:00] VITALS: BP 145/78; PULSE 80; RESP 16; O2SAT 98
[2024-02-06] MEDS: SODIUM CHLORIDE 0.9% IV 1,000 ML 999 ML IV CONT (01:59)
[2024-02-06 02:34] LABS: Appearance Urine Clear (Clear); Bilirubin Urine Negative (Negative); Blood Urine Negative (Negative); Color Urine Yellow (Yellow); Glucose Urine UA Negative (Negative); Ketones Urine Negative (Negative); Leukocyte Esterase Ur Negative LEU/UL (Negative); Nitrate Urine Negative (Negative); Protein Urine Negative (Negative); Specific Grav Ur 1.018 (1.001-1.035); Urobilinogen Urine 0.2 mg/dL (<2.0); pH Urine 7.5 (5.0-9.0)
[2024-02-06 02:44] LABS: Add Urine Microscopic? NO
[2024-02-06 03:15] VITALS: BP 148/76; PULSE 82; RESP 18; O2SAT 100
--- NOTE | 2024-02-06 04:50 | PC.NURSE ---
bladder scan performed. 5mL noted VORB per Dr. Ren
[2024-02-06 05:25] VITALS: BP 138/76; PULSE 80; RESP 16; O2SAT 100
== END 2024-02-06 05:25 | disposition home or self-care (01) ==
PROVIDERS: Emergency Provider Physician Assistant; PCP Family Medicine
DX: R10.9 Unspecified abdominal pain (principal); R03.0 Elevated blood-pressure reading, without diagnosis of hypertension; R23.2 Flushing; I48.91 Unspecified atrial fibrillation; N40.0 Benign prostatic hyperplasia without lower urinary tract symptoms; I10 Essential (primary) hypertension; E78.5 Hyperlipidemia, unspecified; E11.9 Type 2 diabetes mellitus without complications
CPT/HCPCS: 36415; 74177; 80053; 81003; 83690; 85025; 93005; 96360; 99284; J7030; Q9967

== ENCOUNTER 2024-06-27 14:05 | Outpatient (CLI) | payer MEDICARE, SELFPAY ==
[2024-06-27 19:08] LABS: Basophils Absolute Auto 0.1 K/mm3 (0.0-0.1); Basophils Percent Auto 0.6 % (0.2-1.2); Eosinophils Absolute Auto 0.4 K/mm3 (0-0.3); Eosinophils Percent Auto 2.9 % (0-4.4); Hematocrit 44.2 % (42.0-52.0); Hemoglobin 14.6 g/dL (14.0-18.0); Immature Granulocyte Absolute 0.04 K/mm3 (0.00-0.031); Immature Granulocyte Percent A 0.3 % (0-0.5); Lymphocytes Absolute Auto 3.08 K/mm3 (0.9-3.2); Lymphocytes Percent Auto 21.6 % (18.3-44.2); Mean Corpuscular Volume 93.8 fl (80-100); Mean Platelet Volume 10.4 fl (7.4-10.4); Monocytes Percent Auto 6.7 % (2.6-8.5); Neutrophils Absolute Auto 9.7 K/mm3 (1.3-6.7); Neutrophils Percent Auto 67.9 % (45.5-73.1); Platelet Count Result 318 k/mm3 (150-375); Red Blood Count 4.71 M/mm3 (4.6-6.20); Red Cell Distribution Width 13.5 % (11.5-14.5); White Blood Count 14.3 K/mm3 (4.5-10.0)
[2024-06-27 19:14] LABS: Alanine Aminotransferase 27 U/L (6-50); Albumin Level 4.3 g/dL (3.5-5.1); Alkaline Phosphatase 65 U/L (38-126); Anion Gap 7 mmol/L (4-12); Aspartate Amino Transferase 38 U/L (17-59); Bilirubin,Total 0.7 mg/dL (0.2-1.3); Blood Urea Nitrogen 14 mg/dL (9-20); Calcium 9.4 mg/dL (8.4-10.2); Carbon Dioxide 29 mmol/L (22-30); Chloride 99 mmol/L (98-107); Cholesterol 114 mg/dL (0-200); Estimated Glomerular Filt Rate > 60; Glucose 118 mg/dL (65-110); HDL Direct 39 mg/dL; Potassium 4.3 mmol/L (3.4-5.0); Sodium 135 mmol/L (137-145); Triglycerides 124 mg/dL (<150)
[2024-06-27 19:20] LABS: Hemoglobin A1C 7.1 % (<5.7)
[2024-06-27 19:25] LABS: LDL Cholesterol Direct 46 mg/dL
[2024-06-27 19:34] LABS: Creatinine Urine 30.8 mg/dL
[2024-06-27 19:40] LABS: Microalbumin Urine Random < 6.0 mg/L (0-16.7)
[2024-06-27 19:41] LABS: MALB Creatinine Ratio < 19.5 mg/g (0-30)
== END 2024-06-27 14:06 | disposition home or self-care (01) ==
LOC: ANHGOSHLAB 14:06
PROVIDERS: PCP Family Medicine; Visit Provider Nurse Practitioner Family
DX: E11.9 Type 2 diabetes mellitus without complications (principal); E78.5 Hyperlipidemia, unspecified; Z00.00 Encounter for general adult medical examination without abnormal findings; I10 Essential (primary) hypertension
CPT/HCPCS: 36415; 80053; 80061; 82043; 83036; 84443; 85025

== ENCOUNTER 2025-03-02 07:52 | Outpatient (CLI) | payer MEDICARE, SELFPAY ==
--- OUTSIDE RECORDS SUMMARY | 2025-03-02 07:57 | XMS_ITS | Clinical Summary ---
Author Organization [facility] Address [address] [place] [address] Care Team Providers Care Corporation Secretary Name Role Phone Zbigniew Farris MD Primary Care Provider Allergies No known active allergies Medications atorvastatin (LIPITOR) 40 mg tablet Take 40 mg by mouth daily. 11/11/2021 Active metFORMIN (GLUCOPHAGE) 500 mg tablet Take 500 mg by mouth 2 times daily. 11/25/2021 Active amLODIPine (NORVASC) 5 mg tablet Take 5 mg by mouth daily. Active metoprolol succinate (TOPROL XL) 25 mg Extended Release 24 hour tablet Take 25 mg by mouth daily. Active multivitamin (DAILY-LEI) tablet Take 1 Tablet by mouth daily. Active Cholecalciferol, Vitamin D3, 50 mcg (2,000 unit) Capsule Take by mouth. Active Active Problems No known active problems Family History Medical History Relation Name Comments Heart Disease Father Heart Disease Mother Relation Name Status Comments Father Mother Social History Tobacco Use Types Packs/Day Years Used Date Smoking Tobacco: Never Smokeless Tobacco: Never Tobacco Cessation:Counseling Given: Not Answered Alcohol Use Standard Drinks/Week Comments Never 0 (1 standard drink = 0.6 oz pur e alcohol) Sex and Gender Information Value Date Recorded Sex Assigned at Not on file Legal Sex Male 8:42 AM EDUCATION ADVISER Gender Identity Not on file Sexual Orientation Not on file Last Filed Vital Signs Vital Sign Reading Time Taken Comments Blood Pressure 151/70 08/08/2023 10:17 AM EDUCATION ADVISER Pulse 88 08/08/2023 10:15 AM EDUCATION ADVISER Temperature 36.1 C (96.9 F) 08/08/2023 10:15 AM EDUCATION ADVISER Respiratory Rate 12 08/08/2023 10:15 AM EDUCATION ADVISER Oxygen Saturation 97% 08/08/2023 10:15 AM EDUCATION ADVISER Inhaled Oxygen Concentration - - Weight 83.9 kg (185 lb) 08/08/2023 10:15 AM EDUCATION ADVISER Height 160 cm (5' 3) 07/10/2023 9:42 AM EDUCATION ADVISER Body Mass Index 32.77 07/10/2023 9:42 AM EDUCATION ADVISER Plan of Treatment Health Maintenance Due Date Last Done Comments DTAP/TDAP/TD VACCINES (1 - Tdap) 02/01/1967 PNEUMOCOCCAL VACCINE 50+ YEARS (1 of 1 - PCV) 02/01/19 98 ZOSTER VACCINE (1 of 2) 02/01/1998 RSV VACCINE (60+ or ) (1 - 1-dose 75+ series) 02/01/2023 INFLUENZA VACCINE (#1) 2025 COLORECTAL SCREENING Discontinued 02/21/2023 Colorectal Cancer Screening Discontinued FIT-DNA Q 3 years Discontinued FIT/FOBT Q 1 year Discontinued Flex Sig/CT Colonography Q 5 years Discontinued Insurance MEDICARE PART A AND B [facility] SUPP Care Teams Corporation Secretary Relationship Specialty Start Date End Date Zbigniew Farris MD [address] [place] [address] PCP - General Family Practice 06/28/23
--- OUTSIDE RECORDS SUMMARY | 2025-03-02 07:57 | XMS_ITS | Clinical Summary ---
Author Organization [facility] Address [address] [place] [address] Care Team Providers Care Excel Vba Developer Name Role Phone Zbigniew Farris MD Primary Care Provider Source Comments [facility],non-owned Affiliates and Associated Physician Practices is amultiple site organization consisting of ambulatory clinics and hospital sitesin [place], [place], [place] and [place]. This disclosure is being madepursuant to the Care Everywhere program and may not contain all information available regarding this patient. Last updated 18.[facility] Allergies No known active allergies Medications * Be aware that medications may not be up to date on this document. Alwaysverify current medications with the patient. amLODIPine (Norvasc) 5 MG tablet Take 1 (one) tablet by mouth once daily Active atorvastatin (Lipitor) 40 MG tablet Take 1 (one) tablet by mouth at bedtime 07/26/2024 Active Cholecalciferol 50 MCG (2000 UT) Take by mouth. Active metFORMIN (Glucophage) 500 MG tablet Take 1 (one) tablet by mouth 2 times daily 09/13/2024 Active metoprolol succinate XL 24hr (Toprol XL) 25 MG tablet Take 1 (one) tablet by mouth once daily Active Multiple Vitamin (Daily Vites) TABS Take 1 (one) tablet by mouth once daily Active Active Problems No known active problems Family History Medical History Relation Name Comments Blindness Neg Hx Glaucoma Neg Hx Macular Degeneration Neg Hx Social History Tobacco Use Types Packs/Day Years Used Date Smoking Tobacco: Never Smokeless Tobacco: Never Tobacco Cessation:Counseling Given: Not Answered Sex and Gender Information Value Date Recorded Sex Assigned at Not on file Legal Sex Male 11:33 AM CDT Gender Identity Not on file Sexual Orientation Not on file Plan of Treatment Upcoming Encounters Date Type Department Care Team (Late st Contact Info) Description 04/21/2025 3:15 PM CDT Office Visit [facility] - Ophthalmology [address], [place] [address] Joseph Lucas MD [facility] DEPT [place] [address] Health Maintenance Due Date Last Done Comments MEDICARE AWV 12 MONTHS 1950 HEPATITIS C SCREENING 01/28/1966 DTAP/TDAP/TD VACCINES (1 - Tdap) 02/01/1967 PNEUMOCOCCAL VACCINE 50+ (1 of 1 - PCV) 02/01/1998 ZOSTER VACCINE (1 of 2) 02/01/1998 Respiratory Syncytial Virus (RSV) Vaccine Pt: or over 60 yrs (1 - 1-dose 75+ series) 02/01/2023 COVID-19 VACCINE ( - 2023-2 5 season) 2024 DEPRESSION SCREENING 07/23/2024 INFLUENZA VACCINE (#1) 2025 HEPATITIS B VACCINE Aged Out No longe r eligible based on patient's age to complete this topic HIB VACCINE Aged Out No longer eligi ble based on patient's age to complete this topic HPV VACCINE Aged Out No longer eligi ble based on patient's age to complete this topic MENINGOCOCCAL (Group B) VACC INE SHARED DECISION-MAKING Aged Out No longer eligibl e based on patient's age to complete this topic MENINGOCOCCAL GROUPS A/C/Y/W VACCINE Aged Out No longer eligible b ased on patient's age to complete this topic Insurance MEDICARE MEDICARE ANTH Care Teams Excel Vba Developer Relationship Specialty Start Date End Date Zbigniew Farris MD [address] [place] [address] PCP - General 01/20/22
--- OUTSIDE RECORDS SUMMARY | 2025-03-02 07:57 | XMS_ITS | Clinical Summary ---
Author Organization [facility] Address [facility] [place] [address] Care Team Providers Care Allergy And Immunology Chief Name Role Phone None, Provider MD Primary Care Provider Unavaila ble Allergies No known active allergies Medications metFORMIN (GLUCOPHAGE) 500 MG tablet Take 500 mg by mouth 2 (two) times daily. 11/25/2021 Active atorvastatin (LIPITOR) 40 MG tablet Take 40 mg by mouth daily. 11/11/2021 Active Multiple Vitamin (MULTIVITAMIN ADULT OR) Take 1 tablet by mouth daily. Active Active Problems Problem Noted Date Diagnosed Date Hypertrophy of prostate with urinary obstruction 03/07/2022 Prostate disorder 03/06/2022 Family History Relation Status Comments Father Mother Social History Tobacco Use Types Packs/Day Years Used Date Smoking Tobacco: Never Smokeless Tobacco: Never Alcohol Use Standard Drinks/Week Comments Not Currently 0 (1 standard drink = 0.6 oz pur e alcohol) Sex and Gender Information Value Date Recorded Sex Assigned at Not on file Legal Sex Male 3:03 PM CDT Gender Identity Not on file Sexual Orientation Not on file Last Filed Vital Signs Vital Sign Reading Time Taken Comments Blood Pressure 130/75 03/07/2022 7:21 AM CDT Pulse 92 03/07/2022 7:21 AM CDT Temperature 36.8 C (98.3 F) 03/07/2022 4:04 AM CDT Respiratory Rate 23 03/07/2022 7:21 AM CDT Oxygen Saturation 94% 03/07/2022 7:21 AM CDT Inhaled Oxygen Concentration - - Weight 71.5 kg (157 lb 10.1 oz) 03/06/2022 8:15 AM CDT Height 160 cm (5' 3) 03/06/2022 8:15 AM CDT Body Mass Index 27.92 03/06/2022 8:15 AM CDT Plan of Treatment Health Maintenance Due Date Last Done Comments Hepatitis C 02/01/1966 DTaP, Tdap and Td Vaccines ( 1 - Tdap) 02/01/1967 Pneumococcal Vaccine: 50+ Ye ars (1 of 1 - PCV) 02/01/1998 Zoster Vaccines (1 of 2) 02/01/1998 Annual Medicare Wellness Visit 02/01/2013 RSV Immunization or 60+ Years (1 - 1-dose 75+ series) 02/01/2023 COVID-19 Vaccine (1 - 2023-2 5 season) 2024 Meningococcal B Vaccine Aged Out No l onger eligible based on patient's age to complete this topic Meningococcal Vaccine Aged Out No mae rina eligible based on patient's age to complete this topic RSV Immunizations Under 20 Months Aged Out No longer eligible based on patient's age to complete this topic Insurance MEDICARE [facility] Advance Directives * Full Code (Latest Code Status on File) Date Activated Date Inactivated Comments 03/06/2022 12:26 PM 03/07/2022 2:06 PM Care Teams Allergy And Immunology Chief Relationship Specialty Start Date End Date None, Provider, PCP - General 03/06/22
--- OUTSIDE RECORDS SUMMARY | 2025-03-02 07:57 | XMS_ITS | Encounter Summary ---
Author Organization [facility] Address [facility] [place] [address] Care Team Providers Care Dietary Aide Teacher Name Role Phone None, Provider Primary Care Provider Unavaila ble Encounter Details Date Type Department Care Team (Late st Contact Info) Description 03/06/2022 Prep for Procedure [facility] Pre-Admission Testing [place], [place] [id number] Ashish Duran MD [address] [place], [place] [id number] Social History Tobacco Use Types Packs/Day Years Used Date Smoking Tobacco: Never Smokeless Tobacco: Never Alcohol Use Standard Drinks/Week Comments Not Currently 0 (1 standard drink = 0.6 oz pur e alcohol) Sex and Gender Information Value Date Recorded Sex Assigned at Not on file Legal Sex Male 3:03 PM CDT Gender Identity Not on file Sexual Orientation Not on file COVID-19 Exposure Response Date Recorded In the last 10 days, have yo u been in contact with someone who was confirmed or suspected to have Coronavirus/COVID-19? No / Unsure 03/06/2022 7:12 AM CDT documented as of this encounter Functional Status * Question Answer Date of Assessment Author Status Do you have serious difficulty walking or climbing stairs? No 03/06/2022 12:42 PM CDT Sana Hernandez RN Active * Question Answer Date of Assessment Author Status Do you have difficulty dressing or bathing? No 03/06/2022 12:42 PM CDT Sana Hernandez RN Active Because of a physical, mental, or emotional condition, do you have difficulty doing errands alone such as visiting a doctor's office or shopping? No 03/06/2022 12:42 PM Sana Carroll RN A ctive * RETIRED Are you deaf or do you have serious difficulty hearing Answer Date of Assessment Author Status No 03/06/2022 12:42 PM CDT Acti ve * RETIRED Are you blind or do you have serious difficulty seeing, even when wearing glasses? Answer Date of Assessment Author Status No 03/06/2022 12:42 PM CDT Acti ve * Do you have serious difficulty walking or climbing stairs? Answer Date of Assessment Author Status No 03/06/2022 12:42 PM Sana Carroll RN Active * Do you have difficulty dressing or bathing? Answer Date of Assessment Author Status No 03/06/2022 12:42 PM Sana Carroll RN Active * Because of a physical, mental, or emotional condition, do you have difficulty doing errands alone such as visiting a doctor's office or shopping? Answer Date of Assessment Author Status No 03/06/2022 12:42 PM Sana Carroll RN Active * Calculated C-SSRS Risk Score (Lifetime/Recent) Answer Date of Assessment Author Status No Risk Indicated 03/06/2022 7:50 AM Opal Michael RN Active * [place]mer Suicide Severity Rating Scale (Screener/Recent Self-Report) Question Answer Date of Assessment Author Status 1. Wish to be (Past 1 Month) No 03/06/2022 7:50 AM Rosalinda Michael RN Acti ve 2. Non-Specific Active Suicidal Thoughts (Past 1 Month) No 03/06/2022 7:50 AM Rosalinda Michael RN Acti ve 6. Suicidal Behavior (Lifetime) No 03/06/2022 7:50 AM Rosalinda Michael RN Acti ve documented as of this encounter Mental Status * Question Answer Entry Date Author Status Because of a physical, mental, or emotional condition, do you have serious difficulty concentrating, remembering, or making decisions? No 03/06/2022 12:42 PM Sana Carroll RN Active * Because of a physical, mental, or emotional condition, do you have serious difficulty concentrating, remembering, or making decisions? Answer Entry Date Author Status No 03/06/2022 12:42 PM CDT Sana Hernandez RN Active documented in this encounter Plan of Treatment Not on file documented as of this encounter Results * CORONAVIRUS (COVID 19) (03/03/2022 9:00 AM CDT) SPEC DESCRIPTION NASAL 03/03/20 10:11 AM CDT [facility] CORONAVIRUS SARS COV 2 PCR (RESP) NEGATIVE NEGATIVE 03/03/2022 8:49 PM CDT [facility] Comment: THE SARS-CoV-2 TEST HAS BEEN AUTHORIZED BY THE FDA UNDER AN EUA FOR USE BY AUTHORIZED LABORATORIES. PERFORMED BY NUCLEIC ACID AMPLIFICATION PCR FIRST TEST NO 03/03/2022 10:11 AM CDT [facility] EMPLOYED IN HEALTHCARE UNKNOWN 03/03/2022 10:11 AM CDT [facility] SYMPTOMATIC DEFINED BY CDC NO 03/03/2022 10:11 AM CDT [facility] HOSPITALIZATION STATUS NO 03/03/2022 10:11 AM CDT [facility] PATIENT IN ICU NO 03/03/2022 10:11 AM CDT [facility] UN[facility] 03/03/2022 10:11 AM CDT [facility] NASAL STRUCTURE / Unknown 03/03/2022 9:00 AM CDT us Ashish Duran MD MICROBIOLOGY - GENERAL OR DERABLES Final Result [facility] [address] [place] [address], [place] [phone] [facility] [address] [place] [address], documented in this encounter Visit Diagnoses Diagnosis BPH with obstruction/lower urinary tract symptoms- Primary Hypertrophy of prostate with urinary obstruction and other lower urinary tract symptoms (LUTS) documented in this encounter Care Teams Dietary Aide Teacher Relationship Specialty Start Date End Date None, Provider, PCP - General 03/06/22 documented as of this encounter
[2025-03-02 13:01] LABS: Hematocrit 43.8 % (42.0-52.0); Hemoglobin 14.7 g/dL (14.0-18.0); Immature Granulocyte Percent A 0.6 % (0-0.5); Lymphocytes Absolute Auto 2.00 K/mm3 (0.9-3.2); Mean Corpuscular HGB Conc 33.6 g/dl (32-36); Mean Corpuscular Hemoglobin 30.9 pg (26-34); Mean Corpuscular Volume 92.0 fl (80-100); Nucleated Red Blood Cells Absolute Auto 0.000 K/mm3 (0.0-0.012); Nucleated Red Blood Cells Perc 0.0 % (0.0-0.2); Platelet Count Result 329 k/mm3 (150-375); Red Blood Count 4.76 M/mm3 (4.6-6.20); White Blood Count 12.8 K/mm3 (4.5-10.0)
[2025-03-02 13:09] LABS: Alanine Aminotransferase 34 U/L (6-50); Albumin Level 4.3 g/dL (3.5-5.1); Alkaline Phosphatase 75 U/L (38-126); Anion Gap 10 mmol/L (4-12); Aspartate Amino Transferase 61 U/L (17-59); Bilirubin,Total 1.0 mg/dL (0.2-1.3); Blood Urea Nitrogen 9 mg/dL (9-20); Calcium 9.2 mg/dL (8.4-10.2); Carbon Dioxide 24 mmol/L (22-30); Chloride 99 mmol/L (98-107); Cholesterol 107 mg/dL (0-200); Estimated Glomerular Filt Rate > 60; Glucose 160 mg/dL (65-110); HDL Direct 34 mg/dL; Magnesium 1.8 mg/dL (1.6-2.3); Potassium 4.1 mmol/L (3.4-5.0); Sodium 133 mmol/L (137-145); Total Protein 7.5 g/dL (6.3-8.2); Triglycerides 126 mg/dL (<150)
[2025-03-02 13:46] LABS: Prostate Specific Antigen 0.2 ng/mL (< OR = 4.0)
[2025-03-02 14:05] LABS: Vitamin B12 586.0 pg/mL (239-931)
[2025-03-02 15:12] LABS: Hemoglobin A1C 7.7 % (<5.7)
[2025-03-02 17:15] LABS: Thyroid Stimulating Hormone Reflex 1.200 uIU/mL (0.465-4.68)
== END 2025-03-02 07:53 | disposition home or self-care (01) ==
LOC: ANHGOSHLAB 07:53
PROVIDERS: PCP Family Medicine; Visit Provider Nurse Practitioner Family
DX: E78.2 Mixed hyperlipidemia (principal); I10 Essential (primary) hypertension; E11.9 Type 2 diabetes mellitus without complications; E55.9 Vitamin D deficiency, unspecified; N40.0 Benign prostatic hyperplasia without lower urinary tract symptoms; Z12.5 Encounter for screening for malignant neoplasm of prostate
CPT/HCPCS: 36415; 80053; 80061; 82306; 82607; 83036; 83735; 84153; 84443; 85025; G0103

== ENCOUNTER 2025-03-09 08:56 | Outpatient (CLI) | payer MEDICARE, SELFPAY ==
--- OUTSIDE RECORDS SUMMARY | 2025-03-09 09:11 | XMS_ITS | Clinical Summary ---
Author Organization [facility] Address [address] [place] [address] Care Team Providers Care Switchboard Operator Helper Name Role Phone Zbigniew Farris MD Primary [...] on file Legal Sex Male 8:42 AM BOOK MENDER Gender Identity Not on file Sexual Orientation Not on file Last Filed Vital Signs Vital Sign Reading Time Taken Comments Blood Pressure 151/70 08/08/2023 10:17 AM BOOK MENDER Pulse 88 08/08/2023 10:15 AM BOOK MENDER Temperature 36.1 C (96.9 F) 08/08/2023 10:15 AM BOOK MENDER Respiratory Rate 12 08/08/2023 10:15 AM BOOK MENDER Oxygen Saturation 97% 08/08/2023 10:15 AM BOOK MENDER Inhaled Oxygen Concentration - - Weight 83.9 kg (185 lb) 08/08/2023 10:15 AM BOOK MENDER Height 160 cm (5' 3) 07/10/2023 9:42 AM BOOK MENDER Body Mass Index 32.77 07/10/2023 9:42 AM BOOK MENDER Plan of Treatment Health Maintenance Due Date [...] Discontinued Insurance MEDICARE PART A AND B [facility] SUPP Care Teams Switchboard Operator Helper Relationship Specialty Start Date End Date Zbigniew Farris MD [address] [place] [address] PCP - General Family Practice 06/28/23
--- OUTSIDE RECORDS SUMMARY | 2025-03-09 09:11 | XMS_ITS | Clinical Summary ---
Author Organization [facility] Address [address] [place] [address] Care Team Providers Care Business Performance Advisor Name Role Phone Zbigniew Farris MD Primary Care Provider Source Comments [facility],non-owned Affiliates and Associated Physician Practices is amultiple site organization consisting of ambulatory clinics and hospital sitesin [place], [place], [place] and [place]. This disclosure is being madepursuant to the Care Everywhere program and may not contain all information available regarding this patient. Last updated 18.[facility] Allergies No known active allergies Medications * [...] Visit [facility] - Ophthalmology [address], [place] [address] Joseph Lucas MD [facility] [facility] DE[place] [address] Health Maintenance Due Date Last [...] topic Insurance MEDICARE MEDICARE ANTH Care Teams Business Performance Advisor Relationship Specialty Start Date End Date Zbigniew Farris MD [address] [place] [address] PCP - General 01/20/22
[2025-03-09 13:44] LABS: MALB Creatinine Ratio 20.5 mg/g (0-30)
== END 2025-03-09 08:57 | disposition home or self-care (01) ==
LOC: ANHGOSHLAB 08:57
PROVIDERS: PCP Nurse Practitioner Family; Visit Provider Nurse Practitioner Family
DX: E11.9 Type 2 diabetes mellitus without complications (principal)
CPT/HCPCS: 82043

== ENCOUNTER 2025-03-12 18:45 | Emergency (ER) | payer MEDICARE, SELFPAY ==
[2025-03-12 18:46] VITALS: BP 185/87; PULSE 93; RESP 16; TEMP 36.9; O2SAT 98
--- OUTSIDE RECORDS SUMMARY | 2025-03-12 18:47 | XMS_ITS | Clinical Summary ---
Author Organization [facility] Address [facility] [place] [address] Care Team Providers Care Choke Setter Name Role Phone None, Provider MD Primary [...] age to complete this topic Insurance MEDICARE [facility] Advance Directives * Full Code (Latest Code Status on File) Date Activated Date Inactivated Comments 03/06/2022 12:26 PM 03/07/2022 2:06 PM Care Teams Choke Setter Relationship Specialty Start Date End Date None, Provider, PCP - General 03/06/22
--- OUTSIDE RECORDS SUMMARY | 2025-03-12 18:47 | XMS_ITS | Encounter Summary ---
Author Organization [facility] Address [facility] [place] [address] Care Team Providers Care Russian Teacher Name Role Phone None, Provider Primary Care Provider Unavaila ble Encounter Details Date Type Department Care Team (Late st Contact Info) Description 03/06/2022 Prep for Procedure [facility] Pre-Admission Testing [place], [place] [id number] Ashish Duran MD [address] [facility]. [place], [place] [id number] Social History Tobacco Use Types Packs/Day Years [...] 7:50 AM Opal Michael RN Active * [place] Suicide Severity Rating Scale (Screener/Recent Self-Report) Question [...] SPEC DESCRIPTION NASAL 03/03/20 10:11 AM CDT [facility] CORONAVIRUS SARS COV 2 PCR (RESP) NEGATIVE NEGATIVE 03/03/2022 8:49 PM CDT [facility] Comment: THE SARS-CoV-2 TEST HAS BEEN AUTHORIZED BY THE FDA UNDER AN EUA FOR USE BY AUTHORIZED LABORATORIES. PERFORMED BY NUCLEIC ACID AMPLIFICATION PCR FIRST TEST NO 03/03/2022 10:11 AM CDT [facility] EMPLOYED IN HEALTHCARE UNKNOWN 03/03/2022 10:11 AM CDT [facility] SYMPTOMATIC DEFINED BY CDC NO 03/03/2022 10:11 AM CDT [facility] HOSPITALIZATION STATUS NO 03/03/2022 10:11 AM CDT [facility] PATIENT IN ICU NO 03/03/2022 10:11 AM CDT [facility] 03/03/2022 10:11 AM CDT [facility] NASAL STRUCTURE / Unknown 03/03/2022 9:00 AM CDT us Ashish Duran MD MICROBIOLOGY - GENERAL OR DERABLES Final Result [facility] [address] [place] [address], [place] [phone] [facility] [address] [place] [address], documented in this encounter Visit Diagnoses Diagnosis BPH with obstruction/lower urinary tract symptoms- Primary Hypertrophy of prostate with urinary obstruction and other lower urinary tract symptoms (LUTS) documented in this encounter Care Teams Russian Teacher Relationship Specialty Start Date End Date None, Provider, PCP - General 03/06/22 documented as of this encounter
--- OUTSIDE RECORDS SUMMARY | 2025-03-12 18:47 | XMS_ITS | Clinical Summary ---
Author Organization [facility] Address [address] [place] [address] Care Team Providers Care Shift Manager Name Role Phone Zbigniew Farris MD Primary [...] on file Legal Sex Male 8:42 AM LEGAL MANAGER Gender Identity Not on file Sexual Orientation Not on file Last Filed Vital Signs Vital Sign Reading Time Taken Comments Blood Pressure 151/70 08/08/2023 10:17 AM LEGAL MANAGER Pulse 88 08/08/2023 10:15 AM LEGAL MANAGER Temperature 36.1 C (96.9 F) 08/08/2023 10:15 AM LEGAL MANAGER Respiratory Rate 12 08/08/2023 10:15 AM LEGAL MANAGER Oxygen Saturation 97% 08/08/2023 10:15 AM LEGAL MANAGER Inhaled Oxygen Concentration - - Weight 83.9 kg (185 lb) 08/08/2023 10:15 AM LEGAL MANAGER Height 160 cm (5' 3) 07/10/2023 9:42 AM LEGAL MANAGER Body Mass Index 32.77 07/10/2023 9:42 AM LEGAL MANAGER Plan of Treatment Health Maintenance Due Date [...] PART A AND B [facility] SUPP Care Teams Shift Manager Relationship Specialty Start Date End Date Zbigniew Farris MD [address] [place] [address] PCP - General Family Practice 06/28/23
--- OUTSIDE RECORDS SUMMARY | 2025-03-12 18:47 | XMS_ITS | Clinical Summary ---
Author Organization [facility] Address [address] [place] [address] Care Team Providers Care Field Service Supervisor Name Role Phone Zbigniew Farris MD Primary Care Provider Source Comments [facility],non-owned Affiliates and Associated Physician Practices is amultiple site organization consisting of ambulatory clinics and hospital sitesin [place], [place], [place] and [place]. This disclosure is being madepursuant to the Care Everywhere program and may not contain all information available regarding this patient. Last updated 18.[facility] Allergies No known active allergies Medications * [...] Visit [facility] [address], [place] [address] Joseph Lucas MD [facility] [facility] [place] [address] Health Maintenance Due Date Last [...] topic Insurance MEDICARE MEDICARE ANTH Care Teams Field Service Supervisor Relationship Specialty Start Date End Date Zbigniew Farris MD [address] [place] [address] PCP - General 01/20/22
--- NOTE | 2025-03-12 18:54 | ECG_ITS ---
Test Date: 2025-03-12 19:05:56 Measurements Intervals [place] Rate: 89 P: 16 AL: 167 QRS: -8 QRSD: 104 T: 10 QT: 361 QTc: 440 Interpretive Statements SINUS RHYTHM WITH SINUS ARRHYTHMIA POSSIBLE LEFT ATRIAL ENLARGEMENT INCOMPLETE RIGHT BUNDLE BRANCH BLOCK DELAYED PRECORDIAL R/S TRANSITION POSSIBLE LEFT VENTRICULAR HYPERTROPHY BORDERLINE ECG Compared to ECG 02/05/2024 23:57:22 NO SIGNIFICANT CHANGE Electronically Signed On 03-13-2025 06:22:38 CDT by Harpreet Gonzalez D.O.
[2025-03-12 19:18] VITALS: BP 172/86; PULSE 92; RESP 15; O2SAT 95
[2025-03-12 19:28] LABS: Hematocrit 41.0 % (42.0-52.0); Hemoglobin 14.1 g/dL (14.0-18.0); Immature Granulocyte Percent A 0.4 % (0-0.5); Lymphocytes Absolute Auto 2.66 K/mm3 (0.9-3.2); Mean Corpuscular HGB Conc 34.4 g/dl (32-36); Mean Corpuscular Hemoglobin 30.8 pg (26-34); Mean Corpuscular Volume 89.5 fl (80-100); Nucleated Red Blood Cells Absolute Auto 0.000 K/mm3 (0.0-0.012); Nucleated Red Blood Cells Perc 0.0 % (0.0-0.2); Platelet Count Result 328 k/mm3 (150-375); Red Blood Count 4.58 M/mm3 (4.6-6.20); White Blood Count 12.1 K/mm3 (4.5-10.0)
[2025-03-12 19:46] LABS: Alanine Aminotransferase 27 U/L (6-50); Albumin Level 4.4 g/dL (3.5-5.1); Alkaline Phosphatase 81 U/L (38-126); Anion Gap 10 mmol/L (4-12); Aspartate Amino Transferase 29 U/L (17-59); Bilirubin,Total 0.4 mg/dL (0.2-1.3); Blood Urea Nitrogen 9 mg/dL (9-20); Calcium 9.1 mg/dL (8.4-10.2); Carbon Dioxide 24 mmol/L (22-30); Chloride 98 mmol/L (98-107); Estimated CRCL calculation 61 ml/min; Estimated Glomerular Filt Rate > 60; Glucose 126 mg/dL (65-110); Magnesium 1.7 mg/dL (1.6-2.3); Potassium 3.8 mmol/L (3.4-5.0); Sodium 132 mmol/L (137-145); Total Protein 7.4 g/dL (6.3-8.2)
--- NOTE | 2025-03-12 19:47 | ED_ITS ---
HPI - General Adult General Chief complaint: Recheck/Abnormal Lab/Rx Stated complaint: high blood pressure, dizziness Time Seen by Provider: 03/12/25 19:08 History of Present Illness HPI narrative: Patient is a 75-year-old male who presents the emergency department this evening complaining of an elevated blood pressure at home. Patient states that he checks his blood sugar pressure every day in the evening and states that it has been normal usually around 140 systolic. Patient states that it has gotten as high as 170's systolic. Denies any additional symptoms or concerns at this time. Related Data Home Medications ?Medication ?Instructions ?Recorded ?Confirmed ?Last Taken ?Type multivitamin (Daily Multi-Vitamin 1 tablet PO DAILY 03/09/25 01/10/22 History tablet) Allergies Allergy/AdvReac Type Severity Reaction Status Date / Time No Known Allergies Allergy Verified 03/09/25 08:05 Review of Systems 2 Review of Systems: All systems are reviewed and are negative unless stated otherwise in the HPI. [facility] Past Medical History Medical History BPH loc w/o ur obs/LUTS Normal echocardiogram (10/2021) Urinary retention due to benign prostatic hyperplasia (~12/2021) Decubitus ulcer of left upper back Cholecystitis (~10/2021) Managed with cholecystostomy tube as the patient's hospital stay was complicated by rhabdomyolysis acute kidney injury AFib RVR Ulcer of back (~2021) A-fib (~10/2021) during hospital stay with UTI/sepsis/rhabdomyolysis Type 2 diabetes mellitus without complications Mixed hyperlipidemia Essential (primary) hypertension Surgical History Surgical History Hx laparoscopic cholecystectomy (~10/2021) Status post excisional debridement (12/2021) Decubitus ulcer of left upper back History of bone graft Left humerus History of umbilical hernia repair 1971 Family History Family History Father Hypertension Mother Hypertension Patient's mother is Diabetes mellitus Social History Social History Social History: Mr. Pollack lives at home alone. He is mostly independent in his daily activities. He does have Home Health to assist with care. He is retired after working at [employer] for many years. His PCP is Dr. Farris. His surrogate decision maker is his cousin, Estefania. He would like to be a full code. Smoking status: Never smoker Alcohol intake: never Substance use: never Substance use type: does not use Lack of Transportation: No Lack of Food: Never True Current Housing: I Have Housing Concerned About Future Housing: No Difficulty Paying Gas/Electric Bills: No Difficulty Paying for Meds: No Currently Unemployed: No Education: Trade/Vocational Certificate Difficulty w/ Childcare or Family Care: No Living arrangements: alone Occupation/Education: retired Gender identity (if verbalized by the patient): Male Spiritual care concerns: No Agree to blood products: Yes Exam 2 Narrative: General: Alert, awake, afebrile, in no acute distress. HEENT: PERRL, no rhinorrhea, no post nasal drip, oropharynx clear. Neck: Trachea midline, no JVD, no lymphadenopathy. Cardiovascular: Regular rate and rhythm, no murmurs, rubs or gallops, no peripheral edema. Respiratory: Clear to auscultation bilaterally, no tachypnea, no wheezing, no rhonchi, no rubs, no respiratory distress. Abdomen: Soft, nontender, nondistended, no rebound, no guarding, no peritoneal signs. Musculoskeletal: No joint swelling or deformity, normal muscle tone. Skin: No rashes or petechia, no signs of infection. Psychiatric: Alert and oriented, normal behavior and judgment for situation. Neurological: Alert and oriented to person, place, and time. Follows all commands. No focal deficits, speech is clear and fluent. Course Vital Signs Vital signs: Vital Signs Temperature 98.4 F 03/12/25 18:46 Pulse Rate 93 03/12/25 18:46 Respiratory Rate 16 03/12/25 18:46 Blood Pressure 185/87 H 03/12/25 18:46 Pulse Oximetry 98 03/12/25 18:46 Oxygen Delivery Room Air 03/12/25 18:46 Temperature 98.4 F 03/12/25 18:46 Pulse Rate 92 03/12/25 19:18 Respiratory Rate 15 03/12/25 19:18 Blood Pressure 172/86 H 03/12/25 19:18 Pulse Oximetry 95 03/12/25 19:18 Oxygen Delivery Room Air 03/12/25 18:46 Medical Decision Making MDM Narrative Medical decision making narrative: The patient was evaluated by myself in the emergency department. History is obtained from patient who is an independent historian and physical exam was performed. External medical records were reviewed at this time. IV was established and pertinent tests were ordered. EKG was obtained which revealed sinus rhythm rate 89 beats per minute, no evidence of acute ischemia. EKG was independently interpreted by me and is currently pending official cardiology read. Laboratory results obtained revealing no acute process. Differential diagnosis considerations include hypertensive urgency versus emergency, acute stress reaction, URI. Comorbidities impacting this visit include history of hypertension. I have evaluated and discussed social determinants of health with the patient that could potentially impact subsequent diagnosis and treatment plans. On repeat assessment of the patient, reevaluation revealed that the patient is doing well and is in no acute distress. Patient symptoms have improved since he arrived to our emergency department. Repeat vital signs were all reviewed and noted to be stable With repeat blood pressure of 142/87 mmHg. Differential diagnosis and treatment plan were discussed with the patient at bedside. Patient agrees with discussion and after shared medical decision making agrees with discharge. All questions were answered to the patient's satisfaction. Patient will follow up with his PCP in 3-5 days. Patient was provided with strict return precautions and instructed to return to the emergency department if any new or worsening symptoms develop. The patient was discharged in stable condition. Vital Signs Vital Signs: Vital Signs Temperature 98.4 F 03/12/25 18:46 Pulse Rate 93 03/12/25 18:46 Respiratory Rate 16 03/12/25 18:46 Blood Pressure 185/87 H 03/12/25 18:46 Pulse Oximetry 98 03/12/25 18:46 Oxygen Delivery Room Air 03/12/25 18:46 Temperature 98.4 F 03/12/25 18:46 Pulse Rate 92 03/12/25 19:18 Respiratory Rate 15 03/12/25 19:18 Blood Pressure 172/86 H 03/12/25 19:18 Pulse Oximetry 95 03/12/25 19:18 Oxygen Delivery Room Air 03/12/25 18:46 Lab Data 03/12/25 19:23 03/12/25 19:23 Labs: Lab Results 03/12/25 03/12/25 Range/Units 19:23 19:40 WBC 12.1 H (4.5-10.0) K/mm3 RBC 4.58 L (4.6-6.20) M/mm3 Hgb 14.1 (14.0-18.0) g/dL Hct 41.0 L (42.0-52.0) % MCV 89.5 (80-100) fl MCH 30.8 (26-34) pg MCHC 34.4 (32-36) g/dl RDW 14.0 (11.5-14.5) % Plt Count 328 (150-375) k/mm3 MPV 9.5 (7.4-10.4) fl Immature Gran % (Auto) 0.4 (0-0.5) % Neut % (Auto) 65.1 (45.5-73.1) % Lymph % (Auto) 21.9 (18.3-44.2) % [place] % (Auto) 8.2 (2.6-8.5) % Eos % (Auto) 3.7 (0-4.4) % Baso % (Auto) 0.7 (0.2-1.2) % Lymph # (Auto) 2.66 (0.9-3.2) K/mm3 [place] # (Auto) 1.0 H (0.1-0.6) K/mm3 Eos # (Auto) 0.5 H (0-0.3) K/mm3 Baso # (Auto) 0.1 (0.0-0.1) K/mm3 Abs Immat Gran (auto) 0.05 H (0.00-0.031) K/mm3 Absolute Neuts (auto) 7.9 H (1.3-6.7) K/mm3 Absolute Nucleated RBC 0.000 (0.0-0.012) K/mm3 Nucleated RBC % 0.0 (0.0-0.2) % Sodium 132 L (137-145) mmol/L Potassium 3.8 (3.4-5.0) mmol/L Chloride 98 (98-107) mmol/L Carbon Dioxide 24 (22-30) mmol/L Anion Gap 10 (4-12) mmol/L BUN 9 (9-20) mg/dL Creatinine 0.83 (0.7-1.3) mg/dL Estim Creat Clear Calc 61 ml/min Estimated GFR > 60 (59 - ) Glucose 126 H (65-110) mg/dL Calcium 9.1 (8.4-10.2) mg/dL Magnesium 1.7 (1.6-2.3) mg/dL Total Bilirubin 0.4 (0.2-1.3) mg/dL AST 29 (17-59) U/L ALT 27 (6-50) U/L Alkaline Phosphatase 81 (38-126) U/L Total Protein 7.4 (6.3-8.2) g/dL Albumin 4.4 (3.5-5.1) g/dL Urine Color Yellow (Yellow) Urine Appearance Cloudy H (Clear) Urine pH 7.5 (5.0-9.0) Ur Specific [place] 1.003 (1.001-1.035) Urine Protein Negative (Negative) mg/dL Urine Glucose (UA) Negative (Negative) mg/dL Urine Ketones Negative (Negative) mg/dL Ur Blood (Man) Negative (Negative) Urine Nitrate Negative (Negative) Urine Bilirubin Negative (Negative) Urine Urobilinogen 0.2 (<2.0) mg/dL Add Ur Microanalysis Reviewed Leukocyte Esterase Rfl 2+ H (Negative) TIFFANY/UL Urine RBC 0-2 (0-2) /hpf Urine WBC 0-5 (0-3) /hpf Ur Squamous Epith Cells None seen (Few) /hpf Urine Bacteria None seen /hpf Urine Casts 0-2 Discharge Plan Discharge Clinical Impression: Essential (primary) hypertension Patient Disposition: Home Condition: Improved Instructions: Antibiotic Form, Hypertension (ED) Additional Instructions: Please follow-up with your family doctor within the next 25 days. You were instructed to maintain a blood pressure log at home by checking your blood pressure twice every day, same time every day in the morning same time every day and night and take this log with you to your next doctor's appointment. Continue taking your blood pressure medications as scheduled. Return to the emergency department if any new or worsening symptoms develop. Patient Language: Micronesian Prescriptions: No Action multivitamin [Daily Multi-Vitamin] Tablet 1 tablet PO DAILY amlodipine 5 mg tablet 5 mg PO DAILY Qty: 90 1RF atorvastatin 40 mg tablet 40 mg PO QHS Qty: 90 1RF cholecalciferol (vitamin D3) 50 mcg (2,000 unit) capsule 50 mcg PO DAILY Qty: 90 1RF cyanocobalamin (vitamin B-12) 1,000 mcg tablet, sublingual 1,000 mcg sublingual DAILY Qty: 90 1RF metoprolol succinate 25 mg tablet extended release 24 hr 25 mg PO DAILY Qty: 90 1RF trazodone 50 mg tablet 50 mg PO QHS PRN (Reason: sleep) Qty: 90 1RF metformin 500 mg tablet 500 mg PO BID Qty: 180 1RF Follow-up/Referrals: Lesly Reich APRN [Primary Care Provider, [facility]] - 3 Days Time of Disposition: 19:53
[2025-03-12 19:57] LABS: Add Urine Microscopic? YES; Appearance Urine Cloudy (Clear); Glucose Urine UA Negative (Negative); Leukocyte Esterase Ur 2+ LEU/UL (Negative); Need Manual Microscopic Reviewed; Nitrate Urine Negative (Negative); Non Pathogenic Casts 0-2; Specific Grav Ur 1.003 (1.001-1.035)
[2025-03-12 20:25] VITALS: BP 142/87; PULSE 84; RESP 18; O2SAT 96
== END 2025-03-12 20:26 | disposition home or self-care (01) ==
LOC: ANHED 20:02
PROVIDERS: Emergency Provider Emergency Medicine; PCP Nurse Practitioner Family
DX: I10 Essential (primary) hypertension (principal); E11.9 Type 2 diabetes mellitus without complications; E78.2 Mixed hyperlipidemia; N40.0 Benign prostatic hyperplasia without lower urinary tract symptoms; Z90.49 Acquired absence of other specified parts of digestive tract; Z79.84 Long term (current) use of oral hypoglycemic drugs; Z79.899 Other long term (current) drug therapy; I45.10 Unspecified right bundle-branch block; R94.31 Abnormal electrocardiogram [ECG] [EKG]
CPT/HCPCS: 36415; 80053; 81001; 83735; 85025; 87086; 93005; 99283